=== PATIENT | male | born 2000 | race Caucasian/White ===

== ENCOUNTER 2019-11-04 13:56 | Outpatient (CLI) | payer OTHER ==
--- NOTE | 2019-11-04 15:06 | ULT ---
TESTICULAR ULTRASOUND WITH DOPPLER: HISTORY: Left testicle neoplasm. COMPARISON: None. TECHNIQUE: Dunne scale, color flow, Doppler imaging with spectral waveform analysis was performed of the left and right testicles. FINDINGS: RIGHT HEMISCROTUM: The right testicle has a homogeneous echotexture. No testicular masses. The right testicle measures 3.1 x 2.0 x 4.2 cm. Right epididymis has a normal echotexture measuring 0.9 x 0.9 cm. No significant fluid in the right hemiscrotum. LEFT HEMISCROTUM: Normal-appearing testicle is not appreciated. There is a complex echotexture mass with calcification s measuring 6.1 x 6.2 x 7.2 cm. Left epididymis is not appreciated. There is a small amount of flui d in the left hemiscrotum. TESTICULAR DOPPLER: There is vascular flow to the right testicle. IMPRESSION: Complex echotexture mass in the left hemiscrotum which is presumed to be of testicular origin. POS: [facility]
== END 2019-11-04 13:57 | disposition home or self-care (01) ==
LOC: SCSULT 13:56
PROVIDERS: ATTEND Urology
DX: D40.12 Neoplasm of uncertain behavior of left testis (principal); N50.89 Other specified disorders of the male genital organs
CPT/HCPCS: 76870; 93976

== ENCOUNTER 2019-11-08 08:30 | Outpatient (CLI) | payer OTHER ==
--- NOTE | 2019-11-08 11:03 | CT ---
EXAM: CT Chest Abd Pelvis W Con PROVIDED CLINICAL HISTORY: Testicular cancer COMPARISON: None FINDINGS: Chest: There are innumerable bilateral hypodense pulmonary nodules and masses. The largest of these measures about 4.6 cm in greatest transverse dimension at the medial aspect of the superior segment of the right lower lobe/posterior segment of right upper lobe straddling the fissure. There is no pleural fluid or pneumothorax apparent. Enlarged prevascular lymph node measuring 11 mm i n short axis. Additional conspicuous by number but not pathologically enlarged mediastinal lymph nodes. No axillary or hilar lymph node enlargement evident. Calcified lymph nodes are seen involving the right hilar region. The airway appears patent and of normal caliber. The heart, pericardium and great vessels appear unremarkable. Abdomen/pelvis: There are multiple hypodensities involving the spleen, which are primarily peripheral and wedge shape d. There is a coarse granulomatous calcification within the central aspects of the spleen as well as somewhat poorly defined round oval foci of diminished attenuation too small to definitively charac terize. There are multiple irregular, primarily peripheral and wedge-shaped areas of hypodensity involving donald th kidneys. There is a indeterminate subcentimeter hypodensity involving the right hepatic lobe (image 59 series 2). The pancreas and adrenal glands appear unremarkable. There is no bowel dilatation, inflammatory fat stranding, free fluid or lymph node enlargement within the abdomen and pelvis. Postoperative changes are seen involving the left inguinal canal and visualized left hemiscrotum. Regional major vascular structures appear unremarkable. Osseous structures: No concerning lytic or blastic lesions are evident. IMPRESSION: 1. Innumerable bilateral pulmonary nodules and masses, compatible with metastatic disease. 2. Multiple subcentimeter hepatic and splenic hypodensities, too small to definitively characterize. Metastatic lesions are not excluded. 3. Wedge-shaped, peripheral areas of diminished attenuation involving each kidney and spleen, suggest ing infarctions.
--- NOTE | 2019-11-08 11:06 | CT ---
CT BRAIN WITHOUT IV CONTRAST: HISTORY: A 19-year-old male with newly diagnosed testicular cancer. The patient had a left orchiectomy. Exam requested to evaluate for intracranial metastatic disease. FINDINGS: There is a 1.8 cm enhancing mass in the posteromedial aspect of the left cerebral hemisphere with adj acent vasogenic edema. Also noted are a 3 small enhancing lesions in the right cerebellar hemisphere measuring up to 6 mm. There is a tiny (4 mm) enhancing focus in the right frontal lobe. A tiny focus of increased enhancement is also seen in the left parietal lobe close to the vertex. No evidence of acute infarct, hemorrhage, midline shift, or abnormal extraaxial fluid collections is seen. The bony calvarium is intact. The visualized paranasal sinuses and mastoid air cells are we ll aerated. IMPRESSION: Findings are consistent with brain metastases. CODE T POS: OFF
[2019-11-08] MEDS ORDERED: Iopamidol 370 76% 100 ML VIAL ONE (14:34)
== END 2019-11-08 08:31 | disposition home or self-care (01) ==
LOC: CT 08:30
PROVIDERS: ATTEND Urology
DX: C62.92 Malignant neoplasm of left testis, unspecified whether descended or undescended (principal); R91.8 Other nonspecific abnormal finding of lung field; K76.89 Other specified diseases of liver; D73.89 Other diseases of spleen; R93.421 Abnormal radiologic findings on diagnostic imaging of right kidney; R93.422 Abnormal radiologic findings on diagnostic imaging of left kidney; R93.89 Abnormal findings on diagnostic imaging of other specified body structures
CPT/HCPCS: 70470; 71260; 74177; Q9967

== ENCOUNTER 2019-11-18 05:57 | Day surgery (SDC) | payer OTHER ==
[2019-11-17 11:47] VITALS: BMI 27.7
[2019-11-18] MEDS ORDERED: PHENYLEPHRINE-NS 100 MCG/ML 10 ML SYRINGE ONE (06:34)
[2019-11-18] MEDS ORDERED: Lidocaine 2% PF 5 ML VIAL ONE (06:46)
[2019-11-18] MEDS ORDERED: Bupivacaine PF 0.5% 30 ML VIAL ONE (06:46)
[2019-11-18] MEDS ORDERED: Lidocaine 1% w/Epinephrine 1:100K 20 ML VIAL ONE (06:46)
[2019-11-18] MEDS ORDERED: Ondansetron PF 4 MG/2 ML Vial ONE ×2 (06:56→10:02)
[2019-11-18] MEDS ORDERED: Midazolam HCl 2 mg/2 ml Vial ONE ×2 (06:59→07:15)
[2019-11-18] MEDS ORDERED: Fentanyl 100 MCG/2 ML VIAL ONE (06:59)
--- NOTE | 2019-11-18 09:14 | RAD ---
CHEST 1 VIEW: Date: 11/18/2019 INDICATION: History of MediPort placement. COMPARISON: CT of chest, abdomen, and pelvis dated 11/08/2019. FINDINGS: Bilateral pulmonary metastatic lesions are stable appearing. No pleural effusion or pneumothorax evid ent. There is a right subclavian chest wall port in place. Tip of the port catheter projects in the S VC. No pneumothorax is evident. Osseous structures reveal no acute abnormality. IMPRESSION: 1. Stable bilateral pulmonary metastatic disease. 2. New right subclavian chest wall port with tip of catheter projecting in region of SVC. No pneumot horax is demonstrated. POS: [facility]
[2019-11-18] MEDS ORDERED: PROPOFOL 200 MG/20 ML VIAL ONE (10:02)
[2019-11-18] MEDS ORDERED: Lidocaine 1% PF 5 ML VIAL ONE (10:02)
[2019-11-18] MEDS ORDERED: Dexamethasone 20 MG/5 ML VIAL ONE (10:02)
--- NOTE | 2019-11-18 10:05 | OP ---
DATE OF PROCEDURE: 11/18/2019 PREOPERATIVE DIAGNOSIS: Testicular cancer, metastatic, in need of an antineoplastic chemotherapy access. POSTOPERATIVE DIAGNOSIS: Testicular cancer, metastatic, in need of an antineoplastic chemotherapy access. PROCEDURE PERFORMED: Right subclavian vein PowerPort, low-profile. ANESTHESIA: Intravenous sedation with local of 0.5% Marcaine 30 mL mixed with 1% Xylocaine with epinephrine 20 mL, fluoroscopy used. DESCRIPTION OF PROCEDURE: The patient was taken to the operating room, where in supine position and under intravenous sedation, the chest and neck were clipped of hair, prepared with ChloraPrep and draped in routine fashion. Local anesthetic was infiltrated in the skin and subcutaneous tissue about the operative site. Infraclavicular approach used to cannulate the right subclavian vein with trocar catheter, threading the J-wire, removing the trocar catheter, making skin incision and carrying down through skin and subcutaneous tissue, creating a subcutaneous pocket, using cautery for hemostasis. Dilator and Peel-Away sheath placed over the J-wire into the superior vena cava. Dilator and J-wire removed, catheter placed through the Peel-Away sheath. Peel-Away sheath removed fluoroscopically. Tip of the catheter placed in optimal position in the superior vena cava and catheter tailored to length, connected to the MediPort. MediPort placed in subcutaneous pocket, secured with 2 interrupted suture of 3-0 Prolene, subcutaneous tissue was approximated with 3-0 Monocryl, skin with subdermal 4-0 Monocryl, and Stuckey glue applied. MediPort accessed with a Evans needle, aspirated blood, flushed with heparinized saline solution. Final fluoroscopic images revealed good MediPort placement. Job ID: [id number]
--- NOTE | 2019-11-23 12:06 | HP ---
DISCUSSION: Victor Hugo Heller is a 19-year-old male with metastatic testicular cancer, need of chemotherapy access. Dr. Brown is his oncologist. He has brain metastasis. He has starting chemotherapy and radiation. He is followed by [facility]. He states he had a syncopal episode, was examined in the family practice residency, discovered to have testicular mass, and has undergone orchiectomy. MEDICATIONS: 1. Dexamethasone 4 mg a day. 2. Hydrocodone p.r.n. pain. 3. Ibuprofen as needed. 4. Omeprazole daily. PAST SURGICAL HISTORY: Orchiectomy. PAST MEDICAL HISTORY: Metastatic testicular cancer. REVIEW OF SYSTEMS: Noncontributory. PHYSICAL EXAMINATION: VITAL SIGNS: 231 pounds, 6 feet 4 inches, 28 BMI. Blood pressure 115/85, pulse 122, temperature 94 degrees. HEAD, EARS, EYES, NOSE, AND THROAT: Unremarkable. LUNGS: Clear to auscultation. CARDIAC: Regular rate and rhythm without murmur or gallop. ABDOMEN: Soft and nontender. EXTREMITIES: Unremarkable. ASSESSMENT AND PLAN: Metastatic testicular cancer, in need of chemotherapy access. We will plan placement of a MediPort, IV sedation, local anesthesia, outpatient. He understands risks and benefits and consents. Job ID: [id number]
== END 2019-11-18 09:08 | disposition home or self-care (01) ==
LOC: SDC 05:57 → MERGE 05:57 → SDC 09:08
PROVIDERS: ATTEND Specialist
PROC: 02HV33Z Insertion of Infusion Device into Superior Vena Cava, Percutaneous Approach (ICD-10-PCS; principal; 2019-11-18)
PROC: B5181ZA Fluoroscopy of Superior Vena Cava using Low Osmolar Contrast, Guidance (ICD-10-PCS; principal; 2019-11-18)
DX: C62.90 Malignant neoplasm of unspecified testis, unspecified whether descended or undescended (principal); C79.31 Secondary malignant neoplasm of brain; Z79.899 Other long term (current) drug therapy; Z90.79 Acquired absence of other genital organ(s); Z79.52 Long term (current) use of systemic steroids
CPT/HCPCS: 71045; C1788; J0690; J1100; J1642; J2001; J2250; J2405; J2704; J3010; S0020

== ENCOUNTER 2019-11-22 08:40 | Inpatient (IN) | payer OTHER ==
[2019-11-22] MEDS ORDERED: Ondansetron PF 4 MG/2 ML Vial ONE (09:16)
[2019-11-22 09:30] LABS: Hemoglobin 8.4 g/dL (14.0-18.0); Mean Corpuscular HGB CONC 33.3 g/dL (32.0-36.0); Mean Corpuscular Hemoglobin 27.1 pg (27.0-31.0); Mean Corpuscular Volume 81.5 fL (78.0-98.0); Mean Platelet Volume 7.9 fL (7.4-10.4); Platelet Count 181 thou/uL (130-400); White Blood Cell (WBC) Count 29.2 thou/uL (4.8-10.8)
[2019-11-22 09:32] LABS: INR-International Normal Ratio 1.1; Prothrombin Time 13.9 SEC (12.0-14.7)
--- NOTE | 2019-11-22 09:33 | CT ---
Head CT without contrast 11/22/2019: COMPARISON: 11/08/2019 HISTORY: Metastatic testicular cancer, history of intracranial metastatic disease, worsening left-florence ed weakness, blurred vision TECHNIQUE: Axial CT imaging at 5 mm intervals from vertex through skull base without contrast FINDINGS: Imaged paranasal sinuses and mastoid air cells are well-aerated. No displaced calvarial fra cture. There is a hemorrhagic lesion within the occipital lobe posteriorly on the left measuring 3 cm with s ignificant surrounding vasogenic edema. This lesion has grown when compared to the prior study at which time it measured approximately 1.8 cm. There is a small hyperdense hemorrhagic lesion within th e right frontal region on image 24 measuring 4 mm, stable. 2-3 new foci of intra-axial hemorrhage noted in the posterior left frontal lobe near the vertex with prominent surrounding vasogenic edema. This includes a hemorrhagic lesion measuring 2 cm on axial image 22. A second hemorrhagic focus is noted posterior to this on image 22 measuring 1.6 cm. There m ay be a third lesion further superiorly on axial image 26 within the left frontal region. There is a hemorrhagic lesion within the right posterior parietal lobe measuring 1.7 cm which appears new when compared to the prior exam. The prior study demonstrated multiple small lesions within the right cerebellar hemisphere. On this e xamination disease within the right cerebellar hemisphere is more conspicuous, with significant vasogenic edema and a underlying hemorrhagic lesion measuring at least 1.7 cm on axial image 11, prev iously measuring in the 5-6 mm range. There is a subtle hypodense lesion within the left cerebellar hemisphere measuring 7 mm, not discrete ly visualized on the prior exam. Secondary to the intracranial metastatic disease and associated vasogenic edema on the left there is left to right midline shift which measures approximately 5-6 mm at the axial level of the third ventricle. IMPRESSION: Interval progression of hemorrhagic intracranial metastatic disease with interval enlarge ment and/or development of intracranial hemorrhagic metastatic disease as described above. The degree of vasogenic edema on the left results in left to right midline shift as detailed above. Results discussed with Dr. Andrew at approximately 9:22 AM 11/22/2019.
[2019-11-22] MEDS ORDERED: Dexamethasone 10 MG/ML VIAL ONE (09:34)
[2019-11-22 09:38] LABS: PTT 21.7 SEC (22.9-36.1)
[2019-11-22 09:44] LABS: ALT (SGPT) 50 U/L (8-55); AST (SGOT) 46 U/L (5-34); Albumin 3.2 g/dL (3.5-5.0); Alkaline Phosphatase 84 U/L (40-110); Anion Gap 15 mmol/L (10-20); BUN (Urea Nitrogen) 28 mg/dL (8.9-20.6); Bilirubin, Total 0.7 mg/dL (0.2-1.2); Calc. Creatinine Clearance 0 mL/min (70-130); Calcium 8.4 mg/dL (7.8-10.44); Carbon Dioxide 19 mmol/L (22-29); Chloride 104 mmol/L (98-107); Estimated GFR-MDRD Greater than 90; Globulin 2.4 g/dL (2.4-3.5); Glucose 119 mg/dL (70-105); Potassium 3.5 mmol/L (3.5-5.1); Protein, Total 5.6 g/dL (6.0-8.3); Sodium 134 mmol/L (136-145)
[2019-11-22 09:48] LABS: Band 11 % (5-11); Lymphocytes 17 % (21-51); MDiff Complete? YES; Metamyelocyte 3 % (0-0); Monocytes 9 % (0-10); Myelocyte 3 % (0-0); Neutrophil 57 % (42-75); Platelet Morphology Comment Appears Adequate; Polychromasia SLIGHT = 2-3 cells (100X) (0-2/hpf)
--- NOTE | 2019-11-22 11:14 | PDOC.FPRHP ---
- History of Present Illness Chief Complaint: left sided weakness History of Present Illness: Vitcor Hugo Heller is a 19 year old M with PMH of recently diagnosed left testicular cancer s/p orchietomy who presents to the ED after onset of left upper extremity weakness and nausea. Was diagnosed with testicular cancer in late october after noticing left testicular enlargement over the last 2 months. He had orchietomy performed in early November. Had associated weakness and hemoptysis /chronic cough over the last month. CT from early November showed metastatic disease with numerous nodules in lung as well as lesions in brain/liver/spleen. He had right subclavian vein port placement on about 5 days ago. He has been taking dexamethasone 4 mg q6hr at home. He has been seen by Dr. Brown and was at his office this morning when left upper extremity weakness began. He went to ED where CT brain was performed showing interval progression of hemorrhagic intracranial metastatic disease with interval enlargement L to R midline shift due to vasogenic edema. In the ED, he was given zofran for nausea, decadron and 1 L NS. Neurosurgery PA was consulted from ED as well as Dr. Brown, Onc. - Allergies/Adverse Reactions Allergies Allergy/AdvReac Type Severity Reaction Status Date / Time No Known Allergies Allergy Verified 11/17/19 11:47 - Home Medications Medication Instructions Recorded Confirmed Type Dexamethasone 4 mg PO Q6HR 11/17/19 11/17/19 History HYDROcodone Bit/APAP 10/325 [[place] 1 tab PO Q6HR PRN 11/17/19 11/17/19 History 10/325] Ibuprofen 800 mg PO QID PRN 11/17/19 11/17/19 History Omeprazole 20 mg PO DAILY 11/17/19 11/17/19 History - History PMHx: left testicular cancer s/p orchiectomy PSHx: left orchiectomy, right subclavian vein port placement FHx: none Social: denies smoking, drug, alcohol use - Review of Systems General: denies: fever/chills, weight/appetite/sleep changes Eyes: denies: eye pain, vision changes ENT: denies: nasal congestion, rhinorrhea Respiratory: reports: cough. denies: congestion, shortness of breath Cardiovascular: denies: chest pain, palpitation, edema Gastrointestinal: reports: nausea. denies: vomiting, diarrhea, constipation, abdominal pain Genitourinary: denies: dysuria, polyuria Skin: denies: rashes, lesions Musculoskeletal: denies: pain, tenderness, stiffness Neurological: reports: weakness. denies: numbness, syncope Psychological: denies: anxiety, depression - Vital signs BP: 132/82 HR: 108 RR: 16 Tmax: 98.2 Pox: 98% on 2L Wt: 105 kg - Physical Exam Constitutional: NAD, awake, alert and oriented, well developed HEENT: normocephalic and atraumatic, PERRLA, EOMI, conjunctiva clear, no scleral icterus, grossly normal vision, grossly normal hearing, MMM Neck: supple, FROM, trachea midline Chest: no-tender to palpation, no lesions Heart: normal S1/S2, no murmurs/rubs/gallops -Heart: regular rhythm, tachycardia Lungs: CTAB, no respiratory distress, good air movement, no rales/rhonchi Abdomen: soft, non-tender, bowel sounds present Musculoskeletal: normal structure, normal tone, ROM grossly normal Neurological: CN II-XII intact, normal sensation -Neurological: 4/5 strength in L UE, 5/5 in right UE, right and left LE Skin: no rash/lesions, capillary refill <2 seconds Heme/Lymphatic: no unusual bruising or bleeding, no purpura, no petechia Psychiatric: normal mood and affect, good judgment and insight, intact recent and remote memory FMR H&P: Results - Labs Result Diagrams: 11/22/19 09:05 11/22/19 09:05 Lab results: WBC 29.2 thou/uL (4.8-10.8) H 11/22/19 09:05 Hgb 8.4 g/dL (14.0-18.0) L 11/22/19 09:05 Hct 25.2 % (42.0-52.0) L 11/22/19 09:05 MCV 81.5 fL (78.0-98.0) 11/22/19 09:05 Plt Count 181 thou/uL (130-400) 11/22/19 09:05 Band Neuts % (Manual) 11 % (5-11) 11/22/19 09:05 Sodium 134 mmol/L (136-145) L 11/22/19 09:05 Potassium 3.5 mmol/L (3.5-5.1) 11/22/19 09:05 Chloride 104 mmol/L (98-107) 11/22/19 09:05 Carbon Dioxide 19 mmol/L (22-29) L 11/22/19 09:05 BUN 28 mg/dL (8.9-20.6) H 11/22/19 09:05 Creatinine 0.69 mg/dL (0.7-1.3) L 11/22/19 09:05 Glucose 119 mg/dL (70-105) H 11/22/19 09:05 Calcium 8.4 mg/dL (7.8-10.44) 11/22/19 09:05 Total Bilirubin 0.7 mg/dL (0.2-1.2) 11/22/19 09:05 AST 46 U/L (5-34) H 11/22/19 09:05 ALT 50 U/L (8-55) 11/22/19 09:05 Alkaline Phosphatase 84 U/L (40-110) 11/22/19 09:05 Serum Total Protein 5.6 g/dL (6.0-8.3) L 11/22/19 09:05 Albumin 3.2 g/dL (3.5-5.0) L 11/22/19 09:05 - EKG Interpretation EKG: Sinus tachycardia, no ST changes - Radiology Interpretation CT scan - head Status: image reviewed by me, report reviewed by me (interval progression of hemorrhagic intracranial metastatic disease with interval enlargement L to R midline shift due to vasogenic edema) FMR H&P: A/P - Problem List (1) Testicular malignant neoplasm Current Visit: Yes Status: Acute Code(s): C62.90 - MALIG NEOPLASM OF UNSP TESTIS, UNSP DESCENDED OR UNDESCENDED (2) Acute intracranial hemorrhage Current Visit: Yes Status: Acute Code(s): I62.9 - NONTRAUMATIC INTRACRANIAL HEMORRHAGE, UNSPECIFIED (3) Metastasis to brain Current Visit: Yes Status: Acute Code(s): C79.31 - SECONDARY MALIGNANT NEOPLASM OF BRAIN - Plan 1) Acute intracranial hemorrhage: due to metastatic testicular cancer - s/p decadron 10 mg IV given in ED - symptoms/strength improving since arriving to ED - neuro checks q2hr - CT brain as above, interval progression - Brain MRI with contrast ordered - stroke team/PT/OT consulted - Neurosurgery consulted, appreciate recs - Oncology consulted, appreciate recs - fall precautions - will monitor symptoms closely, admit to IMCU 2) testicular cancer: s/p L orchietomy - Dr. Brown consulted - multiorgan metastasis Code Status: FULL CODE PCP: [facility]
[2019-11-22] MEDS ORDERED: Acetaminophen 325 MG TAB PO PRN (12:08)
[2019-11-22 13:29] LABS: Mean Corpuscular HGB CONC 32.5 g/dL (32.0-36.0); Mean Corpuscular Hemoglobin 26.7 pg (27.0-31.0); Mean Platelet Volume 7.9 fL (7.4-10.4); Platelet Count 189 thou/uL (130-400); RBC Distribution Width 15.1 % (11.5-14.5); White Blood Cell (WBC) Count 28.5 thou/uL (4.8-10.8)
--- NOTE | 2019-11-22 13:33 | PDOC.PALCO ---
Palliative Care Consult - Consult Details Reason for Consult: assistance with communication prognosis/disease, family support, complex decision-making Family Members Present: Patient mother, dad, and grandfather - Pertinent HPI No significant past medical history. Patient states he had a 20 lb weight loss that was rapid prior to diagnosis of testicular cancer. He was initially diagnosed in late Oct 2019 with left testicular cancer s/p orchietimy. Nausea and hemoptysis over the past month. CT in early November identified lung metastatic disease with multiple nodules as well as in the brain/liver/spleen. Patient was in the oncology clinic today when onset of weakness and nausea, sent to the emergency room for evaluation. CT in emergency room today identified hemorrhagic intracranial metastasis with left to right midline shift secondary to vasogenic edema. Lives at home with parents, able to fully participated in all ADL, - Pertinent PMH Benign other than left testicular cancer with mets - Social History Smoking Status: Never smoker Smoking: no tobacco exposure Alcohol Use: none Drug Use History: none Living Situation: other (private home with parents) - Medications MAR Reviewed: Yes - Allergies Allergies/Adverse Reactions: Allergies Allergy/AdvReac Type Severity Reaction Status Date / Time No Known Allergies Allergy Verified 11/17/19 11:47 - Subjective Awake, alert. No specific complaints other than weakness. - ROS Constitutional: alert, weakness, weight changes Eyes: other (negative for vision changes) ENT: other (negative for difficulity swallowing, congestion) Respiratory: other (negative for cough, shortness of breath.) Cardiology: other (negative for palpitations, chest pain) Gastrointestinal: other (fluctuating nausea, absent at time of assessment. Denies constipation, diarrhea) Genitourinary: other (negative for dysuria, frequency, hematuria) Musculoskeletal: other (negative for pain or altered mobility) Neurological: dizziness, other (denies changes in ability to smell or speech pattern) Skin: other (negative for lesions, puritis, rash) Psychological: other (negative for depression, anxiety) - Objective Palliative Performance Scale: 50 - Physical Exam Constitutional: NAD, ill appearing HEENT: EOMI, moist MMs, sclera anicteric Respiratory: unlabored breathing Cardiovascular: RRR Gastrointestinal: continent, soft, non-tender, no distention, positive bowel sounds Genitourinary: continent Musculoskeletal: no cyanosis, no clubbing, no edema, pulses present Neurology: moves all 4 limbs Skin: cap refill <2 seconds Deviation from normal: Pallor Psychiatric: A&O x 3, normal affect, normal mood - Problem List (1) Palliative care encounter Code(s): Z51.5 - ENCOUNTER FOR PALLIATIVE CARE Current Visit: Yes Status: Acute (2) Acute intracranial hemorrhage Code(s): I62.9 - NONTRAUMATIC INTRACRANIAL HEMORRHAGE, UNSPECIFIED Current Visit: Yes Status: Acute (3) Metastasis to brain Code(s): C79.31 - SECONDARY MALIGNANT NEOPLASM OF BRAIN Current Visit: Yes Status: Acute (4) Testicular malignant neoplasm Code(s): C62.90 - MALIG NEOPLASM OF UNSP TESTIS, UNSP DESCENDED OR UNDESCENDED Current Visit: Yes Status: Acute - Plan/Recommendations Plan: Met with patient and family in the emergency room prior to admission to [facility]. Recent diagnosis of Testicular CA with mets. Patient and family provided general overview of recent diagnosis. Patient lives in a private home with his parents here in in [place]. Enjoys hunting and caught his first [place] deer this past fall. Also enjoys riding motorcycles with his dad. He is the youngest of 4 and the only son, 3 older sisters. Patient and family is hoping to start any treatment to treat/palliate cancer as soon as possible and desire all aggressive measures. Discussed Palliative Care is here to support patient and family, and as needed will assist with goals of care and assistance with any complex decision making. Discussed with Dr Taylor and Dr Cordoba, communicated with Dr Brown patient location. [70] minutes spent on this encounter with >50% of the time in counseling and coordination of care. Thank you for this very appropriate consult.
[2019-11-22 13:48] LABS: Lactic Acid 2.8 mmol/L (0.5-2.2)
[2019-11-22] MEDS ORDERED: Magnevist 469MG/ML 20 ML VIAL ONE (13:49)
[2019-11-22] MEDS ORDERED: Dexamethasone 4 mg/ml Vial SLOW IVP SCH (15:00)
--- NOTE | 2019-11-22 16:03 | CON ---
DATE OF CONSULTATION: 11/22/2019 REASON FOR CONSULTATION: IMCU placement. HISTORY OF PRESENT ILLNESS: This is a 19-year-old male, who has recently been diagnosed with testicular cancer with metastasis to his lungs, liver, spleen, and brain. He was told last David that he had intracranial hemorrhage. He was not having any symptoms. Today, he had either an absent seizure or acute neurologic deficit secondary to the hemorrhage. He was supposed to have his first radiation treatment, but that was aborted and he was sent to the emergency room for further evaluation. He was given a dose of steroids and has so far recovered all neurologic function. He states that he has not started chemotherapy yet. PAST MEDICAL HISTORY: Remarkable for left testicular cancer. The pathology results are not available for review at this time. PAST SURGICAL HISTORY: 1. Left orchiectomy. 2. Right subclavian port placement. FAMILY HISTORY: Unremarkable. SOCIAL HISTORY: Nonsmoker, nondrinker. Works at the [employer]. REVIEW OF SYSTEMS: Remarkable for left-sided weakness, which is resolved. He also has had some intermittent hemoptysis. PHYSICAL EXAMINATION: VITAL SIGNS: Temperature 98.4, pulse 130, O2 saturation 100% on 2 L, and respiratory rate 18. GENERAL: He is awake, alert, fully oriented, in no distress. HEENT: Pupils are reactive. Sclerae are anicteric. Oropharynx is clear. NECK: No adenopathy or JVD. LUNGS: Clear. CARDIAC: S1 and S2 regular without murmur. ABDOMEN: Soft. EXTREMITIES: No edema. LABORATORY DATA: White blood cell count 28.5, hematocrit 24.6, and platelet count 189. INR 1.1. Sodium 134, potassium 3.5, BUN 28, creatinine 0.6, glucose 119, and lactate 2.8. IMAGING DATA: Brain CT shows interval progression of brain hemorrhage and the intracranial metastatic disease from the testicular cancer. ASSESSMENT: Metastatic testicular cancer with brain lesions and hemorrhage. RECOMMENDATIONS: This is an Oncology/Neurosurgery issue. We will keep the patient on steroids. He likely needs intracranial radiation and chemotherapy as soon as possible. Job ID: [id number]
[2019-11-22] MEDS: Sodium Chloride 0.9% 1,000 ML IV SCH ×2 (16:21→21:21)
--- NOTE | 2019-11-22 16:22 | MRI ---
MRI brain without and with IV contrast HISTORY: CVA. Metastatic disease. COMPARISON: CT brain 11/22/2019. FINDINGS: An irregular focus of restricted diffusion within the posterior inferior aspect of the left cerebellar hemisphere is 1.0 cm greatest diameter. A 0.5 cm focus of restricted diffusion is present within the right posterior frontal deep white matter. At least 10 additional tiny foci, none larger than 0.2 cm, are scattered throughout each cerebral hemisphere, predominantly at or near the hinton-white junction. No abnormal enhancement is associated with these areas of acute infarct. Blooming artifact, as seen as hyperdense blood on the recent CT, is associated with multiple predomin antly peripherally enhancing masses throughout each cerebral hemisphere and the right cerebellum. Within the posterior aspect of the right cerebellar hemisphere, vasogenic edema surrounds 3 periphera lly enhancing masses that measure 1.4 cm, 1.3 cm, and 1.1 cm greatest diameters. A 0.8 cm enhancing lesion is present at the posterior cortex of the right occipital lobe, abutting the surface with enha ncement of the adjacent dura. Within the left occipital lobe, a heterogeneous peripherally enhancing mass surrounded by vasogenic edema is 3.1 cm x 3.0 cm greatest diameters on the axial image s. A 0.7 cm lesion is present near the hinton-white junctions posterior aspect of the right frontal lobe. The largest lesion is at the left parietal lobe, with large amount of vasogenic edema surrounding a h eterogeneously enhancing and hemorrhagic mass. The enhancement measures up to 4.3 cm length by 2.8 cm width. The mass effect and edema result in rightward shift of the septum pellucidum by 0.7 cm. IMPRESSION: Both hemorrhagic metastatic foci and very small areas of acute infarct are present. The small foci of infarct involves each cerebral hemisphere and the left cerebellar hemisphere. Large st measures up to 1.0 cm. Likely a showering process from a central source.. Large bilateral hemorrhagic metastatic lesions, with surrounding vasogenic edema and shift of the sep morenita pellucidum, correlating with the CT findings.
[2019-11-22 16:33] LABS: Bacteria/HPF None Seen HPF (None Seen); Bilirubin Negative (Negative); Blood, Urine 2+ (Negative); Clarity Clear (Clear); Glucose, Urine (Dipstick) 200 mg/dL (Negative); Leukocyte Negative Leu/uL (Negative); Nitrite Negative (Negative); Protein, Urine (Dipstick) 20 mg/dL (Neg-Trace); RBC/HPF 21-50 HPF (0-3); Squamous Epithelial None Seen HPF (0-3); Urobilinogen Normal mg/dL (Less than 2)
--- NOTE | 2019-11-22 16:59 | CON ---
DATE OF CONSULTATION: HISTORY OF PRESENT ILLNESS: Mr. 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 He has already had an orchiectomy and a chemotherapy port placed last week, who presents today with sudden onset of acute nausea, vomiting, dizziness, and right upper extremity arm weakness, really diffuse weakness he reports as does family, but more significant on the right. For this reason, CT scan of the brain was performed. This reveals diffuse metastatic disease in bilateral hemispheres as well as bilateral cerebellar hemispheres, most significant to the left occipital lobe. There is also a new hemorrhagic region in the left, mostly frontal with some extension into the parietal lobe metastatic lesion. For this purpose, he was started on Decadron and this has improved his symptoms substantially. However, he still appears quite ill and has more so generalized weakness pupils are equal, round, and reactive to light. Extraocular movements are intact. Bilateral upper and lower extremity movements are grossly intact, though again diffusely weak. He is antigravity in all extremities in all movements. The patient was to see his oncologist, Dr. Brown today for discussion about starting chemotherapy treatments and initiation of radiation treatments for the symptoms onset, so he is yet to receive any form of oncologically directed treatment for his cancer diagnosis. From Neurosurgery standpoint, these diffuse masses represent nonsurgical management and we will ultimately defer to both Radiation and Medical Oncology for further management and guidelines for all purposes. We will be following along for new hemorrhage and repeat scan this evening around 6 p.m. Blood pressure will need to be maintained below 160 systolic. He will need q.4 hour neuro checks. We would also recommend continuing the Decadron 4 mg t.i.d. with some type of GI prophylactic agent such as Protonix. Job ID: [id number]
[2019-11-22] MEDS: Ondansetron PF 4 MG/2 ML Vial IVP PRN (18:32)
[2019-11-22] MEDS: levETIRAcetam 500 MG TAB PO SCH (21:20)
[2019-11-22] MEDS: Pantoprazole 40 MG VIAL IVP SCH (21:20)
--- NOTE | 2019-11-22 21:42 | CT ---
CT BRAIN WITHOUT CONTRAST: Indication: History of intracranial hemorrhagic metastatic disease. Comparison: 11-22-2019, 11-08-2019 FINDINGS: The hemorrhagic metastatic lesion with surround vasogenic edema involving the left frontal parietal c onvexity is largely stable appearing. The larger 3 cm hemorrhagic lesion seen within the left parital occipital lobe is stable appearing. Moderate vasogenic edema surrounding this lesion is stable appea ring. Right to left midline shift is 6 mm, stable appearing. Small hemorrhagic metastatic lesion invo lving the right occipital region is stable appearing. The lesion involving the right cerebellar hemis phere is stable appearing. A small infarct involving the left inferior cerebellum is stable appearing . Small hemorrhagic focus involving the right frontal convexity is stable appearing. No hydrocephalus is noted. Mastoid air cells and paranasal sinuses are clear. IMPRESSION: 1. Stable scattered hemorrhagic intracranial metastatic lesions. The patient's known scattered cerebr al cortical infarctions involving both cerebral hemispheres are not as well as seen as on the MRI exa mination performed earlier at 2:45 p.m. There is an acute infarct involving the inferior aspect of th e left cerebellum. 2. Stable left to right midline shift is 6 mm. POS: BH
--- NOTE | 2019-11-22 22:24 | CON ---
DATE OF CONSULTATION: 11/22/2019 REASON FOR CONSULTATION: Mr. 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 I was asked to see him to discuss his options with radiation. HISTORY OF PRESENT ILLNESS: Apparently, Mr. Heller had some swelling in the testicle beginning late August. This did enlarge over couple of months and in October , he went for medical attention. Apparently, he did have 1 episode of temporarily not being able to move his arms. On 11/05/2019, he underwent a left radical orchiectomy. 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 The tumor measured 8 cm in size. His tumor markers postoperatively revealed an alpha fetoprotein of 7.7, beta HCG of 511,834, and an LDH of 1097. Surgical resection margins were negative. He subsequently saw Dr. Brown and underwent a CT scan of the head as well as a CT scan of the chest, abdomen, and pelvis. The CT scan of the head showed a 1.8 cm lesion in the left occipital lobe with as well as several other small brain metastasis. The CT of the chest, abdomen, and pelvis showed numerous lesions in the lung consistent with metastasis with large lesion measuring 4.6 cm. There were multiple hypodensities in the spleen as well as multiple irregular hypodensities involving the kidneys. There was an indeterminate lesion in the right hepatic lobe. Subsequently last week, he underwent an MRI of the brain down at [facility]. This showed the lesion in the occipital lobe to measure 2.6 cm. There was some evidence of internal hemorrhage. There were numerous other lesions and felt to be at least 12 brain metastasis. Most of the lesions were of small size. There was some surrounding vasogenic edema. In the left posterior parietal lobe, there was a 3 x 2 cm focus of hemorrhage. There were several enhancing lesions in the right cerebellar hemisphere. Again, there was surrounding vasogenic edema, but no midline shift noted. He has been on dexamethasone 4 mg every 6 hours. Apparently over the past week, he has had episodes of being more lethargic as well as some headaches. This morning, he was to be seen in my office for consideration of radiation therapy and when he presented here, he had an episode of vomiting as well as headache. He also complained of left arm numbness and not being able to move his left arm. He was subsequently taken by EMS to the emergency room where he underwent a CT scan of the head, which showed some increased vasogenic edema as well as midline shift. Again, he had the evidence of hemorrhage. There were numerous lesions. He was given increased dose of steroids in the emergency room, which led to improvement in his symptoms. His left arm weakness is much better. He still was having episodes of being lethargic. He has not had any vomiting and did eat lunch. However, he still has headaches at times. He has also been having more issues with shortness of breath over the past several weeks as well. He has no pain other than his headaches. He voices no other complaints. PAST MEDICAL HISTORY: 1. Testicular cancer status post orchiectomy as mentioned above. 2. He denies other medical surgical problems. MEDICATIONS: 1. Dexamethasone. 2. [place]. 3. Ibuprofen p.r.n. 4. Omeprazole. ALLERGIES: NO KNOWN MEDICAL ALLERGIES. SOCIAL HISTORY: He has been living at home with his mother and father. He has no cigarette, alcohol, or drug use. FAMILY HISTORY: His mother and father are both living with no evidence of malignancy. There is no family history of testicular cancer. REVIEW OF SYSTEMS: A 12-point review of systems is otherwise negative. PHYSICAL EXAMINATION: VITAL SIGNS: Height 6 feet 4 inches, weight 223 pounds, blood pressure is 122/ 75, pulse is 142, respirations are 23, temperature is 98.4, O2 saturation is 97% on 2 L O2. GENERAL: He is alert and oriented, but does have some lethargy. Karnofsky performance status is in 80%. EYES: Pupils are equal, round, and reactive to light. Extraocular movements are intact. ENT: Oral cavity and oropharynx normal without lesion or erythema. Palate elevates symmetrically. Gingiva is intact. NECK: Supple without cervical or supraclavicular adenopathy. No thyromegaly. Larynx midline. LUNGS: Breathing nonlabored. Clear to auscultation and percussion. CARDIOVASCULAR: Heart is tachycardic without murmur. No lower extremity edema. LYMPHATIC: No axillary or inguinal adenopathy. ABDOMEN: Bowel sounds present. Soft, nontender, nondistended without mass or hepatosplenomegaly. Liver percusses to normal size. NEUROLOGIC: Cranial nerves 2 through 12 are grossly intact. Motor strength is 5/5 in both upper and lower extremities in all muscle groups tested except for the left upper extremities. [employer] Resources Intern strength is a 4/5. Gait was not tested. LABORATORY DATA: Pathology showed a mixed germ cell tumor, which was 90% choriocarcinoma. His beta HCG was elevated at 511,834. His LDH was elevated at 1097. CBC [place] [address] with a hemoglobin of 8.0, hematocrit of 24.6, and platelet count 189,000. Chemistry group showed an albumin of 3.2. Creatinine is 0.69. DIAGNOSTIC DATA: Radiologic: His CT scan of the head and CT scan of the chest, abdomen, and pelvis, which were his initial staging as well as his CT scan of the head performed this morning and his MRI of the brain from this morning were personally reviewed. He did have an MRI of the brain at [facility] last week, which I was able to review only by report. Again, he has numerous brain lesions. He also has an area of hemorrhage likely from his brain metastasis in the left parietal lobe. A surrounding vasogenic edema with some midline shift. He has numerous lung metastasis. ASSESSMENT: Mr. 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 Unfortunately, he is symptomatic from both lesions. The lesions in the brain have shown some evidence of hemorrhage. PLAN: I have discussed the case with Dr. Brown. I would recommend increasing his dexamethasone to 8 mg q.6 hours for at least the next several days. Hopefully, we can try and improve his vasogenic edema. Neurosurgery is going to see the patient, although I am not sure that there is much that they can offer at this point unless his hemorrhage becomes substantially worse. I think his best option is going to be with radiation therapy. Again, I have discussed the case with Dr. Brown. Unfortunately, we see no other options but to give him whole-brain radiation therapy and chemotherapy somewhat concurrently. The problem is he is symptomatic both from the brain and the lungs. The other problem is his cancer does appear to be rapidly growing. The feeling is that if we treat his brain first and hold off on chemotherapy then he will become more symptomatic or potentially from his lung lesions. If we start him on chemotherapy and hold off on his brain radiation and he would potentially from his brain metastasis. This could cause some increased side effects, and this was discussed with the patient and his family. I made the recommendation that he be treated with radiation therapy. The logistics of radiation as well as the benefits and risk of treatment were discussed. The simulation and daily treatment procedure were discussed. Side effects would include, but not be limited to skin reaction, fatigue, lower blood counts, hair losses maybe permanent, headache, nausea, vomiting, fluid behind the eardrums, and long-term affects on cognition, which could cause memory decline. I explained that this may be worse, because of him getting concurrent therapy, but that we see little other options at this point. I would recommend that he take Namenda while on the radiation therapy to try and help with any cognitive issues. Dr. Brown will initiate chemotherapy after I have initiated the radiation. My plan is to try and initiate his radiation therapy tomorrow in the morning. Both the patient and his family are agreeable with that option. I am going to start the patient on Keppra in case some of these episodes have been related to seizure activity. Thank you for this interesting consultation. Job ID: [id number] [facility]
--- NOTE | 2019-11-22 23:11 | CON ---
DATE OF CONSULTATION: REASON FOR CONSULTATION: Testicular cancer. HISTORY OF PRESENT ILLNESS: A 19-year-old male, with metastatic testicular cancer, presenting to the hospital after an episode of altered mental status, left-sided weakness, and vomiting this morning. The patient was diagnosed with testicular cancer on November [address] scan for staging that showed innumerable lung METS, liver and spleen METS, and a CT brain and MRI that showed multiple hemorrhagic brain metastases. The patient has had MediPort placed and was due to see Dr. Palencia today to discuss whole-brain radiotherapy. Upon presentation to the clinic in the waiting room, he began throwing up, being unable to move his left arm and was very altered and very tachycardic with a heart rate up to 180. He is saturating 90% on room air. 911 was called and he was sent to the hospital. Upon presentation to the hospital, he received 10 mg of IV dexamethasone and within an hour his symptoms mostly resolved. He had a CT brain without contrast in the ER that showed interval progression of his hemorrhagic intracranial metastatic disease and has since also had a brain MRI that confirms the same findings. Currently, the patient has strength back in his left upper extremity and neurologic exam is mostly nonfocal. He was able to eat lunch and kept this down without any further emesis. The patient had some weakness and nausea over the weekend as well. I had a long discussion with Dr. Palencia and the family at the bedside. REVIEW OF SYSTEMS: Ten-point review of systems negative except as per HPI. PAST MEDICAL HISTORY: Testicular cancer. PAST SURGICAL HISTORY: Left orchiectomy and MediPort placement. SOCIAL HISTORY: No smoking. Rare alcohol use. FAMILY HISTORY: Breast cancer in his maternal grandmother. ALLERGIES: NO KNOWN DRUG ALLERGIES. CURRENT MEDICATIONS: Reviewed. PHYSICAL EXAMINATION: VITAL SIGNS: Temperature 98.4, saturating 100% on 2 L by nasal cannula, blood pressure 122/75, pulse rate ranging 120-130. GENERAL APPEARANCE: The patient is lying in bed, in no acute distress. HEENT: Normocephalic and atraumatic. CARDIAC: Tachycardia. No murmurs, rubs, or gallops. In regular rhythm. LUNGS: Clear to auscultation bilaterally without any wheezing, rales, or rhonchi. ABDOMEN: Soft, nondistended, and nontender. NEUROLOGIC: Strength is 5/5 in all extremities. Cranial nerves 2-12 are grossly intact. PSYCHIATRIC: Awake, alert, and oriented x3. LABORATORY DATA: White blood cells 28.5, hemoglobin 8.0, platelets 189. Sodium 134, potassium 3.5, BUN 28, creatinine 0.69, lactic acid 2.8, AST 46, ALT 50, ALP 84. IMAGING DATA: MRI brain shows multiple brain mets along with vasogenic edema and mass effect with rightward shift along with very small areas of acute infarct. ASSESSMENT AND PLAN: A 19-year-old male with stage IIIC testicular cancer with metastases to the brain, lungs, liver, and spleen. The patient had an acute neurologic episode, intentionally a seizure and requires urgent treatment of his brain lesions and systemic disease. He has a very aggressive tumor with 90% choriocarcinoma that has dramatically spread even within the last week with further progression of disease. Standard treatment is chemotherapy with either whole-brain radiation before or after; however, given his extremely aggressive disease and rapid progression, Dr. Palencia and myself feel that he would most benefit from a concurrent approach starting with whole-brain radiation tomorrow and chemotherapy to start on Friday. Initial plan of bleomycin, cisplatin, and etoposide will likely be changed to ifosfamide, cisplatin, and etoposide given his extensive lung disease, his bleomycin does have pulmonary toxicity. I have discussed this with the patient and his family. If the patient is stable tomorrow or Friday, would also like to get a bone scan which he has not had in the past given some of his immature forms seen in his peripheral blood is suggestive of some bone marrow involvement, which may be from lesions in the bone. We will follow along closely with you. Job ID: [id number]
[2019-11-23] MEDS: Ondansetron PF 4 MG/2 ML Vial IVP PRN ×2 (00:09→06:11)
[2019-11-23] MEDS: Acetaminophen 500 MG TAB PO PRN ×2 (00:10→06:11)
[2019-11-23 04:31] LABS: Anion Gap 12 mmol/L (10-20); BUN (Urea Nitrogen) 18 mg/dL (8.9-20.6); Calc. Creatinine Clearance 283 mL/min (70-130); Calcium 8.2 mg/dL (7.8-10.44); Carbon Dioxide 22 mmol/L (22-29); Chloride 104 mmol/L (98-107); Estimated GFR-MDRD Greater than 90; Glucose 115 mg/dL (70-105); Potassium 4.5 mmol/L (3.5-5.1); Sodium 133 mmol/L (136-145)
[2019-11-23 05:33] LABS: Band 14 % (5-11); Lymphocytes 20 % (21-51); MDiff Complete? YES; Mean Corpuscular HGB CONC 32.9 g/dL (32.0-36.0); Mean Corpuscular Volume 82.2 fL (78.0-98.0); Mean Platelet Volume 8.3 fL (7.4-10.4); Monocytes 8 % (0-10); Myelocyte 6 % (0-0); Neutrophil 52 % (42-75); Platelet Count 151 thou/uL (130-400); RBC Distribution Width 15.3 % (11.5-14.5); Red Blood Cell (RBC) Count 2.57 mill/uL (4.70-6.10)
[2019-11-23] MEDS: Sodium Chloride 0.9% 1,000 ML IV SCH ×2 (06:11→09:56)
--- NOTE | 2019-11-23 06:42 | PDOC.FM ---
- Subjective Subjective: Overnight did well, no acute events. Neurologic sxs improved with increased strength and no seizure-like activity. No n/v, fever/chills, CP, SOB. Eagerly awaiting radiation today. Parents at beside. In good spirits. - Objective MAR Reviewed: Yes Vital Signs & Weight: Vital Signs (12 hours) Temp Pulse Ox 11/23/19 04:00 98.4 F 11/23/19 02:44 97.8 F 11/23/19 00:15 99.2 F 11/22/19 20:00 98.0 F 99 Weight Weight 103.164 kg Most Recent Monitor Data Heart Rate from ECG 111 NIBP 131/62 NIBP BP-Mean 85 Respiration from ECG 19 SpO2 94 I&O: 11/21/19 11/22/19 11/23/19 06:59 06:59 06:59 Intake Total 1393 Output Total 1700 Balance -307 Result Diagrams: 11/23/19 03:30 11/23/19 03:30 Phys Exam - Physical Examination Constitutional: NAD (resting comfortably, good spirits) HEENT: moist MMs Neck: supple Respiratory: no wheezing, no rales, no rhonchi, clear to auscultation bilateral Cardiovascular: RRR, no significant murmur, no rub Gastrointestinal: soft, non-tender, no distention, positive bowel sounds Musculoskeletal: no edema 4/5 strength on LUE as compared to RUE Neurological: non-focal, normal sensation, moves all 4 limbs Psychiatric: normal affect, A&O x 3 Dx/Plan (1) Acute intracranial hemorrhage Code(s): I62.9 - NONTRAUMATIC INTRACRANIAL HEMORRHAGE, UNSPECIFIED Status: Acute (2) Metastasis to brain Code(s): C79.31 - SECONDARY MALIGNANT NEOPLASM OF BRAIN Status: Acute (3) Testicular malignant neoplasm Code(s): C62.90 - MALIG NEOPLASM OF UNSP TESTIS, UNSP DESCENDED OR UNDESCENDED Status: Acute - Plan Plan: 19yo CM with h/o Stage IIIc testicular cancer admitted for acute intracranial hemorrhagic conversion of metastatic lesions #Acute intracranial hemorrhage 2/2 metastatic testicular cancer - Stage IIIC testicular cancer with mets to brain, lungs, liver, spleen - s/p decadron 10 mg IV given in ED. Continued on Decadron 8mg q6h - sxs and strength improved this AM and pt states continued to improve, no seizure-like activity - cont neuro checks q2hr - Initial CT brain with multiple brain mets with hemorrhagic conversion, R midline shift, and vasogenic edema - Repeat CT brain stable R midline shift, acute L cerebellar infarct, scattered mets - Brain MRI acute infarcts and hemorrhagic mets BL - Echo pending - Bone scan pending - Neurosurgery consulted, rec Onc and Rad/Onc intervention, monitoring, cont steroids - Rad Onc/Onc - Dr. Brown and Dr. Palencia rec starting Radiation therapy this AM and then chemotherapy tomorrow pending course. Cont steroids, keppra. - fall precautions - monitor sxs closely, apprec specialists recs and assistance #Stage IIIC testicular cancer with mets to brain, lungs, liver, spleen s/p L orchietomy - per above #Anemia - Hb 8.4 on admission, down to 7 this AM - plan for radiation and chemo, will defer to Onc for possible transfusion - asx at this time, will cont to monitor Code Status: FULL CODE PCP: DIONTE IVF: NS @ 150cc/hr Diet: Regular VTE: SCDs Dispo: Admit to IMCU for acute intracranial hemorrhage due to metastatic testicular cancer. Onc and Rad Onc recs. Anticipate LOS >48hrs. Addendum - Attending - Attending Attestation Date/Time: 11/23/19 1102 I personally evaluated the patient and discussed the management with Dr. Marshall. I agree with the History, Examination, Assessment and Plan documented above with any addition or exceptions noted below.
[2019-11-23] MEDS: Pantoprazole 40 MG VIAL IVP SCH ×2 (08:03→20:29)
[2019-11-23] MEDS: levETIRAcetam 500 MG TAB PO SCH ×2 (08:03→20:27)
--- NOTE | 2019-11-23 08:10 | PDOC.MOPN ---
Interval History: Pt still has numbness in his left arm but strength is improving. Still has nausea but no vomiting, has productive cough. - Vital Signs Vital Signs: Vital Signs (12 hours) Temp 11/23/19 07:41 98.3 F 11/23/19 04:00 98.4 F 11/23/19 02:44 97.8 F 11/23/19 00:15 99.2 F Weight Weight 227 lb 7 oz Most Recent Monitor Data Heart Rate from ECG 111 NIBP 131/62 NIBP BP-Mean 85 Respiration from ECG 19 SpO2 94 - Physical Exam General: Alert, Oriented x3, Cooperative HEENT: Atraumatic, EOMI Lungs: Normal air movement Cardiovascular: Regular rate Abdomen: Soft Neurological: Cranial nerves 3-12 NL Psych/Mental Status: Mood NL - Labs Result Diagrams: 11/23/19 03:30 11/23/19 03:30 Lab results: Laboratory Results - last 24 hr 11/23/19 03:30: Lactate Dehydrogenase 1981 H 11/23/19 03:30: WBC 24.0 H, RBC 2.57 L, Hgb 7.0 L, Hct 21.1 L, MCV 82.2, MCH 27.0, MCHC 32.9, RDW 15.3 H, Plt Count 151, MPV 8.3, Neutrophils % (Manual) 52, Band Neuts % (Manual) 14 H, Lymphocytes % (Manual) 20 L, Monocytes % (Manual) 8 , Myelocytes % 6 H 11/23/19 03:30: Sodium 133 L, Potassium 4.5, Chloride 104, Carbon Dioxide 22, Anion Gap 12, BUN 18, Creatinine 0.59 L, Estimated GFR (MDRD) Greater than 90, Glucose 115 H, Calcium 8.2 11/23/19 03:30: Lactic Acid 2.0 11/22/19 16:17: Urine Color Yellow, Urine Clarity Clear, Urine pH 5.5, Ur Specific [place] 1.030, Urine Protein 20, Urine Glucose (UA) 200 A, Urine Ketones Negative, Urine Blood 2+ A, Urine Nitrite Negative, Urine Bilirubin Negative, Urine Urobilinogen Normal, Ur Leukocyte Esterase Negative, Urine RBC 21-50 A, Urine WBC 4-6 A, Ur Squamous Epith Cells None Seen, Urine Bacteria None Seen 11/22/19 13:21: Lactic Acid 2.8 H 11/22/19 13:21: WBC 28.5 H, RBC 3.00 L, Hgb 8.0 L, Hct 24.6 L, MCV 82.0, MCH 26.7 L, MCHC 32.5, RDW 15.1 H, Plt Count 189, MPV 7.9 11/22/19 12:55: Blood Type O POSITIVE 11/22/19 12:43: Blood Type O POSITIVE, Antibody Screen NEGATIVE, Crossmatch See Detail 11/22/19 12:42: Procalcitonin 0.12 11/22/19 09:19: POC Glucose 115 H 11/22/19 09:05: Sodium 134 L, Potassium 3.5, Chloride 104, Carbon Dioxide 19 L, Anion Gap 15, BUN 28 H, Creatinine 0.69 L, Estimated GFR (MDRD) Greater than 90 , Glucose 119 H, Calcium 8.4, Total Bilirubin 0.7, AST 46 H, ALT 50, Alkaline Phosphatase 84, Serum Total Protein 5.6 L, Albumin 3.2 L, Globulin 2.4, Albumin/ Globulin Ratio 1.3 11/22/19 09:05: PT 13.9, INR 1.1, APTT 21.7 L 11/22/19 09:05: WBC 29.2 H, RBC 3.10 L, Hgb 8.4 L, Hct 25.2 L, MCV 81.5, MCH 27.1, MCHC 33.3, RDW 15.0 H, Plt Count 181, MPV 7.9, Neutrophils % (Manual) 57, Band Neuts % (Manual) 11, Lymphocytes % (Manual) 17 L, Monocytes % (Manual) 9, Metamyelocytes % (Man) 3 H, Myelocytes % 3 H, Lymphocytes # Not Reportable, Plt Morphology Comment Appears Adequate, Polychromasia SLIGHT = 2-3 cells A/P - Problem (1) Metastasis to brain Current Visit: Yes Code(s): C79.31 - SECONDARY MALIGNANT NEOPLASM OF BRAIN Status: Acute (2) Testicular malignant neoplasm Current Visit: Yes Code(s): C62.90 - MALIG NEOPLASM OF UNSP TESTIS, UNSP DESCENDED OR UNDESCENDED Status: Acute - Plan Plan: Transfuse 1 unit PRBC XRT to start today Will change Bleomycin to Ifex given extensive pulmonary burden and risk of pulmonary toxicity. I discussed the change with the patient and his family including AEs of cytopenias, N/V, hemorrhagic cystitis, and neurotoxicity - Plan to start tomorrow
--- NOTE | 2019-11-23 08:28 | PRG ---
DATE OF SERVICE: 11/23/2019 SUBJECTIVE: The patient is pending for radiation and chemotherapy. He has been doing relatively okay overnight. OBJECTIVE: VITAL SIGNS: Temperature 98.4, pulse is currently running in the 130s, but has been between 101 and 130 overnight, blood pressure 131/62, and O2 saturation 94% on room air. HEENT: Unremarkable. NECK: No JVD. LUNGS: Clear. CARDIAC: S1, S2. Regular. ABDOMEN: Soft. EXTREMITIES: No edema. LABORATORY DATA: White blood cell count 24, hematocrit 21, and platelet count 151. Sodium 133, potassium 4.5, chloride 104, CO2 of 22, BUN 18, creatinine 0.6, and glucose 115. ASSESSMENT: 1. Testicular cancer. 2. Brain hemorrhage. 3. Tachycardia. PLAN: The patient will start radiation therapy today, sounds like chemo will start tomorrow. He is getting blood transfusion. He continues on Decadron. Job ID: [id number]
[2019-11-23] MEDS ORDERED: FLU VACC QS2019-20(6MOS UP)/PF 60 MCG/0.5 ML SYRINGE IM ONE (09:00)
[2019-11-23] MEDS ORDERED: Prevnar 13-Val Conj/PF 0.5 ML SYRINGE IM ONE (09:00)
[2019-11-23] MEDS ORDERED: Ibuprofen 800 MG TAB PO PRN (09:16)
[2019-11-23] MEDS ORDERED: Labetalol HCl 100 MG/20 ML VIAL SLOW IVP SCH (14:15)
[2019-11-23] MEDS ORDERED: Iopamidol 370 76% 100 ML VIAL ONE (14:41)
--- NOTE | 2019-11-23 16:26 | NM ---
WHOLE BODY BONE SCAN: HISTORY: History of metastatic testicular cancer RADIOPHARMACEUTICAL: 30.8 mCi technetium 99m-MDP injected intravenously COMPARISON: None CORRELATION: None FINDINGS: No other abnormal areas of tracer localization are seen in the skeleton to suggest metastatic disease . IMPRESSION: No scintigraphic evidence of osseous metastatic disease.
--- NOTE | 2019-11-23 16:41 | CT ---
CT arteriogram chest with IV contrast and 3-D imaging HISTORY: Chest pain. Dyspnea. Metastatic disease. COMPARISON: 11/08/2019. FINDINGS: There is good contrast opacification of the aortic arch with normal branching of the great vessels. Contrast is also present within the superior vena cava and right atrium. There is limited contrast opacification of the pulmonary arteries, however. No filling defects of the central pulmonary arterial system is apparent. Distal pulmonary arteries not well evaluated. No secondary findings of significant pulmonary embolus is evident. Calcified mediastinal lymph nodes con sistent with healed granulomatous disease. Innumerable low density masses throughout the lungs and liver are similar to the recent CT exam. No p neumothorax or pleural fluid. Within the partially visualized upper abdomen, wedge-shaped areas of decreased density along the late ral margin of the spleen correlate with areas of suspected infarct on recent CT. Renal abnormalities are not as well demonstrated. IMPRESSION : No CT evidence of pulmonary embolus. Extensive widespread metastatic disease of the lungs and liver are again demonstrated.
[2019-11-23] MEDS: Ondansetron ODT 4 MG TAB PO PRN (16:56)
[2019-11-23] MEDS: HYDROcodone/Acetaminophen 10/325 mg Tablet PO PRN (19:31)
[2019-11-23 19:40] LABS: Hemoglobin 7.5 g/dL (14.0-18.0)
[2019-11-23] MEDS ORDERED: Gabapentin 100 MG CAP PO SCH (23:45)
[2019-11-24] MEDS: HYDROcodone/Acetaminophen 10/325 mg Tablet PO PRN (01:20)
[2019-11-24 05:45] LABS: Anion Gap 10 mmol/L (10-20); BUN (Urea Nitrogen) 21 mg/dL (8.9-20.6); Calc. Creatinine Clearance 284 mL/min (70-130); Calcium 8.2 mg/dL (7.8-10.44); Carbon Dioxide 25 mmol/L (22-29); Chloride 103 mmol/L (98-107); Estimated GFR-MDRD Greater than 90; Glucose 99 mg/dL (70-105); Potassium 4.2 mmol/L (3.5-5.1); Sodium 134 mmol/L (136-145)
[2019-11-24 05:52] LABS: Band 10 % (5-11); Hemoglobin 6.9 g/dL (14.0-18.0); Lymphocytes 15 % (21-51); MDiff Complete? YES; Mean Corpuscular HGB CONC 33.9 g/dL (32.0-36.0); Mean Corpuscular Hemoglobin 28.2 pg (27.0-31.0); Mean Platelet Volume 7.8 fL (7.4-10.4); Monocytes 11 % (0-10); Myelocyte 4 % (0-0); Neutrophil 60 % (42-75); Platelet Count 109 thou/uL (130-400); Platelet Morphology Comment Appears Decreased; Polychromasia SLIGHT = 2-3 cells (100X) (0-2/hpf); RBC Distribution Width 15.5 % (11.5-14.5); Red Blood Cell (RBC) Count 2.45 mill/uL (4.70-6.10); White Blood Cell (WBC) Count 21.4 thou/uL (4.8-10.8)
[2019-11-24] MEDS ORDERED: Acetaminophen 500 MG TAB PO PRN (06:49)
[2019-11-24] MEDS ORDERED: traMADol HCl 50 MG TAB PO PRN (06:49)
--- NOTE | 2019-11-24 06:50 | PDOC.FM ---
- Subjective Subjective: Doing well this morning, no acute events overnight. Ambulating with assist. Tolerating PO well without significant n/v. Moderate JOHNSON but controlled with Burns. Gabapentin has help arm pain. No fever/chills, CP, SOB. Tolerated radiation well yesterday, ready to start chemo today. No concerns or complaints. Parents at beside. - Objective MAR Reviewed: Yes Vital Signs & Weight: Vital Signs (12 hours) Temp Pulse Ox 11/24/19 03:40 98.5 F 11/23/19 23:25 98 F 11/23/19 20:00 98.9 F 98 Weight Admit Weight 101.151 kg Weight 100.834 kg Most Recent Monitor Data Heart Rate from ECG 104 NIBP 154/79 NIBP BP-Mean 104 Respiration from ECG 18 SpO2 96 I&O: 11/22/19 11/23/19 11/24/19 06:59 06:59 06:59 Intake Total 3956 2820 Output Total 1700 2075 Balance 2256 745 Result Diagrams: 11/24/19 05:10 11/24/19 05:10 Phys Exam - Physical Examination Constitutional: NAD (resting comfortably, good spirits) HEENT: moist MMs Neck: supple Respiratory: no wheezing, no rales, no rhonchi, clear to auscultation bilateral Cardiovascular: RRR, no significant murmur, no rub Gastrointestinal: soft, non-tender, no distention, positive bowel sounds Musculoskeletal: no edema Neurological: moves all 4 limbs Psychiatric: normal affect, A&O x 3 Dx/Plan (1) Acute intracranial hemorrhage Code(s): I62.9 - NONTRAUMATIC INTRACRANIAL HEMORRHAGE, UNSPECIFIED Status: Acute (2) Metastasis to brain Code(s): C79.31 - SECONDARY MALIGNANT NEOPLASM OF BRAIN Status: Acute (3) Testicular malignant neoplasm Code(s): C62.90 - MALIG NEOPLASM OF UNSP TESTIS, UNSP DESCENDED OR UNDESCENDED Status: Acute - Plan Plan: 19yo CM with h/o Stage IV testicular cancer admitted for acute intracranial hemorrhagic conversion of metastatic lesions #Acute intracranial hemorrhagic conversion of metastatic lesions in setting of stage IV Testicular Cancer - 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 Continued on Decadron 8mg q6h - sxs and strength improved this AM and pt states continued to improve, no seizure-like activity. Pain improved with Jaylene - cont neuro checks q2hr - Initial CT brain with multiple brain mets with hemorrhagic conversion, R midline shift, and vasogenic edema - Repeat CT brain stable R midline shift, acute L cerebellar infarct, scattered mets - Brain MRI acute infarcts and hemorrhagic mets BL - Echo pending - Bone scan - no bone mets - CTA - negative PE, lung and liver mets - Neurosurgery consulted, rec Onc and Rad/Onc intervention, monitoring, cont steroids - Rad Onc/Onc - Dr. Brown and Dr. Palencia. S/p Radiation 11/23, plan to start chemo this AM. Cont steroids, keppra, namenda. - fall precautions - monitor sxs closely, apprec specialists recs and assistance - pain control with tramadol, jaylene, and norco - SBP goal <160, prn labetalol #Stage IIIC testicular cancer with mets to brain, lungs, liver, spleen s/p L orchietomy - per above #Anemia - Hb 8.4->6.4 s/p u1 pRBC up to 6.9 this AM - plan for repeat transfusion this AM of 1u pRBC #Sinus Tachycardia - negative CTA for PE - likely 2/2 autonomic dysregulation for cancer/whole brain radiation, will cont to monitor Code Status: FULL CODE PCP: DIONTE IVF: SL Diet: Regular VTE: SCDs Dispo: Admitted to [facility] for acute intracranial hemorrhage due to metastatic testicular cancer. Onc and Rad Onc recs. Anticipate LOS >48hrs. Addendum - Attending - Attending Attestation Date/Time: 11/24/19 1123 I personally evaluated the patient and discussed the management with Dr. Marshall. I agree with the History, Examination, Assessment and Plan documented above with any addition or exceptions noted below.
[2019-11-24] MEDS: HYDROcodone/Acetaminophen 5/325 mg Tablet PO PRN ×4 (07:31→20:08)
[2019-11-24] MEDS ORDERED: Gabapentin 100 MG CAP PO SCH (09:00)
[2019-11-24] MEDS ORDERED: hydrOXYzine Pamoate 25 mg Capsule PO PRN (09:39)
[2019-11-24] MEDS: levETIRAcetam 500 MG TAB PO SCH ×2 (09:59→20:08)
[2019-11-24] MEDS ORDERED: MESNA IVPB SCH (10:00)
[2019-11-24] MEDS: Pantoprazole 40 MG VIAL IVP SCH ×2 (10:00→20:26)
[2019-11-24] MEDS ORDERED: IFOSFAMIDE IVPB SCH (10:00)
[2019-11-24] MEDS ORDERED: Dexamethasone Sod Phosphate 20 MG in Sodium Chloride 0.9% 50 ML IVPB SCH (10:00)
[2019-11-24] MEDS ORDERED: Palonosetron HCl 0.25 MG in Sodium Chloride 0.9% 50 ML IVPB SCH (10:00)
[2019-11-24] MEDS ORDERED: SODIUM CHLORIDE 0.9% IVPB SCH (10:00)
--- NOTE | 2019-11-24 11:08 | PDOC.MOPN ---
Interval History: drowsy but arousable. just back from xrt - Vital Signs Vital Signs: Vital Signs (12 hours) Temp Pulse Ox 11/24/19 08:00 98.5 F 98 11/24/19 03:40 98.5 F 11/23/19 23:25 98 F Weight Admit Weight 223 lb Weight 222 lb 4.8 oz Most Recent Monitor Data Heart Rate from ECG 138 NIBP 153/81 NIBP BP-Mean 105 Respiration from ECG 23 SpO2 98 - Physical Exam General: No acute distress HEENT: Atraumatic, PERRLA, EOMI, Mucous membr. moist/pink Lungs: Clear to auscultation, Normal air movement Cardiovascular: Regular rate, Normal S1, Normal S2, No murmurs, Gallops, Rubs Abdomen: Normal bowel sounds, Soft, No tenderness, No hepatospenomegaly, No masses Extremities: No clubbing, No cyanosis, No edema, Normal pulses, No tenderness/ swelling Neurological: Normal speech - Labs Result Diagrams: 11/24/19 05:10 11/24/19 05:10 Lab results: Laboratory Results - last 24 hr 11/24/19 05:10: WBC 21.4 H, RBC 2.45 L, Hgb 6.9 L, Hct 20.3 L, MCV 83.0, MCH 28.2, MCHC 33.9, RDW 15.5 H, Plt Count 109 L, MPV 7.8, Neutrophils % (Manual) 60 , Band Neuts % (Manual) 10, Lymphocytes % (Manual) 15 L, Monocytes % (Manual) 11 H, Myelocytes % 4 H, Plt Morphology Comment Appears Decreased L, Polychromasia SLIGHT = 2-3 cells 11/24/19 05:10: Sodium 134 L, Potassium 4.2, Chloride 103, Carbon Dioxide 25, Anion Gap 10, BUN 21 H, Creatinine 0.60 L, Estimated GFR (MDRD) Greater than 90 , Glucose 99, Calcium 8.2 11/24/19 05:10: Tumor Marker AFP Less than 2.0 11/23/19 23:18: POC Glucose 146 H 11/23/19 19:24: Hgb 7.5 L, Hct 22.8 L 11/22/19 12:43: Blood Type O POSITIVE, Antibody Screen NEGATIVE, Crossmatch See Detail Status: lab reviewed by me A/P - Problem (1) Acute intracranial hemorrhage Current Visit: Yes Code(s): I62.9 - NONTRAUMATIC INTRACRANIAL HEMORRHAGE, UNSPECIFIED Status: Acute (2) Metastasis to brain Current Visit: Yes Code(s): C79.31 - SECONDARY MALIGNANT NEOPLASM OF BRAIN Status: Acute (3) Testicular malignant neoplasm Current Visit: Yes Code(s): C62.90 - MALIG NEOPLASM OF UNSP TESTIS, UNSP DESCENDED OR UNDESCENDED Status: Acute - Plan Plan: 1. Continue XRT, steroids 2. Chemotherapy to start today. Regimen is Etoposide, Ifex, cisplatin daily x 5 days 3. IV hydration
[2019-11-24] MEDS: Sodium Chloride 0.9% 100 ML IV SCH (11:29)
[2019-11-24] MEDS: Sodium Chloride 0.9% 1,000 ML IV SCH ×2 (11:54→17:26)
[2019-11-24] MEDS: ETOPOSIDE IVPB SCH (15:00)
[2019-11-24] MEDS: SODIUM CHLORIDE 0.9% IVPB SCH ×2 (15:00→19:20)
[2019-11-24] MEDS: CISPLATIN IV SCH (15:59)
[2019-11-24] MEDS: SODIUM CHLORIDE 0.9% IV SCH (15:59)
[2019-11-24] MEDS: MANNITOL IV SCH (15:59)
[2019-11-24] MEDS: MESNA IVPB SCH (19:20)
[2019-11-24] MEDS: Labetalol HCl 100 MG/20 ML VIAL SLOW IVP PRN (20:12)
[2019-11-25] MEDS: Labetalol HCl 100 MG/20 ML VIAL SLOW IVP PRN ×2 (00:33→09:11)
[2019-11-25] MEDS: Sodium Chloride 0.9% 1,000 ML IV SCH ×2 (04:25→23:47)
[2019-11-25 04:56] LABS: Anion Gap 10 mmol/L (10-20); BUN (Urea Nitrogen) 20 mg/dL (8.9-20.6); Calc. Creatinine Clearance 320 mL/min (70-130); Calcium 7.9 mg/dL (7.8-10.44); Carbon Dioxide 22 mmol/L (22-29); Chloride 108 mmol/L (98-107); Estimated GFR-MDRD Greater than 90; Glucose 122 mg/dL (70-105); Potassium 4.3 mmol/L (3.5-5.1); Sodium 136 mmol/L (136-145)
[2019-11-25 05:05] LABS: #Eosinphils 0.1 thou/uL (0.0-0.7); #Lymphocytes 0.9 thou/uL (1.20-3.40); #Monocytes 1.1 thou/uL (0.11-0.59); #Neutrophils 17.7 thou/uL (1.40-6.50); %Basophils 0.1 % (0.0-1.0); %Eosinophils 0.3 % (0.0-10.0); %Lymphocytes 4.6 % (21.0-51.0); %Monocytes 5.8 % (0.0-10.0); %Neutrophils 89.3 % (42.0-75.0); Hemoglobin 6.7 g/dL (14.0-18.0); Mean Corpuscular HGB CONC 33.4 g/dL (32.0-36.0); Mean Corpuscular Hemoglobin 28.6 pg (27.0-31.0); Mean Corpuscular Volume 85.7 fL (78.0-98.0); Mean Platelet Volume 7.8 fL (7.4-10.4); Platelet Count 104 thou/uL (130-400); RBC Distribution Width 16.2 % (11.5-14.5); Red Blood Cell (RBC) Count 2.34 mill/uL (4.70-6.10); White Blood Cell (WBC) Count 19.8 thou/uL (4.8-10.8)
[2019-11-25] MEDS: HYDROcodone/Acetaminophen 5/325 mg Tablet PO PRN ×2 (05:19→11:26)
--- NOTE | 2019-11-25 07:21 | PDOC.FM ---
- Subjective Subjective: Doing well this morning, no acute events overnight. Tolerating chemo well with only mild nausea and no vomiting, controlled with meds. Pain well-controlled with meds, increased mobility of LUE. Gabapentin has help with nerve pain but not fully controlled. Ambulating. Tolerating PO well. Has had new lesions appear on back. Parents state they noticed a golf-ball sized nodule on L scapula. This morning is down to about 1.5cm and mobile but firm. Pain was significant at onset but improved this AM. - Objective MAR Reviewed: Yes Vital Signs & Weight: Vital Signs (12 hours) Temp Pulse BP Pulse Ox 11/25/19 04:00 98.5 F 11/25/19 00:33 124 H 161/80 H 11/24/19 23:35 98.2 F 11/24/19 20:12 136 H 166/81 H 11/24/19 20:00 97.5 F L 95 Weight Admit Weight 101.151 kg Weight 105.868 kg Most Recent Monitor Data Heart Rate from ECG 106 NIBP 149/77 NIBP BP-Mean 101 Respiration from ECG 21 SpO2 92 I&O: 11/24/19 11/25/19 11/26/19 06:59 06:59 06:59 Intake Total 2820 7982 Output Total 2075 4375 Balance 745 3607 Result Diagrams: 11/25/19 04:21 11/25/19 04:21 Phys Exam - Physical Examination Constitutional: NAD (resting comfortably) HEENT: moist MMs Neck: supple Respiratory: no wheezing, no rales, no rhonchi, clear to auscultation bilateral Cardiovascular: RRR, no significant murmur, no rub Gastrointestinal: soft, non-tender, no distention, positive bowel sounds Musculoskeletal: no edema Neurological: moves all 4 limbs neuropathic pain on LUE Psychiatric: A&O x 3 Deviation from normal: R chest wall port in place. 3 nodules on back. 1 old midline below nape of -: neck, 1.5cm. L scalupa 1.5cm, L scalupar lower border 0.5cm. Hard, mobile. Dx/Plan (1) Acute intracranial hemorrhage Code(s): I62.9 - NONTRAUMATIC INTRACRANIAL HEMORRHAGE, UNSPECIFIED Status: Acute (2) Metastasis to brain Code(s): C79.31 - SECONDARY MALIGNANT NEOPLASM OF BRAIN Status: Acute (3) Testicular malignant neoplasm Code(s): C62.90 - MALIG NEOPLASM OF UNSP TESTIS, UNSP DESCENDED OR UNDESCENDED Status: Acute - Plan Plan: 19yo CM with h/o Stage IV testicular cancer admitted for acute intracranial hemorrhagic conversion of metastatic lesions #Acute intracranial hemorrhagic conversion of metastatic lesions in setting of stage IV Testicular Cancer - 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 Continued on Decadron 8mg q6h - sxs and strength improved this AM and pt states continued to improve, no seizure-like activity. Pain improved with Jaylene, will increase dose to 100mg BID - cont neuro checks q2hr - Initial CT brain with multiple brain mets with hemorrhagic conversion, R midline shift, and vasogenic edema - Repeat CT brain stable R midline shift, acute L cerebellar infarct, scattered mets - Brain MRI acute infarcts and hemorrhagic mets BL - Echo WNL, 60-65% EF - Bone scan - no bone mets - CTA - negative PE, lung and liver mets - Neurosurgery consulted, rec Onc and Rad/Onc intervention, monitoring, cont steroids - Rad Onc/Onc - Dr. Brown and Dr. Palencia. S/p Radiation 11/23, stared chemo 11/23. Tolerating well. Cont steroids, keppra, namenda. - fall precautions - monitor sxs closely, apprec specialists recs and assistance - pain control with jaylene and norco - SBP goal <160, prn labetalol #Stage IIIC testicular cancer with mets to brain, lungs, liver, spleen s/p L orchietomy - per above #Anemia - Hb 8.4->6.4 s/p u1 pRBC up to 6.9 and now 6.7 this AM - plan for repeat transfusion this AM #Sinus Tachycardia - negative CTA for PE - likely 2/2 autonomic dysregulation for cancer/whole brain radiation, will cont to monitor - consider BB for BP and HR control Code Status: FULL CODE PCP: DIONTE IVF: SL Diet: Regular VTE: SCDs Dispo: Admitted to [facility] for acute intracranial hemorrhage due to metastatic testicular cancer. Onc and Rad Onc recs. Anticipate LOS >48hrs. Addendum - Attending - Attending Attestation Date/Time: 11/25/19 1053 I personally evaluated the patient and discussed the management with Dr. Marshall. I agree with the History, Examination, Assessment and Plan documented above with any addition or exceptions noted below.
[2019-11-25] MEDS: Gabapentin 100 MG CAP PO SCH ×2 (08:21→20:29)
[2019-11-25] MEDS: levETIRAcetam 500 MG TAB PO SCH ×2 (08:21→20:28)
[2019-11-25] MEDS: Pantoprazole 40 MG VIAL IVP SCH ×2 (08:22→20:29)
--- NOTE | 2019-11-25 08:26 | PDOC.MOPN ---
Interval History: Pt c/o mild headache, worse after XRT, mild nausea w/o vomiting. He has 2 nodules on his back, tender, 2 cm. No neurologic deficits at this time. - Vital Signs Vital Signs: Vital Signs (12 hours) Temp Pulse BP 11/25/19 07:23 99.2 F 11/25/19 04:00 98.5 F 11/25/19 00:33 124 H 161/80 H 11/24/19 23:35 98.2 F Weight Admit Weight 223 lb Weight 233 lb 6.4 oz Most Recent Monitor Data Heart Rate from ECG 106 NIBP 149/77 NIBP BP-Mean 101 Respiration from ECG 21 SpO2 92 - Physical Exam General: Alert, Oriented x3, Cooperative HEENT: EOMI Lungs: Normal air movement Cardiovascular: Other (tachycardic) Skin: No rashes (2-3 cm subcutaneous hard, tender nodules: 1 upper medial, 1 mid left lateral) Neurological: Cranial nerves 3-12 NL Psych/Mental Status: Mood NL - Labs Result Diagrams: 11/25/19 04:21 11/25/19 04:21 Lab results: Laboratory Results - last 24 hr 11/25/19 04:21: WBC 19.8 H, RBC 2.34 L, Hgb 6.7 L, Hct 20.0 L, MCV 85.7, MCH 28.6, MCHC 33.4, RDW 16.2 H, Plt Count 104 L, MPV 7.8, Neutrophils % 89.3 H, Neutrophils % (Manual) Not Reportable, Lymphocytes % 4.6 L, Monocytes % 5.8, Eosinophils % 0.3, Basophils % 0.1, Neutrophils # 17.7 H, Lymphocytes # 0.9 L, Monocytes # 1.1 H, Eosinophils # 0.1, Basophils # 0.0 11/25/19 04:21: Sodium 136, Potassium 4.3, Chloride 108 H, Carbon Dioxide 22, Anion Gap 10, BUN 20, Creatinine 0.52 L, Estimated GFR (MDRD) Greater than 90, Glucose 122 H, Calcium 7.9 11/22/19 12:43: Blood Type O POSITIVE, Antibody Screen NEGATIVE, Crossmatch See Detail A/P - Problem (1) Metastasis to brain Current Visit: Yes Code(s): C79.31 - SECONDARY MALIGNANT NEOPLASM OF BRAIN Status: Acute (2) Testicular malignant neoplasm Current Visit: Yes Code(s): C62.90 - MALIG NEOPLASM OF UNSP TESTIS, UNSP DESCENDED OR UNDESCENDED Status: Acute - Plan Plan: C1D2 of VIP, D3 of WBRT cont chemo, WBRT monitor with neuro checks transfuse PRBC for Hb < 7.0 cont antiemetics
[2019-11-25] MEDS ORDERED: Gabapentin 300 MG CAP PO SCH (09:00)
[2019-11-25] MEDS ORDERED: Dexamethasone Sod Phosphate 20 MG, Ondansetron 2MG/ML MDV 10 MG in Sodium Chloride 0.9%... IVPB SCH (10:00)
[2019-11-25] MEDS ORDERED: Furosemide 20 MG/2 ML VIAL SLOW IVP SCH (12:00)
[2019-11-25] MEDS: Ondansetron 2MG/ML MDV 10 MG in Sodium Chloride 0.9% 50 ML IVP SCH (12:23)
[2019-11-25] MEDS: ETOPOSIDE IVPB SCH (13:36)
[2019-11-25] MEDS: SODIUM CHLORIDE 0.9% IVPB SCH ×3 (13:36→17:41)
[2019-11-25] MEDS: Metoprolol Tartrate 25 MG TAB PO SCH ×2 (13:40→20:29)
[2019-11-25] MEDS: IFOSFAMIDE IVPB SCH (14:43)
[2019-11-25] MEDS: Morphine 4 MG/ML VIAL SLOW IVP PRN ×2 (15:10→20:47)
[2019-11-25] MEDS: SODIUM CHLORIDE 0.9% IV SCH (16:57)
[2019-11-25] MEDS: MANNITOL IV SCH (16:57)
[2019-11-25] MEDS: CISPLATIN IV SCH (16:57)
[2019-11-25] MEDS: MESNA IVPB SCH (17:41)
[2019-11-26] MEDS: Sodium Chloride 0.9% 1,000 ML IV SCH ×2 (03:36→12:42)
[2019-11-26] MEDS: HYDROcodone/Acetaminophen 5/325 mg Tablet PO PRN ×4 (03:44→17:02)
[2019-11-26 05:27] LABS: #Lymphocytes 0.9 thou/uL (1.20-3.40); #Neutrophils 12.9 thou/uL (1.40-6.50); %Basophils 0.1 % (0.0-1.0); %Eosinophils 0.2 % (0.0-10.0); %Lymphocytes 5.9 % (21.0-51.0); %Monocytes 6.7 % (0.0-10.0); %Neutrophils 87.1 % (42.0-75.0); Hemoglobin 6.8 g/dL (14.0-18.0); Mean Corpuscular HGB CONC 33.3 g/dL (32.0-36.0); Mean Corpuscular Hemoglobin 28.8 pg (27.0-31.0); Mean Corpuscular Volume 86.6 fL (78.0-98.0); Mean Platelet Volume 7.9 fL (7.4-10.4); Platelet Count 83 thou/uL (130-400); RBC Distribution Width 16.2 % (11.5-14.5); Red Blood Cell (RBC) Count 2.35 mill/uL (4.70-6.10); White Blood Cell (WBC) Count 14.8 thou/uL (4.8-10.8)
[2019-11-26 05:43] LABS: Anion Gap 6 mmol/L (10-20); BUN (Urea Nitrogen) 22 mg/dL (8.9-20.6); Calc. Creatinine Clearance 317 mL/min (70-130); Calcium 7.8 mg/dL (7.8-10.44); Carbon Dioxide 26 mmol/L (22-29); Chloride 106 mmol/L (98-107); Estimated GFR-MDRD Greater than 90; Glucose 104 mg/dL (70-105); Potassium 4.3 mmol/L (3.5-5.1); Sodium 134 mmol/L (136-145)
--- NOTE | 2019-11-26 06:24 | PDOC.FM ---
- Subjective Subjective: Doing well this morning,no acute events overnight. Mild nausea but improved with Zofran. Pain rated 5/10 but controlled with pain medications. Increased fatigue. Still with painful nodules on back. Tolerating PO, working with PT. - Objective MAR Reviewed: Yes Vital Signs & Weight: Vital Signs (12 hours) Temp Pulse Ox 11/26/19 03:47 98 F 11/26/19 02:04 98.2 F 11/25/19 23:48 98.4 F 11/25/19 23:29 98.3 F 11/25/19 20:00 98.8 F 95 Weight Admit Weight 101.151 kg Weight 105.415 kg Most Recent Monitor Data Heart Rate from ECG 118 NIBP 126/63 NIBP BP-Mean 84 Respiration from ECG 24 SpO2 94 I&O: 11/24/19 11/25/19 11/26/19 06:59 06:59 06:59 Intake Total 2820 7982 3983.1 Output Total 2075 4375 4100 Balance 745 3607 -116.9 Result Diagrams: 11/26/19 05:09 11/26/19 05:09 Phys Exam - Physical Examination Constitutional: NAD (resting comfortably) HEENT: moist MMs Neck: supple Respiratory: no wheezing, no rales, no rhonchi, clear to auscultation bilateral Cardiovascular: RRR, no significant murmur, no rub Gastrointestinal: soft, non-tender, no distention, positive bowel sounds Musculoskeletal: no edema 4/5 strength LUE as comparedto RUE Neurological: moves all 4 limbs Psychiatric: normal affect, A&O x 3 Deviation from normal: Nodules on back, suspected lymph nodes Dx/Plan (1) Acute intracranial hemorrhage Code(s): I62.9 - NONTRAUMATIC INTRACRANIAL HEMORRHAGE, UNSPECIFIED Status: Acute (2) Metastasis to brain Code(s): C79.31 - SECONDARY MALIGNANT NEOPLASM OF BRAIN Status: Acute (3) Testicular malignant neoplasm Code(s): C62.90 - MALIG NEOPLASM OF UNSP TESTIS, UNSP DESCENDED OR UNDESCENDED Status: Acute - Plan Plan: 19yo CM with h/o Stage IV testicular cancer admitted for acute intracranial hemorrhagic conversion of metastatic lesions #Acute intracranial hemorrhagic conversion of metastatic lesions in setting of stage IV Testicular Cancer - 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 Continued on Decadron 8mg q6h - sxs and strength stable this AM, no seizure-like activity. Pain improved with Jaylene 100mg BID,can titrate up as appropriate - cont neuro checks q2hr - Initial CT brain with multiple brain mets with hemorrhagic conversion, R midline shift, and vasogenic edema - Repeat CT brain stable R midline shift, acute L cerebellar infarct, scattered mets - Brain MRI acute infarcts and hemorrhagic mets BL - Echo WNL, 60-65% EF - Bone scan - no bone mets - CTA - negative PE, lung and liver mets - Neurosurgery consulted, rec Onc and Rad/Onc intervention, monitoring, cont steroids - Rad Onc/Onc - Dr. Brown and Dr. Palencia. S/p Radiation started on 11/23, stared chemo 11/23. Tolerating well. Cont steroids, keppra, namenda. - fall precautions - monitor sxs closely, apprec specialists recs and assistance - pain control with jaylene, norco, morphine prn - SBP goal <160, prn labetalol #Stage IIIC testicular cancer with mets to brain, lungs, liver, spleen s/p L orchietomy - per above #Anemia - Hb 6.7 this AM - s/p 3u pRBC (11/22, 11/23, 11/24) - plan for repeat transfusion this AM #Thombocytopenia - Plt 184 -> 83 - likely 2/2 chemo, will cont to monitor #Sinus Tachycardia - negative CTA for PE - likely 2/2 autonomic dysregulation for cancer/whole brain radiation, will cont to monitor - addition of metoprolol 25mg BID with better control Code Status: FULL CODE PCP: DIONTE IVF: SL Diet: Regular VTE: SCDs Dispo: Admitted to [facility] for acute intracranial hemorrhage due to metastatic testicular cancer. Onc and Rad Onc recs. Anticipate LOS >48hrs. Addendum - Attending - Attending Attestation Date/Time: 11/26/19 0824 I personally evaluated the patient and discussed the management with Dr. Marshall. I agree with the History, Examination, Assessment and Plan documented above with any addition or exceptions noted below.
--- NOTE | 2019-11-26 07:39 | PDOC.BPN ---
- Brief Progress Note I saw the patient and parents this morning as a continuity visit. HPI: Stage IIIC metastatic testicular cancer to brain, lung, liver, and spleen. Presented to ED with AMS, left sided weakness. Found to have hemorrhagic conversion of brain mets. Pt is receiving concurrent whole brain radiation and chemotherapy. Additionally he's getting scheduled decadron with improvement in his neuro deficits. He has also developed anemia and thrombocytopenia requiring multiple transfusions already and is scheduled to have an additional transfusion today. Pain is being controlled with morphine and gabapentin. Ros: + Left arm pain (parasthesias), nodules to back that are mildly tender. Denies N/V/D, AMS PE: A&O x3 in no acute distress. Pt is tachycardic, regular rhythm, few mildly tender dense nodules to his back are noted. No respiratory distress. Abdomen is soft and non tender. Strength, sensation and ROM intact throughout. Plan: Agree with current plan of care in place by the primary team. Would consider increasing his gabapentin as it seems his neuropathic pain is his primary complaint at this time. Rell Avila, DO - PGY1
[2019-11-26] MEDS: Gabapentin 100 MG CAP PO SCH (08:23)
[2019-11-26] MEDS: Metoprolol Tartrate 25 MG TAB PO SCH ×2 (08:23→20:53)
[2019-11-26] MEDS: levETIRAcetam 500 MG TAB PO SCH ×2 (08:23→20:53)
[2019-11-26] MEDS: Pantoprazole 40 MG VIAL IVP SCH ×2 (08:24→20:53)
[2019-11-26] MEDS ORDERED: Gabapentin 100 MG CAP PO SCH (09:00)
[2019-11-26] MEDS: Ondansetron 2MG/ML MDV 10 MG in Sodium Chloride 0.9% 50 ML IVP SCH (11:48)
[2019-11-26] MEDS: SODIUM CHLORIDE 0.9% IVPB SCH ×3 (13:32→17:44)
[2019-11-26] MEDS: ETOPOSIDE IVPB SCH (13:32)
--- NOTE | 2019-11-26 13:55 | PDOC.MOPN ---
Interval History: c/o headache after xrt, medicated and sleeping. Father at bedside. - Vital Signs Vital Signs: Vital Signs (12 hours) Temp 11/26/19 12:39 99.1 F 11/26/19 11:32 99.0 F 11/26/19 07:30 98.9 F 11/26/19 03:47 98 F 11/26/19 02:04 98.2 F Weight Admit Weight 223 lb Weight 232 lb 6.4 oz Most Recent Monitor Data Heart Rate from ECG 128 NIBP 141/92 NIBP BP-Mean 108 Respiration from ECG 26 SpO2 92 - Physical Exam General: No acute distress HEENT: Atraumatic, PERRLA, EOMI, Mucous membr. moist/pink Lungs: Clear to auscultation, Normal air movement Cardiovascular: Other (tachycardia) Abdomen: Normal bowel sounds, Soft, No tenderness, No hepatospenomegaly, No masses Extremities: No clubbing, No cyanosis, No edema, Normal pulses, No tenderness/ swelling Neurological: Other (left arm numbness/tingling) - Labs Result Diagrams: 11/26/19 05:09 11/26/19 05:09 Lab results: Laboratory Results - last 24 hr 11/26/19 08:35: Blood Type O POSITIVE, Antibody Screen NEGATIVE, Crossmatch See Detail 11/26/19 05:09: WBC 14.8 H, RBC 2.35 L, Hgb 6.8 L, Hct 20.4 L, MCV 86.6, MCH 28.8, MCHC 33.3, RDW 16.2 H, Plt Count 83 L, MPV 7.9, Neutrophils % 87.1 H, Neutrophils % (Manual) Not Reportable, Lymphocytes % 5.9 L, Monocytes % 6.7, Eosinophils % 0.2, Basophils % 0.1, Neutrophils # 12.9 H, Lymphocytes # 0.9 L, Monocytes # 1.0 H, Eosinophils # 0.0, Basophils # 0.0 11/26/19 05:09: Sodium 134 L, Potassium 4.3, Chloride 106, Carbon Dioxide 26, Anion Gap 6 L, BUN 22 H, Creatinine 0.55 L, Estimated GFR (MDRD) Greater than 90, Glucose 104, Calcium 7.8 11/22/19 12:43: Blood Type O POSITIVE, Antibody Screen NEGATIVE, Crossmatch See Detail Status: lab reviewed by me A/P - Problem (1) Testicular malignant neoplasm Current Visit: Yes Code(s): C62.90 - MALIG NEOPLASM OF UNSP TESTIS, UNSP DESCENDED OR UNDESCENDED Status: Acute (2) Acute intracranial hemorrhage Current Visit: Yes Code(s): I62.9 - NONTRAUMATIC INTRACRANIAL HEMORRHAGE, UNSPECIFIED Status: Acute (3) Metastasis to brain Current Visit: Yes Code(s): C79.31 - SECONDARY MALIGNANT NEOPLASM OF BRAIN Status: Acute - Plan Plan: C1D3 of VIP, D4 of WBRT cont chemo, WBRT monitor with neuro checks transfuse PRBC for Hb < 7.0 cont antiemetics
[2019-11-26] MEDS: IFOSFAMIDE IVPB SCH (14:42)
[2019-11-26] MEDS ORDERED: Ibuprofen 600 MG TAB PO PRN (14:55)
[2019-11-26] MEDS ORDERED: Metoclopramide 10 MG/10 ML UDCUP PO SCH (15:00)
[2019-11-26] MEDS: SODIUM CHLORIDE 0.9% IV SCH (16:47)
[2019-11-26] MEDS: MANNITOL IV SCH (16:47)
[2019-11-26] MEDS: CISPLATIN IV SCH (16:47)
[2019-11-26] MEDS: Gabapentin 300 MG CAP PO SCH ×2 (16:58→20:53)
[2019-11-26] MEDS: MESNA IVPB SCH (17:44)
[2019-11-26] MEDS: Metoclopramide HCl 10 MG TAB PO PRN (21:31)
[2019-11-26] MEDS: Ondansetron PF 4 MG/2 ML Vial IVP PRN (21:31)
[2019-11-26] MEDS: Morphine 4 MG/ML VIAL SLOW IVP PRN (21:32)
[2019-11-27] MEDS: Sodium Chloride 0.9% 1,000 ML IV SCH ×3 (00:01→14:53)
[2019-11-27] MEDS: HYDROcodone/Acetaminophen 5/325 mg Tablet PO PRN ×2 (01:08→05:47)
[2019-11-27 05:37] LABS: #Monocytes 0.5 thou/uL (0.11-0.59); #Neutrophils 10.5 thou/uL (1.40-6.50); %Basophils 0.1 % (0.0-1.0); %Eosinophils 0.2 % (0.0-10.0); %Lymphocytes 7.9 % (21.0-51.0); %Neutrophils 87.8 % (42.0-75.0); Hemoglobin 6.7 g/dL (14.0-18.0); Mean Corpuscular HGB CONC 33.7 g/dL (32.0-36.0); Mean Corpuscular Hemoglobin 29.2 pg (27.0-31.0); Mean Corpuscular Volume 86.4 fL (78.0-98.0); Mean Platelet Volume 8.4 fL (7.4-10.4); Platelet Count 77 thou/uL (130-400); White Blood Cell (WBC) Count 11.9 thou/uL (4.8-10.8)
[2019-11-27 05:52] LABS: Anion Gap 9 mmol/L (10-20); BUN (Urea Nitrogen) 26 mg/dL (8.9-20.6); Calc. Creatinine Clearance 318 mL/min (70-130); Calcium 7.7 mg/dL (7.8-10.44); Carbon Dioxide 22 mmol/L (22-29); Chloride 106 mmol/L (98-107); Estimated GFR-MDRD Greater than 90; Glucose 107 mg/dL (70-105); Potassium 4.2 mmol/L (3.5-5.1); Sodium 133 mmol/L (136-145)
--- NOTE | 2019-11-27 06:33 | PDOC.FM ---
- Subjective Subjective: Pt resting well. Parents state he has more pain than he has been having and his HR is gradually increasing. BM every other day. Gets dizzy after BM and returning to bedside. c/o JOHNSON. O2 sat dropping 88% overnight, on and off O2. - Objective MAR Reviewed: Yes Vital Signs & Weight: Vital Signs (12 hours) Temp Pulse Ox 11/27/19 04:00 97.7 F 11/27/19 00:00 98.5 F 11/26/19 20:08 98.8 F 11/26/19 20:00 94 L Weight Admit Weight 101.151 kg Weight 103.782 kg Most Recent Monitor Data Heart Rate from ECG 124 NIBP 149/82 NIBP BP-Mean 104 Respiration from ECG 20 SpO2 91 I&O: 11/25/19 11/26/19 11/27/19 06:59 06:59 06:59 Intake Total 7982 3983.1 2656 Output Total 4375 4100 3250 Balance 3607 -116.9 -594 Result Diagrams: 11/27/19 05:06 11/27/19 05:06 Phys Exam - Physical Examination Constitutional: NAD HEENT: PERRLA, sclera anicteric dry MM Neck: no JVD, supple, full ROM Respiratory: no wheezing, no rales, no rhonchi, clear to auscultation bilateral Cardiovascular: no significant murmur, no rub tachycardic Gastrointestinal: soft, non-tender, no distention, positive bowel sounds Musculoskeletal: no edema, pulses present Tenderness to touch RUE at elbow Neurological: non-focal, moves all 4 limbs Psychiatric: A&O x 3 Skin: no rash, normal turgor, cap refill <2 seconds Dx/Plan (1) Acute intracranial hemorrhage Code(s): I62.9 - NONTRAUMATIC INTRACRANIAL HEMORRHAGE, UNSPECIFIED Status: Acute (2) Metastasis to brain Code(s): C79.31 - SECONDARY MALIGNANT NEOPLASM OF BRAIN Status: Acute (3) Palliative care encounter Code(s): Z51.5 - ENCOUNTER FOR PALLIATIVE CARE Status: Acute (4) Testicular malignant neoplasm Code(s): C62.90 - MALIG NEOPLASM OF UNSP TESTIS, UNSP DESCENDED OR UNDESCENDED Status: Acute - Plan Plan: 19yo CM with h/o Stage IV testicular cancer admitted for acute intracranial hemorrhagic conversion of metastatic lesions #Acute intracranial hemorrhagic conversion of metastatic lesions in setting of stage IV Testicular Cancer - 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 Continued on Decadron 8mg q6h - sxs and strength stable this AM, no seizure-like activity. Pain improved with Jaylene 100mg BID,can titrate up as appropriate - cont neuro checks q2hr - Initial CT brain with multiple brain mets with hemorrhagic conversion, R midline shift, and vasogenic edema - Repeat CT brain stable R midline shift, acute L cerebellar infarct, scattered mets - Brain MRI acute infarcts and hemorrhagic mets BL - Echo WNL, 60-65% EF - Bone scan - no bone mets - CTA - negative PE, lung and liver mets - Neurosurgery consulted, rec Onc and Rad/Onc intervention, monitoring, cont steroids - Rad Onc/Onc - Dr. Brown and Dr. Palencia. S/p Radiation started on 11/23, stared chemo 11/23. Tolerating well. Cont steroids, keppra, namenda. - fall precautions - monitor sxs closely, apprec specialists recs and assistance - pain control with jaylene, norco, morphine prn - SBP goal <160, prn labetalol - increased pain medication to 10 [place] or 7.5 mg so pt does not reach max dose of acetaminophen. - added bedside toilet and docusate for constipation and decrease strain with BM. #Stage IIIC testicular cancer with mets to brain, lungs, liver, spleen s/p L orchietomy - per above #Anemia - Hb 6.7 on 11/26 - s/p 3u pRBC (11/22, 11/23, 11/24, 11/25) - plan for repeat transfusion this AM #Thombocytopenia - Plt 184 -> 83 -> 77 - likely 2/2 chemo, will cont to monitor #Sinus Tachycardia - negative CTA for PE - likely 2/2 autonomic dysregulation for cancer/whole brain radiation, will cont to monitor - addition of metoprolol 25mg BID with better control, will increase dose to 50 mg Code Status: FULL CODE PCP: DIONTE IVF: SL Diet: Regular VTE: SCDs Dispo: Admitted to IM for acute intracranial hemorrhage due to metastatic testicular cancer. Onc and Rad Onc recs. Anticipate LOS >48hrs. Addendum - Attending - Attending Attestation Date/Time: 11/27/19 1425 I personally evaluated the patient and discussed the management with [Bennie] I agree with the History, Examination, Assessment and Plan documented above with any addition or exceptions noted below. Adjust Metoprolol to see if helps with tachycardia and HTN. Control pain and prevent constipation. Following with Heme/Onc treatments ongoing
[2019-11-27] MEDS: Metoprolol Tartrate 25 MG TAB PO SCH (08:03)
[2019-11-27] MEDS: Morphine 4 MG/ML VIAL SLOW IVP PRN ×2 (08:03→17:38)
[2019-11-27] MEDS: levETIRAcetam 500 MG TAB PO SCH ×2 (08:03→21:09)
[2019-11-27] MEDS: Pantoprazole 40 MG VIAL IVP SCH ×2 (08:04→21:09)
[2019-11-27] MEDS: Gabapentin 300 MG CAP PO SCH ×3 (08:07→21:09)
--- NOTE | 2019-11-27 10:22 | EKG ---
Test Reason : Blood Pressure : / mmHG Vent. Rate : 123 BPM Atrial Rate : 123 BPM P-R Int : 112 ms QRS Dur : 090 ms QT Int : 330 ms P-R-T Axes : -04 021 -07 degrees QTc Int : 472 ms Sinus tachycardia Nonspecific T wave abnormality Abnormal ECG Confirmed by DELGADO MCGARRY, SANJAY ([id number]), supervising editor trailer NATALYA MITTAL ([id number]) on 11/27/2019 10:21:59 AM Referred By: Confirmed By:SANJAY NATARAJAN MD
[2019-11-27] MEDS: Potassium Chloride 10 MEQ in Premix Bag 1 BAG IVPB SCH (11:26)
[2019-11-27] MEDS: Metoclopramide HCl 10 MG TAB PO PRN (11:39)
[2019-11-27] MEDS: Docusate 100 MG CAP PO SCH ×2 (11:41→21:09)
[2019-11-27] MEDS ORDERED: Metoprolol Tartrate 25 MG TAB PO SCH (11:45)
--- NOTE | 2019-11-27 12:27 | PDOC.MOPN ---
Interval History: asleep and resting, arousable. his mother says he is not having any nausea, he is coughing with some blood tinge. no fevers - Vital Signs Vital Signs: Vital Signs (12 hours) Temp Pulse Resp BP Pulse Ox 11/27/19 11:45 99.4 F 136 H 15 147/77 H 95 11/27/19 11:24 99.2 F 128 H 20 125/76 95 11/27/19 08:00 95 11/27/19 07:28 98.8 F 11/27/19 04:00 97.7 F Weight Admit Weight 223 lb Weight 228 lb 12.8 oz Most Recent Monitor Data Heart Rate from ECG 121 NIBP 147/77 NIBP BP-Mean 100 Respiration from ECG 8 SpO2 94 - Physical Exam General: Other (sleeping) Lungs: Clear to auscultation, Other (exam deferred) Cardiovascular: Regular rate Abdomen: No tenderness Extremities: No clubbing, Other (trace edema in vicki LEs, RUE with mass noted in forearm) - Labs Result Diagrams: 11/27/19 05:06 11/27/19 05:06 Lab results: Laboratory Results - last 24 hr 11/27/19 05:06: WBC 11.9 H, RBC 2.30 L, Hgb 6.7 L, Hct 19.9 L, MCV 86.4, MCH 29.2, MCHC 33.7, RDW 16.0 H, Plt Count 77 L, MPV 8.4, Neutrophils % 87.8 H, Neutrophils % (Manual) Not Reportable, Lymphocytes % 7.9 L, Monocytes % 4.0, Eosinophils % 0.2, Basophils % 0.1, Neutrophils # 10.5 H, Lymphocytes # 1.0 L, Monocytes # 0.5, Eosinophils # 0.0, Basophils # 0.0 11/27/19 05:06: Sodium 133 L, Potassium 4.2, Chloride 106, Carbon Dioxide 22, Anion Gap 9 L, BUN 26 H, Creatinine 0.54 L, Estimated GFR (MDRD) Greater than 90, Glucose 107 H, Calcium 7.7 L 11/26/19 08:35: Blood Type O POSITIVE, Antibody Screen NEGATIVE, Crossmatch See Detail A/P - Problem (1) Acute intracranial hemorrhage Current Visit: Yes Code(s): I62.9 - NONTRAUMATIC INTRACRANIAL HEMORRHAGE, UNSPECIFIED Status: Acute (2) Metastasis to brain Current Visit: Yes Code(s): C79.31 - SECONDARY MALIGNANT NEOPLASM OF BRAIN Status: Acute (3) Testicular malignant neoplasm Current Visit: Yes Code(s): C62.90 - MALIG NEOPLASM OF UNSP TESTIS, UNSP DESCENDED OR UNDESCENDED Status: Acute (4) Hemoptysis Current Visit: Yes Code(s): R04.2 - HEMOPTYSIS Status: Acute - Plan Plan: 1. transfuse 2. cont chemo with VIP 3. radiation on hold for , continue friday 4. cont steroids 5. monitor cough, I discussed with the nurses that is this gets worse we need to consider platelet transfusion and discuss with pulmonary
[2019-11-27] MEDS: HYDROcodone/Acetaminophen 10/325 mg Tablet PO PRN ×2 (12:39→16:15)
[2019-11-27] MEDS: Ondansetron PF 4 MG/2 ML Vial IVP PRN (12:41)
[2019-11-27] MEDS: Ondansetron 2MG/ML MDV 10 MG in Sodium Chloride 0.9% 50 ML IVP SCH (13:16)
[2019-11-27] MEDS: SODIUM CHLORIDE 0.9% IVPB SCH ×3 (13:22→16:02)
[2019-11-27] MEDS: ETOPOSIDE IVPB SCH (13:22)
[2019-11-27] MEDS: MANNITOL IV SCH (14:52)
[2019-11-27] MEDS: CISPLATIN IV SCH (14:52)
[2019-11-27] MEDS: SODIUM CHLORIDE 0.9% IV SCH (14:52)
[2019-11-27] MEDS: IFOSFAMIDE IVPB SCH (16:00)
[2019-11-27] MEDS: MESNA IVPB SCH (16:02)
[2019-11-27 18:44] LABS: #Eosinphils 0.1 thou/uL (0.0-0.7); #Lymphocytes 0.9 thou/uL (1.20-3.40); #Monocytes 0.2 thou/uL (0.11-0.59); #Neutrophils 9.2 thou/uL (1.40-6.50); %Basophils 0.1 % (0.0-1.0); %Eosinophils 0.5 % (0.0-10.0); %Lymphocytes 8.5 % (21.0-51.0); %Monocytes 2.3 % (0.0-10.0); %Neutrophils 88.6 % (42.0-75.0); Hemoglobin 6.5 g/dL (14.0-18.0); Mean Corpuscular HGB CONC 33.4 g/dL (32.0-36.0); Mean Corpuscular Volume 86.8 fL (78.0-98.0); Mean Platelet Volume 8.3 fL (7.4-10.4); Platelet Count 54 thou/uL (130-400); RBC Distribution Width 15.3 % (11.5-14.5); Red Blood Cell (RBC) Count 2.23 mill/uL (4.70-6.10); White Blood Cell (WBC) Count 10.4 thou/uL (4.8-10.8)
[2019-11-27 19:51] LABS: Bacteria/HPF 1+ HPF (None Seen); Bilirubin Negative (Negative); Blood, Urine 2+ (Negative); Clarity Clear (Clear); Glucose, Urine (Dipstick) 50 mg/dL (Negative); Leukocyte Negative Leu/uL (Negative); Nitrite Negative (Negative); Protein, Urine (Dipstick) Negative (Neg-Trace); RBC/HPF 21-50 HPF (0-3); Squamous Epithelial None Seen HPF (0-3); Urobilinogen Normal mg/dL (Less than 2); WBC/HPF 0-3 HPF (0-3)
[2019-11-27] MEDS: Metoprolol Tartrate 50 MG TAB PO SCH (21:09)
[2019-11-28] MEDS: Morphine 4 MG/ML VIAL SLOW IVP PRN ×3 (00:20→20:10)
[2019-11-28] MEDS: Sodium Chloride 0.9% 1,000 ML IV SCH ×3 (03:00→16:22)
[2019-11-28] MEDS: HYDROcodone/Acetaminophen 10/325 mg Tablet PO PRN ×4 (03:44→23:23)
[2019-11-28] MEDS: Ondansetron PF 4 MG/2 ML Vial IVP PRN (03:44)
[2019-11-28 04:49] LABS: #Lymphocytes 0.8 thou/uL (1.20-3.40); #Monocytes 0.1 thou/uL (0.11-0.59); #Neutrophils 12.9 thou/uL (1.40-6.50); %Basophils 0.1 % (0.0-1.0); %Eosinophils 0.2 % (0.0-10.0); %Monocytes 0.7 % (0.0-10.0); %Neutrophils 93.1 % (42.0-75.0); Hemoglobin 9.1 g/dL (14.0-18.0); Mean Corpuscular HGB CONC 34.6 g/dL (32.0-36.0); Mean Corpuscular Hemoglobin 29.9 pg (27.0-31.0); Mean Corpuscular Volume 86.6 fL (78.0-98.0); Mean Platelet Volume 8.7 fL (7.4-10.4); Platelet Count 59 thou/uL (130-400); RBC Distribution Width 14.9 % (11.5-14.5); Red Blood Cell (RBC) Count 3.02 mill/uL (4.70-6.10); White Blood Cell (WBC) Count 13.9 thou/uL (4.8-10.8)
[2019-11-28 05:14] LABS: Anion Gap 11 mmol/L (10-20); BUN (Urea Nitrogen) 23 mg/dL (8.9-20.6); Calc. Creatinine Clearance 319 mL/min (70-130); Calcium 7.8 mg/dL (7.8-10.44); Carbon Dioxide 21 mmol/L (22-29); Chloride 103 mmol/L (98-107); Estimated GFR-MDRD Greater than 90; Glucose 134 mg/dL (70-105); Potassium 4.2 mmol/L (3.5-5.1); Sodium 131 mmol/L (136-145)
--- NOTE | 2019-11-28 06:17 | PDOC.FM ---
- Subjective Subjective: HR 130's overnight. Pt denies CP or any JOHNSON at the moment. Had JOHNSON overnight and treated with morphine. hg 9.1 this AM. hemoptysis still present. - Objective MAR Reviewed: Yes Vital Signs & Weight: Vital Signs (12 hours) Temp Resp Pulse Ox 11/28/19 04:00 97.9 F 11/28/19 03:00 98.0 F 24 H 93 L 11/28/19 00:00 97.6 F 11/27/19 22:00 98.1 F 11/27/19 20:00 92 L 11/27/19 19:45 98.1 F Weight Admit Weight 101.151 kg Weight 104.581 kg Most Recent Monitor Data Heart Rate from ECG 148 NIBP 150/99 NIBP BP-Mean 116 Respiration from ECG 23 SpO2 93 I&O: 11/26/19 11/27/19 11/28/19 06:59 06:59 06:59 Intake Total 3983.1 2656 7399 Output Total 4100 3250 6225 Balance -116.9 -594 1174 Result Diagrams: 11/28/19 04:35 11/28/19 04:35 Phys Exam - Physical Examination Constitutional: NAD HEENT: PERRLA, moist MMs, sclera anicteric Neck: no JVD, supple Respiratory: clear to auscultation bilateral (coarse breath sounds. ) Cardiovascular: no rub tachycardic Gastrointestinal: soft, non-tender, no distention, positive bowel sounds Musculoskeletal: pulses present firm nodule on RUE distal to lateral elbow. Neurological: normal sensation, moves all 4 limbs Psychiatric: normal affect, A&O x 3 Skin: no rash, cap refill <2 seconds Dx/Plan (1) Acute intracranial hemorrhage Code(s): I62.9 - NONTRAUMATIC INTRACRANIAL HEMORRHAGE, UNSPECIFIED Status: Acute (2) Metastasis to brain Code(s): C79.31 - SECONDARY MALIGNANT NEOPLASM OF BRAIN Status: Acute (3) Palliative care encounter Code(s): Z51.5 - ENCOUNTER FOR PALLIATIVE CARE Status: Acute (4) Testicular malignant neoplasm Code(s): C62.90 - MALIG NEOPLASM OF UNSP TESTIS, UNSP DESCENDED OR UNDESCENDED Status: Acute - Plan Plan: 19yo CM with h/o Stage IV testicular cancer admitted for acute intracranial hemorrhagic conversion of metastatic lesions #Acute intracranial hemorrhagic conversion of metastatic lesions in setting of stage IV Testicular Cancer - 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 Continued on Decadron 8mg q6h - sxs and strength stable this AM, no seizure-like activity. Pain improved with Jaylene 100mg BID,can titrate up as appropriate - cont neuro checks q2hr - Initial CT brain with multiple brain mets with hemorrhagic conversion, R midline shift, and vasogenic edema - Repeat CT brain stable R midline shift, acute L cerebellar infarct, scattered mets - Brain MRI acute infarcts and hemorrhagic mets BL - Echo WNL, 60-65% EF - Bone scan - no bone mets - CTA - negative PE, lung and liver mets - Neurosurgery consulted, rec Onc and Rad/Onc intervention, monitoring, cont steroids - Rad Onc/Onc - Dr. Brown and Dr. Palencia. S/p Radiation started on 11/23, stared chemo 11/23. Tolerating well. Cont steroids, keppra, namenda. - fall precautions - monitor sxs closely, apprec specialists recs and assistance - pain control with jaylene, norco, morphine prn - SBP goal <160, prn labetalol - increased pain medication to 10 [place] or 7.5 mg so pt does not reach max dose of acetaminophen. - added bedside toilet and docusate for constipation and decrease strain with BM. #Stage IIIC testicular cancer with mets to brain, lungs, liver, spleen s/p L orchietomy - per above #Anemia - Hb 6.7 on 11/26, 9.1 on 11/27 - s/p 7u pRBC transfused total (11/22, 11/23, 11/24, 11/25, 11/26) - H&H daily. #Thombocytopenia - Plt 184 -> 83 -> 77 - likely 2/2 chemo, will cont to monitor #Sinus Tachycardia - negative CTA for PE - likely 2/2 autonomic dysregulation for cancer/whole brain radiation, will cont to monitor - increased metoprolol to 50mg BID with better control, after conversation with the cardiology team. - Cardiology consulted for further recommendations. Code Status: FULL CODE PCP: DIONTE IVF: SL Diet: Regular VTE: SCDs Dispo: Admitted to [facility] for acute intracranial hemorrhage due to metastatic testicular cancer. Onc and Rad Onc recs. Anticipate LOS >48hrs. Addendum - Attending - Attending Attestation Date/Time: 11/28/19 1682 I personally evaluated the patient and discussed the management with [Bennie] I agree with the History, Examination, Assessment and Plan documented above with any addition or exceptions noted below. CXR stable so continue to monitor respiratory status. Cardiology consult re tachycardia
--- NOTE | 2019-11-28 08:29 | RAD ---
PORTABLE CHEST: Date: 11/28/2019 HISTORY: Dyspnea. COMPARISON: 11/18/[address] angio chest dated 11/23/2019. FINDINGS: Innumerable bilateral pulmonary nodules are seen. Some of these areas have a slightly more confluent appearance with the nodules being somewhat less distinct. I am not certain if this is related to infi ltrative change or just related to a somewhat poor inspiration that is causing this appearance. Follo w-up chest film would be recommended. IMPRESSION: Innumerable bilateral pulmonary nodules. Nodules appear somewhat more confluent. I think this may be largely a function of a poor inspiratory effort. POS: TPC
[2019-11-28] MEDS: levETIRAcetam 500 MG TAB PO SCH ×2 (10:03→20:10)
[2019-11-28] MEDS: Docusate 100 MG CAP PO SCH ×3 (10:03→20:10)
[2019-11-28] MEDS: Gabapentin 300 MG CAP PO SCH ×3 (10:03→20:10)
[2019-11-28] MEDS: Metoprolol Tartrate 50 MG TAB PO SCH ×2 (10:03→20:10)
[2019-11-28] MEDS: Pantoprazole 40 MG VIAL IVP SCH ×2 (10:04→20:10)
[2019-11-28] MEDS: Dronabinol 2.5 MG CAP PO SCH ×2 (10:18→10:25)
--- NOTE | 2019-11-28 10:33 | PDOC.MOPN ---
Interval History: he is having some weakness, more on the right today. he is arousable but sleepy. oriented to person and place but not time. had BM yesterday but too weak to get OOB, used bed garcia - Vital Signs Vital Signs: Vital Signs (12 hours) Temp Resp Pulse Ox 11/28/19 08:00 94 L 11/28/19 07:23 99.7 F H 11/28/19 04:00 97.9 F 11/28/19 03:00 98.0 F 24 H 93 L 11/28/19 00:00 97.6 F Weight Admit Weight 223 lb Weight 230 lb 9 oz Most Recent Monitor Data Heart Rate from ECG 140 NIBP 145/94 NIBP BP-Mean 111 Respiration from ECG 23 SpO2 97 - Physical Exam General: Other (disoriented to time, oriented to person and place) Lungs: Clear to auscultation Cardiovascular: Other (tachy) Abdomen: Normal bowel sounds Extremities: Other (R forearm swelling from mass) Skin: No rashes Neurological: Other - Labs Result Diagrams: 11/28/19 04:35 11/28/19 04:35 Lab results: Laboratory Results - last 24 hr 11/28/19 04:35: WBC 13.9 H, RBC 3.02 L, Hgb 9.1 L, Hct 26.2 L, MCV 86.6, MCH 29.9, MCHC 34.6, RDW 14.9 H, Plt Count 59 L, MPV 8.7, Neutrophils % 93.1 H, Neutrophils % (Manual) Not Reportable, Lymphocytes % 6.0 L, Monocytes % 0.7, Eosinophils % 0.2, Basophils % 0.1, Neutrophils # 12.9 H, Lymphocytes # 0.8 L, Monocytes # 0.1 L, Eosinophils # 0.0, Basophils # 0.0 11/28/19 04:35: Sodium 131 L, Potassium 4.2, Chloride 103, Carbon Dioxide 21 L, Anion Gap 11, BUN 23 H, Creatinine 0.53 L, Estimated GFR (MDRD) Greater than 90 , Glucose 134 H, Calcium 7.8 11/27/19 19:40: Urine Color Light-Yellow, Urine Clarity Clear, Urine pH 6.0, Ur Specific [place] 1.019, Urine Protein Negative, Urine Glucose (UA) 50, Urine Ketones 20 A, Urine Blood 2+ A, Urine Nitrite Negative, Urine Bilirubin Negative , Urine Urobilinogen Normal, Ur Leukocyte Esterase Negative, Urine RBC 21-50 A, Urine WBC 0-3, Ur Squamous Epith Cells None Seen, Urine Bacteria 1+ A 11/27/19 18:35: WBC 10.4, RBC 2.23 L, Hgb 6.5 L, Hct 19.4 L, MCV 86.8, MCH 29.0 , MCHC 33.4, RDW 15.3 H, Plt Count 54 L, MPV 8.3, Neutrophils % 88.6 H, Neutrophils % (Manual) Not Reportable, Lymphocytes % 8.5 L, Monocytes % 2.3, Eosinophils % 0.5, Basophils % 0.1, Neutrophils # 9.2 H, Lymphocytes # 0.9 L, Monocytes # 0.2, Eosinophils # 0.1, Basophils # 0.0 11/26/19 08:35: Blood Type O POSITIVE, Antibody Screen NEGATIVE, Crossmatch See Detail A/P - Problem (1) Acute intracranial hemorrhage Current Visit: Yes Code(s): I62.9 - NONTRAUMATIC INTRACRANIAL HEMORRHAGE, UNSPECIFIED Status: Acute (2) Metastasis to brain Current Visit: Yes Code(s): C79.31 - SECONDARY MALIGNANT NEOPLASM OF BRAIN Status: Acute (3) Testicular malignant neoplasm Current Visit: Yes Code(s): C62.90 - MALIG NEOPLASM OF UNSP TESTIS, UNSP DESCENDED OR UNDESCENDED Status: Acute (4) Hemoptysis Current Visit: Yes Code(s): R04.2 - HEMOPTYSIS Status: Acute - Plan Plan: 1. complete chemo today 2. frequent neuro checks since he is a bit altered on ifos 3. follow cbc 4. continue norco
[2019-11-28] MEDS: Potassium Chloride 10 MEQ in Premix Bag 1 BAG IVPB SCH (11:03)
--- NOTE | 2019-11-28 11:27 | PRG ---
DATE OF SERVICE: 11/28/2019 I have reviewed the patient's material in the computer, discussed with the physicians involved and also discussed with the nursing staff. He is requiring somewhat more oxygen. His x-ray shows increase in metastatic lesions. However, he is oxygenating well on 2.5 L nasal cannula. The plan would be to try to ride this out with the steroids, oxygen and chemotherapy. If he decompensates and needs mechanical ventilation, I will be available. Job ID: [id number]
--- NOTE | 2019-11-28 12:13 | ULT ---
ULTRASOUND OF SOFT TISSUES OF FOREARM: Date: 11/28/2019 HISTORY: Forearm mass. History of metastatic testicular cancer. FINDINGS: A vascular solid mass is seen along the more posterior radial margin of the elbow after discussion wi th the technologist. This measures as much as 9.0 cm in length and approximately 3.3 cm in diameter. This does not represent a hematoma and does not have features that would suggest an abscess. IMPRESSION: Soft tissue forearm mass. Given patient's history of testicular cancer, this probably represents a me tastatic deposit. POS: TPC
[2019-11-28] MEDS: Ondansetron 2MG/ML MDV 10 MG in Sodium Chloride 0.9% 50 ML IVP SCH (12:16)
[2019-11-28 12:27] LABS: INR-International Normal Ratio 1.2; PTT 26.7 SEC (22.9-36.1); Prothrombin Time 14.8 SEC (12.0-14.7)
[2019-11-28] MEDS ORDERED: Ivabradine 5 MG TAB PO SCH (13:15)
--- NOTE | 2019-11-28 13:44 | CON ---
DATE OF CONSULTATION: HISTORY OF PRESENT ILLNESS: The patient is a 19-year-old gentleman who presents with persistent tachycardia. This unfortunate gentleman has a metastatic testicular carcinoma. He has been in the hospital, undergoing chemotherapy. He suffered an intracerebral hemorrhage. The patient's heart rate continues to be elevated. The patient feels weak. PAST MEDICAL HISTORY: Testicular carcinoma. PAST SURGICAL HISTORY: Surgery for testicular surgery. SOCIAL HISTORY: Nonsmoker. FAMILY HISTORY: No strong family history of heart disease. ALLERGIES: NO KNOWN DRUG ALLERGIES. PHYSICAL EXAMINATION: GENERAL: An ill-appearing gentleman, in mild distress. VITAL SIGNS: Blood pressure 142/82. NECK: No jugular venous distention. LUNGS: Clear to auscultation. HEART: Regular rate and rhythm. ABDOMEN: Distended. EXTREMITIES: Trace edema. LABORATORY DATA: White blood cell count 13.9, hemoglobin 9.1, hematocrit 26.2, and platelets are 59. Sodium is 131, potassium 4.2, chloride 103, bicarbonate 21, BUN 23, and creatinine 0.53. EKG : Sinus tachycardia, nonspecific T-wave abnormality. IMPRESSION: 1. Persistent sinus tachycardia. 2. Testicular cell carcinoma. This unfortunate gentleman has a persistent sinus tachycardia despite being on metoprolol. We will try Corlanor to see if we can have better control of his heart rate. PLAN: 1. Start low-dose Corlanor. 2. Continue metoprolol. Job ID: [id number] [facility]
[2019-11-28] MEDS: HYDROcodone/Acetaminophen 7.5/325 mg Tablet PO PRN (13:55)
[2019-11-28] MEDS: SODIUM CHLORIDE 0.9% IVPB SCH ×2 (14:02→16:22)
[2019-11-28] MEDS: ETOPOSIDE IVPB SCH (14:02)
[2019-11-28] MEDS: MANNITOL IV SCH (15:13)
[2019-11-28] MEDS: SODIUM CHLORIDE 0.9% IV SCH (15:13)
[2019-11-28] MEDS: CISPLATIN IV SCH (15:13)
[2019-11-28] MEDS ORDERED: Ivabradine 5 MG TAB PO PRN (16:00)
[2019-11-28] MEDS: MESNA IVPB SCH (16:22)
[2019-11-28] MEDS ORDERED: Dronabinol 2.5 MG CAP PO SCH (16:30)
[2019-11-28] MEDS ORDERED: Hydrocortisone 1% Cream 30 GM TUBE TOP PRN (18:52)
[2019-11-28] MEDS: Metoclopramide HCl 10 MG TAB PO PRN (20:10)
[2019-11-28] MEDS: Clotrimazole 1 % Cream 30 GM TUBE TOP SCH (20:20)
[2019-11-29] MEDS: Metoclopramide HCl 10 MG TAB PO PRN ×3 (02:16→18:38)
[2019-11-29] MEDS: Morphine 4 MG/ML VIAL SLOW IVP PRN ×5 (02:16→23:15)
[2019-11-29] MEDS: Sodium Chloride 0.9% 1,000 ML IV SCH ×3 (03:55→20:35)
[2019-11-29 04:16] LABS: #Lymphocytes 0.7 thou/uL (1.20-3.40); #Monocytes 0.1 thou/uL (0.11-0.59); #Neutrophils 11.7 thou/uL (1.40-6.50); %Basophils 0.1 % (0.0-1.0); %Eosinophils 0.1 % (0.0-10.0); %Lymphocytes 5.3 % (21.0-51.0); %Monocytes 0.6 % (0.0-10.0); %Neutrophils 93.9 % (42.0-75.0); Hemoglobin 8.3 g/dL (14.0-18.0); Mean Corpuscular Hemoglobin 30.2 pg (27.0-31.0); Mean Corpuscular Volume 86.3 fL (78.0-98.0); Mean Platelet Volume 9.6 fL (7.4-10.4); Platelet Count 44 thou/uL (130-400); RBC Distribution Width 14.8 % (11.5-14.5); Red Blood Cell (RBC) Count 2.73 mill/uL (4.70-6.10); White Blood Cell (WBC) Count 12.5 thou/uL (4.8-10.8)
[2019-11-29 04:34] LABS: Anion Gap 10 mmol/L (10-20); BUN (Urea Nitrogen) 22 mg/dL (8.9-20.6); Calc. Creatinine Clearance 332 mL/min (70-130); Calcium 7.7 mg/dL (7.8-10.44); Carbon Dioxide 22 mmol/L (22-29); Chloride 103 mmol/L (98-107); Estimated GFR-MDRD Greater than 90; Glucose 121 mg/dL (70-105); Sodium 131 mmol/L (136-145)
[2019-11-29] MEDS: HYDROcodone/Acetaminophen 10/325 mg Tablet PO PRN ×2 (05:13→16:12)
--- NOTE | 2019-11-29 06:00 | PDOC.FM ---
- Subjective Subjective: Pt denies any pain this morning, although father states he had quite a bit last night. He goes in and out of disorientation. Continued weakness of right side. Pt denies any acute events overnight. - Objective Vital Signs & Weight: Vital Signs (12 hours) Temp Pulse Ox 11/29/19 03:59 99.5 F 11/28/19 23:50 100.0 F H 11/28/19 20:00 95 11/28/19 19:43 97.6 F Weight Admit Weight 101.151 kg Weight 104.417 kg Most Recent Monitor Data Heart Rate from ECG 135 NIBP 144/81 NIBP BP-Mean 102 Respiration from ECG 26 SpO2 91 I&O: 11/27/19 11/28/19 11/29/19 06:59 06:59 06:59 Intake Total 2656 7399 3290 Output Total 4237 6225 5375 Balance -594 8660 -3092 Result Diagrams: 11/29/19 03:52 11/29/19 03:52 Phys Exam - Physical Examination Constitutional: NAD HEENT: moist MMs Neck: full ROM Respiratory: clear to auscultation bilateral Tachycardic, no murmur Gastrointestinal: soft, non-tender Nodular edema to upper extremities and back Right sided weakness, 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, 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 Diffuse lymphadenopathy Skin: no rash, cap refill <2 seconds Deviation from normal: Slightly moist Dx/Plan (1) Anemia Code(s): D64.9 - ANEMIA, UNSPECIFIED Status: Acute (2) Thrombocytopenia Code(s): D69.6 - THROMBOCYTOPENIA, UNSPECIFIED Status: Acute (3) Sinus tachycardia Code(s): R00.0 - TACHYCARDIA, UNSPECIFIED Status: Acute (4) Acute intracranial hemorrhage Code(s): I62.9 - NONTRAUMATIC INTRACRANIAL HEMORRHAGE, UNSPECIFIED Status: Acute (5) Hemoptysis Code(s): R04.2 - HEMOPTYSIS Status: Acute (6) Metastasis to brain Code(s): C79.31 - SECONDARY MALIGNANT NEOPLASM OF BRAIN Status: Acute (7) Palliative care encounter Code(s): Z51.5 - ENCOUNTER FOR PALLIATIVE CARE Status: Acute (8) Testicular malignant neoplasm Code(s): C62.90 - MALIG NEOPLASM OF UNSP TESTIS, UNSP DESCENDED OR UNDESCENDED Status: Acute - Plan Plan: 19yo CM with h/o Stage IV testicular cancer admitted for acute intracranial hemorrhagic conversion of metastatic lesions Acute intracranial hemorrhagic conversion of metastatic lesions in setting of stage IV Testicular Cancer - 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 Brown and Dr. Palencia. S/p Radiation started on 11/23, stared chemo 11/23. Cont steroids, keppra, namenda. 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 Thombocytopenia - Plt 44 - likely 2/2 chemo, hgb remains >7 this morning, no signs of acute bleed, will cont to monitor Sinus Tachycardia - likely 2/2 autonomic dysregulation for cancer/whole brain radiation - metoprolol BID - Cardiology consulted, rec Corlanor in addition Code Status: FULL CODE PCP: Dr. Avila - TAMP IVF: SL Diet: Regular VTE: SCDs Dispo: Admitted to IMCU for acute intracranial hemorrhage due to metastatic testicular cancer. Onc, Rad onc, Cards, Pulm following. Anticipate LOS >48hrs. Addendum - Attending - Attending Attestation Date/Time: 11/29/19 1046 I personally evaluated the patient and discussed the management with Dr. Avila. I agree with the History, Examination, Assessment and Plan documented above with any addition or exceptions noted below. Patient stable. Monitor blood counts. Monitor mentation. Radiation therapy today. Onc on board. Increase metoprolol for Sinus Tachy, awaiting further cards recs.
[2019-11-29 06:25] LABS: Magnesium 1.9 mg/dL (1.6-2.6); Phosphorus 3.8 mg/dL (2.3-4.7)
--- NOTE | 2019-11-29 08:03 | RAD ---
XR Chest 1 View Portable HISTORY: Decreased oxygen saturation, testicular cancer COMPARISON: 11/18/2019 FINDINGS: The heart size normal. Numerous bilateral pulmonary metastatic masses are redemonstrated. R ight-sided Port-A-Cath remains in place. No pneumothoraces or large effusions are seen. IMPRESSION: Stable exam
[2019-11-29] MEDS ORDERED: cefTRIAXone\\ROCEPHIN 1 GM in Sodium Chloride 0.9% 100 ML IVPB SCH (08:15)
[2019-11-29] MEDS: cefTRIAXone\\ROCEPHIN 1 GM in Sodium Chloride 0.9% 100 ML IVPB SCH (11:49)
[2019-11-29] MEDS: Clotrimazole 1 % Cream 30 GM TUBE TOP SCH ×2 (11:50→20:40)
[2019-11-29] MEDS: HYDROcodone/Acetaminophen 5/325 mg Tablet PO PRN (11:51)
[2019-11-29] MEDS: Docusate 100 MG CAP PO SCH ×2 (11:51→20:34)
[2019-11-29] MEDS: levETIRAcetam 500 MG TAB PO SCH ×2 (11:51→20:34)
[2019-11-29] MEDS: Ivabradine 5 MG TAB PO SCH ×2 (11:51→20:34)
[2019-11-29] MEDS: Gabapentin 300 MG CAP PO SCH ×3 (11:51→20:33)
[2019-11-29] MEDS: Pantoprazole 40 MG VIAL IVP SCH ×2 (11:52→20:34)
[2019-11-29] MEDS: Metoprolol Tartrate 50 MG TAB PO SCH (11:53)
[2019-11-29] MEDS ORDERED: PEGFILGRASTIM-JMDB 6 MG/0.6 ML SYRINGE SQ SCH (12:30)
--- NOTE | 2019-11-29 12:39 | PDOC.MOPN ---
Interval History: Pt is very somnolent this morning, responds "no" to all questions. He recently received IV morphine. His father states that he is agitated off/on, alert and oriented off/on. He was fully conversant with him yesterday for an hour, then slowly confused again. No further episodes of pink urine or blood in urine. - Vital Signs Vital Signs: Vital Signs (12 hours) Temp Pulse Ox 11/29/19 11:33 98.4 F 11/29/19 07:53 95 11/29/19 07:26 99.3 F 11/29/19 03:59 99.5 F Weight Admit Weight 223 lb Weight 230 lb 3.2 oz Most Recent Monitor Data Heart Rate from ECG 152 NIBP 148/75 NIBP BP-Mean 99 Respiration from ECG 35 SpO2 94 - Physical Exam General: Other (Somnolent but arousable to voice and touch) Lungs: Other (anterior lung rod clear to auscultation) Cardiovascular: Other (tachycardic) Abdomen: Soft, No tenderness Extremities: Other (edema; palpable masses in B/L forearms, right ? left) Neurological: Other (unable to participate in exam, however is able to move extremities, head, eyes) - Labs Result Diagrams: 11/29/19 03:52 11/29/19 03:52 Lab results: Laboratory Results - last 24 hr 11/29/19 03:52: Phosphorus 3.8, Magnesium 1.9 11/29/19 03:52: WBC 12.5 H, RBC 2.73 L, Hgb 8.3 L, Hct 23.6 L, MCV 86.3, MCH 30.2, MCHC 35.0, RDW 14.8 H, Plt Count 44 L, MPV 9.6, Neutrophils % 93.9 H, Neutrophils % (Manual) Not Reportable, Lymphocytes % 5.3 L, Monocytes % 0.6, Eosinophils % 0.1, Basophils % 0.1, Neutrophils # 11.7 H, Lymphocytes # 0.7 L, Monocytes # 0.1 L, Eosinophils # 0.0, Basophils # 0.0 11/29/19 03:52: Sodium 131 L, Potassium 4.0, Chloride 103, Carbon Dioxide 22, Anion Gap 10, BUN 22 H, Creatinine 0.52 L, Estimated GFR (MDRD) Greater than 90 , Glucose 121 H, Calcium 7.7 L 11/28/19 12:01: PT 14.8 H, INR 1.2, APTT 26.7 A/P - Problem (1) Testicular malignant neoplasm Current Visit: Yes Code(s): C62.90 - MALIG NEOPLASM OF UNSP TESTIS, UNSP DESCENDED OR UNDESCENDED Status: Acute (2) Metastasis to brain Current Visit: Yes Code(s): C79.31 - SECONDARY MALIGNANT NEOPLASM OF BRAIN Status: Acute - Plan Plan: C1D6 of VIP: Ifosfamide D5 held due to altered mental state - difficult to tell what is the cause as he had some AMS prior to initiation of chemotherapy and radiation. Ifos can cause it, not common, and he has other reasons including new UTI, hemorrhagic brain mets, whole brain XRT, and narcotics. Delirium is olikely multifactorial. monitor mental status off chemo and with antibiotics for UTI - if no improvement tomorrow will consider Methylene Blue administration, although this is not w/o side effects including hemolytic anemia and patient is already very anemic. Cont steroids, antiemetics, other supportive care
[2019-11-29] MEDS ORDERED: Metoprolol Tartrate 100 MG TAB PO SCH (16:15)
[2019-11-29] MEDS: Metoprolol Tartrate 100 MG TAB PO SCH (20:34)
[2019-11-29] MEDS: HYDROcodone/Acetaminophen 7.5/325 mg Tablet PO PRN (20:34)
[2019-11-30] MEDS: HYDROcodone/Acetaminophen 10/325 mg Tablet PO PRN ×5 (01:20→23:35)
[2019-11-30] MEDS: Benzonatate 100 MG CAP PO PRN ×3 (02:22→23:35)
[2019-11-30] MEDS: Morphine 4 MG/ML VIAL SLOW IVP PRN ×4 (03:57→20:09)
[2019-11-30 04:46] LABS: INR-International Normal Ratio 1.1; Prothrombin Time 14.1 SEC (12.0-14.7)
[2019-11-30 04:47] LABS: PTT 25.9 SEC (22.9-36.1)
[2019-11-30 05:00] LABS: Hemoglobin 7.4 g/dL (14.0-18.0); Hypersemented Neutrophil SLIGHT; Hypochromia SLIGHT = 6-15 cells (100X) (0-5/hpf); Lymphocytes 2 % (21-51); MDiff Complete? YES; Mean Corpuscular HGB CONC 34.7 g/dL (32.0-36.0); Mean Corpuscular Volume 86.4 fL (78.0-98.0); Mean Platelet Volume 9.5 fL (7.4-10.4); Monocytes 2 % (0-10); Neutrophil 96 % (42-75); Platelet Count 34 thou/uL (130-400); Platelet Morphology Comment Appears Decreased; RBC Distribution Width 15.1 % (11.5-14.5); Red Blood Cell (RBC) Count 2.45 mill/uL (4.70-6.10); White Blood Cell (WBC) Count 15.4 thou/uL (4.8-10.8)
[2019-11-30 05:01] LABS: Anion Gap 10 mmol/L (10-20); BUN (Urea Nitrogen) 22 mg/dL (8.9-20.6); Calc. Creatinine Clearance 367 mL/min (70-130); Calcium 7.8 mg/dL (7.8-10.44); Carbon Dioxide 22 mmol/L (22-29); Chloride 103 mmol/L (98-107); Estimated GFR-MDRD Greater than 90; Glucose 113 mg/dL (70-105); Sodium 131 mmol/L (136-145)
--- NOTE | 2019-11-30 06:36 | PDOC.FM ---
- Subjective Subjective: Reports pain is "good." Yesterday evening was good mom reports he was joking around. Reports cough. Has not been working with PT but would be interested in doing some hand exercises and ROM. Incontinent. 3 BMs yesterday. - Objective MAR Reviewed: Yes Vital Signs & Weight: Vital Signs (12 hours) Temp Pulse Ox 11/30/19 03:42 99.4 F 11/29/19 23:43 97.0 F L 11/29/19 20:00 98.1 F 95 Weight Admit Weight 101.151 kg Weight 104.417 kg Most Recent Monitor Data Heart Rate from ECG 131 NIBP 146/76 NIBP BP-Mean 99 Respiration from ECG 26 SpO2 93 I&O: 11/28/19 11/29/19 11/30/19 06:59 06:59 06:59 Intake Total 7399 4963 3011 Output Total 6225 5375 2775 Balance 1174 -412 236 Result Diagrams: 11/30/19 04:26 11/30/19 04:26 Phys Exam - Physical Examination Constitutional: NAD HEENT: moist MMs Neck: supple Respiratory: no wheezing, clear to auscultation bilateral Cardiovascular: RRR Gastrointestinal: soft, non-tender Musculoskeletal: pulses present right sided weakness Skin: normal turgor Dx/Plan - Plan Plan: 19yo CM with h/o Stage IV testicular cancer admitted for acute intracranial hemorrhagic conversion of metastatic lesions Acute intracranial hemorrhagic conversion of metastatic lesions in setting of stage IV Testicular Cancer - 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 Brown and Dr. Palencia. S/p Radiation started on 11/23, stared chemo 11/23. Chemo held due to AMS - Cont steroids, keppra, namenda - Gabapentin, [place], Morphine prn for pain - SBP goal <160, prn labetalol - US RUE yesterday: likely metastatic nodules - PT/OT Anemia - Hb 7.4 - s/p 7u pRBC transfused total (11/22, 11/23, 11/24, 11/25, 11/26) - H&H daily Thombocytopenia - likely 2/2 chemo, decreasing. Continue to monitor Sinus Tachycardia - likely 2/2 autonomic dysregulation for cancer/whole brain radiation - metoprolol BID & Corlanor - Cardiology following Cough - Incentive spirometry as tolerated Code Status: FULL PCP: Dr. Avila - DIONTE IVF: SL Diet: Regular DVT ppx: SCDs Addendum - Attending - Attending Attestation Date/Time: 11/30/192122 I personally evaluated the patient and discussed the management with Dr. Whipple I agree with the History, Examination, Assessment and Plan documented above with any addition or exceptions noted below- Mother reports some increased pain in suprapubic area and difficulty urinating. Afebrile VSS A/P: 1) Metastatic testicular cancer- plans as per oncology and radiation oncology 2) UTI- continue rocephin, 3) suprapubic pain- possible bladder spasms- will give trial of hyosamine.
--- NOTE | 2019-11-30 08:31 | PDOC.MOPN ---
Interval History: Pt slightly more alert this morning than yesterday. His mom states he was alert and conversant yesterday evening watching a movie. He appears to be very somnolent and not alert or oriented in the morning but improved in the afternoon and evening and doesn't sleep at night and so part of his confusion could be from a disturbed sleep cycle. His breaker tender strength has worsened B/L but moves all extremities. Denies pain or SOB at this time. He has coughed up some blood tinged sputum. Having some incontinence. - Vital Signs Vital Signs: Vital Signs (12 hours) Temp 11/30/19 07:39 97.6 F 11/30/19 03:42 99.4 F 11/29/19 23:43 97.0 F L Weight Admit Weight 223 lb Weight 218 lb 8 oz Most Recent Monitor Data Heart Rate from ECG 131 NIBP 146/76 NIBP BP-Mean 99 Respiration from ECG 26 SpO2 93 - Physical Exam General: No acute distress Lungs: Clear to auscultation Cardiovascular: Other (tachy) Abdomen: Soft, No tenderness Extremities: No edema, Other (B/L forearm masses, right > left) Neurological: Other (moves extremities, head, eyes and mouth but cannot cooperate with exam) - Labs Result Diagrams: 11/30/19 04:26 11/30/19 04:26 Lab results: Laboratory Results - last 24 hr 11/30/19 04:26: PT 14.1, INR 1.1, APTT 25.9 11/30/19 04:26: WBC 15.4 H, RBC 2.45 L, Hgb 7.4 L, Hct 21.2 L, MCV 86.4, MCH 30.0, MCHC 34.7, RDW 15.1 H, Plt Count 34 L, MPV 9.5, Neutrophils % (Manual) 96 H, Lymphocytes % (Manual) 2 L, Monocytes % (Manual) 2, Hypersegmented Neuts SLIGHT, Hypochromia SLIGHT = 6-15 cells, Plt Morphology Comment Appears Decreased L 11/30/19 04:26: Sodium 131 L, Potassium 4.0, Chloride 103, Carbon Dioxide 22, Anion Gap 10, BUN 22 H, Creatinine 0.47 L, Estimated GFR (MDRD) Greater than 90 , Glucose 113 H, Calcium 7.8 11/30/19 03:30: Lactate Dehydrogenase 2537 H 11/26/19 08:35: Crossmatch See Detail A/P - Problem (1) Testicular malignant neoplasm Current Visit: Yes Code(s): C62.90 - MALIG NEOPLASM OF UNSP TESTIS, UNSP DESCENDED OR UNDESCENDED Status: Acute (2) Metastasis to brain Current Visit: Yes Code(s): C79.31 - SECONDARY MALIGNANT NEOPLASM OF BRAIN Status: Acute
[2019-11-30] MEDS: Sodium Chloride 0.9% 1,000 ML IV SCH ×2 (08:37→16:28)
[2019-11-30] MEDS: cefTRIAXone\\ROCEPHIN 1 GM in Sodium Chloride 0.9% 100 ML IVPB SCH (08:38)
[2019-11-30] MEDS: Gabapentin 300 MG CAP PO SCH ×3 (08:38→20:11)
[2019-11-30] MEDS: Docusate 100 MG CAP PO SCH ×2 (08:38→20:11)
[2019-11-30] MEDS: Pantoprazole 40 MG VIAL IVP SCH ×2 (08:38→20:11)
[2019-11-30] MEDS: Metoprolol Tartrate 100 MG TAB PO SCH ×2 (08:39→20:11)
[2019-11-30] MEDS: levETIRAcetam 500 MG TAB PO SCH ×2 (08:39→20:11)
[2019-11-30] MEDS: Ivabradine 5 MG TAB PO SCH ×2 (08:39→20:10)
--- NOTE | 2019-11-30 09:18 | CT ---
Exam: Head CT without contrast HISTORY: Hemorrhagic brain metastases. Evaluate for worsening edema and bleeding. COMPARISON: 11/22/2019 FINDINGS: Hemorrhage: Redemonstration of multiple hyperdense masses involving the brain parenchyma which may re present hemorrhagic intraparenchymal metastases. Largest focus measures 2.7 x 3.2 cm and is centered in the left occipital lobe. There is worsening vasogenic edema involving the left cerebrum. Second intra-axial hyperdense metastatic focus measures 1.8 x 1.5 cm and is located in the left frontal white matter. Additional intraparenchymal metastatic focus in the right occipital lobe measur es 1.1 x 1.2 cm. There is worsening vasogenic edema in the right occipital lobe. Redemonstration of multiple intraparenchymal metastatic foci in the right cerebellar hemisphere. Persistent vasogenic ed dalila. Brain parenchyma: There is worsening upmg-nv-qnbtr subfalcine herniation, approximately 1 cm. Ventricular system: Ventricles and sulci are patent and symmetric. Calvarium: Intact. Sinuses and mastoid air cells: Adequate aeration. IMPRESSION: 1. Redemonstration of multifocal intracranial metastases. 2. Increasing vasogenic edema. 3. Worsening xhwh-cv-rhoid subfalcine herniation. Results of study conveyed to Dr. Brown via [facility] 11/30/2019 at 9:17 AM Transcribed Date/Time: 11/30/2019 9:26 AM
[2019-11-30] MEDS: Clotrimazole 1 % Cream 30 GM TUBE TOP SCH ×2 (14:42→20:11)
[2019-11-30] MEDS ORDERED: Hyoscyamine Sulfate 0.125 MG/5 ML UDCUP PO PRN (17:45)
[2019-11-30] MEDS: Metoclopramide HCl 10 MG TAB PO PRN (17:47)
[2019-11-30] MEDS: Ondansetron PF 4 MG/2 ML Vial IVP PRN (18:48)
[2019-11-30] MEDS: cloNIDine 0.1 MG TAB PO PRN (20:59)
[2019-12-01] MEDS: HYDROcodone/Acetaminophen 7.5/325 mg Tablet PO PRN (00:50)
[2019-12-01] MEDS: Morphine 4 MG/ML VIAL SLOW IVP PRN ×2 (02:48→19:50)
[2019-12-01] MEDS: Sodium Chloride 0.9% 1,000 ML IV SCH ×3 (03:27→17:57)
[2019-12-01 04:33] LABS: Hemoglobin 7.2 g/dL (14.0-18.0); Mean Corpuscular HGB CONC 34.2 g/dL (32.0-36.0); Mean Corpuscular Hemoglobin 29.4 pg (27.0-31.0); Mean Corpuscular Volume 86.1 fL (78.0-98.0); Mean Platelet Volume 10.5 fL (7.4-10.4); Platelet Count 23 thou/uL (130-400); RBC Distribution Width 15.2 % (11.5-14.5); Red Blood Cell (RBC) Count 2.45 mill/uL (4.70-6.10); White Blood Cell (WBC) Count 2.1 thou/uL (4.8-10.8)
[2019-12-01 04:35] LABS: Anion Gap 12 mmol/L (10-20); BUN (Urea Nitrogen) 21 mg/dL (8.9-20.6); Calc. Creatinine Clearance 309 mL/min (70-130); Calcium 7.8 mg/dL (7.8-10.44); Carbon Dioxide 22 mmol/L (22-29); Chloride 102 mmol/L (98-107); Estimated GFR-MDRD Greater than 90; Glucose 127 mg/dL (70-105); Potassium 4.4 mmol/L (3.5-5.1); Sodium 132 mmol/L (136-145)
[2019-12-01] MEDS: Benzonatate 100 MG CAP PO PRN ×2 (05:00→13:01)
[2019-12-01 05:05] LABS: Band 2 % (5-11); Lymphocytes 21 % (21-51); MDiff Complete? YES; Monocytes 1 % (0-10); Neutrophil 76 % (42-75); Platelet Morphology Comment Appears Decreased
--- NOTE | 2019-12-01 06:16 | PDOC.FM ---
- Subjective Subjective: Pain well controlled this morning. Worked with PT yesterday, stood up beside the bed. Didn't sleep well overnight due to cough. CT yesterday with worsening edema and herniation. - Objective MAR Reviewed: Yes Vital Signs & Weight: Vital Signs (12 hours) Temp BP Pulse Ox 12/01/19 04:00 98.5 F 11/30/19 23:44 99.3 F 11/30/19 20:59 131/62 11/30/19 20:00 96 11/30/19 19:31 98.9 F Weight Admit Weight 101.151 kg Weight 100.062 kg Most Recent Monitor Data Heart Rate from ECG 139 NIBP 147/81 NIBP BP-Mean 103 Respiration from ECG 27 SpO2 90 I&O: 11/29/19 11/30/19 12/01/19 06:59 06:59 06:59 Intake Total 4963 3491 2795 Output Total 5375 2775 2625 Balance -412 716 170 Result Diagrams: 12/01/19 03:33 12/01/19 03:33 Phys Exam - Physical Examination Constitutional: NAD HEENT: moist MMs Neck: supple Cardiovascular: RRR Gastrointestinal: soft Musculoskeletal: pulses present right sided weakness Dx/Plan - Plan Plan: 19yo CM with h/o Stage IV testicular cancer admitted for acute intracranial hemorrhagic conversion of metastatic lesions Acute intracranial hemorrhagic conversion of metastatic lesions in setting of stage IV Testicular Cancer - 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 Discussed with Neurosurgery, Mannitol or surgery not indicated at this time. - Rad Onc/Onc - Dr. Brown and Dr. Palencia - Cont steroids, keppra, namenda- increased to BID - Gabapentin 300mg TID (increase as needed), [place], Morphine prn for pain Anemia - Hb 7.2 - s/p 7u pRBC transfused total (11/22, 11/23, 11/24, 11/25, 11/26) - H&H daily Thombocytopenia - likely 2/2 chemo. Continue to monitor Sinus Tachycardia - likely 2/2 autonomic dysregulation for cancer/whole brain radiation - metoprolol BID & Corlanor - Cardiology following Code Status: FULL PCP: Dr. Avila - TAMP IVF: SL Diet: Regular DVT ppx: SCDs Addendum - Attending - Attending Attestation Date/Time: 12/01/19 6618 I personally evaluated the patient and discussed the management with Dr. Whipple Agree with the History, Examination, Assessment and Plan documented above with any addition or exceptions noted below - Patient comfortable per father. No furter bladder spasms. Afebrile VSS. A/P: 1) Metastatic testicular cancer - continue XRT as per radiation oncology. 2) Thrombocytpenia- transfusing platelets as oncology.
[2019-12-01] MEDS: Metoclopramide HCl 10 MG TAB PO PRN (08:07)
[2019-12-01] MEDS: HYDROcodone/Acetaminophen 10/325 mg Tablet PO PRN ×4 (08:07→23:53)
[2019-12-01] MEDS: cefTRIAXone\\ROCEPHIN 1 GM in Sodium Chloride 0.9% 100 ML IVPB SCH (09:20)
[2019-12-01] MEDS: Pantoprazole 40 MG VIAL IVP SCH ×2 (09:20→20:56)
[2019-12-01] MEDS: Metoprolol Tartrate 100 MG TAB PO SCH ×2 (09:20→20:56)
[2019-12-01] MEDS: Gabapentin 300 MG CAP PO SCH ×3 (09:20→20:56)
[2019-12-01] MEDS: levETIRAcetam 500 MG TAB PO SCH ×2 (09:20→20:56)
[2019-12-01] MEDS: Docusate 100 MG CAP PO SCH ×2 (09:20→20:56)
[2019-12-01] MEDS: Ondansetron PF 4 MG/2 ML Vial IVP PRN (09:20)
[2019-12-01] MEDS: Clotrimazole 1 % Cream 30 GM TUBE TOP SCH ×2 (09:51→20:54)
[2019-12-01] MEDS: Ivabradine 5 MG TAB PO SCH ×3 (09:52→20:56)
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
[2019-12-02] MEDS: Benzonatate 100 MG CAP PO PRN ×2 (02:45→20:56)
[2019-12-02 04:16] LABS: Platelet Count 28 thou/uL (130-400); White Blood Cell (WBC) Count 0.6 thou/uL (4.8-10.8)
[2019-12-02 04:39] LABS: Anion Gap 11 mmol/L (10-20); BUN (Urea Nitrogen) 21 mg/dL (8.9-20.6); Calc. Creatinine Clearance 331 mL/min (70-130); Calcium 7.8 mg/dL (7.8-10.44); Carbon Dioxide 22 mmol/L (22-29); Chloride 105 mmol/L (98-107); Estimated GFR-MDRD Greater than 90; Glucose 137 mg/dL (70-105); Potassium 3.8 mmol/L (3.5-5.1); Sodium 134 mmol/L (136-145)
[2019-12-02 04:45] LABS: Mean Corpuscular HGB CONC 35.3 g/dL (32.0-36.0); Mean Corpuscular Hemoglobin 30.1 pg (27.0-31.0); Mean Corpuscular Volume 85.4 fL (78.0-98.0); Mean Platelet Volume 9.8 fL (7.4-10.4); RBC Distribution Width 15.1 % (11.5-14.5); Red Blood Cell (RBC) Count 1.98 mill/uL (4.70-6.10)
[2019-12-02 04:46] LABS: Hypochromia SLIGHT = 6-15 cells (100X) (0-5/hpf); Lymphocytes 48 % (21-51); MDiff Complete? YES; Neutrophil 52 % (42-75); Platelet Morphology Comment Appears Decreased
--- NOTE | 2019-12-02 06:36 | PDOC.FM ---
- Subjective Subjective: Patient reports doing well. Only slept about 30min overnight. Reports hemoptysis. Worsening weakness. Family has concerns about what the cancers markers are looking like and what can be done about the brain swelling/plan to follow up on swelling. Pt reports needing a pain medication. Ate a good breakfast this morning. - Objective MAR Reviewed: Yes Vital Signs & Weight: Vital Signs (12 hours) Temp 12/02/19 03:41 97.7 F 12/01/19 23:32 98.8 F 12/01/19 20:00 98.5 F Weight Admit Weight 101.151 kg Weight 100.062 kg Most Recent Monitor Data Heart Rate from ECG 119 NIBP 141/73 NIBP BP-Mean 95 Respiration from ECG 27 SpO2 90 I&O: 11/30/19 12/01/19 12/02/19 06:59 06:59 06:59 Intake Total 3491 2795 2164.6 Output Total 2775 2850 1875 Balance 716 -55 289.6 Result Diagrams: 12/02/19 03:43 12/02/19 03:43 Phys Exam - Physical Examination Constitutional: NAD HEENT: moist MMs Respiratory: clear to auscultation bilateral Tachycardic Gastrointestinal: soft, non-tender Psychiatric: A&O x 3 Skin: no rash Dx/Plan - Plan Plan: 19yo CM with h/o Stage IV testicular cancer admitted for acute intracranial hemorrhagic conversion of metastatic lesions Acute intracranial hemorrhagic conversion of metastatic lesions in setting of stage IV Testicular Cancer - 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 Discussed with Neurosurgery, Mannitol or surgery not indicated at this time. - Rad Onc/Onc - Dr. Brown and Dr. Palencia - Cont steroids, keppra, namenda- increased to BID - Gabapentin 300mg TID (increase as needed), [place], Morphine prn for pain Anemia - Hb 6.0, ordered 2U pRBCs, recheck H&H 2 hours after transfusion - s/p 9u pRBC transfused total (11/22, 11/23, 11/24, 11/25, 11/26, 12/01) - H&H daily Thombocytopenia - likely 2/2 chemo. Continue to monitor - Likely transfuse plts today after returns from radiation Sinus Tachycardia - likely 2/2 autonomic dysregulation for cancer/whole brain radiation - Metoprolol BID & Corlanor - Cardiology following Code Status: FULL PCP: Dr. Avila - TAMP IVF: SL Diet: Regular DVT ppx: SCDs Addendum - Attending - Attending Attestation Date/Time: 12/02/19 7845 I personally evaluated the patient and discussed the management with Dr. Whipple I agree with the History, Examination, Assessment and Plan documented above with any addition or exceptions noted below - Pateint without complaints; moving all extremities; ate well. Afebrile VSS. A/P: 1) Metastatic testicular cancer - Continue current therapy as per oncology and radiation oncology 2) Pancytopenia - transfused pRBCs today nad platelets yesterday. Continue to monitor.
[2019-12-02] MEDS: HYDROcodone/Acetaminophen 10/325 mg Tablet PO PRN ×3 (07:49→20:56)
[2019-12-02] MEDS: Ivabradine 5 MG TAB PO SCH ×3 (09:20→20:56)
[2019-12-02] MEDS: Docusate 100 MG CAP PO SCH ×2 (09:20→20:55)
[2019-12-02] MEDS: levETIRAcetam 500 MG TAB PO SCH ×2 (09:20→20:56)
[2019-12-02] MEDS: Pantoprazole 40 MG VIAL IVP SCH ×2 (09:20→20:56)
[2019-12-02] MEDS: Metoprolol Tartrate 100 MG TAB PO SCH ×2 (09:20→20:56)
[2019-12-02] MEDS: Ondansetron PF 4 MG/2 ML Vial IVP PRN (09:20)
[2019-12-02] MEDS: Gabapentin 300 MG CAP PO SCH ×3 (09:20→20:55)
--- NOTE | 2019-12-02 11:23 | PRG ---
DATE OF SERVICE: 12/02/2019 SUBJECTIVE: Mr. Heller was seen today for his weekly visit. 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 He had a life-threatening brain metastasis as well as life-threatening systemic disease with liver and lung metastasis that necessitated starting both chemotherapy and radiation at the same time. Because he had numerous brain metastasis, he is being treated with whole-brain radiation therapy. Today reports that he still has headaches off and on. He feels that his breathing is stable, but it is more labored. He apparently had a small amount of hemoptysis. He is working with physical therapy, but does report some pain. He is moving all of his extremities. He voices no other complaints. OBJECTIVE: VITAL SIGNS: His height is 6 feet 4 inches, weight 218 pounds, blood pressure 139/68, pulse is 115, respirations are 18, temperature is 98.8, O2 saturation is 98% on 2 L O2. GENERAL: He is alert, but ill in appearance. Karnofsky performance status is 30%. His breathing is mildly labored and he is slightly diaphoretic in appearance. He is pale in appearance. HEENT: Oral cavity and oropharynx are normal without lesion or erythema. There is no evidence of thrush. LUNGS: Breathing is mildly labored. Lungs are clear to auscultation. HEART: Tachycardic without murmur. ABDOMEN: Bowel sounds present. Soft, nontender, nondistended without mass or hepatosplenomegaly. NEUROLOGIC: He is moving all four extremities. He is able to move all of his fingers and toes. LABORATORY DATA: White blood cell count of 0.6 with a hemoglobin of 6.0 and hematocrit of 16.9, platelet count is 28,000. Chemistry group showed fairly normal electrolytes. Creatinine is 0.5, glucose is 137. LDH is 2537. CT scan of the head from earlier this week showed worsening of his edema and some worsening of his subfalcine herniation. ASSESSMENT: Mr. Heller is a 19-year-old gentleman who is quite ill from his metastatic testicular cancer, choriocarcinoma, to the brain and lung and liver. Unfortunately, his disease is life-threatening, both from the CONCRETE SMOOTHER perspective and from the pulmonary perspective. He is on chemotherapy and radiation. PLAN: At this point, he is on high-dose steroids. We have been reluctant to decrease the dose of steroids because of his edema, which was worse on his CT scan earlier. Neurosurgery did evaluate the patient and did not feel that neurosurgical intervention or mannitol would be of further benefit at this point. I am concerned about toxicity from high-dose steroids for the length of time that he is on them, but do not see much choice at this time. We will work with the medical team to see when we might be able to reduce his steroid therapy. We might have to repeat a CT scan in several days to see if he has had improvement in the edema and that might allow us to decrease the steroid therapy. I think that everybody is doing everything they can do in regard to the worsening edema and herniation. I think at this point, we will just continue his whole-brain radiation therapy. He will continue with supportive care through the side effects from his chemotherapy, which include his thrombocytopenia and neutropenia. Hopefully, we will begin to see improvement over the next week in all of these things. We will continue his Namenda as well. Job ID: [id number]
--- NOTE | 2019-12-02 12:06 | PDOC.MOPN ---
Interval History: answering questions more. Able to show me 2 fingers with left hand which he could not do yesterday. He is oriented to place and year. No pain today. eating well. no bleeding. mass on upper extremities about the same. - Vital Signs Vital Signs: Vital Signs (12 hours) Temp Pulse BP Pulse Ox 12/02/19 11:17 99.6 F 12/02/19 08:40 99 136/81 12/02/19 07:59 95 12/02/19 07:31 99.4 F 12/02/19 03:41 97.7 F Weight Admit Weight 223 lb Weight 218 lb 3 oz Most Recent Monitor Data Heart Rate from ECG 119 NIBP 166/86 NIBP BP-Mean 112 Respiration from ECG 18 SpO2 93 - Physical Exam General: Alert, Cooperative HEENT: Atraumatic, PERRLA, EOMI, Mucous membr. moist/pink Lungs: Clear to auscultation, Normal air movement Cardiovascular: Regular rate, Normal S1, Normal S2, No murmurs, Gallops, Rubs Abdomen: Normal bowel sounds, Soft, No tenderness, No hepatospenomegaly, No masses Extremities: No clubbing, No cyanosis, No edema, Normal pulses, No tenderness/ swelling Neurological: Other - Labs Result Diagrams: 12/02/19 03:43 12/02/19 03:43 Lab results: Laboratory Results - last 24 hr 12/02/19 03:43: WBC 0.6 L*, RBC 1.98 L, Hgb 6.0 L, Hct 16.9 L, MCV 85.4, MCH 30.1, MCHC 35.3, RDW 15.1 H, Plt Count 28 L*, MPV 9.8, Neutrophils % (Manual) 52 , Lymphocytes % (Manual) 48, Lymphocytes # Not Reportable, Hypochromia SLIGHT = 6-15 cells, Plt Morphology Comment Appears Decreased L 12/02/19 03:43: Sodium 134 L, Potassium 3.8, Chloride 105, Carbon Dioxide 22, Anion Gap 11, BUN 21 H, Creatinine 0.50 L, Estimated GFR (MDRD) Greater than 90 , Glucose 137 H, Calcium 7.8 12/01/19 12:46: Blood Type O POSITIVE, Antibody Screen NEGATIVE, Crossmatch See Detail 11/30/19 04:26: Tumor Marker HCG 11/23/19 03:30: Tumor Marker HCG Status: lab reviewed by me A/P - Problem (1) Testicular malignant neoplasm Current Visit: Yes Code(s): C62.90 - MALIG NEOPLASM OF UNSP TESTIS, UNSP DESCENDED OR UNDESCENDED Status: Acute (2) Acute intracranial hemorrhage Current Visit: Yes Code(s): I62.9 - NONTRAUMATIC INTRACRANIAL HEMORRHAGE, UNSPECIFIED Status: Acute (3) Metastasis to brain Current Visit: Yes Code(s): C79.31 - SECONDARY MALIGNANT NEOPLASM OF BRAIN Status: Acute (4) Neutropenia Current Visit: Yes Code(s): D70.9 - NEUTROPENIA, UNSPECIFIED Status: Acute - Plan Plan: 1. neutropenic precautions, expect WBC to improve over the next few days 2. Continue XRT per Dr. Palencia 3. agree with blood transfusion today 4. CBC in am 5. likely repeat brain CT on Friday 6. Remains in IMU for tachycardia 7. Continue physical therapy
[2019-12-02] MEDS: cefTRIAXone\\ROCEPHIN 1 GM in Sodium Chloride 0.9% 100 ML IVPB SCH (12:07)
[2019-12-02] MEDS: Sodium Chloride 0.9% 1,000 ML IV SCH ×2 (12:37→23:23)
[2019-12-02 13:10] LABS: Hemoglobin 6.3 g/dL (14.0-18.0); Platelet Count 21 thou/uL (130-400)
--- NOTE | 2019-12-02 14:32 | PQF ---
KAT LANDAVERDEJOSE LUIS [id number] [facility]- [facility] [id number] CLINICAL DOCUMENTATION IMPROVEMENT CLARIFICATION FORM: ICD-10 Updated PLEASE DO AN ADDENDUM TO THE PROGRESS NOTE WITH ANY DOCUMENTATION UPDATES OR ADDITIONS AND CARRY THROUGH TO DC SUMMARY. THANK YOU. DATE: 12/02/2019 ATTN: DR. Mer ALARCON Please exercise your independent, professional judgment in responding to the clarification form. Clinical indicators are provided on the bottom of this form for your review. 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 Thank You. CLINICAL INDICATORS - SIGNS / SYMPTOMS / LABS / RESULTS AND LOCATION IN EMR HgB 8.4 > 8.0 >7.0 > 7.5 >6.9> 6.7 > 6.8 > 6.7 > 6.5 > 9.1 > 8.3> 7.4 > 7.2 > 6.0 > 6.3 11/21 ED REPORT: PHYSICIAN FINAL DX LT SIDE WEAKNESS, METASTATIC BRAIN LESION, HEMORRHAGE 12/01 PN (AGNES) ACUTE INTRACRANIAL HEMORRHAGE CONVERSION OF METASTATIC LESIONS IN SETTING OF STAGE IV TESTICULAR CANCER, ANEMIA RISK: INTRACRANIAL HEMORRHAGE, ANEMIA (ALARCON/H&P) 12/01 TREATMENTS: TRANSFUSION RBC X 8 (11/22- 12/01) TRANSFUSION PLATELETS X 1 ( 11/30) THANK YOU! BRIAN (This form is maintained as a part of the permanent medical record) 2014 [employer]. All Rights Reserved [email or web address]
--- NOTE | 2019-12-02 14:52 | PQF ---
KAT LANDAVERDEJOSE LUIS [id number] [place] [id number] CLINICAL DOCUMENTATION IMPROVEMENT CLARIFICATION FORM: ICD-10 Updated PLEASE DO AN ADDENDUM TO THE PROGRESS NOTE WITH ANY DOCUMENTATION UPDATES OR ADDITIONS AND CARRY THROUGH TO DC SUMMARY. THANK YOU. DATE: 12/02/2019 ATTN: DR. Mer ALARCON Please exercise your independent, professional judgment in responding to the clarification form. Clinical indicators are provided on the bottom of this form for your review. Please check appropriate box(s): [ ] Acute Respiratory Failure: [ ] with Hypoxia[ ] with Hypercapnia [ ] Acute On Chronic Respiratory Failure: [ ] with Hypoxia [ ] with Hypercapnia [ ] Acute Respiratory Failure due to: (etiology) [ ] Other diagnosis [ ] Unable to determine In addition, please specify: Present on Admission (POA): [ ] Yes [ ] No [ ] Unable to determine For continuity of documentation, please document condition throughout progress notes and discharge summary. Thank You. CLINICAL INDICATORS - SIGNS / SYMPTOMS / LABS / RESULTS AND LOCATION IN MR ED REPORT: PULSE 108-130, 2L/NC OXYGEN IN ED FOR SAT 97-98% , 11/21 H&P ( GARY) CT FROM NOVEMBER SHOWED METASTATIC DISEASE WITH NUMEROUS NODULES IN LUNGS WELL LESIONS IN BRAIN/LIVER/SPLEEN. RISK: METASTATIC TESTICULAR CANCER, CHERRIE NODULES, WEAKNESS ( H&P/GARY) 11/21 TREATMENTS: SUPPLEMENTAL OXYGEN ( 11/21, 11/25- PRESENT) PULMONARY CONSULT (ADITI/11/21) Acute Respiratory Failure: ABG pH < 7.35 or > 7.45; Decreased oxygen saturation (<90% room air or < 95% on oxygen); PCO2 > 50 mm Hg; PO2 < 60 mm Hg; Labored or rapid respirations ARDS: Dx Criteria [[place] ARDS]: Respiratory symptoms within one week of a known clinical insult (e.g. shock, infection, surgery, trauma) Bilateral opacities in CXR/Chest CT not due to CHF or fluid THANK YOU! BRIAN (This form is maintained as a part of the permanent medical record) 2014 [employer]. All Rights Reserved [email or web address]
[2019-12-02] MEDS: Morphine 4 MG/ML VIAL SLOW IVP PRN (15:09)
[2019-12-02] MEDS: Clotrimazole 1 % Cream 30 GM TUBE TOP SCH ×2 (16:24→20:54)
[2019-12-02 18:08] LABS: Hemoglobin 6.5 g/dL (14.0-18.0); Platelet Count 17 thou/uL (130-400)
[2019-12-03] MEDS: HYDROcodone/Acetaminophen 10/325 mg Tablet PO PRN ×2 (03:09→19:57)
[2019-12-03 03:54] LABS: Hemoglobin 6.8 g/dL (14.0-18.0); Mean Corpuscular HGB CONC 35.6 g/dL (32.0-36.0); Mean Corpuscular Hemoglobin 30.6 pg (27.0-31.0); Mean Platelet Volume 9.2 fL (7.4-10.4); Platelet Count 39 thou/uL (130-400); Red Blood Cell (RBC) Count 2.22 mill/uL (4.70-6.10); White Blood Cell (WBC) Count 0.8 thou/uL (4.8-10.8)
[2019-12-03 03:55] LABS: Anion Gap 14 mmol/L (10-20); BUN (Urea Nitrogen) 19 mg/dL (8.9-20.6); Calc. Creatinine Clearance 334 mL/min (70-130); Calcium 8.1 mg/dL (7.8-10.44); Carbon Dioxide 19 mmol/L (22-29); Chloride 107 mmol/L (98-107); Estimated GFR-MDRD Greater than 90; Glucose 118 mg/dL (70-105); Potassium 3.9 mmol/L (3.5-5.1); Sodium 136 mmol/L (136-145)
[2019-12-03 04:47] LABS: Band 16 % (5-11); Lymphocytes 50 % (21-51); MDiff Complete? YES; Monocytes 6 % (0-10); Neutrophil 28 % (42-75); Platelet Morphology Comment Appears Decreased
--- NOTE | 2019-12-03 06:38 | PDOC.FM ---
- Subjective Subjective: Early this morning had a 22 beat run of asymptomatic Vtach. HR alarm sounded then he started coughing. Good appetite this morning, eating an omelette. Good strength in UE. Able to lift them over his head with 5/5 reinforcer strength. No hemoptysis overnight. - Objective MAR Reviewed: Yes Vital Signs & Weight: Vital Signs (12 hours) Temp 12/03/19 03:29 98.0 F 12/02/19 23:30 97.9 F 12/02/19 19:53 98.3 F Weight Admit Weight 101.151 kg Weight 97.607 kg Most Recent Monitor Data Heart Rate from ECG 106 NIBP 139/79 NIBP BP-Mean 99 Respiration from ECG 34 SpO2 90 I&O: 12/01/19 12/02/19 12/03/19 06:59 06:59 06:59 Intake Total 2795 4304.6 5223 Output Total 2850 3725 5100 Balance -55 579.6 123 Result Diagrams: 12/03/19 03:12/03/19 03:20 Phys Exam - Physical Examination Constitutional: NAD HEENT: moist MMs Neck: supple Respiratory: no wheezing, clear to auscultation bilateral Cardiovascular: RRR, no significant murmur Gastrointestinal: soft, non-tender Neurological: moves all 4 limbs Able to lift b/l UE over head. 5/5 reinforcer strength. 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 Discussed with Neurosurgery, Mannitol or surgery not indicated at this time. - Rad Onc/Onc - Dr. Brown and Dr. Palencia - Cont steroids, keppra, namenda- increased to BID - Gabapentin 300mg TID (increase as needed), [place], Morphine prn for pain Vtach - 22 beats, asymptomatic - Dr Wells consulted Anemia - Hb 6.8 - s/p 9u pRBC transfused total (11/22, 11/23, 11/24, 11/25, 11/26, 12/01) - H&H daily - Will transfuse 1U pRBCs Thombocytopenia - likely 2/2 chemo. Continue to monitor - Likely transfuse plts today after returns from radiation Sinus Tachycardia - likely 2/2 autonomic dysregulation for cancer/whole brain radiation - Metoprolol BID & Corlanor - Cardiology following UTI - Day 5 of Ceftriaxone. Will d/c Code Status: FULL PCP: Dr. Avila - [facility] IVF: SL Diet: Regular DVT ppx: SCDs Addendum - Attending - Attending Attestation Date/Time: 12/03/19 1114 I personally evaluated the patient and discussed the management with Dr. Whipple I agree with the History, Examination, Assessment and Plan documented above with any addition or exceptions noted below - Patient without complaints. Ate well this morning. Afebrile VSS. A/P: 1) Metastatic testicular cancer - Continue current care. 2) Pancytopenia - continue to monitor. Continue precautions.
[2019-12-03] MEDS: Docusate 100 MG CAP PO SCH ×2 (08:05→19:56)
[2019-12-03] MEDS: cefTRIAXone\\ROCEPHIN 1 GM in Sodium Chloride 0.9% 100 ML IVPB SCH (08:05)
[2019-12-03] MEDS: Ivabradine 5 MG TAB PO SCH ×3 (08:05→19:56)
[2019-12-03] MEDS: Clotrimazole 1 % Cream 30 GM TUBE TOP SCH ×2 (08:05→20:05)
[2019-12-03] MEDS: Metoprolol Tartrate 100 MG TAB PO SCH ×2 (08:05→19:56)
[2019-12-03] MEDS: levETIRAcetam 500 MG TAB PO SCH ×2 (08:05→19:56)
[2019-12-03] MEDS: Benzonatate 100 MG CAP PO PRN ×2 (08:05→20:02)
[2019-12-03] MEDS: Sodium Chloride 0.9% 1,000 ML IV SCH ×2 (08:05→19:57)
[2019-12-03] MEDS: Pantoprazole 40 MG VIAL IVP SCH ×2 (08:05→19:56)
[2019-12-03] MEDS: HYDROcodone/Acetaminophen 7.5/325 mg Tablet PO PRN (08:05)
[2019-12-03] MEDS: Gabapentin 300 MG CAP PO SCH ×3 (08:05→19:56)
--- NOTE | 2019-12-03 13:48 | PDOC.MOPN ---
Interval History: Pt c/o cough, sometimes productive of minimal blood. Father states cough has improved as the day has gone one. Denies SOB or fevers. JOHNSON is less, using less narcotics. Appetite and strength are improving. Right forearm mass appears smaller and softer. Pt had an episode of Vtach today, asx, and HR currently much improved ranging 101-108 during my exam. - Vital Signs Vital Signs: Vital Signs (12 hours) Temp Pulse Ox 12/03/19 11:21 98.2 F 12/03/19 08:00 98 12/03/19 07:53 97.7 F 12/03/19 03:29 98.0 F Weight Admit Weight 223 lb Weight 215 lb 3 oz Most Recent Monitor Data Heart Rate from ECG 118 NIBP 177/97 NIBP BP-Mean 123 Respiration from ECG 37 SpO2 95 - Physical Exam General: Alert, Cooperative Lungs: Normal air movement Cardiovascular: Normal S1, Normal S2, Other (mild tachy) Abdomen: Soft, No tenderness Extremities: No edema, Other (right forearm lesion softer, smaller) Neurological: Other (moves all extremities, right lab rep strength now 5/5) - Labs Result Diagrams: 12/03/19 03:20 12/03/19 03:20 Lab results: Laboratory Results - last 24 hr 12/03/19 03:20: WBC 0.8 L*, RBC 2.22 L, Hgb 6.8 L, Hct 19.1 L, MCV 86.0, MCH 30.6, MCHC 35.6, RDW 15.0 H, Plt Count 39 L, MPV 9.2, Neutrophils % (Manual) 28 L, Band Neuts % (Manual) 16 H, Lymphocytes % (Manual) 50, Monocytes % (Manual) 6 , Lymphocytes # Not Reportable, Plt Morphology Comment Appears Decreased L 12/03/19 03:20: Sodium 136, Potassium 3.9, Chloride 107, Carbon Dioxide 19 L, Anion Gap 14, BUN 19, Creatinine 0.49 L, Estimated GFR (MDRD) Greater than 90, Glucose 118 H, Calcium 8.1 12/02/19 17:54: Hgb 6.5 L, Hct 18.2 L, Plt Count 17 L* 12/01/19 12:46: Blood Type O POSITIVE, Antibody Screen NEGATIVE, Crossmatch See Detail A/P - Problem (1) Testicular malignant neoplasm Current Visit: Yes Code(s): C62.90 - MALIG NEOPLASM OF UNSP TESTIS, UNSP DESCENDED OR UNDESCENDED Status: Acute (2) Metastasis to brain Current Visit: Yes Code(s): C79.31 - SECONDARY MALIGNANT NEOPLASM OF BRAIN Status: Acute - Plan Plan: Cont WBRT, steroids neutropenic precautions until ANC > 1.0 PRBC transfusion for Hb < 7 Platelet transfusion for Plts < 20 given hemorrhagic brain mets (currently stable so do not need to transfuse for higher goal) Repeat CT-brain Friday and consider decreasing steroid dose at that time Encourage working with PT, exercises in bed, sitting up as tolerated
--- NOTE | 2019-12-03 14:35 | CON ---
DATE OF CONSULTATION: 12/03/2019 HISTORY OF PRESENT ILLNESS: I am seeing Mr. 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 His problems are: 1. Nonsustained wide-complex tachycardia, 22 beats, monomorphic, likely ventricular tachycardia. He has a response with max dose beta-ijeoma and also Corlanor therapy. 2. Persistent sinus tachycardia. 3. History of preserved LVEF. No structural heart disease on 2D echo from 11/23/2019. 4. Metastatic testicular cancer with extensive mets to the lung, liver, spleen, and brain. 5. 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 ALLERGIES: NONE NOTED. MEDICATIONS: At home include, 1. Hydrocodone/APAP. 2. Dexamethasone. 3. Ibuprofen. 4. Omeprazole. 5. Sulfamethoxazole. 6. Trimethoprim. 7. Tylenol. Medications currently include: 1. Corlanor 5 mg three times a day. 2. Normodyne. 3. Keppra. 4. Namenda. 5. Reglan. 6. Lopressor 100 mg twice a day. 7. Morphine. 8. Zofran. 9. Protonix. SUBJECTIVE: Mr. Heller has significant distress at this point psychologically with the ongoing metastatic cancer and therapies. Most of the history was obtained from the family and the charts. He does have a complaint with coughing. No chest pain. No PND, orthopnea, or lower extremity associated fluid overload. No history of fever. There is cough noted. Rest of the 12-point system is otherwise unremarkable. HOSPITAL COURSE: He was admitted on the initially for a MediPort placement , but then again readmitted on the . At that point, his main complaints were weakness, hemoptysis, and chronic cough for last month. He had sudden neurological symptoms with left upper extremity weakness and CT scan revealed hemorrhagic progression of an intracranial metastatic disease and right midline shift was also noted. He was evaluated by Oncology, and chemotherapy and radiation therapy were initiated. He eventually was treated with Decadron as well. He was noted to have rapid heart rate and Dr. Leiva was consulted for sustained sinus tachycardia. He responded some to beta-ijeoma therapy and Corlanor therapy. This morning relatively unprovoked, he had a 22-beat nonsustained wide-complex rhythm run. Apart from this run, no further arrhythmias are seen. The run is thought to be monomorphic with cycle length around 320 to 360 milliseconds. PAST MEDICAL HISTORY: As above. He has no prior history of heart disease or heart attacks. SOCIAL HISTORY: He is single. No history of smoking, EtOH, or drug abuse. FAMILY HISTORY: Negative for sudden cardiac or arrhythmias. PHYSICAL EXAMINATION: VITAL SIGNS: Blood pressure is 137/79, heart rate 106 to 98 range, respirations 23 and 24, temperature 97.7 degrees Fahrenheit. GENERAL: He is alert and oriented man, in no apparent distress. NECK: Supple. Jugular veins not distended. CHEST: Coarse without crackles. HEART: Sounds are regular, but tachycardic. No murmur or gallop. ABDOMEN: Benign. Bowel sounds positive. EXTREMITIES: Lower extremities without edema, clubbing, or cyanosis. DATABASE: EKG is reviewed, revealing sinus rhythm and sinus tachycardia with ventricular rates now run 100 beats per minute. Previous rates were up to 120 to 130. Initial EKG on November 21 revealed sinus tachycardia, rate of 123 beats per minute. Short OK is seen at 112 milliseconds, but no definite evidence of pre-excitation is noted. ASSESSMENT AND PLAN: Mr. Heller is a 19-year-old man with history of stage 4 metastatic testicular cancer, post orchiectomy, on chemo and radiation therapy. Also suffered a hemorrhagic progression of his brain metastasis and related seizure disorder. Beyond that, there was no history of dizziness or lightheadedness or any other syncope apart from that event with the acute stroke-like symptoms. He has now developed a persistent sinus tachycardia, which is improving with the initiated beta-ijeoma and Corlanor therapy. He was noted to have an unprovoked 22-beat wide-complex rhythm, without obvious P waves and no excitation noted. Differential diagnosis s difficult but based on the single lead rhythm strip, but includes wide-complex rhythm from True ventricular tachycardia versus atrial tachycardia with aberration or pre-excitation. He has relatively short duration episodes and no recurrences. At this point, he has a preserved left ventricular ejection fraction and his prognosis regarding the arrhythmia is good, more concerning is the general condition. Continued telemetry monitoring is advised and I will continue the current high-dose beta- ijeoma therapy. For now, we will continue Corlanor as well. Doubt QT prolongation related issues, on telemetry QTs are still short and the wide complex rhtyhm is not suggestive of [place]. Repeat EKG will be requested. We will follow up with you on Friday. Discussed these issues with the patient's family and the nurse. Job ID: [id number] MTDD
[2019-12-03] MEDS: Morphine 4 MG/ML VIAL SLOW IVP PRN (23:13)
[2019-12-04 04:43] LABS: Anion Gap 15 mmol/L (10-20); BUN (Urea Nitrogen) 19 mg/dL (8.9-20.6); Calc. Creatinine Clearance 336 mL/min (70-130); Carbon Dioxide 18 mmol/L (22-29); Chloride 108 mmol/L (98-107); Estimated GFR-MDRD Greater than 90; Glucose 124 mg/dL (70-105); Potassium 3.9 mmol/L (3.5-5.1); Sodium 137 mmol/L (136-145)
[2019-12-04 04:53] LABS: Platelet Count 18 thou/uL (130-400)
[2019-12-04 05:07] LABS: Band 18 % (5-11); Hemoglobin 7.8 g/dL (14.0-18.0); Large Platelets SLIGHT; Lymphocytes 46 % (21-51); MDiff Complete? YES; Mean Corpuscular HGB CONC 35.4 g/dL (32.0-36.0); Mean Corpuscular Hemoglobin 30.4 pg (27.0-31.0); Mean Corpuscular Volume 85.8 fL (78.0-98.0); Mean Platelet Volume 11.2 fL (7.4-10.4); Monocytes 14 % (0-10); Neutrophil 20 % (42-75); Nucleated RBC 2 % (0); Platelet Morphology Comment Appears Decreased; Polychromasia SLIGHT = 2-3 cells (100X) (0-2/hpf); RBC Distribution Width 15.3 % (11.5-14.5); Reactive Lymphocytes 2 % (0-10); Red Blood Cell (RBC) Count 2.58 mill/uL (4.70-6.10); White Blood Cell (WBC) Count 1.6 thou/uL (4.8-10.8)
[2019-12-04] MEDS: Benzonatate 100 MG CAP PO PRN ×2 (06:07→19:44)
[2019-12-04] MEDS: HYDROcodone/Acetaminophen 10/325 mg Tablet PO PRN ×3 (06:08→19:44)
--- NOTE | 2019-12-04 06:37 | PDOC.FM ---
- Subjective Subjective: Doing really well this morning. Seems to be in a good mood. Has already eaten breakfast and is using both hands to eat breakfast to improve strength and functioning. Denies pain. Hemoptysis continues to be reduced. - Objective MAR Reviewed: Yes Vital Signs & Weight: Vital Signs (12 hours) Temp Resp Pulse Ox 12/04/19 05:00 24 H 95 12/04/19 03:26 97.5 F L 12/03/19 23:10 98.0 F 12/03/19 20:00 98.9 F 95 Weight Admit Weight 101.151 kg Weight 95.878 kg Most Recent Monitor Data Heart Rate from ECG 134 NIBP 157/88 NIBP BP-Mean 111 Respiration from ECG 24 SpO2 90 I&O: 12/02/19 12/03/19 12/04/19 06:59 06:59 06:59 Intake Total 4304.6 5223 4325 Output Total 3725 5100 5350 Balance 579.6 123 -1025 Result Diagrams: 12/04/19 04:10 12/04/19 04:10 Phys Exam - Physical Examination Constitutional: NAD HEENT: moist MMs Neck: supple Respiratory: no wheezing, clear to auscultation bilateral Tachycardic Gastrointestinal: soft Neurological: moves all 4 limbs Using both arms to eat grapes Psychiatric: normal affect Skin: normal turgor Dx/Plan - Plan Plan: 19yo CM with h/o Stage IV testicular cancer admitted for acute intracranial hemorrhagic conversion of metastatic lesions Acute intracranial hemorrhagic conversion of metastatic lesions in setting of stage IV Testicular Cancer mets to brain, lungs, liver, spleen s/p L orchiectomy - Decadron 8mg q6h. Repeat CT on Friday, possibly decrease - Rad Onc/Onc - Dr. Brown and Dr. Palencia - Cont steroids, keppra, namenda - Gabapentin 300mg TID (increase as needed), [place], Morphine prn for pain 22 beats of Asymptomatic Wide Complex Vtach - Dr Wells consulted - Continue Metoprolol and Corlanor - Repeat EKG Anemia - s/p 9u pRBC transfused total (11/22, 11/23, 11/24, 11/25, 11/26, 12/01, 12/02) - H&H daily. Transfuse for Hgb <7 Thombocytopenia - likely 2/2 chemo. Continue to monitor - Transfuse plts for <20 Sinus Tachycardia - likely 2/2 autonomic dysregulation for cancer/whole brain radiation - Metoprolol BID & Corlanor - Cardiology & EP following Code Status: FULL PCP: Dr. Avila - [facility] IVF: SL Diet: Regular DVT ppx: SCDs Addendum - Attending - Attending Attestation Date/Time: 12/04/19 1113 I personally evaluated the patient and discussed the management with Dr. Whipple I agree with the History, Examination, Assessment and Plan documented above with any addition or exceptions noted below - Patient without complaints. worked with PT this morning. Afebrile VSS. A/P: 1) Metastatic testicular cancer - continue current supportive care. Plan for repeat CT on Friday. 2) Thrombocytopenia- transfusing platelets. 3) Anemia- improved; continue to monitor.
[2019-12-04] MEDS ORDERED: HYDROcodone/Acetaminophen 5/325 mg Tablet PO PRN (07:40)
[2019-12-04] MEDS: Sodium Chloride 0.9% 1,000 ML IV SCH ×2 (08:01→15:12)
[2019-12-04] MEDS: Pantoprazole 40 MG VIAL IVP SCH ×2 (08:02→19:44)
[2019-12-04] MEDS: Metoprolol Tartrate 100 MG TAB PO SCH ×2 (08:03→19:45)
[2019-12-04] MEDS: Gabapentin 300 MG CAP PO SCH ×3 (08:03→19:45)
[2019-12-04] MEDS: Docusate 100 MG CAP PO SCH ×2 (08:03→19:45)
[2019-12-04] MEDS: levETIRAcetam 500 MG TAB PO SCH ×2 (08:03→19:45)
[2019-12-04] MEDS: Ivabradine 5 MG TAB PO SCH ×2 (08:03→19:45)
[2019-12-04] MEDS: Clotrimazole 1 % Cream 30 GM TUBE TOP SCH ×2 (08:03→19:45)
[2019-12-04] MEDS: Labetalol HCl 100 MG/20 ML VIAL SLOW IVP PRN (12:25)
--- NOTE | 2019-12-04 13:01 | PDOC.MOPN ---
Interval History: Fatigue today but able to do more things for himself - Vital Signs Vital Signs: Vital Signs (12 hours) Temp Pulse Pulse Pulse Resp BP BP 12/04/19 12:25 116 H 166/99 H 12/04/19 11:16 98.2 F 12/04/19 08:53 101 H 95 155/106 H 12/04/19 08:00 12/04/19 07:19 98.9 F 12/04/19 05:00 24 H 12/04/19 03:26 97.5 F L BP Pulse Ox Pulse Ox 12/04/19 12:25 12/04/19 11:16 12/04/19 08:53 166/89 H 95 12/04/19 08:00 92 L 12/04/19 07:19 12/04/19 05:00 95 12/04/19 03:26 Weight Admit Weight 223 lb Weight 211 lb 6 oz Most Recent Monitor Data Heart Rate from ECG 118 NIBP 166/99 NIBP BP-Mean 121 Respiration from ECG 24 SpO2 91 - Physical Exam General: Alert HEENT: Atraumatic, PERRLA, EOMI, Mucous membr. moist/pink Lungs: Clear to auscultation Cardiovascular: Other (tachy) Abdomen: Normal bowel sounds, Soft, No tenderness, No hepatospenomegaly, No masses Extremities: No clubbing (rash on chest), No cyanosis, No edema, Normal pulses, No tenderness/swelling Neurological: Other - Labs Result Diagrams: 12/04/19 04:10 12/04/19 04:10 Lab results: Laboratory Results - last 24 hr 12/04/19 04:10: WBC 1.6 L, RBC 2.58 L, Hgb 7.8 L, Hct 22.1 L, MCV 85.8, MCH 30.4 , MCHC 35.4, RDW 15.3 H, Plt Count 18 L*, MPV 11.2 H, Neutrophils % (Manual) 20 L, Band Neuts % (Manual) 18 H, Lymphocytes % (Manual) 46, Reactive Lymphs % 2, Monocytes % (Manual) 14 H, Lymphocytes # Not Reportable, Nucleated RBCs # (Man) 2 H, Large Platelets SLIGHT, Plt Morphology Comment Appears Decreased L, Polychromasia SLIGHT = 2-3 cells 12/04/19 04:10: Sodium 137, Potassium 3.9, Chloride 108 H, Carbon Dioxide 18 L, Anion Gap 15, BUN 19, Creatinine 0.48 L, Estimated GFR (MDRD) Greater than 90, Glucose 124 H, Calcium 8.0 12/01/19 12:46: Blood Type O POSITIVE, Antibody Screen NEGATIVE, Crossmatch See Detail Status: lab reviewed by me A/P - Problem (1) Testicular malignant neoplasm Current Visit: Yes Code(s): C62.90 - MALIG NEOPLASM OF UNSP TESTIS, UNSP DESCENDED OR UNDESCENDED Status: Acute (2) Acute intracranial hemorrhage Current Visit: Yes Code(s): I62.9 - NONTRAUMATIC INTRACRANIAL HEMORRHAGE, UNSPECIFIED Status: Acute (3) Metastasis to brain Current Visit: Yes Code(s): C79.31 - SECONDARY MALIGNANT NEOPLASM OF BRAIN Status: Acute (4) Neutropenia Current Visit: Yes Code(s): D70.9 - NEUTROPENIA, UNSPECIFIED Status: Acute - Plan Plan: Cont WBRT, steroids neutropenic precautions until ANC > 1.0 PRBC transfusion for Hb < 7 Platelet transfusion for Plts < 20 given hemorrhagic brain mets (currently stable so do not need to transfuse for higher goal) Repeat CT-brain Friday and consider decreasing steroid dose at that time Encourage working with PT, exercises in bed, sitting up as tolerated
[2019-12-04] MEDS: Morphine 4 MG/ML VIAL SLOW IVP PRN (23:02)
[2019-12-05] MEDS: Sodium Chloride 0.9% 1,000 ML IV SCH ×3 (00:31→19:31)
[2019-12-05] MEDS: HYDROcodone/Acetaminophen 10/325 mg Tablet PO PRN ×4 (01:50→23:07)
[2019-12-05] MEDS: Benzonatate 100 MG CAP PO PRN (05:10)
[2019-12-05] MEDS: Morphine 4 MG/ML VIAL SLOW IVP PRN ×3 (05:11→14:27)
[2019-12-05 05:48] LABS: Mean Corpuscular HGB CONC 35.1 g/dL (32.0-36.0); Mean Corpuscular Hemoglobin 30.7 pg (27.0-31.0); Mean Corpuscular Volume 87.5 fL (78.0-98.0); Mean Platelet Volume 9.8 fL (7.4-10.4); Platelet Count 42 thou/uL (130-400); RBC Distribution Width 16.7 % (11.5-14.5); Red Blood Cell (RBC) Count 2.28 mill/uL (4.70-6.10); White Blood Cell (WBC) Count 2.6 thou/uL (4.8-10.8)
[2019-12-05 05:52] LABS: Anion Gap 12 mmol/L (10-20); BUN (Urea Nitrogen) 17 mg/dL (8.9-20.6); Calc. Creatinine Clearance 355 mL/min (70-130); Carbon Dioxide 21 mmol/L (22-29); Chloride 107 mmol/L (98-107); Estimated GFR-MDRD Greater than 90; Glucose 122 mg/dL (70-105); Sodium 136 mmol/L (136-145)
[2019-12-05 06:01] LABS: Band 12 % (5-11); Lymphocytes 44 % (21-51); MDiff Complete? YES; Metamyelocyte 3 % (0-0); Monocytes 19 % (0-10); Myelocyte 7 % (0-0); Neutrophil 12 % (42-75); Nucleated RBC 17 % (0); Polychromasia MODERATE = 3-4 cells (100X) (0-2/hpf); Reactive Lymphocytes 3 % (0-10)
--- NOTE | 2019-12-05 06:16 | PDOC.FM ---
- Subjective Subjective: Continues to do well today, currently watching a movie. Good appetite. Complaint of some mouth pain, will start some magic mouthwash. Strength continues to improve. - Objective MAR Reviewed: Yes Vital Signs & Weight: Vital Signs (12 hours) Temp Resp Pulse Ox 12/05/19 04:00 97.7 F 12/05/19 02:00 22 H 12/05/19 00:00 98.0 F 12/04/19 20:00 97.8 F 95 Weight Admit Weight 101.151 kg Weight 96.644 kg Most Recent Monitor Data Heart Rate from ECG 104 NIBP 140/78 NIBP BP-Mean 98 Respiration from ECG 25 SpO2 92 I&O: 12/03/19 12/04/19 12/05/19 06:59 06:59 06:59 Intake Total 5223 4325 5324 Output Total 5100 5350 4375 Balance 123 -1025 949 Result Diagrams: 12/05/19 05:10 12/05/19 05:10 Phys Exam - Physical Examination Constitutional: NAD HEENT: moist MMs No lesions Neck: supple Respiratory: no wheezing, clear to auscultation bilateral Cardiovascular: RRR Gastrointestinal: soft Neurological: moves all 4 limbs raises arms above head. Moves legs bilaterally Psychiatric: normal affect, A&O x 3 Dx/Plan - Plan Plan: 19yo male pmh Stage IV testicular cancer admitted for acute intracranial hemorrhagic conversion of metastatic lesions Acute intracranial hemorrhagic conversion of metastatic lesions in setting of stage IV Testicular Cancer mets to brain, lungs, liver, spleen s/p L orchiectomy - Decadron 8mg q6h. Repeat CT on Friday, possibly decrease steroids - Rad Onc/Onc - Dr. Brown and Dr. Palencia - Cont steroids, keppra, namenda - Gabapentin 300mg TID (increase as needed), [place], Morphine prn for pain 22 beats of Asymptomatic Wide Complex Vtach - Dr Wells consulted - Continue Metoprolol and Corlanor - Repeated EKG yesterday Anemia - s/p 9u pRBC transfused total (11/22, 11/23, 11/24, 11/25, 11/26, 12/01, 12/02) - H&H daily. Transfuse for Hgb <7 Thombocytopenia - likely 2/2 chemo. Continue to monitor - Transfuse plts for <20 Sinus Tachycardia - likely 2/2 autonomic dysregulation for cancer/whole brain radiation - Metoprolol BID & Corlanor - Cardiology & EP following Code Status: FULL PCP: Dr. Avila - [facility] IVF: SL Diet: Regular DVT ppx: SCDs Addendum - Attending - Attending Attestation Date/Time: 12/05/19 1202 I personally evaluated the patient and discussed the management with Dr. Whipple. I agree with the History, Examination, Assessment and Plan documented above with any addition or exceptions noted below - Patient c/o pain in mouth and didn 't want to eat. Afebrile VSS. A/P: 1) Metastatic testicular cancer- Continue current care. Will add magic mouthwash for mouth ain possible mucositis. Plan for repeat CT brain tomorrow. 2) Intracerebral hemorrhage - goal is for SBP<160 ; use prns as needed.
[2019-12-05] MEDS: Ivabradine 5 MG TAB PO SCH ×3 (07:55→20:33)
[2019-12-05] MEDS: levETIRAcetam 500 MG TAB PO SCH ×2 (07:55→20:34)
[2019-12-05] MEDS: Metoprolol Tartrate 100 MG TAB PO SCH ×2 (07:55→20:34)
[2019-12-05] MEDS: Clotrimazole 1 % Cream 30 GM TUBE TOP SCH ×2 (07:55→20:35)
[2019-12-05] MEDS: Pantoprazole 40 MG VIAL IVP SCH ×2 (07:56→20:35)
[2019-12-05] MEDS: Gabapentin 300 MG CAP PO SCH ×3 (07:56→20:34)
[2019-12-05] MEDS: Docusate 100 MG CAP PO SCH ×2 (07:56→20:34)
--- NOTE | 2019-12-05 11:23 | PDOC.MOPN ---
Interval History: alert today. Recognized me. Able to touch nose with finger bilat - Vital Signs Vital Signs: Vital Signs (12 hours) Temp Pulse Pulse Resp BP BP Pulse Ox 12/05/19 08:41 109 H 93 162/90 H 151/90 H 12/05/19 07:36 97 12/05/19 07:19 99.9 F H 12/05/19 04:00 97.7 F 12/05/19 02:00 22 H 12/05/19 00:00 98.0 F Weight Admit Weight 223 lb Weight 213 lb 1 oz Most Recent Monitor Data Heart Rate from ECG 97 NIBP 167/89 NIBP BP-Mean 115 Respiration from ECG 28 SpO2 94 - Physical Exam General: Alert, Oriented x3 HEENT: Atraumatic Lungs: Clear to auscultation, Normal air movement Cardiovascular: Regular rate, Normal S1, Normal S2, No murmurs, Gallops, Rubs Abdomen: Normal bowel sounds, Soft, No tenderness, No hepatospenomegaly, No masses Extremities: No clubbing, No cyanosis, No edema, Normal pulses, No tenderness/ swelling Neurological: Normal speech - Labs Result Diagrams: 12/05/19 05:10 12/05/19 05:10 Lab results: Laboratory Results - last 24 hr 12/05/19 05:10: Blood Type O POSITIVE, Antibody Screen NEGATIVE 12/05/19 05:10: WBC 2.6 L, RBC 2.28 L, Hgb 7.0 L, Hct 20.0 L, MCV 87.5, MCH 30.7 , MCHC 35.1, RDW 16.7 H, Plt Count 42 L, MPV 9.8, Neutrophils % (Manual) 12 L, Band Neuts % (Manual) 12 H, Lymphocytes % (Manual) 44, Reactive Lymphs % 3, Monocytes % (Manual) 19 H, Metamyelocytes % (Man) 3 H, Myelocytes % 7 H, Lymphocytes # Not Reportable, Nucleated RBCs # (Man) 17 H, Polychromasia MODERATE = 3-4 cells H 12/05/19 05:10: Sodium 136, Potassium 4.0, Chloride 107, Carbon Dioxide 21 L, Anion Gap 12, BUN 17, Creatinine 0.45 L, Estimated GFR (MDRD) Greater than 90, Glucose 122 H, Calcium 8.0 Status: lab reviewed by me A/P - Problem (1) Testicular malignant neoplasm Current Visit: Yes Code(s): C62.90 - MALIG NEOPLASM OF UNSP TESTIS, UNSP DESCENDED OR UNDESCENDED Status: Acute (2) Acute intracranial hemorrhage Current Visit: Yes Code(s): I62.9 - NONTRAUMATIC INTRACRANIAL HEMORRHAGE, UNSPECIFIED Status: Acute (3) Metastasis to brain Current Visit: Yes Code(s): C79.31 - SECONDARY MALIGNANT NEOPLASM OF BRAIN Status: Acute (4) Neutropenia Current Visit: Yes Code(s): D70.9 - NEUTROPENIA, UNSPECIFIED Status: Acute - Plan Plan: continue current plan WBC continue to improve, no transfusion today CT brain tomorrow
[2019-12-05] MEDS: Labetalol HCl 100 MG/20 ML VIAL SLOW IVP PRN (19:31)
[2019-12-05] MEDS: cloNIDine 0.1 MG TAB PO PRN (23:06)
[2019-12-06] MEDS ORDERED: Morphine 2 MG/ML SYRINGE SLOW IVP SCH (00:30)
[2019-12-06] MEDS: Labetalol HCl 100 MG/20 ML VIAL SLOW IVP PRN (02:16)
[2019-12-06] MEDS: Cepastat Lozenges 1 LOZ PO PRN (04:43)
[2019-12-06] MEDS: Aluminum & Magnesium Hydroxide 60 ML, Lidocaine 2% Viscous Solution 30 ML, diphenhydrAM... SSW PRN ×2 (04:43→19:41)
[2019-12-06 05:21] LABS: Anion Gap 15 mmol/L (10-20); BUN (Urea Nitrogen) 18 mg/dL (8.9-20.6); Calc. Creatinine Clearance 312 mL/min (70-130); Calcium 8.2 mg/dL (7.8-10.44); Carbon Dioxide 19 mmol/L (22-29); Chloride 106 mmol/L (98-107); Estimated GFR-MDRD Greater than 90; Glucose 139 mg/dL (70-105); Sodium 136 mmol/L (136-145)
--- NOTE | 2019-12-06 05:36 | PDOC.FM ---
- Subjective Subjective: Sitting up in bed eating on exam. Was talkative and in good spirits. Denies any pain, weakness currently. Father denies any recent AMS. - Objective Vital Signs & Weight: Vital Signs (12 hours) Temp Pulse Resp BP Pulse Ox 12/06/19 04:00 98.3 F 12/06/19 02:16 106 H 167/79 H 12/06/19 00:00 98.2 F 12/05/19 23:06 154/89 H 12/05/19 20:00 98.2 F 22 H 96 12/05/19 19:31 138 H 176/90 H Weight Admit Weight 101.151 kg Weight 94.393 kg Most Recent Monitor Data Heart Rate from ECG 113 NIBP 154/84 NIBP BP-Mean 107 Respiration from ECG 17 SpO2 97 I&O: 12/04/19 12/05/19 12/06/19 06:59 06:59 06:59 Intake Total 4325 5324 500 Output Total 5350 4375 2175 Balance -1028 740 -0793 Result Diagrams: 12/06/19 04:47 12/06/19 04:47 Phys Exam - Physical Examination Constitutional: NAD HEENT: PERRLA, moist MMs, sclera anicteric Neck: full ROM Respiratory: clear to auscultation bilateral Tachycardic, no murmur Gastrointestinal: non-tender, positive bowel sounds Musculoskeletal: pulses present localized nodular swelling diffusely to trunk and upper extremities Neurological: non-focal, moves all 4 limbs 4/5 strength throughout Psychiatric: normal affect, A&O x 3 Dx/Plan (1) Anemia Code(s): D64.9 - ANEMIA, UNSPECIFIED Status: Acute (2) Thrombocytopenia Code(s): D69.6 - THROMBOCYTOPENIA, UNSPECIFIED Status: Acute (3) Sinus tachycardia Code(s): R00.0 - TACHYCARDIA, UNSPECIFIED Status: Acute (4) Acute intracranial hemorrhage Code(s): I62.9 - NONTRAUMATIC INTRACRANIAL HEMORRHAGE, UNSPECIFIED Status: Acute (5) Hemoptysis Code(s): R04.2 - HEMOPTYSIS Status: Acute (6) Metastasis to brain Code(s): C79.31 - SECONDARY MALIGNANT NEOPLASM OF BRAIN Status: Acute (7) Palliative care encounter Code(s): Z51.5 - ENCOUNTER FOR PALLIATIVE CARE Status: Acute (8) Testicular malignant neoplasm Code(s): C62.90 - MALIG NEOPLASM OF UNSP TESTIS, UNSP DESCENDED OR UNDESCENDED Status: Acute - Plan Plan: 19yo 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 Possibly decrease steroids pending head CT - Rad Onc/Onc - Dr. Brown and Dr. Palencia - Cont keppra, namenda - Gabapentin 300mg TID (increase as needed), [place], Morphine prn for pain 22 beats of Asymptomatic Wide Complex Vtach - Dr Wells consulted - Continue Metoprolol, Corlanor, cardiac monitoring - No further events overnight Anemia - s/p 9u pRBC transfused total (11/22, 11/23, 11/24, 11/25, 11/26, 12/01, 12/02) - H&H daily. Transfuse for Hgb <7 Thombocytopenia - likely 2/2 chemo. Continue to monitor - Transfuse plts for <20 - Transfused platelets (11/30, 12/01, 12/03) Sinus Tachycardia - likely 2/2 autonomic dysregulation for cancer/whole brain radiation - Metoprolol BID & Corlanor - Cardiology & EP following Code Status: FULL IVF: NS 100ml/hr Diet: Regular DVT ppx: SCDs Dispo: Inpt IMCU. Continuing targeted brain radiation. Repeat head CT today to assess for progressing edema and herniation seen on last exam. PCP: Dr. Avila - [facility] Addendum - Attending - Attending Attestation Date/Time: 12/06/19 0096 I personally evaluated the patient and discussed the management with Dr. Avila. I agree with the History, Examination, Assessment and Plan documented above with any addition or exceptions noted below. Patient improved, mentation significantly better over last few days. Continue rad and med onc, repeat CT scan. Continue therapy.
[2019-12-06 05:58] LABS: Anisocytosis MODERATE=16-30 cells (100X) (0-5/hpf); Band 14 % (5-11); Hemoglobin 7.6 g/dL (14.0-18.0); Lymphocytes 38 % (21-51); MDiff Complete? YES; Mean Corpuscular Hemoglobin 30.3 pg (27.0-31.0); Mean Corpuscular Volume 89.2 fL (78.0-98.0); Mean Platelet Volume 10.5 fL (7.4-10.4); Metamyelocyte 3 % (0-0); Monocytes 17 % (0-10); Myelocyte 5 % (0-0); Neutrophil 21 % (42-75); Nucleated RBC 17 % (0); Platelet Count 43 thou/uL (130-400); Platelet Morphology Comment Appears Decreased; Polychromasia MODERATE = 3-4 cells (100X) (0-2/hpf); RBC Distribution Width 18.9 % (11.5-14.5); Reactive Lymphocytes 1 % (0-10); Red Blood Cell (RBC) Count 2.49 mill/uL (4.70-6.10); White Blood Cell (WBC) Count 3.1 thou/uL (4.8-10.8)
[2019-12-06] MEDS: Sodium Chloride 0.9% 1,000 ML IV SCH (06:25)
[2019-12-06] MEDS: Gabapentin 300 MG CAP PO SCH ×3 (09:14→21:00)
[2019-12-06] MEDS: Docusate 100 MG CAP PO SCH ×2 (09:14→20:59)
[2019-12-06] MEDS: Ivabradine 5 MG TAB PO SCH ×3 (09:14→21:08)
[2019-12-06] MEDS: levETIRAcetam 500 MG TAB PO SCH ×2 (09:14→20:59)
[2019-12-06] MEDS: Metoprolol Tartrate 100 MG TAB PO SCH ×2 (09:14→21:00)
[2019-12-06] MEDS: HYDROcodone/Acetaminophen 10/325 mg Tablet PO PRN ×3 (09:15→22:24)
[2019-12-06] MEDS: Pantoprazole 40 MG VIAL IVP SCH ×2 (09:16→20:59)
[2019-12-06] MEDS: Clotrimazole 1 % Cream 30 GM TUBE TOP SCH ×2 (09:42→21:10)
[2019-12-06] MEDS: Benzonatate 100 MG CAP PO PRN (09:52)
[2019-12-06] MEDS: Morphine 2 MG/ML SYRINGE SLOW IVP PRN ×2 (11:32→19:41)
--- NOTE | 2019-12-06 12:18 | CT ---
CT HEAD WITHOUT IV CONTRAST COMPARISON: 11/30/2019 HISTORY: Metastatic brain disease, edema, herniation. Evaluation after chemotherapy and radiation treatment. TECHNIQUE: Axial CT imaging at 5 mm intervals from vertex through skull base without contrast FINDINGS: Again noted are multiple scattered hypodense extensive vasogenic edema in the left cerebral hemispher e is again seen and appears overall stable compared to the prior study with persistent sulcal effacement as well as mass effect on the body and occipital horn of the left lateral ventricle. Vasog enic edema in the right occipital lobe appear slightly increased when compared to the prior exam. Additional areas of vasogenic edema in the right cerebral hemisphere are overall similar to prior exa m. Midline shift has slightly improved previously measuring 10 mm with left to right shift on today's examination measuring 8 mm. No intraparenchymal or extra-axial hemorrhage is seen. No other interval change. IMPRESSION: 1. Multifocal metastatic lesions involving the bilateral cerebral hemispheres and right cerebellar he misphere with vasogenic edema again seen in each cerebral hemisphere as well as right occipital lobe with vasogenic edema extending into the medial aspect left occipital lobe. There is suggestion o f mild increased vasogenic edema in the right occipital lobe compared to the prior exam. Sulcal effacement within the left cerebral hemisphere due to extensive vasogenic edema is again present liz lar to prior exam. However, shift of midline structures from left to right is minimally improved.
--- NOTE | 2019-12-06 15:50 | PDOC.MOPN ---
Interval History: Pt feeling better over the weekend and today. He is working with PT, eating well and able to feed himself. Legs are stronger. He is communicating better and more clearly. - Vital Signs Vital Signs: Vital Signs (12 hours) Temp Pulse Ox 12/06/19 15:18 99.1 F 12/06/19 11:28 97.6 F 12/06/19 08:00 96 12/06/19 07:18 98.6 F 12/06/19 04:00 98.3 F Weight Admit Weight 223 lb Weight 208 lb 1.6 oz Most Recent Monitor Data Heart Rate from ECG 128 NIBP 156/85 NIBP BP-Mean 108 Respiration from ECG 22 SpO2 93 - Physical Exam General: Alert, Oriented x3, Cooperative HEENT: EOMI Lungs: Normal air movement Extremities: No edema Neurological: Cranial nerves 3-12 NL, Other (moves all extremities) Psych/Mental Status: Mental status NL - Labs Result Diagrams: 12/06/19 04:47 12/06/19 04:47 Lab results: Laboratory Results - last 24 hr 12/06/19 04:47: WBC 3.1 L, RBC 2.49 L, Hgb 7.6 L, Hct 22.2 L, MCV 89.2, MCH 30.3 , MCHC 34.0, RDW 18.9 H, Plt Count 43 L, MPV 10.5 H, Neutrophils % (Manual) 21 L , Band Neuts % (Manual) 14 H, Lymphocytes % (Manual) 38, Reactive Lymphs % 1, Monocytes % (Manual) 17 H, Metamyelocytes % (Man) 3 H, Myelocytes % 5 H, Nucleated RBCs # (Man) 17 H, Plt Morphology Comment Appears Decreased L, Polychromasia MODERATE = 3-4 cells H, Anisocytosis MODERATE=16-30 cells H 12/06/19 04:47: Sodium 136, Potassium 4.0, Chloride 106, Carbon Dioxide 19 L, Anion Gap 15, BUN 18, Creatinine 0.50 L, Estimated GFR (MDRD) Greater than 90, Glucose 139 H, Calcium 8.2 A/P - Problem (1) Testicular malignant neoplasm Current Visit: Yes Code(s): C62.90 - MALIG NEOPLASM OF UNSP TESTIS, UNSP DESCENDED OR UNDESCENDED Status: Acute (2) Metastasis to brain Current Visit: Yes Code(s): C79.31 - SECONDARY MALIGNANT NEOPLASM OF BRAIN Status: Acute - Plan Plan: Decrease Dex from 8 q6h to 6 mg q6h and monitor neurologic status closely Transfusions prn Hb < 7.0 or Plts < 20 May DC neutropenic precautions tomorrow if ANC > 1.0 Cont WBRT C2 of VIP planned for next week
[2019-12-06] MEDS: Dexamethasone 6 MG in Sodium Chloride 0.9% 50 ML IVPB SCH (17:51)
--- NOTE | 2019-12-06 19:03 | PRG ---
DATE OF SERVICE: 12/06/2019 SUBJECTIVE: Mr. Heller seems to be doing somewhat better. More alert with no new issues over the weekend. OBJECTIVE DATA: VITAL SIGNS: Blood pressure is 167/79, heart rate 106, respirations 22, and temperature 98.3 degrees Fahrenheit. GENERAL: He is an alert and oriented man, in no apparent distress. NECK: Supple. Jugular veins not distended. CHEST: Coarse without crackles. HEART: Sounds are regular to rate and rhythm. No murmur or gallop. ABDOMEN: Benign. Bowel sounds positive. EXTREMITIES: Lower extremity without edema, clubbing, or cyanosis. DATABASE: The telemetry strips reviewed, revealing sinus rhythm, sinus tachycardia with reasonable rate control. No recurrent ventricular tachycardia is noted. Lab data reveals normal electrolytes, potassium 4. ASSESSMENT AND PLAN: Mr. Heller is a 19-year-old man with history of metastatic testicular cancer, who was admitted after a hemorrhagic conversion of brain metastasis. He had issues with sinus tachycardia and also noted to have a 22- beat monomorphic nonsustained ventricular tachycardia as well, which was asymptomatic. At this point, no recurrence is noted. The event was preceded by extreme stress from diagnosis of stroke. He has normal heart structurally and I am suspecting an idiopathic ventricular tachycardia is a likely cause. For now, he is on maximized beta ijeoma therapy, which should continue. At this point, there is no indication for ICD or ablative therapy is not a good option especially in COVID epidemic. Sinus tachycardia. Continue beta-ijeoma therapy. For now, continue beta- ijeoma. At this point, I would sign out. Please contact me if I can be of any further help. Job ID: [id number] [facility]
--- NOTE | 2019-12-06 20:56 | EKG ---
Test Reason : Blood Pressure : / mmHG Vent. Rate : 106 BPM Atrial Rate : 106 BPM P-R Int : 114 ms QRS Dur : 092 ms QT Int : 338 ms P-R-T Axes : 025 020 060 degrees QTc Int : 448 ms Sinus tachycardia T wave abnormality, consider inferior ischemia and lateral ischemia Abnormal ECG When compared with ECG of 22-NOV-2019 12:20, (Unconfirmed) Inverted T waves have replaced nonspecific T wave abnormality in Inferior leads Confirmed by Godfrey MAC ([id number]) on 12/06/2019 8:56:33 PM Referred By: ronald Nash Confirmed By:Godfrey MAC
--- NOTE | 2019-12-06 21:06 | EKG ---
Test Reason : Blood Pressure : / mmHG Vent. Rate : 117 BPM Atrial Rate : 117 BPM P-R Int : 114 ms QRS Dur : 088 ms QT Int : 316 ms P-R-T Axes : 046 018 025 degrees QTc Int : 440 ms Sinus tachycardia Nonspecific T wave abnormality Abnormal ECG No previous ECGs available Confirmed by Godfrey MAC ([id number]) on 12/06/2019 9:05:48 PM Referred By: Confirmed By:Godfrey MAC
[2019-12-06] MEDS ORDERED: Dexamethasone 20 MG/5 ML VIAL SLOW IVP SCH (22:00)
[2019-12-07] MEDS: Dexamethasone 6 MG in Sodium Chloride 0.9% 50 ML IVPB SCH ×4 (00:20→18:12)
[2019-12-07] MEDS: Morphine 2 MG/ML SYRINGE SLOW IVP PRN ×2 (03:20→09:07)
[2019-12-07] MEDS: Labetalol HCl 100 MG/20 ML VIAL SLOW IVP PRN (04:29)
[2019-12-07 04:42] LABS: Anion Gap 12 mmol/L (10-20); BUN (Urea Nitrogen) 17 mg/dL (8.9-20.6); Calc. Creatinine Clearance 318 mL/min (70-130); Calcium 8.4 mg/dL (7.8-10.44); Carbon Dioxide 22 mmol/L (22-29); Chloride 106 mmol/L (98-107); Estimated GFR-MDRD Greater than 90; Glucose 105 mg/dL (70-105); Magnesium 1.9 mg/dL (1.6-2.6); Potassium 4.2 mmol/L (3.5-5.1); Sodium 136 mmol/L (136-145)
[2019-12-07 04:56] LABS: Band 22 % (5-11); Hemoglobin 8.1 g/dL (14.0-18.0); Lymphocytes 26 % (21-51); MDiff Complete? YES; Mean Corpuscular Hemoglobin 29.9 pg (27.0-31.0); Mean Corpuscular Volume 90.6 fL (78.0-98.0); Metamyelocyte 3 % (0-0); Monocytes 20 % (0-10); Myelocyte 21 % (0-0); Neutrophil 8 % (42-75); Nucleated RBC 24 % (0); Platelet Count 50 thou/uL (130-400); Platelet Morphology Comment Appears Decreased; Polychromasia MARKED = >4 cells (100X) (0-2/hpf); RBC Distribution Width 19.6 % (11.5-14.5)
--- NOTE | 2019-12-07 05:52 | PDOC.FM ---
- Subjective Subjective: Pt and father state he continues to do well. Mentation and strength remain stable. No events overnight. Radiation yesterday went well. Updated on plan and agreeable. - Objective Vital Signs & Weight: Vital Signs (12 hours) Temp Pulse BP Pulse Ox 12/07/19 04:29 112 H 169/99 H 12/07/19 03:35 98.2 F 12/07/19 03:00 96 12/06/19 23:28 99.4 F 12/06/19 20:00 95 12/06/19 19:45 98.8 F Weight Admit Weight 101.151 kg Weight 95.935 kg Most Recent Monitor Data Heart Rate from ECG 103 NIBP 148/82 NIBP BP-Mean 104 Respiration from ECG 21 SpO2 91 I&O: 12/05/19 12/06/19 12/07/19 06:59 06:59 06:59 Intake Total 5324 1390 5770 Output Total 4375 2175 4750 Balance 949 -785 1020 Result Diagrams: 12/07/19 03:25 12/07/19 03:25 Phys Exam - Physical Examination Constitutional: NAD HEENT: moist MMs Neck: full ROM Respiratory: clear to auscultation bilateral Tachycardic Gastrointestinal: soft, non-tender Musculoskeletal: no edema, pulses present Neurological: non-focal 3-4/5 strength throughout Psychiatric: normal affect, A&O x 3 Skin: no rash, cap refill <2 seconds Dx/Plan (1) Anemia Code(s): D64.9 - ANEMIA, UNSPECIFIED Status: Acute (2) Thrombocytopenia Code(s): D69.6 - THROMBOCYTOPENIA, UNSPECIFIED Status: Acute (3) Sinus tachycardia Code(s): R00.0 - TACHYCARDIA, UNSPECIFIED Status: Acute (4) Acute intracranial hemorrhage Code(s): I62.9 - NONTRAUMATIC INTRACRANIAL HEMORRHAGE, UNSPECIFIED Status: Acute (5) Hemoptysis Code(s): R04.2 - HEMOPTYSIS Status: Acute (6) Metastasis to brain Code(s): C79.31 - SECONDARY MALIGNANT NEOPLASM OF BRAIN Status: Acute (7) Palliative care encounter Code(s): Z51.5 - ENCOUNTER FOR PALLIATIVE CARE Status: Acute (8) Testicular malignant neoplasm Code(s): C62.90 - MALIG NEOPLASM OF UNSP TESTIS, UNSP DESCENDED OR UNDESCENDED Status: Acute (9) Neutropenia Code(s): D70.9 - NEUTROPENIA, UNSPECIFIED Status: Acute - Plan Plan: 19yo male pmh Stage IV testicular cancer admitted for acute intracranial hemorrhagic conversion of metastatic lesions Acute intracranial hemorrhagic conversion of metastatic lesions in setting of stage IV Testicular Cancer mets to brain, lungs, liver, spleen s/p L orchiectomy - Repeat head CT yesterday showed mild increase in vasogenic edema and 2mm improvement in midline shift - Decadron decreased to 6mg q6h - Rad Onc/Onc - Dr. Brown and Dr. Palencia - will continue C2 of VIP next week - Cont keppra, namenda - Gabapentin 300mg TID (increase as needed), [place], Morphine prn for pain 22 beats of Asymptomatic Wide Complex Vtach - Dr Wells consulted - Continue Metoprolol, Corlanor, cardiac monitoring, signed off - No further events overnight Anemia - s/p 9u pRBC transfused total (11/22, 11/23, 11/24, 11/25, 11/26, 12/01, 12/02) - H&H daily. Transfuse for Hgb <7 - Hgb: 8.1 Thombocytopenia - likely 2/2 chemo. Continue to monitor - Transfuse plts for <20 - Transfused platelets (11/30, 12/01, 12/03) - Platelets: 50 Sinus Tachycardia - likely 2/2 autonomic dysregulation for cancer/whole brain radiation - Metoprolol BID & Corlanor - Cardiology & EP following Code Status: FULL IVF: SL Diet: Regular DVT ppx: SCDs Dispo: Inpt IMCU. Continuing whole brain radiation tx. Continue neuro monitoring , PT/OT. PCP: Dr. Avila - [facility] Addendum - Attending - Attending Attestation Date/Time: 12/07/19 9500 I personally evaluated the patient and discussed the management with Dr. Avila. I agree with the History, Examination, Assessment and Plan documented above with any addition or exceptions noted below.
[2019-12-07] MEDS: HYDROcodone/Acetaminophen 10/325 mg Tablet PO PRN ×3 (06:07→19:35)
[2019-12-07] MEDS: Docusate 100 MG CAP PO SCH ×2 (09:05→21:05)
[2019-12-07] MEDS: Gabapentin 300 MG CAP PO SCH ×3 (09:05→21:05)
[2019-12-07] MEDS: levETIRAcetam 500 MG TAB PO SCH ×2 (09:06→21:05)
[2019-12-07] MEDS: Ivabradine 5 MG TAB PO SCH ×3 (09:06→21:06)
[2019-12-07] MEDS: Metoprolol Tartrate 100 MG TAB PO SCH ×2 (09:06→21:05)
[2019-12-07] MEDS: Pantoprazole 40 MG VIAL IVP SCH ×2 (09:07→21:07)
[2019-12-07] MEDS: Clotrimazole 1 % Cream 30 GM TUBE TOP SCH ×2 (09:13→21:06)
[2019-12-07] MEDS ORDERED: Hydrochlorothiazide 25 MG TAB PO SCH (09:30)
--- NOTE | 2019-12-07 14:12 | PDOC.MOPN ---
Interval History: Pt continues to improve. Still w/HAs but not any worse. He is sitting up with PT but still getting dizzy. He is going to try sitting with legs over the side of the bed today. Eating well and feeding himself most of the time. He is AAOx3 and conversing normally. - Vital Signs Vital Signs: Vital Signs (12 hours) Temp Pulse BP Pulse Ox 12/07/19 12:00 97.5 F L 12/07/19 07:56 94 L 12/07/19 07:40 97.5 F L 12/07/19 04:29 112 H 169/99 H 12/07/19 03:35 98.2 F 12/07/19 03:00 96 Weight Admit Weight 223 lb Weight 211 lb 8 oz Most Recent Monitor Data Heart Rate from ECG 119 NIBP 144/77 NIBP BP-Mean 99 Respiration from ECG 27 SpO2 96 - Physical Exam General: Alert, Oriented x3, Cooperative HEENT: EOMI Lungs: Normal air movement Cardiovascular: Other (tachy) Neurological: Cranial nerves 3-12 NL Psych/Mental Status: Mood NL - Labs Result Diagrams: 12/07/19 03:25 12/07/19 03:25 Lab results: Laboratory Results - last 24 hr 12/07/19 03:25: Phosphorus 4.0 12/07/19 03:25: WBC 6.0, RBC 2.70 L, Hgb 8.1 L, Hct 24.5 L, MCV 90.6, MCH 29.9, MCHC 33.0, RDW 19.6 H, Plt Count 50 L, MPV 11.0 H, Neutrophils % (Manual) 8 L, Band Neuts % (Manual) 22 H, Lymphocytes % (Manual) 26, Monocytes % (Manual) 20 H , Metamyelocytes % (Man) 3 H, Myelocytes % 21 H, Nucleated RBCs # (Man) 24 H, Plt Morphology Comment Appears Decreased L, Polychromasia MARKED = >4 cells H 12/07/19 03:25: Sodium 136, Potassium 4.2, Chloride 106, Carbon Dioxide 22, Anion Gap 12, BUN 17, Creatinine 0.49 L, Estimated GFR (MDRD) Greater than 90, Glucose 105, Calcium 8.4, Magnesium 1.9 A/P - Problem (1) Testicular malignant neoplasm Current Visit: Yes Code(s): C62.90 - MALIG NEOPLASM OF UNSP TESTIS, UNSP DESCENDED OR UNDESCENDED Status: Acute (2) Metastasis to brain Current Visit: Yes Code(s): C79.31 - SECONDARY MALIGNANT NEOPLASM OF BRAIN Status: Acute - Plan Plan: -- Neutropenia resolved, while anemia and thrombocytopenia are improving. Neurologically improving. Cont WBRT Cont dex 6 mg q6h cont PT Plan C2 of chemotherapy next week
[2019-12-08] MEDS: Morphine 4 MG/ML VIAL SLOW IVP PRN ×2 (00:31→08:15)
[2019-12-08] MEDS: Dexamethasone 6 MG in Sodium Chloride 0.9% 50 ML IVPB SCH ×5 (00:31→23:59)
[2019-12-08 04:28] LABS: Anion Gap 13 mmol/L (10-20); BUN (Urea Nitrogen) 18 mg/dL (8.9-20.6); Calc. Creatinine Clearance 324 mL/min (70-130); Calcium 8.6 mg/dL (7.8-10.44); Carbon Dioxide 22 mmol/L (22-29); Chloride 104 mmol/L (98-107); Estimated GFR-MDRD Greater than 90; Glucose 118 mg/dL (70-105); Potassium 3.9 mmol/L (3.5-5.1); Sodium 135 mmol/L (136-145)
[2019-12-08] MEDS: Labetalol HCl 100 MG/20 ML VIAL SLOW IVP PRN (04:34)
[2019-12-08] MEDS: Morphine 2 MG/ML SYRINGE SLOW IVP PRN ×3 (04:36→18:54)
[2019-12-08 05:05] LABS: Anisocytosis SLIGHT = 6-15 cells (100X) (0-5/hpf); Band 20 % (5-11); Hemoglobin 8.2 g/dL (14.0-18.0); Lymphocytes 27 % (21-51); MDiff Complete? YES; Mean Corpuscular HGB CONC 32.5 g/dL (32.0-36.0); Mean Corpuscular Hemoglobin 29.8 pg (27.0-31.0); Mean Corpuscular Volume 91.5 fL (78.0-98.0); Mean Platelet Volume 10.7 fL (7.4-10.4); Metamyelocyte 4 % (0-0); Monocytes 14 % (0-10); Myelocyte 20 % (0-0); Neutrophil 15 % (42-75); Nucleated RBC 11 % (0); Platelet Count 68 thou/uL (130-400); Platelet Morphology Comment Appears Decreased; Polychromasia MODERATE = 3-4 cells (100X) (0-2/hpf); RBC Distribution Width 19.3 % (11.5-14.5); Red Blood Cell (RBC) Count 2.75 mill/uL (4.70-6.10); White Blood Cell (WBC) Count 13.1 thou/uL (4.8-10.8)
--- NOTE | 2019-12-08 05:57 | PDOC.FM ---
- Subjective Subjective: Pt is tired this morning. Did not sleep well last night due to a headache. States his headache has resolved this morning. Mother noted some warmth to his left arm yesterday, however, pt denied any pain to that arm that he had previously or any swelling. Informed of daily plan and pt and family agreed. - Objective Vital Signs & Weight: Vital Signs (12 hours) Temp Pulse BP Pulse Ox 12/08/19 04:34 130 H 168/88 H 12/08/19 03:34 97.7 F 12/07/19 23:30 98.2 F 12/07/19 20:00 94 L 12/07/19 19:39 98.8 F Weight Admit Weight 101.151 kg Weight 96.252 kg Most Recent Monitor Data Heart Rate from ECG 119 NIBP 135/75 NIBP BP-Mean 95 Respiration from ECG 26 SpO2 94 I&O: 12/06/19 12/07/19 12/08/19 06:59 06:59 06:59 Intake Total 1390 5770 2040 Output Total 2175 2730 3450 Balance -785 1020 -1410 Result Diagrams: 12/08/19 03:28 12/08/19 03:28 Phys Exam - Physical Examination Constitutional: NAD HEENT: moist MMs Neck: full ROM Respiratory: clear to auscultation bilateral tachycardic, no murmur Gastrointestinal: soft, non-tender Musculoskeletal: no edema, pulses present Left arm appears normal, no erythema, swelling or pain Neurological: non-focal, moves all 4 limbs 3-4/5 strength throughout Psychiatric: normal affect, A&O x 3 Skin: cap refill <2 seconds Dx/Plan (1) Anemia Code(s): D64.9 - ANEMIA, UNSPECIFIED Status: Acute (2) Thrombocytopenia Code(s): D69.6 - THROMBOCYTOPENIA, UNSPECIFIED Status: Acute (3) Sinus tachycardia Code(s): R00.0 - TACHYCARDIA, UNSPECIFIED Status: Acute (4) Acute intracranial hemorrhage Code(s): I62.9 - NONTRAUMATIC INTRACRANIAL HEMORRHAGE, UNSPECIFIED Status: Acute (5) Hemoptysis Code(s): R04.2 - HEMOPTYSIS Status: Acute (6) Metastasis to brain Code(s): C79.31 - SECONDARY MALIGNANT NEOPLASM OF BRAIN Status: Acute (7) Palliative care encounter Code(s): Z51.5 - ENCOUNTER FOR PALLIATIVE CARE Status: Acute (8) Testicular malignant neoplasm Code(s): C62.90 - MALIG NEOPLASM OF UNSP TESTIS, UNSP DESCENDED OR UNDESCENDED Status: Acute (9) Neutropenia Code(s): D70.9 - NEUTROPENIA, UNSPECIFIED Status: Acute - Plan Plan: 19yo male pmh Stage IV testicular cancer admitted for acute intracranial hemorrhagic conversion of metastatic lesions Acute intracranial hemorrhagic conversion of metastatic lesions in setting of stage IV Testicular Cancer mets to brain, lungs, liver, spleen s/p L orchiectomy - Most recent head CT showed mild increase in vasogenic edema and 2mm improvement in midline shift - Decadron 6mg q6h - Rad Onc/Onc - Dr. Brown and Dr. Palencia - will continue C2 of VIP next week - Cont keppra, namenda - Gabapentin 300mg TID (increase as needed), [place], Morphine prn for pain 22 beats of Asymptomatic Wide Complex Vtach - Dr Wells consulted - Continue Metoprolol, Corlan[place], cardiac monitoring, signed off - No further events overnight Anemia - s/p 9u pRBC transfused total (11/22, 11/23, 11/24, 11/25, 11/26, 12/01, 12/02) - H&H daily. Transfuse for Hgb <7 - Hgb: 8.1 Thombocytopenia - likely 2/2 chemo. Continue to monitor - Transfuse plts for <20 - Transfused platelets (11/30, 12/01, 12/03) - Platelets: 50 Sinus Tachycardia - likely 2/2 autonomic dysregulation for cancer/whole brain radiation - Metoprolol BID & Corlanor - Cardiology & EP following Hypertenison - Started HCTZ 12.5mg yesterday - Will continue to monitor for therapeutic effect and titrate accordingly Code Status: FULL IVF: SL Diet: Regular DVT ppx: SCDs Dispo: Inpt IMCU. Continuing whole brain radiation tx. Continue neuro monitoring , PT/OT. Continue BP rx titration and monitoring. Round 2 of VIP chemo to begin next week. Addendum - Attending - Attending Attestation Date/Time: 12/08/19 9967 I personally evaluated the patient and discussed the management with Dr. Avila. I agree with the History, Examination, Assessment and Plan documented above with any addition or exceptions noted below. Patient stable. Continue to work on HR and BP mgmt. Blood counts improved. Awaiting next round of VIP per Oncology. Continue WBRT.
[2019-12-08] MEDS: Ondansetron PF 4 MG/2 ML Vial IVP PRN (06:28)
[2019-12-08] MEDS: Metoclopramide HCl 10 MG TAB PO PRN (06:28)
[2019-12-08] MEDS: HYDROcodone/Acetaminophen 10/325 mg Tablet PO PRN ×3 (06:28→23:58)
[2019-12-08] MEDS: Hydrochlorothiazide 25 MG TAB PO SCH (08:10)
[2019-12-08] MEDS: Ivabradine 5 MG TAB PO SCH ×3 (08:13→20:57)
[2019-12-08] MEDS: Metoprolol Tartrate 100 MG TAB PO SCH ×2 (08:13→20:56)
[2019-12-08] MEDS: Gabapentin 300 MG CAP PO SCH ×3 (08:13→20:57)
[2019-12-08] MEDS: Docusate 100 MG CAP PO SCH ×2 (08:13→20:57)
[2019-12-08] MEDS: levETIRAcetam 500 MG TAB PO SCH ×2 (08:13→20:56)
[2019-12-08] MEDS: Clotrimazole 1 % Cream 30 GM TUBE TOP SCH ×2 (08:14→21:08)
[2019-12-08] MEDS: Pantoprazole 40 MG VIAL IVP SCH ×2 (08:14→20:57)
--- NOTE | 2019-12-08 10:59 | ULT ---
VENOUS DOPPLER ULTRASOUND LEFT UPPER EXTREMITY: DATE: 12/08/2019. COMPARISON: None. HISTORY: Pain and warmth, assess for deep venous thrombosis. TECHNIQUE: Multiplanar, hinton scale, sonographic imaging of the venous structures of the left upper extremity obt ained with color flow and spectral analysis. FINDINGS: The left internal jugular vein, subclavian vein, and axillary vein demonstrate patency. The basilic vein, brachial vein, radial vein, and ulnar vein appear patent as well. Imaged cephalic vein is unremarkable. The cephalic vein in the upper arm region could not be fully visualized. IMPRESSION: No evidence for deep venous thrombosis of the left upper extremity. POS: [facility]
--- NOTE | 2019-12-08 12:41 | PDOC.MOPN ---
Interval History: Pt c/o HAs overnight and didn't sleep. Currently none. Has pain and warmth to his LUE which is relatively new. Blood counts continue to improve. No other changes. - Vital Signs Vital Signs: Vital Signs (12 hours) Temp Pulse BP Pulse Ox 12/08/19 11:20 97.6 F 12/08/19 08:00 95 12/08/19 07:15 98.4 F 12/08/19 04:34 130 H 168/88 H 12/08/19 03:34 97.7 F Weight Admit Weight 223 lb Weight 212 lb 3.2 oz Most Recent Monitor Data Heart Rate from ECG 114 NIBP 138/77 NIBP BP-Mean 97 Respiration from ECG 19 SpO2 97 - Physical Exam General: Alert, Oriented x3, Cooperative HEENT: EOMI Lungs: Normal air movement Cardiovascular: Other (tachy) Extremities: Other (LUE is no significantly swollen, erythematous, or warm however has ice on it) - Labs Result Diagrams: 12/08/19 03:28 12/08/19 03:28 Lab results: Laboratory Results - last 24 hr 12/08/19 03:28: WBC 13.1 H, RBC 2.75 L, Hgb 8.2 L, Hct 25.2 L, MCV 91.5, MCH 29.8, MCHC 32.5, RDW 19.3 H, Plt Count 68 L, MPV 10.7 H, Neutrophils % (Manual) 15 L, Band Neuts % (Manual) 20 H, Lymphocytes % (Manual) 27, Monocytes % (Manual ) 14 H, Metamyelocytes % (Man) 4 H, Myelocytes % 20 H, Nucleated RBCs # (Man) 11 H, Plt Morphology Comment Appears Decreased L, Polychromasia MODERATE = 3-4 cells H, Anisocytosis SLIGHT = 6-15 cells 12/08/19 03:28: Sodium 135 L, Potassium 3.9, Chloride 104, Carbon Dioxide 22, Anion Gap 13, BUN 18, Creatinine 0.49 L, Estimated GFR (MDRD) Greater than 90, Glucose 118 H, Calcium 8.6 - Radiology Interpretation Other Additional Comment: LUE Doppler negative for DVT A/P - Problem (1) Testicular malignant neoplasm Current Visit: Yes Code(s): C62.90 - MALIG NEOPLASM OF UNSP TESTIS, UNSP DESCENDED OR UNDESCENDED Status: Acute (2) Metastasis to brain Current Visit: Yes Code(s): C79.31 - SECONDARY MALIGNANT NEOPLASM OF BRAIN Status: Acute - Plan Plan: Cont steroids, WBRT Cont PT Plan chemo next week
[2019-12-08] MEDS: Cepastat Lozenges 1 LOZ PO PRN (16:03)
[2019-12-08] MEDS ORDERED: Clopidogrel Bisulfate 75 MG TAB ONE (17:18)
[2019-12-09] MEDS: Morphine 2 MG/ML SYRINGE SLOW IVP PRN ×2 (03:51→14:39)
[2019-12-09] MEDS: Benzonatate 100 MG CAP PO PRN ×2 (03:54→20:26)
--- NOTE | 2019-12-09 06:04 | PDOC.FM ---
- Subjective Subjective: Pt denies any complaints this morning. States that he no longer has pain in his LUE. Family deny any AMS or acute events overnight. Having difficulty pulling from his port but flushes well. Mother notes she has noticed a rash to pt's chest - states it looks like a bunch of little acne. - Objective Vital Signs & Weight: Vital Signs (12 hours) Temp Pulse Resp BP Pulse Ox 12/09/19 05:10 138/81 12/09/19 04:00 98.3 F 98 18 183/104 H 94 L 12/09/19 00:00 98.2 F 100 18 130/76 94 L 12/08/19 20:00 98.3 F 139 H 22 H 138/80 92 L Weight Admit Weight 101.151 kg Weight 96.706 kg Most Recent Monitor Data Heart Rate from ECG 134 NIBP 158/93 NIBP BP-Mean 114 Respiration from ECG 24 SpO2 94 I&O: 12/07/19 12/08/19 12/09/19 06:59 06:59 06:59 Intake Total 5770 2500 1350 Output Total 4750 3800 2750 Balance 1020 -1300 -1400 Result Diagrams: 12/08/19 03:28 12/08/19 03:28 Phys Exam - Physical Examination Constitutional: NAD HEENT: moist MMs, sclera anicteric Hair loss/thinning Neck: full ROM Respiratory: clear to auscultation bilateral Tachycardic Gastrointestinal: soft, non-tender Musculoskeletal: no edema, pulses present Neurological: non-focal, moves all 4 limbs Psychiatric: normal affect, A&O x 3 Skin: cap refill <2 seconds Deviation from normal: Diffuse papulo mildly pustular rash to anterior upper chest - non painful Dx/Plan (1) Anemia Code(s): D64.9 - ANEMIA, UNSPECIFIED Status: Acute (2) Thrombocytopenia Code(s): D69.6 - THROMBOCYTOPENIA, UNSPECIFIED Status: Acute (3) Sinus tachycardia Code(s): R00.0 - TACHYCARDIA, UNSPECIFIED Status: Acute (4) Acute intracranial hemorrhage Code(s): I62.9 - NONTRAUMATIC INTRACRANIAL HEMORRHAGE, UNSPECIFIED Status: Acute (5) Hemoptysis Code(s): R04.2 - HEMOPTYSIS Status: Acute (6) Metastasis to brain Code(s): C79.31 - SECONDARY MALIGNANT NEOPLASM OF BRAIN Status: Acute (7) Palliative care encounter Code(s): Z51.5 - ENCOUNTER FOR PALLIATIVE CARE Status: Acute (8) Testicular malignant neoplasm Code(s): C62.90 - MALIG NEOPLASM OF UNSP TESTIS, UNSP DESCENDED OR UNDESCENDED Status: Acute (9) Neutropenia Code(s): D70.9 - NEUTROPENIA, UNSPECIFIED Status: Acute - Plan Plan: 19yo male pmh Stage IV testicular cancer admitted for acute intracranial hemorrhagic conversion of metastatic lesions Acute intracranial hemorrhagic conversion of metastatic lesions in setting of stage IV Testicular Cancer mets to brain, lungs, liver, spleen s/p L orchiectomy - Most recent head CT showed mild increase in vasogenic edema and 2mm improvement in midline shift - Decadron 6mg q6h - Rad Onc/Onc - Dr. Brown and Dr. Palencia - will continue C2 of VIP next week - Cont keppra, namenda - Gabapentin 300mg TID (increase as needed), [place], Morphine prn for pain - Notified nursing staff of port problem with pulling 22 beats of Asymptomatic Wide Complex Vtach - Dr Wells consulted - Continue Metoprolol, Corlanor, cardiac monitoring, signed off - No further events overnight Anemia - s/p 9u pRBC transfused total (11/22, 11/23, 11/24, 11/25, 11/26, 12/01, 12/02) - H&H Transfuse for Hgb <7 - Hgb currently stable around 8, spaced labs q3 days Thombocytopenia - likely 2/2 chemo. Continue to monitor - Transfuse plts for <20 - Transfused platelets (11/30, 12/01, 12/03) - Platelets stable around 50, spaced labs q3 days Sinus Tachycardia - likely 2/2 autonomic dysregulation for cancer/whole brain radiation - Metoprolol BID & Corlanor - Cardiology & EP following Hypertenison - HCTZ 12.5mg - Continues to have large fluctuations in BP - likely 2/2 autonomic dysfunction - LUE US yesterday resulted normal Code Status: FULL IVF: SL Diet: Regular DVT ppx: SCDs Dispo: Inpt Oncology. Continuing whole brain radiation tx. Continue neuro monitoring, PT/OT. Continue BP rx titration and monitoring. Round 2 of VIP chemo to begin next week. Addendum - Attending - Attending Attestation Date/Time: 12/09/19 1108 I personally evaluated the patient and discussed the management with Dr. Avila. I agree with the History, Examination, Assessment and Plan documented above with any addition or exceptions noted below.
[2019-12-09] MEDS: Dexamethasone 6 MG in Sodium Chloride 0.9% 50 ML IVPB SCH ×4 (06:35→23:22)
[2019-12-09] MEDS ORDERED: diphenhydrAMINE 25 MG CAP PO PRN (07:38)
[2019-12-09] MEDS ORDERED: Activase 2 MG VIAL CATH SCH (09:15)
[2019-12-09] MEDS: HYDROcodone/Acetaminophen 10/325 mg Tablet PO PRN ×2 (09:29→16:01)
[2019-12-09] MEDS: Pantoprazole 40 MG VIAL IVP SCH ×2 (09:30→20:30)
[2019-12-09] MEDS: levETIRAcetam 500 MG TAB PO SCH ×2 (09:32→20:25)
[2019-12-09] MEDS: Docusate 100 MG CAP PO SCH ×2 (09:32→20:25)
[2019-12-09] MEDS: Hydrochlorothiazide 25 MG TAB PO SCH (09:32)
[2019-12-09] MEDS: Gabapentin 300 MG CAP PO SCH ×3 (09:32→20:25)
[2019-12-09] MEDS: Metoprolol Tartrate 100 MG TAB PO SCH ×2 (09:32→20:26)
[2019-12-09] MEDS: Ivabradine 5 MG TAB PO SCH ×3 (09:33→20:25)
[2019-12-09] MEDS: Clotrimazole 1 % Cream 30 GM TUBE TOP SCH ×2 (09:43→20:40)
--- NOTE | 2019-12-09 09:53 | PDOC.MOPN ---
Interval History: hair has started to fall out. rash on chest but non pruritic. Neuro improving. - Vital Signs Vital Signs: Vital Signs (12 hours) Temp Pulse Resp BP Pulse Ox 12/09/19 08:00 98.7 F 130 H 18 139/79 93 L 12/09/19 05:10 138/81 12/09/19 04:00 98.3 F 98 18 183/104 H 94 L 12/09/19 00:00 98.2 F 100 18 130/76 94 L Weight Admit Weight 223 lb Weight 213 lb 3.2 oz Most Recent Monitor Data Heart Rate from ECG 134 NIBP 158/93 NIBP BP-Mean 114 Respiration from ECG 24 SpO2 94 - Physical Exam General: Alert HEENT: Atraumatic, PERRLA, EOMI, Mucous membr. moist/pink Lungs: Clear to auscultation, Normal air movement Cardiovascular: Regular rate, Normal S1, Normal S2, No murmurs, Gallops, Rubs Abdomen: Normal bowel sounds, Soft, No tenderness, No hepatospenomegaly, No masses Extremities: No clubbing, No cyanosis, No edema, Normal pulses, No tenderness/ swelling Neurological: Normal speech - Labs Result Diagrams: 12/08/19 03:28 12/08/19 03:28 Status: lab reviewed by me A/P - Problem (1) Testicular malignant neoplasm Current Visit: Yes Code(s): C62.90 - MALIG NEOPLASM OF UNSP TESTIS, UNSP DESCENDED OR UNDESCENDED Status: Acute (2) Acute intracranial hemorrhage Current Visit: Yes Code(s): I62.9 - NONTRAUMATIC INTRACRANIAL HEMORRHAGE, UNSPECIFIED Status: Acute (3) Metastasis to brain Current Visit: Yes Code(s): C79.31 - SECONDARY MALIGNANT NEOPLASM OF BRAIN Status: Acute (4) Neutropenia Current Visit: Yes Code(s): D70.9 - NEUTROPENIA, UNSPECIFIED Status: Acute - Plan Plan: continue xrt, steroids PT/OT chemo next week.
[2019-12-09] MEDS: Cepastat Lozenges 1 LOZ PO PRN ×2 (12:05→23:22)
[2019-12-09] MEDS: Aluminum & Magnesium Hydroxide 60 ML, Lidocaine 2% Viscous Solution 30 ML, diphenhydrAM... SSW PRN (12:05)
[2019-12-10] MEDS: Morphine 4 MG/ML VIAL SLOW IVP PRN ×3 (03:53→20:11)
[2019-12-10 04:46] LABS: Anion Gap 13 mmol/L (10-20); BUN (Urea Nitrogen) 19 mg/dL (8.9-20.6); Calc. Creatinine Clearance 333 mL/min (70-130); Calcium 8.6 mg/dL (7.8-10.44); Carbon Dioxide 25 mmol/L (22-29); Chloride 103 mmol/L (98-107); Estimated GFR-MDRD Greater than 90; Glucose 104 mg/dL (70-105); Phosphorus 4.2 mg/dL (2.3-4.7); Potassium 3.9 mmol/L (3.5-5.1); Sodium 137 mmol/L (136-145)
[2019-12-10 04:58] LABS: Band 28 % (5-11); Hemoglobin 8.1 g/dL (14.0-18.0); Lymphocytes 20 % (21-51); MDiff Complete? YES; Mean Corpuscular HGB CONC 32.3 g/dL (32.0-36.0); Mean Corpuscular Hemoglobin 29.8 pg (27.0-31.0); Mean Corpuscular Volume 92.3 fL (78.0-98.0); Mean Platelet Volume 9.7 fL (7.4-10.4); Metamyelocyte 18 % (0-0); Monocytes 6 % (0-10); Myelocyte 6 % (0-0); Neutrophil 22 % (42-75); Nucleated RBC 9 % (0); Platelet Count 107 thou/uL (130-400); Platelet Morphology Comment Appears Decreased; RBC Distribution Width 19.2 % (11.5-14.5); Red Blood Cell (RBC) Count 2.73 mill/uL (4.70-6.10); White Blood Cell (WBC) Count 21.9 thou/uL (4.8-10.8)
[2019-12-10] MEDS: Dexamethasone 6 MG in Sodium Chloride 0.9% 50 ML IVPB SCH ×3 (06:14→17:48)
--- NOTE | 2019-12-10 06:15 | PDOC.FM ---
- Subjective Subjective: Pt states he is doing well today. Notes that he has not had any hemoptysis for several days. Continues to get mild-mod headaches at night. Elevations in BP and HR continue with sitting up in bed. Feels he is getting stronger. Nursing able to get his mediport working yesterday. - Objective Vital Signs & Weight: Vital Signs (12 hours) Temp Pulse Resp BP Pulse Ox 12/10/19 03:49 98.5 F 91 16 133/76 95 12/10/19 00:49 95 12/09/19 23:25 98.2 F 106 H 20 142/87 H 95 12/09/19 20:00 94 L 12/09/19 19:04 98.4 F 120 H 20 144/85 H 94 L Weight Admit Weight 101.151 kg Weight 96.706 kg Most Recent Monitor Data Heart Rate from ECG 134 NIBP 158/93 NIBP BP-Mean 114 Respiration from ECG 24 SpO2 94 I&O: 12/08/19 12/09/19 12/10/19 06:59 06:59 06:59 Intake Total 2500 1350 3300 Output Total 3800 2750 1150 Balance -1300 -1400 2150 Result Diagrams: 12/10/19 04:00 12/10/19 04:00 Phys Exam - Physical Examination Constitutional: NAD HEENT: moist MMs Hair loss Neck: full ROM Respiratory: clear to auscultation bilateral Cardiovascular: RRR Not currently tachycardic on exam Gastrointestinal: soft, non-tender Musculoskeletal: no edema Neurological: non-focal, moves all 4 limbs Strength 3-4/5 Psychiatric: normal affect, A&O x 3 Skin: cap refill <2 seconds Dx/Plan (1) Anemia Code(s): D64.9 - ANEMIA, UNSPECIFIED Status: Acute (2) Thrombocytopenia Code(s): D69.6 - THROMBOCYTOPENIA, UNSPECIFIED Status: Acute (3) Sinus tachycardia Code(s): R00.0 - TACHYCARDIA, UNSPECIFIED Status: Acute (4) Acute intracranial hemorrhage Code(s): I62.9 - NONTRAUMATIC INTRACRANIAL HEMORRHAGE, UNSPECIFIED Status: Acute (5) Hemoptysis Code(s): R04.2 - HEMOPTYSIS Status: Acute (6) Metastasis to brain Code(s): C79.31 - SECONDARY MALIGNANT NEOPLASM OF BRAIN Status: Acute (7) Palliative care encounter Code(s): Z51.5 - ENCOUNTER FOR PALLIATIVE CARE Status: Acute (8) Testicular malignant neoplasm Code(s): C62.90 - MALIG NEOPLASM OF UNSP TESTIS, UNSP DESCENDED OR UNDESCENDED Status: Acute (9) Neutropenia Code(s): D70.9 - NEUTROPENIA, UNSPECIFIED Status: Acute - Plan Plan: 19yo male pmh Stage IV testicular cancer admitted for acute intracranial hemorrhagic conversion of metastatic lesions Acute intracranial hemorrhagic conversion of metastatic lesions in setting of stage IV Testicular Cancer mets to brain, lungs, liver, spleen s/p L orchiectomy - Most recent head CT showed mild increase in vasogenic edema and 2mm improvement in midline shift - Decadron 6mg q6h - Rad Onc/Onc - Dr. Brown and Dr. Palencia - will continue C2 of VIP next week - Cont keppra, namenda - Gabapentin 300mg TID (increase as needed), [place], Morphine prn for pain - Nursing re-dressed port site last night, cath flow ordered, now flowing well 22 beats of Asymptomatic Wide Complex Vtach - resolved - Dr Wells consulted - Continue Metoprolol, Corlanor, cardiac monitoring, signed off - No further arrythmias Anemia - improving - s/p 9u pRBC transfused total (11/22, 11/23, 11/24, 11/25, 11/26, 12/01, 12/02) - H&H Transfuse for Hgb <7 - Hgb currently stable around 8.1, spaced labs q3 days Thombocytopenia - improving - likely 2/2 chemo. Continue to monitor - Transfuse plts for <20 - Transfused platelets (11/30, 12/01, 12/03) - Platelets stable around 107, spaced labs q3 days Sinus Tachycardia - improving - likely 2/2 autonomic dysregulation for cancer/whole brain radiation - Metoprolol BID & Corlanor - Cardiology & EP following Hypertenison - HCTZ 12.5mg - Continues to have large fluctuations in BP - likely 2/2 autonomic dysfunction Code Status: FULL IVF: SL Diet: Regular DVT ppx: SCDs Dispo: Inpt Oncology. Continuing whole brain radiation tx. Continue neuro monitoring, PT/OT. Continue BP monitoring and rx titration and monitoring. Round 2 of VIP chemo to begin next week. Addendum - Attending - Attending Attestation Date/Time: 12/10/19 1044 I personally evaluated the patient and discussed the management with Dr. Avila. I agree with the History, Examination, Assessment and Plan documented above with any addition or exceptions noted below. Patient stable. Going for WBRT today. Chemo round 2 starting next week. HR and BP stable. Escalating baseline pain control.
[2019-12-10] MEDS: Cepastat Lozenges 1 LOZ PO PRN ×2 (06:17→12:33)
[2019-12-10] MEDS: Pantoprazole 40 MG VIAL IVP SCH ×2 (08:45→20:15)
[2019-12-10] MEDS: levETIRAcetam 500 MG TAB PO SCH ×2 (08:45→20:17)
[2019-12-10] MEDS: Metoprolol Tartrate 100 MG TAB PO SCH ×2 (08:45→20:17)
[2019-12-10] MEDS: Gabapentin 300 MG CAP PO SCH ×3 (08:45→20:17)
[2019-12-10] MEDS: Docusate 100 MG CAP PO SCH ×2 (08:46→20:17)
[2019-12-10] MEDS: Hydrochlorothiazide 25 MG TAB PO SCH (08:48)
[2019-12-10] MEDS: Ivabradine 5 MG TAB PO SCH ×3 (08:49→20:17)
[2019-12-10] MEDS: Clotrimazole 1 % Cream 30 GM TUBE TOP SCH ×2 (08:58→20:19)
--- NOTE | 2019-12-10 13:41 | PDOC.MOPN ---
Interval History: working with PT, oob more. No complaints. - Vital Signs Vital Signs: Vital Signs (12 hours) Temp Pulse Resp BP Pulse Ox 12/10/19 10:51 97.8 F 89 18 131/88 94 L 12/10/19 08:00 94 L 12/10/19 07:29 98.4 F 97 18 132/77 94 L 12/10/19 03:49 98.5 F 91 16 133/76 95 Weight Admit Weight 223 lb Weight 214 lb 12.8 oz Most Recent Monitor Data Heart Rate from ECG 134 NIBP 158/93 NIBP BP-Mean 114 Respiration from ECG 24 SpO2 94 - Physical Exam General: Alert, No acute distress HEENT: Atraumatic, PERRLA, EOMI, Mucous membr. moist/pink Lungs: Clear to auscultation, Normal air movement Cardiovascular: Regular rate, Normal S1, Normal S2, No murmurs, Gallops, Rubs Abdomen: Normal bowel sounds, Soft, No tenderness, No hepatospenomegaly, No masses Neurological: Normal speech - Labs Result Diagrams: 12/10/19 04:00 12/10/19 04:00 Lab results: Laboratory Results - last 24 hr 12/10/19 04:00: Sodium 137, Potassium 3.9, Chloride 103, Carbon Dioxide 25, Anion Gap 13, BUN 19, Creatinine 0.48 L, Estimated GFR (MDRD) Greater than 90, Glucose 104, Calcium 8.6, Phosphorus 4.2 12/10/19 04:00: WBC 21.9 H, RBC 2.73 L, Hgb 8.1 L, Hct 25.2 L, MCV 92.3, MCH 29.8, MCHC 32.3, RDW 19.2 H, Plt Count 107 L, MPV 9.7, Neutrophils % (Manual) 22 L, Band Neuts % (Manual) 28 H, Lymphocytes % (Manual) 20 L, Monocytes % ( Manual) 6, Metamyelocytes % (Man) 18 H, Myelocytes % 6 H, Nucleated RBCs # (Man ) 9 H, Plt Morphology Comment Appears Decreased L 12/10/19 04:00: Calcium 8.9 12/09/19 03:27: Tumor Marker HCG 158623 H Status: lab reviewed by me A/P - Problem (1) Testicular malignant neoplasm Current Visit: Yes Code(s): C62.90 - MALIG NEOPLASM OF UNSP TESTIS, UNSP DESCENDED OR UNDESCENDED Status: Acute (2) Acute intracranial hemorrhage Current Visit: Yes Code(s): I62.9 - NONTRAUMATIC INTRACRANIAL HEMORRHAGE, UNSPECIFIED Status: Acute (3) Metastasis to brain Current Visit: Yes Code(s): C79.31 - SECONDARY MALIGNANT NEOPLASM OF BRAIN Status: Acute (4) Neutropenia Current Visit: Yes Code(s): D70.9 - NEUTROPENIA, UNSPECIFIED Status: Acute - Plan Plan: Tumor HCG improved continue wb xrt plan cycle 2 chemo on Friday
--- NOTE | 2019-12-10 15:21 | PDOC.PALPN ---
Palliative Progress Note - Objective Vital Signs: Vital Signs - Most Recent Temp Pulse Resp BP Pulse Ox 97.8 F 89 18 131/88 94 L 12/10/19 10:51 12/10/19 10:51 12/10/19 10:51 12/10/19 10:51 12/10/19 10:51 - Assessment (1) Testicular malignant neoplasm Code(s): C62.90 - MALIG NEOPLASM OF UNSP TESTIS, UNSP DESCENDED OR UNDESCENDED Current Visit: Yes Status: Acute (2) Acute intracranial hemorrhage Code(s): I62.9 - NONTRAUMATIC INTRACRANIAL HEMORRHAGE, UNSPECIFIED Current Visit: Yes Status: Acute (3) Metastasis to brain Code(s): C79.31 - SECONDARY MALIGNANT NEOPLASM OF BRAIN Current Visit: Yes Status: Acute (4) Palliative care encounter Code(s): Z51.5 - ENCOUNTER FOR PALLIATIVE CARE Current Visit: Yes Status: Acute - Plan Plan: Met with Patient and mother. 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 Emotional support and Therapeutic listening. [30] minutes spent on this encounter with >50% of the time in counseling and coordination of care.
[2019-12-10] MEDS ORDERED: HYDROcodone/Acetaminophen 10/325 mg Tablet PO PRN ×3 (15:41→16:01)
[2019-12-11] MEDS: Cepastat Lozenges 1 LOZ PO PRN (00:16)
[2019-12-11] MEDS: Dexamethasone 6 MG in Sodium Chloride 0.9% 50 ML IVPB SCH ×4 (00:17→17:23)
[2019-12-11] MEDS: Morphine 4 MG/ML VIAL SLOW IVP PRN (03:46)
--- NOTE | 2019-12-11 06:02 | PDOC.FM ---
- Subjective Subjective: No events or complaints overnight. Resting well this morning. Getting up in bed more often - still causes increase in BP and HR when he does so. - Objective Vital Signs & Weight: Vital Signs (12 hours) Temp Pulse Resp BP Pulse Ox 12/10/19 21:00 145/85 H 12/10/19 20:00 97.8 F 112 H 18 128/108 H 95 Weight Admit Weight 101.151 kg Weight 97.432 kg Most Recent Monitor Data Heart Rate from ECG 134 NIBP 158/93 NIBP BP-Mean 114 Respiration from ECG 24 SpO2 94 I&O: 12/09/19 12/10/19 12/11/19 06:59 06:59 06:59 Intake Total 1350 3300 2360 Output Total 2750 1150 1850 Balance -1400 2150 510 Result Diagrams: 12/10/19 04:00 12/10/19 04:00 Phys Exam - Physical Examination Constitutional: NAD HEENT: moist MMs, sclera anicteric Neck: full ROM Respiratory: clear to auscultation bilateral Tachycardic Gastrointestinal: soft, non-tender Musculoskeletal: no edema, pulses present Neurological: non-focal, moves all 4 limbs Psychiatric: normal affect, A&O x 3 Skin: cap refill <2 seconds Dx/Plan (1) Anemia Code(s): D64.9 - ANEMIA, UNSPECIFIED Status: Acute (2) Thrombocytopenia Code(s): D69.6 - THROMBOCYTOPENIA, UNSPECIFIED Status: Acute (3) Sinus tachycardia Code(s): R00.0 - TACHYCARDIA, UNSPECIFIED Status: Acute (4) Acute intracranial hemorrhage Code(s): I62.9 - NONTRAUMATIC INTRACRANIAL HEMORRHAGE, UNSPECIFIED Status: Acute (5) Hemoptysis Code(s): R04.2 - HEMOPTYSIS Status: Acute (6) Metastasis to brain Code(s): C79.31 - SECONDARY MALIGNANT NEOPLASM OF BRAIN Status: Acute (7) Palliative care encounter Code(s): Z51.5 - ENCOUNTER FOR PALLIATIVE CARE Status: Acute (8) Testicular malignant neoplasm Code(s): C62.90 - MALIG NEOPLASM OF UNSP TESTIS, UNSP DESCENDED OR UNDESCENDED Status: Acute (9) Neutropenia Code(s): D70.9 - NEUTROPENIA, UNSPECIFIED Status: Acute - Plan Plan: 19yo male pmh Stage IV testicular cancer admitted for acute intracranial hemorrhagic conversion of metastatic lesions Acute intracranial hemorrhagic conversion of metastatic lesions in setting of stage IV Testicular Cancer mets to brain, lungs, liver, spleen s/p L orchiectomy - Most recent head CT showed mild increase in vasogenic edema and 2mm improvement in midline shift - Decadron 6mg q6h - Rad Onc/Onc - Dr. Brown and Dr. Palencia - will continue C2 of VIP next week - Cont keppra, namenda - Adjusted norco rx yesterday to 2 tabs - Beta HCG improved from 1.6^6 to 0.3^6 22 beats of Asymptomatic Wide Complex Vtach - resolved - Dr Wells consulted - Continue Metoprolol, Corlanor, cardiac monitoring, signed off - No further arrythmias Anemia - improving - s/p 9u pRBC transfused total (11/22, 11/23, 11/24, 11/25, 11/26, 12/01, 12/02) - H&H Transfuse for Hgb <7 - Hgb steadily increasing, spaced labs q3 days Thombocytopenia - improving - likely 2/2 chemo. Continue to monitor - Transfuse plts for <20 - Transfused platelets (11/30, 12/01, 12/03) - Platelets steadily increasing, spaced labs q3 days Sinus Tachycardia - improving - likely 2/2 autonomic dysregulation for cancer/whole brain radiation - Metoprolol BID & Corlanor - Cardiology & EP following Hypertenison - HCTZ 12.5mg - Continues to have large fluctuations in BP - likely 2/2 autonomic dysfunction Code Status: FULL IVF: SL Diet: Regular DVT ppx: SCDs Dispo: Inpt Oncology. Continuing whole brain radiation tx. Continue neuro monitoring, PT/OT. Continue BP monitoring and rx titration and monitoring. Round 2 of VIP chemo to begin on Friday. Addendum - Attending - Attending Attestation Date/Time: 12/11/19 8834 I personally evaluated the patient and discussed the management with Dr. Avila. I agree with the History, Examination, Assessment and Plan documented above with any addition or exceptions noted below. Patient stable. Will work on baseline PO pain control to minimize morphine use so that he is set up for success from pain standpoint on discharge.
[2019-12-11] MEDS: Hydrochlorothiazide 25 MG TAB PO SCH (07:33)
[2019-12-11] MEDS: Metoprolol Tartrate 100 MG TAB PO SCH ×2 (07:34→20:35)
[2019-12-11] MEDS: Gabapentin 300 MG CAP PO SCH ×3 (07:35→20:35)
[2019-12-11] MEDS: levETIRAcetam 500 MG TAB PO SCH ×2 (07:35→20:35)
[2019-12-11] MEDS: Pantoprazole 40 MG VIAL IVP SCH ×2 (07:37→20:35)
[2019-12-11] MEDS: Ivabradine 5 MG TAB PO SCH ×3 (07:39→20:35)
[2019-12-11] MEDS: HYDROcodone/Acetaminophen 10/325 mg Tablet PO PRN ×3 (07:40→20:36)
[2019-12-11] MEDS: Clotrimazole 1 % Cream 30 GM TUBE TOP SCH ×2 (07:41→20:35)
[2019-12-11] MEDS: Docusate 100 MG CAP PO SCH ×2 (07:41→20:35)
--- NOTE | 2019-12-11 11:22 | PDOC.MOPN ---
Interval History: feeling better, he stood up today for the first time in a long time. eating better. masses in arms smaller - Vital Signs Vital Signs: Vital Signs (12 hours) Temp Pulse Resp BP Pulse Ox 12/11/19 11:00 98.1 F 87 16 134/75 94 L 12/11/19 07:49 95 12/11/19 07:30 99.3 F 106 H 14 131/69 95 Weight Admit Weight 223 lb Weight 213 lb 12.8 oz Most Recent Monitor Data Heart Rate from ECG 134 NIBP 158/93 NIBP BP-Mean 114 Respiration from ECG 24 SpO2 94 - Physical Exam General: Alert Cardiovascular: Regular rate Abdomen: Normal bowel sounds, Soft Extremities: No edema, Other (R arm mass smaller and less swollen) Neurological: Normal speech - Labs Result Diagrams: 12/10/19 04:00 12/10/19 04:00 A/P - Problem (1) Acute intracranial hemorrhage Current Visit: Yes Code(s): I62.9 - NONTRAUMATIC INTRACRANIAL HEMORRHAGE, UNSPECIFIED Status: Acute (2) Metastasis to brain Current Visit: Yes Code(s): C79.31 - SECONDARY MALIGNANT NEOPLASM OF BRAIN Status: Acute (3) Testicular malignant neoplasm Current Visit: Yes Code(s): C62.90 - MALIG NEOPLASM OF UNSP TESTIS, UNSP DESCENDED OR UNDESCENDED Status: Acute (4) Hemoptysis Current Visit: Yes Code(s): R04.2 - HEMOPTYSIS Status: Acute - Plan Plan: 1. continue to monitor counts 2. compkete radiation 3. next cycle of VIP later this week 4. cont PT
[2019-12-12] MEDS: Dexamethasone 6 MG in Sodium Chloride 0.9% 50 ML IVPB SCH ×4 (00:25→17:52)
[2019-12-12] MEDS: HYDROcodone/Acetaminophen 10/325 mg Tablet PO PRN ×4 (02:12→18:22)
[2019-12-12] MEDS: Cepastat Lozenges 1 LOZ PO PRN ×2 (05:27→12:37)
--- NOTE | 2019-12-12 06:03 | PDOC.FM ---
- Subjective Subjective: No acute events overnight. Pt continues to be able to do more and more with PT/ OT. Agreeable to plan of care. - Objective Vital Signs & Weight: Vital Signs (12 hours) Temp Pulse Resp BP Pulse Ox 12/12/19 00:40 95 12/11/19 20:00 97.8 F 119 H 16 130/83 95 Weight Admit Weight 101.151 kg Weight 96.388 kg Most Recent Monitor Data Heart Rate from ECG 134 NIBP 158/93 NIBP BP-Mean 114 Respiration from ECG 24 SpO2 94 I&O: 12/10/19 12/11/19 12/12/19 06:59 06:59 06:59 Intake Total 3300 3585 4607 Output Total 1150 2975 2125 Balance 2150 610 2482 Result Diagrams: 12/10/19 04:00 12/10/19 04:00 Phys Exam - Physical Examination Constitutional: NAD No respiratory distress Tachycardic Musculoskeletal: no edema Neurological: non-focal, moves all 4 limbs Psychiatric: normal affect, A&O x 3 Dx/Plan (1) Anemia Code(s): D64.9 - ANEMIA, UNSPECIFIED Status: Acute (2) Thrombocytopenia Code(s): D69.6 - THROMBOCYTOPENIA, UNSPECIFIED Status: Acute (3) Sinus tachycardia Code(s): R00.0 - TACHYCARDIA, UNSPECIFIED Status: Acute (4) Acute intracranial hemorrhage Code(s): I62.9 - NONTRAUMATIC INTRACRANIAL HEMORRHAGE, UNSPECIFIED Status: Acute (5) Hemoptysis Code(s): R04.2 - HEMOPTYSIS Status: Acute (6) Metastasis to brain Code(s): C79.31 - SECONDARY MALIGNANT NEOPLASM OF BRAIN Status: Acute (7) Palliative care encounter Code(s): Z51.5 - ENCOUNTER FOR PALLIATIVE CARE Status: Acute (8) Testicular malignant neoplasm Code(s): C62.90 - MALIG NEOPLASM OF UNSP TESTIS, UNSP DESCENDED OR UNDESCENDED Status: Acute (9) Neutropenia Code(s): D70.9 - NEUTROPENIA, UNSPECIFIED Status: Acute - Plan Plan: 19yo male pmh Stage IV testicular cancer admitted for acute intracranial hemorrhagic conversion of metastatic lesions Acute intracranial hemorrhagic conversion of metastatic lesions in setting of stage IV Testicular Cancer mets to brain, lungs, liver, spleen s/p L orchiectomy - Most recent head CT showed mild increase in vasogenic edema and 2mm improvement in midline shift - Decadron 6mg q6h - Rad Onc/Onc - Dr. Brown and Dr. Palencia - will continue C2 of VIP next week - Cont blanco mchugh - Adjusted norco rx 1-2 tabs - Beta HCG improved from 1.6^6 to 0.3^6 22 beats of Asymptomatic Wide Complex Vtach - resolved - Dr Wells consulted - Continue Metoprolol, Corlanor, cardiac monitoring, signed off - No further arrythmias Anemia - improving - s/p 9u pRBC transfused total (11/22, 11/23, 11/24, 11/25, 11/26, 12/01, 12/02) - H&H Transfuse for Hgb <7 - Hgb steadily increasing, spaced labs q3 days Thombocytopenia - improving - likely 2/2 chemo. Continue to monitor - Transfuse plts for <20 - Transfused platelets (11/30, 12/01, 12/03) - Platelets steadily increasing, spaced labs q3 days Sinus Tachycardia - improving - likely 2/2 autonomic dysregulation for cancer/whole brain radiation - Metoprolol BID & Corlanor - Cardiology & EP following Hypertenison - HCTZ 12.5mg - Continues to have large fluctuations in BP - likely 2/2 autonomic dysfunction Code Status: FULL IVF: SL Diet: Regular DVT ppx: SCDs Dispo: Inpt Oncology. Finished WBRT. Continue PT/OT, pt is getting up more. Continue BP monitoring and rx titration and monitoring. Round 2 of VIP chemo to begin on Friday. Addendum - Attending - Attending Attestation Date/Time: 12/12/19 0187 I personally evaluated the patient and discussed the management with Dr. Avila. I agree with the History, Examination, Assessment and Plan documented above with any addition or exceptions noted below. 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 HCG decreased greatly. Pain control modulation as needed.
[2019-12-12] MEDS: Hydrochlorothiazide 25 MG TAB PO SCH (08:50)
[2019-12-12] MEDS: Gabapentin 300 MG CAP PO SCH ×3 (08:50→20:17)
[2019-12-12] MEDS: Metoprolol Tartrate 100 MG TAB PO SCH ×2 (08:51→20:17)
[2019-12-12] MEDS: levETIRAcetam 500 MG TAB PO SCH ×2 (08:52→20:17)
[2019-12-12] MEDS: Clotrimazole 1 % Cream 30 GM TUBE TOP SCH ×2 (08:53→20:17)
[2019-12-12] MEDS: Ivabradine 5 MG TAB PO SCH ×3 (08:53→20:17)
[2019-12-12] MEDS: Pantoprazole 40 MG VIAL IVP SCH ×2 (08:54→20:17)
[2019-12-12] MEDS: Docusate 100 MG CAP PO SCH ×2 (09:05→20:17)
--- NOTE | 2019-12-12 16:50 | PDOC.BPN ---
- Brief Progress Note This is a transition of care note. 19 year old male who admitted for left-sided weakness and found to have a cerebral stroke with hemorrhagic conversion. 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 He is currently status post left sided orchiectomy. Upon presentation to the hospital the patient was evaluated by both Neurosurgery and the Primary Care team. Neurosurgery felt that no surgical interventions were needed at that time and recommended dexamethasone treatment. Oncology was contacted and Dr. Brown and Dr. Mcgee initiated whole brain radiation therapy and concurrent VIP chemotherapy. The patient's left-sided weakness waxed and waned for the first several days before experiencing essentially global weakness with strength 3/5 after the first week. During his chemotherapy he became quite anemic and had low platelets requiring several blood transfusions and a few platelet transfusions. After finishing chemotherapy the patient cell lines stabilized. The patient had interval CTs of his head which showed vasogenic edema with midline shift. The midline shift eventually improved slightly and the patient's steroids were decreased. The plan is to further adjust steroids down as long as the patient continues to have improvement in his neurologic symptoms. We will plan to do this over an extended period of time to decrease side effects of rapid glucocorticoid reduction. [facility] is working with both PT and OT. Initially when they first started working with him he was only able to do movements in the bed however just recently has been able to stand for a very short time While receiving chemotherapy patient developed waxing and waning mental status with some confusion and disorientation Ifosfaminde was discontinued at that time due to known neurotoxicity side effects. After discontinuing the medication within a few days patient had Improvement in his mental status and is currently essentially at baseline. The plan going forward from this point will be to resume a second round of chemo the next couple of days while continuing his whole brain radiation therapy to completion. As long as the patient continues to have no progressing neuro deficits we will continue to gradually reduce his dexamethasone.
[2019-12-13] MEDS: Dexamethasone 6 MG in Sodium Chloride 0.9% 50 ML IVPB SCH ×3 (00:08→11:24)
[2019-12-13] MEDS: HYDROcodone/Acetaminophen 10/325 mg Tablet PO PRN ×4 (03:35→20:34)
[2019-12-13 05:05] LABS: ALT (SGPT) 45 U/L (8-55); AST (SGOT) 24 U/L (5-34); Alkaline Phosphatase 102 U/L (40-110); Anion Gap 10 mmol/L (10-20); BUN (Urea Nitrogen) 23 mg/dL (8.9-20.6); Bilirubin, Total 0.4 mg/dL (0.2-1.2); Calc. Creatinine Clearance 306 mL/min (70-130); Calcium 8.8 mg/dL (7.8-10.44); Carbon Dioxide 25 mmol/L (22-29); Chloride 107 mmol/L (98-107); Estimated GFR-MDRD Greater than 90; Globulin 2.9 g/dL (2.4-3.5); Glucose 104 mg/dL (70-105); Magnesium 1.8 mg/dL (1.6-2.6); Phosphorus 2.8 mg/dL (2.3-4.7); Potassium 3.7 mmol/L (3.5-5.1); Protein, Total 5.9 g/dL (6.0-8.3); Sodium 138 mmol/L (136-145)
[2019-12-13 05:19] LABS: Band 9 % (5-11); Lymphocytes 20 % (21-51); MDiff Complete? YES; Mean Corpuscular HGB CONC 31.1 g/dL (32.0-36.0); Mean Corpuscular Hemoglobin 29.4 pg (27.0-31.0); Mean Corpuscular Volume 94.7 fL (78.0-98.0); Mean Platelet Volume 8.1 fL (7.4-10.4); Metamyelocyte 5 % (0-0); Monocytes 15 % (0-10); Myelocyte 3 % (0-0); Neutrophil 48 % (42-75); Nucleated RBC 2 % (0); Platelet Count 197 thou/uL (130-400); RBC Distribution Width 19.8 % (11.5-14.5); Red Blood Cell (RBC) Count 3.06 mill/uL (4.70-6.10); White Blood Cell (WBC) Count 26.8 thou/uL (4.8-10.8)
--- NOTE | 2019-12-13 06:20 | PDOC.FM ---
- Subjective Subjective: NAEO. Pain remains well-controlled. Doing better with PT/OT each day. - Objective MAR Reviewed: Yes Vital Signs & Weight: Vital Signs (12 hours) Temp Pulse Resp BP Pulse Ox 12/12/19 20:27 97.1 F L 102 H 16 142/75 H 96 Weight Admit Weight 101.151 kg Weight 98.515 kg Most Recent Monitor Data Heart Rate from ECG 134 NIBP 158/93 NIBP BP-Mean 114 Respiration from ECG 24 SpO2 94 I&O: 12/11/19 12/12/19 12/13/19 06:59 06:59 06:59 Intake Total 3585 4607 3280 Output Total 2975 2125 3775 Balance 610 2482 -495 Result Diagrams: 12/21/19 03:08 12/21/19 03:08 Phys Exam - Physical Examination Constitutional: NAD HEENT: moist MMs Neck: supple, full ROM Respiratory: no wheezing, no rales, no rhonchi, clear to auscultation bilateral Cardiovascular: no significant murmur tachycardic w/ regular rhythm Gastrointestinal: soft, non-tender, no distention, positive bowel sounds Neurological: non-focal, moves all 4 limbs Psychiatric: normal affect, A&O x 3 Skin: normal turgor Deviation from normal: petechial, erythematous rash over chest Dx/Plan (1) Acute intracranial hemorrhage Code(s): I62.9 - NONTRAUMATIC INTRACRANIAL HEMORRHAGE, UNSPECIFIED Status: Acute (2) Anemia Code(s): D64.9 - ANEMIA, UNSPECIFIED Status: Acute (3) Hemoptysis Code(s): R04.2 - HEMOPTYSIS Status: Resolved (4) Metastasis to brain Code(s): C79.31 - SECONDARY MALIGNANT NEOPLASM OF BRAIN Status: Acute (5) Neutropenia Code(s): D70.9 - NEUTROPENIA, UNSPECIFIED Status: Resolved (6) Sinus tachycardia Code(s): R00.0 - TACHYCARDIA, UNSPECIFIED Status: Acute (7) Testicular malignant neoplasm Code(s): C62.90 - MALIG NEOPLASM OF UNSP TESTIS, UNSP DESCENDED OR UNDESCENDED Status: Acute (8) Thrombocytopenia Code(s): D69.6 - THROMBOCYTOPENIA, UNSPECIFIED Status: Resolved - Plan Plan: 19yo male with a pmh notable for 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 Brown and Dr. Palencia on board. Will continue C2 of VIP next week. - Cont keppra & namenda. - Continue PT/OT & post acute screening for dispo for d/c placed today. - Continue [place] for pain control & will adjust PRN. 22 beats of Asymptomatic Wide Complex Vtach - resolved - Dr Wells consulted on 12/02 & recommended to continue Metoprolol & Corlanor as well as cardiac monitoring. Signed off on 12/05. - No further arrythmias since. Anemia - improving - s/p 10u pRBCs total (11/22, 11/23, 11/24, 11/25, 11/26, 12/01, 12/02) - Continue to monitor H/H closely & will transfuse for Hgb <7 - Hgb up to 9 this AM. Continue spaced labs q3 days. Thombocytopenia - resolved - likely 2/2 chemo. Continue to monitor - Transfuse plts for <20 - Transfused platelets (11/30, 12/01, 12/03) - Platelets steadily increasing, spaced labs q3 days Sinus Tachycardia - likely 2/2 autonomic dysregulation from cancer/whole brain radiation - Continue Metoprolol BID & Corlanor - Cards on board. HTN - Consider increasing HCTZ today as tolerated by patient. Continue metoprolol & corlanor per EP & cards recs - Continues to have large fluctuations in BP - likely 2/2 autonomic dysfunction Code Status: FULL IVF: SL Diet: Regular DVT ppx: SCDs Addendum - Attending - Attending Attestation Date/Time: 12/21/19 4747 I personally evaluated the patient and discussed the management with Dr. Wiggins on 12/13/19. I agree with the History, Examination, Assessment and Plan documented above with any addition or exceptions noted below. Continue supportive care. PT/OT. Chemotherapy to continue.
[2019-12-13] MEDS: Hydrochlorothiazide 25 MG TAB PO SCH (08:38)
[2019-12-13] MEDS: Gabapentin 300 MG CAP PO SCH ×3 (08:38→20:06)
[2019-12-13] MEDS: Docusate 100 MG CAP PO SCH ×2 (08:38→20:15)
[2019-12-13] MEDS: Pantoprazole 40 MG VIAL IVP SCH ×2 (08:39→20:06)
[2019-12-13] MEDS: levETIRAcetam 500 MG TAB PO SCH ×2 (08:39→20:07)
[2019-12-13] MEDS: Metoprolol Tartrate 100 MG TAB PO SCH ×2 (08:39→20:06)
[2019-12-13] MEDS: Clotrimazole 1 % Cream 30 GM TUBE TOP SCH ×2 (08:40→20:07)
[2019-12-13] MEDS: Ivabradine 5 MG TAB PO SCH ×3 (08:45→20:07)
--- NOTE | 2019-12-13 08:54 | PDOC.MOPN ---
Interval History: Pt feeling well today, still not sleeping very good though. His strength is improving and was able to stand on Friday with PT. He will try to walk a few steps with PT today. Denies f/N/V/D/C. - Vital Signs Vital Signs: Vital Signs (12 hours) Temp Pulse Resp BP Pulse Ox 12/13/19 07:51 97 12/13/19 07:36 98.6 F 104 H 18 140/88 97 Weight Admit Weight 223 lb Weight 217 lb 3 oz Most Recent Monitor Data Heart Rate from ECG 134 NIBP 158/93 NIBP BP-Mean 114 Respiration from ECG 24 SpO2 94 - Physical Exam General: Alert, Oriented x3, Cooperative HEENT: EOMI Lungs: Normal air movement Extremities: Other (right forearm mass stable, smaller than initial) Neurological: Cranial nerves 3-12 NL - Labs Result Diagrams: 12/13/19 04:29 12/13/19 04:29 Lab results: Laboratory Results - last 24 hr 12/13/19 04:29: WBC 26.8 H, RBC 3.06 L, Hgb 9.0 L, Hct 29.0 L, MCV 94.7, MCH 29.4, MCHC 31.1 L, RDW 19.8 H, Plt Count 197, MPV 8.1, Neutrophils % (Manual) 48 , Band Neuts % (Manual) 9, Lymphocytes % (Manual) 20 L, Monocytes % (Manual) 15 H, Metamyelocytes % (Man) 5 H, Myelocytes % 3 H, Nucleated RBCs # (Man) 2 H 12/13/19 04:29: Sodium 138, Potassium 3.7, Chloride 107, Carbon Dioxide 25, Anion Gap 10, BUN 23 H, Creatinine 0.52 L, Estimated GFR (MDRD) Greater than 90 , Glucose 104, Calcium 8.8, Phosphorus 2.8, Magnesium 1.8, Total Bilirubin 0.4, AST 24, ALT 45, Alkaline Phosphatase 102, Serum Total Protein 5.9 L, Albumin 3.0 L, Globulin 2.9, Albumin/Globulin Ratio 1.0 L A/P - Problem (1) Testicular malignant neoplasm Current Visit: Yes Code(s): C62.90 - MALIG NEOPLASM OF UNSP TESTIS, UNSP DESCENDED OR UNDESCENDED Status: Acute (2) Metastasis to brain Current Visit: Yes Code(s): C79.31 - SECONDARY MALIGNANT NEOPLASM OF BRAIN Status: Acute - Plan Plan: Cont steroids cont PT Start C2 of chemotherapy on Friday - HCG has trended down from 1,600,000 to 318,000 from 11/29 to 12/08 (half-life ~3 days) so is mostly appropriate
[2019-12-13] MEDS ORDERED: Melatonin 3 MG TAB PO PRN (08:58)
[2019-12-13] MEDS ORDERED: Dexamethasone 4 MG in Sodium Chloride 0.9% 50 ML IVPB SCH (12:00)
[2019-12-13] MEDS: Dexamethasone 4 mg/ml Vial SLOW IVP SCH ×2 (12:26→17:21)
[2019-12-13] MEDS ORDERED: Polyethylene Glycol 3350 17 GM Packet PO PRN (14:43)
[2019-12-13] MEDS ORDERED: Senokot S 8.6-50 MG TAB PO PRN (14:43)
[2019-12-14] MEDS: Dexamethasone 4 mg/ml Vial SLOW IVP SCH ×5 (00:06→23:50)
[2019-12-14] MEDS: hydrOXYzine Pamoate 25 mg Capsule PO PRN ×2 (00:09→23:49)
--- NOTE | 2019-12-14 06:20 | PDOC.FM ---
- Subjective Subjective: NAEO. Patient denies any fever/chills, N/V/D/C. Mom reports night sweats and flushing but no documented fever overnight. No S/S of infection. Slept better last night with addition of vistaril and melatonin. - Objective MAR Reviewed: Yes Vital Signs & Weight: Vital Signs (12 hours) Temp Pulse Resp BP Pulse Ox 12/14/19 00:53 95 12/13/19 20:00 98.1 F 108 H 20 138/83 95 Weight Admit Weight 101.151 kg Weight 99.7 kg Most Recent Monitor Data Heart Rate from ECG 134 NIBP 158/93 NIBP BP-Mean 114 Respiration from ECG 24 SpO2 94 I&O: 12/12/19 12/13/19 12/14/19 06:59 06:59 06:59 Intake Total 4607 3280 3027 Output Total 2125 3775 1600 Balance 2482 -841 1427 Result Diagrams: 12/13/19 04:29 12/13/19 04:29 Phys Exam - Physical Examination Constitutional: NAD HEENT: moist MMs Neck: supple, full ROM Respiratory: no wheezing, no rales, no rhonchi, clear to auscultation bilateral Cardiovascular: no significant murmur tachycardic but regular rhythm Gastrointestinal: soft, positive bowel sounds Neurological: non-focal, moves all 4 limbs Psychiatric: normal affect, A&O x 3 Skin: normal turgor Dx/Plan (1) Acute intracranial hemorrhage Code(s): I62.9 - NONTRAUMATIC INTRACRANIAL HEMORRHAGE, UNSPECIFIED Status: Acute (2) Anemia Code(s): D64.9 - ANEMIA, UNSPECIFIED Status: Acute (3) Hemoptysis Code(s): R04.2 - HEMOPTYSIS Status: Resolved (4) Metastasis to brain Code(s): C79.31 - SECONDARY MALIGNANT NEOPLASM OF BRAIN Status: Acute (5) Neutropenia Code(s): D70.9 - NEUTROPENIA, UNSPECIFIED Status: Resolved (6) Sinus tachycardia Code(s): R00.0 - TACHYCARDIA, UNSPECIFIED Status: Acute (7) Testicular malignant neoplasm Code(s): C62.90 - MALIG NEOPLASM OF UNSP TESTIS, UNSP DESCENDED OR UNDESCENDED Status: Acute (8) Thrombocytopenia Code(s): D69.6 - THROMBOCYTOPENIA, UNSPECIFIED Status: Resolved - Plan Plan: 19yo male with a pmh notable for 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 Per NS and Onc, no need to repeat unless acute change in clinical status. - Continue decadron 4mg q6h per Onc recs - Rad Onc/Onc, Dr. Brown and Dr. Palencia on board. Will start second round of chemo tomorrow per Dr. Brown. - Cont keppra & namenda. - Continue PT/OT & post acute screening for dispo for d/c placed yesterday. Mom and patient open to placement. - Continue [place] for pain control & will adjust PRN. 22 beats of Asymptomatic Wide Complex Vtach - resolved - Dr Wells consulted on 12/02 & recommended to continue Metoprolol & Corlanor as well as cardiac monitoring. Signed off on 12/05. - No further arrythmias since. Anemia - improving - s/p 10u pRBCs total (11/22, 11/23, 11/24, 11/25, 11/26, 12/01, 12/02) - Continue to monitor H/H closely & will transfuse for Hgb <7 - Hgb up to 9 yesterday. Continue spaced labs q3 days for now but may need to check QD once chemo resumes tomorrow. Thombocytopenia - resolved - likely 2/2 chemo. Continue to monitor - Transfuse plts for <20 - Transfused platelets (11/30, 12/01, 12/03) Sinus Tachycardia - likely 2/2 autonomic dysregulation from cancer/whole brain radiation - Continue Metoprolol BID & Corlanor but consider increasing metoprolol to 200 BID since BP consistently in the 140s systolic. - Cards on board. HTN - Consider increasing HCTZ today as tolerated by patient. Continue metoprolol & corlanor per EP & cards recs Code Status: FULL IVF: SL Diet: Regular DVT ppx: SCDs
[2019-12-14] MEDS: Hydrochlorothiazide 25 MG TAB PO SCH (09:16)
[2019-12-14] MEDS: Ivabradine 5 MG TAB PO SCH ×3 (09:16→20:53)
[2019-12-14] MEDS: Metoprolol Tartrate 100 MG TAB PO SCH ×2 (09:17→20:52)
[2019-12-14] MEDS: Docusate 100 MG CAP PO SCH ×2 (09:17→20:51)
[2019-12-14] MEDS: levETIRAcetam 500 MG TAB PO SCH ×2 (09:17→20:54)
[2019-12-14] MEDS: Gabapentin 300 MG CAP PO SCH ×3 (09:17→20:51)
[2019-12-14] MEDS: HYDROcodone/Acetaminophen 10/325 mg Tablet PO PRN ×3 (09:18→22:10)
[2019-12-14] MEDS: Pantoprazole 40 MG VIAL IVP SCH ×2 (09:19→20:54)
[2019-12-14] MEDS: Clotrimazole 1 % Cream 30 GM TUBE TOP SCH ×2 (09:31→20:50)
[2019-12-14] MEDS ORDERED: Metoprolol Tartrate 100 MG TAB PO SCH (09:45)
--- NOTE | 2019-12-14 14:31 | PDOC.MOPN ---
Interval History: conversive, alert. no complaints. - Vital Signs Vital Signs: Vital Signs (12 hours) Temp Pulse Pulse Resp BP BP BP 12/14/19 11:00 98.5 F 114 H 18 130/78 12/14/19 08:44 135 H 165/92 H 12/14/19 08:00 12/14/19 07:33 97.7 F 100 16 140/83 Pulse Ox 12/14/19 11:00 96 12/14/19 08:44 12/14/19 08:00 95 12/14/19 07:33 95 Weight Admit Weight 223 lb Weight 219 lb Most Recent Monitor Data Heart Rate from ECG 134 NIBP 158/93 NIBP BP-Mean 114 Respiration from ECG 24 SpO2 94 - Physical Exam General: Alert, Oriented x3, No acute distress HEENT: Atraumatic, PERRLA, EOMI, Mucous membr. moist/pink Lungs: Clear to auscultation, Normal air movement Cardiovascular: Regular rate, Normal S1, Normal S2, No murmurs, Gallops, Rubs Abdomen: Normal bowel sounds, Soft, No tenderness, No hepatospenomegaly, No masses Skin: No rashes, No breakdown Neurological: Normal speech - Labs Result Diagrams: 12/13/19 04:29 12/13/19 04:29 Status: lab reviewed by me A/P - Problem (1) Testicular malignant neoplasm Current Visit: Yes Code(s): C62.90 - MALIG NEOPLASM OF UNSP TESTIS, UNSP DESCENDED OR UNDESCENDED Status: Acute (2) Acute intracranial hemorrhage Current Visit: Yes Code(s): I62.9 - NONTRAUMATIC INTRACRANIAL HEMORRHAGE, UNSPECIFIED Status: Acute (3) Metastasis to brain Current Visit: Yes Code(s): C79.31 - SECONDARY MALIGNANT NEOPLASM OF BRAIN Status: Acute (4) Neutropenia Current Visit: Yes Code(s): D70.9 - NEUTROPENIA, UNSPECIFIED Status: Resolved - Plan Plan: 1. plan cycle 2 VIP tomorrow 2. continue XRT per Dr. Palencia.
[2019-12-14] MEDS ORDERED: Sodium Chloride 0.9% 1,000 ML IV SCH (15:00)
[2019-12-14] MEDS ORDERED: Albumin 25% 25 GM/100 ML BOT IVPB SCH (15:15)
[2019-12-14] MEDS ORDERED: Potassium Chloride 10 MEQ in Premix Bag 1 BAG IVPB SCH (16:00)
[2019-12-14] MEDS: Melatonin 3 MG TAB PO PRN (20:55)
[2019-12-15] MEDS: Dexamethasone 4 mg/ml Vial SLOW IVP SCH ×4 (06:25→23:47)
[2019-12-15 06:55] LABS: Anion Gap 11 mmol/L (10-20); BUN (Urea Nitrogen) 20 mg/dL (8.9-20.6); Calc. Creatinine Clearance 346 mL/min (70-130); Calcium 8.7 mg/dL (7.8-10.44); Carbon Dioxide 25 mmol/L (22-29); Chloride 104 mmol/L (98-107); Estimated GFR-MDRD Greater than 90; Glucose 90 mg/dL (70-105); Potassium 4.2 mmol/L (3.5-5.1); Sodium 136 mmol/L (136-145)
--- NOTE | 2019-12-15 07:02 | PDOC.FM ---
- Subjective Subjective: Patient reported a new rash overnight and continues to have hot flashes. Denies any fever/chills or N/V/D/C. - Objective MAR Reviewed: Yes Vital Signs & Weight: Vital Signs (12 hours) Temp Pulse Resp BP Pulse Ox 12/15/19 00:32 96 12/14/19 19:40 97.5 F L 96 18 132/81 96 Weight Admit Weight 101.151 kg Weight 96.19 kg Most Recent Monitor Data Heart Rate from ECG 134 NIBP 158/93 NIBP BP-Mean 114 Respiration from ECG 24 SpO2 94 I&O: 12/14/19 12/15/19 12/16/19 06:59 06:59 06:59 Intake Total 3027 1760 Output Total 1600 1050 Balance 1427 710 Result Diagrams: 12/13/19 04:29 12/15/19 06:22 Phys Exam - Physical Examination Constitutional: NAD HEENT: moist MMs Neck: supple, full ROM Respiratory: no wheezing, no rales, no rhonchi, clear to auscultation bilateral Cardiovascular: RRR, no significant murmur Gastrointestinal: soft, non-tender, positive bowel sounds Musculoskeletal: no edema, pulses present Neurological: non-focal, moves all 4 limbs Psychiatric: normal affect, A&O x 3 Skin: no rash, normal turgor Deviation from normal: healing papular, erythematous rash across chest and band- like erythema -: noted across forehead & down to B/L temples Dx/Plan (1) Acute intracranial hemorrhage Code(s): I62.9 - NONTRAUMATIC INTRACRANIAL HEMORRHAGE, UNSPECIFIED Status: Acute (2) Anemia Code(s): D64.9 - ANEMIA, UNSPECIFIED Status: Acute (3) Hemoptysis Code(s): R04.2 - HEMOPTYSIS Status: Resolved (4) Metastasis to brain Code(s): C79.31 - SECONDARY MALIGNANT NEOPLASM OF BRAIN Status: Acute (5) Neutropenia Code(s): D70.9 - NEUTROPENIA, UNSPECIFIED Status: Resolved (6) Sinus tachycardia Code(s): R00.0 - TACHYCARDIA, UNSPECIFIED Status: Acute (7) Testicular malignant neoplasm Code(s): C62.90 - MALIG NEOPLASM OF UNSP TESTIS, UNSP DESCENDED OR UNDESCENDED Status: Acute (8) Thrombocytopenia Code(s): D69.6 - THROMBOCYTOPENIA, UNSPECIFIED Status: Resolved - Plan Plan: 19yo male with a pmh notable for 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 Per NS and Onc, no need to repeat unless acute change in clinical status. - Continue decadron 4mg q6h per Onc recs - Rad Onc/Onc, Dr. Brown and Dr. Palencia on board. Will start second round of chemo today per Dr. Brown. - Cont keppra & namenda. - Continue PT/OT & post acute screening for dispo for d/c placed yesterday. Mom and patient open to placement. - Continue [place] for pain control & will adjust PRN. 22 beats of Asymptomatic Wide Complex Vtach - resolved - Dr Wells consulted on 12/02 & recommended to continue Metoprolol & Corlanor as well as cardiac monitoring. Signed off on 12/05. - No further arrythmias since. Anemia - improving - s/p 10u pRBCs total (11/22, 11/23, 11/24, 11/25, 11/26, 12/01, 12/02) - Continue to monitor H/H closely & will transfuse for Hgb <7 - Hgb up to 9 yesterday. Continue spaced labs q3 days for now but may need to check QD once chemo resumes tomorrow. Thombocytopenia - resolved - likely 2/2 chemo. Continue to monitor - Transfuse plts for <20 - Transfused platelets (11/30, 12/01, 12/03) Sinus Tachycardia - likely 2/2 autonomic dysregulation from cancer/whole brain radiation - Continue Metoprolol BID & Corlanor. - Cards on board. HTN - Consider increasing HCTZ today as tolerated by patient. Continue metoprolol & corlanor per EP & cards recs. Code Status: FULL IVF: SL Diet: Regular DVT ppx: SCDs
[2019-12-15] MEDS ORDERED: Dexamethasone Sod Phosphate 20 MG in Sodium Chloride 0.9% 50 ML IVPB SCH (07:15)
[2019-12-15] MEDS ORDERED: IFOSFAMIDE IVPB SCH ×2 (07:30→08:00)
[2019-12-15] MEDS ORDERED: MESNA IVPB SCH ×2 (07:30→08:00)
[2019-12-15] MEDS ORDERED: SODIUM CHLORIDE 0.9% IVPB SCH ×3 (07:30→08:00)
[2019-12-15] MEDS ORDERED: Palonosetron HCl 0.25 MG in Sodium Chloride 0.9% 50 ML IVPB SCH (08:00)
[2019-12-15] MEDS ORDERED: SODIUM CHLORIDE 0.9% IV SCH (08:00)
[2019-12-15] MEDS ORDERED: MANNITOL IV SCH (08:00)
[2019-12-15] MEDS ORDERED: CISPLATIN IV SCH (08:00)
[2019-12-15] MEDS ORDERED: Dexamethasone 20 MG in Sodium Chloride 0.9% 50 ML IVPB SCH (08:00)
[2019-12-15] MEDS ORDERED: Fosaprepitant Dimeglumine 150 MG in Sodium Chloride 0.9% 250 ML 145 ML IVPB SCH (08:00)
[2019-12-15] MEDS ORDERED: manNITOL 12.5 GM in Sodium Chloride 0.9% 50 ML IV SCH (08:00)
[2019-12-15] MEDS: Sodium Chloride 0.9% 1,000 ML IV SCH ×2 (08:59→18:11)
[2019-12-15] MEDS ORDERED: Potassium Chloride 10 MEQ in Premix Bag 1 BAG IVPB SCH (09:00)
[2019-12-15] MEDS: Hydrochlorothiazide 25 MG TAB PO SCH (09:01)
[2019-12-15] MEDS: Clotrimazole 1 % Cream 30 GM TUBE TOP SCH ×2 (09:01→21:00)
[2019-12-15] MEDS: Docusate 100 MG CAP PO SCH ×2 (09:02→21:01)
[2019-12-15] MEDS: Gabapentin 300 MG CAP PO SCH ×3 (09:02→21:03)
[2019-12-15] MEDS: levETIRAcetam 500 MG TAB PO SCH ×2 (09:02→21:03)
[2019-12-15] MEDS: Metoprolol Tartrate 100 MG TAB PO SCH ×2 (09:02→21:01)
[2019-12-15] MEDS: Ivabradine 5 MG TAB PO SCH ×3 (09:03→21:00)
[2019-12-15] MEDS: Pantoprazole 40 MG VIAL IVP SCH ×2 (09:03→20:59)
[2019-12-15] MEDS: Potassium Chloride 10 MEQ in Premix Bag 1 BAG IVPB SCH (09:06)
--- NOTE | 2019-12-15 09:17 | PDOC.MOPN ---
Interval History: Pt feeling good today. He has a rash from orthodoxy to orthodoxy across his forehead that itches, potentially from XRT and his mask, improving. Strength is improving daily. - Vital Signs Vital Signs: Vital Signs (12 hours) Pulse Ox 12/15/19 00:32 96 Weight Admit Weight 223 lb Weight 212 lb 1 oz Most Recent Monitor Data Heart Rate from ECG 134 NIBP 158/93 NIBP BP-Mean 114 Respiration from ECG 24 SpO2 94 - Physical Exam General: Alert, Oriented x3, Cooperative HEENT: EOMI Lungs: Normal air movement Neurological: Cranial nerves 3-12 NL Psych/Mental Status: Mood NL - Labs Result Diagrams: 12/13/19 04:29 12/15/19 06:22 Lab results: Laboratory Results - last 24 hr 12/15/19 06:22: Sodium 136, Potassium 4.2, Chloride 104, Carbon Dioxide 25, Anion Gap 11, BUN 20, Creatinine 0.46 L, Estimated GFR (MDRD) Greater than 90, Glucose 90, Calcium 8.7 A/P - Problem (1) Testicular malignant neoplasm Current Visit: Yes Code(s): C62.90 - MALIG NEOPLASM OF UNSP TESTIS, UNSP DESCENDED OR UNDESCENDED Status: Acute (2) Metastasis to brain Current Visit: Yes Code(s): C79.31 - SECONDARY MALIGNANT NEOPLASM OF BRAIN Status: Acute - Plan Plan: C2D1 of VIP today Cont PT - may need rehab vs home PT at discharge antiemetics prn Neuro checks q4h to monitor for If[place] toxicity
[2019-12-15] MEDS: HYDROcodone/Acetaminophen 10/325 mg Tablet PO PRN ×2 (09:38→21:08)
[2019-12-15] MEDS: Cepastat Lozenges 1 LOZ PO PRN ×2 (12:46→19:34)
[2019-12-15] MEDS: SODIUM CHLORIDE 0.9% IVPB SCH ×2 (15:17→15:19)
[2019-12-15] MEDS: MESNA IVPB SCH (15:17)
[2019-12-15] MEDS: ETOPOSIDE IVPB SCH (15:19)
[2019-12-15] MEDS: CISPLATIN IV SCH (16:28)
[2019-12-15] MEDS: MANNITOL IV SCH (16:28)
[2019-12-15] MEDS: SODIUM CHLORIDE 0.9% IV SCH (16:28)
[2019-12-15] MEDS: Melatonin 3 MG TAB PO PRN (21:00)
[2019-12-15] MEDS: hydrOXYzine Pamoate 25 mg Capsule PO PRN (23:50)
[2019-12-16] MEDS: Sodium Chloride 0.9% 1,000 ML IV SCH ×2 (00:13→13:15)
[2019-12-16] MEDS: Dexamethasone 4 mg/ml Vial SLOW IVP SCH ×4 (06:09→23:37)
[2019-12-16 06:30] LABS: #Eosinphils 0.8 thou/uL (0.0-0.7); #Lymphocytes 1.1 thou/uL (1.20-3.40); #Monocytes 1.7 thou/uL (0.11-0.59); %Basophils 0.1 % (0.0-1.0); %Eosinophils 4.6 % (0.0-10.0); %Lymphocytes 6.1 % (21.0-51.0); %Monocytes 9.5 % (0.0-10.0); %Neutrophils 79.6 % (42.0-75.0); Hemoglobin 9.5 g/dL (14.0-18.0); Mean Corpuscular Hemoglobin 29.7 pg (27.0-31.0); Mean Corpuscular Volume 95.9 fL (78.0-98.0); Platelet Count 228 thou/uL (130-400); RBC Distribution Width 19.6 % (11.5-14.5); Red Blood Cell (RBC) Count 3.18 mill/uL (4.70-6.10); White Blood Cell (WBC) Count 17.6 thou/uL (4.8-10.8)
--- NOTE | 2019-12-16 06:43 | PDOC.FM ---
- Subjective Subjective: Patient reports issues with insomnia overnight but otherwise SYDNIE. Does report that his vision is slightly worse this AM. Is working on getting some audiobooks and dad is bringing different readers for him to try to see if they will help him see a little better. No reports neurological deficits otherwise. - Objective MAR Reviewed: Yes Vital Signs & Weight: Vital Signs (12 hours) Temp Pulse Resp BP Pulse Ox 12/16/19 04:20 98.6 F 72 16 133/69 96 12/15/19 23:50 98.0 F 84 18 130/72 96 12/15/19 19:30 97.9 F 80 16 125/70 96 Weight Admit Weight 101.151 kg Weight 98.118 kg Most Recent Monitor Data Heart Rate from ECG 134 NIBP 158/93 NIBP BP-Mean 114 Respiration from ECG 24 SpO2 94 I&O: 12/14/19 12/15/19 12/16/19 06:59 06:59 06:59 Intake Total 3027 2992 3704 Output Total 1600 3500 1750 Balance 1427 -508 1954 Result Diagrams: 12/16/19 06:10 12/16/19 06:10 Phys Exam - Physical Examination Constitutional: NAD HEENT: moist MMs Neck: supple, full ROM Respiratory: clear to auscultation bilateral Cardiovascular: RRR, no significant murmur Gastrointestinal: soft, positive bowel sounds Neurological: non-focal, moves all 4 limbs Psychiatric: normal affect, A&O x 3 Skin: normal turgor Dx/Plan (1) Acute intracranial hemorrhage Code(s): I62.9 - NONTRAUMATIC INTRACRANIAL HEMORRHAGE, UNSPECIFIED Status: Acute (2) Anemia Code(s): D64.9 - ANEMIA, UNSPECIFIED Status: Acute (3) Hemoptysis Code(s): R04.2 - HEMOPTYSIS Status: Resolved (4) Metastasis to brain Code(s): C79.31 - SECONDARY MALIGNANT NEOPLASM OF BRAIN Status: Acute (5) Neutropenia Code(s): D70.9 - NEUTROPENIA, UNSPECIFIED Status: Resolved (6) Sinus tachycardia Code(s): R00.0 - TACHYCARDIA, UNSPECIFIED Status: Acute (7) Testicular malignant neoplasm Code(s): C62.90 - MALIG NEOPLASM OF UNSP TESTIS, UNSP DESCENDED OR UNDESCENDED Status: Acute (8) Thrombocytopenia Code(s): D69.6 - THROMBOCYTOPENIA, UNSPECIFIED Status: Resolved - Plan Plan: 19yo male with a pmh notable for 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 Per NS and Onc, no need to repeat unless acute change in clinical status. - Continue decadron 4mg q6h per Onc recs - Rad Onc/Onc, Dr. Brown and Dr. Palencia on board. Started second round of chemo yesterday per Dr. Brown. - Cont keppra & namenda. - Continue PT/OT. Mom and patient open to placement. CM on board to assist with this closer to time of d/c. - Continue [place] for pain control & will adjust PRN. 22 beats of Asymptomatic Wide Complex Vtach - resolved - Dr Wells consulted on 12/02 & recommended to continue Metoprolol & Corlanor as well as cardiac monitoring. Signed off on 12/05. - No further arrythmias since. Anemia - improving - s/p 10u pRBCs total (11/22, 11/23, 11/24, 11/25, 11/26, 12/01, 12/02) - Continue to monitor H/H closely & will transfuse for Hgb <7 - Hgb up to 9.5 today. Continue labs per Onc while getting second round of chemo & radiation. Thombocytopenia - resolved - likely 2/2 chemo. Continue to monitor - Transfuse plts for <20 - Transfused platelets (11/30, 12/01, 12/03) Sinus Tachycardia - likely 2/2 autonomic dysregulation from cancer/whole brain radiation - Continue Metoprolol BID & Corlanor. - Cards on board. HTN - Consider increasing HCTZ today as tolerated by patient. Continue metoprolol & corlanor per EP & cards recs. Code Status: FULL IVF: SL Diet: Regular DVT ppx: SCDs
[2019-12-16 06:51] LABS: Anion Gap 10 mmol/L (10-20); BUN (Urea Nitrogen) 23 mg/dL (8.9-20.6); Calc. Creatinine Clearance 331 mL/min (70-130); Calcium 8.7 mg/dL (7.8-10.44); Carbon Dioxide 23 mmol/L (22-29); Chloride 107 mmol/L (98-107); Estimated GFR-MDRD Greater than 90; Glucose 98 mg/dL (70-105); Magnesium 1.9 mg/dL (1.6-2.6); Potassium 4.3 mmol/L (3.5-5.1); Sodium 136 mmol/L (136-145)
[2019-12-16 06:52] LABS: ALT (SGPT) 38 U/L (8-55); AST (SGOT) 17 U/L (5-34); Albumin 2.9 g/dL (3.5-5.0); Alkaline Phosphatase 84 U/L (40-110); Bilirubin, Direct 0.2 mg/dL (0.1-0.3); Bilirubin, Total 0.6 mg/dL (0.2-1.2); Protein, Total 5.5 g/dL (6.0-8.3)
[2019-12-16] MEDS ORDERED: Ondansetron 2MG/ML MDV 10 MG in Sodium Chloride 0.9% 50 ML IVP SCH (07:00)
[2019-12-16] MEDS ORDERED: Dexamethasone Sod Phosphate 20 MG, Ondansetron 2MG/ML MDV 10 MG in Sodium Chloride 0.9%... IVPB SCH (07:45)
[2019-12-16] MEDS: Hydrochlorothiazide 25 MG TAB PO SCH (09:06)
[2019-12-16] MEDS: Metoprolol Tartrate 100 MG TAB PO SCH ×2 (09:07→21:05)
[2019-12-16] MEDS: levETIRAcetam 500 MG TAB PO SCH ×2 (09:07→21:04)
[2019-12-16] MEDS: Cepastat Lozenges 1 LOZ PO PRN ×2 (09:07→21:09)
[2019-12-16] MEDS: Gabapentin 300 MG CAP PO SCH ×3 (09:08→21:04)
[2019-12-16] MEDS: Ivabradine 5 MG TAB PO SCH ×3 (09:08→21:03)
[2019-12-16] MEDS: Clotrimazole 1 % Cream 30 GM TUBE TOP SCH ×2 (09:08→21:05)
[2019-12-16] MEDS: Docusate 100 MG CAP PO SCH ×2 (09:08→21:04)
[2019-12-16] MEDS: Pantoprazole 40 MG VIAL IVP SCH ×2 (09:09→21:03)
[2019-12-16] MEDS: Potassium Chloride 10 MEQ in Premix Bag 1 BAG IVPB SCH (09:10)
--- NOTE | 2019-12-16 10:03 | PDOC.MOPN ---
Interval History: no complaints. talkative. - Vital Signs Vital Signs: Vital Signs (12 hours) Temp Pulse Resp BP Pulse Ox 12/16/19 04:20 98.6 F 72 16 133/69 96 12/15/19 23:50 98.0 F 84 18 130/72 96 Weight Admit Weight 223 lb Weight 216 lb 5 oz Most Recent Monitor Data Heart Rate from ECG 134 NIBP 158/93 NIBP BP-Mean 114 Respiration from ECG 24 SpO2 94 - Physical Exam General: Alert, Oriented x3, No acute distress HEENT: Atraumatic, PERRLA, EOMI, Mucous membr. moist/pink Lungs: Clear to auscultation, Normal air movement Cardiovascular: Regular rate, Normal S1, Normal S2, No murmurs, Gallops, Rubs Abdomen: Normal bowel sounds, Soft, No tenderness, No hepatospenomegaly, No masses Extremities: Other (rash on forehead) Neurological: Normal speech - Labs Result Diagrams: 12/16/19 06:10 12/16/19 06:10 Lab results: Laboratory Results - last 24 hr 12/16/19 06:10: Phosphorus 4.0, Total Bilirubin 0.6, Direct Bilirubin 0.2, AST 17, ALT 38, Alkaline Phosphatase 84, Serum Total Protein 5.5 L, Albumin 2.9 L 12/16/19 06:10: WBC 17.6 H, RBC 3.18 L, Hgb 9.5 L, Hct 30.5 L, MCV 95.9, MCH 29.7, MCHC 31.0 L, RDW 19.6 H, Plt Count 228, MPV 8.0, Neutrophils % 79.6 H, Lymphocytes % 6.1 L, Monocytes % 9.5, Eosinophils % 4.6, Basophils % 0.1, Neutrophils # 14.0 H, Lymphocytes # 1.1 L, Monocytes # 1.7 H, Eosinophils # 0.8 H, Basophils # 0.0 12/16/19 06:10: Sodium 136, Potassium 4.3, Chloride 107, Carbon Dioxide 23, Anion Gap 10, BUN 23 H, Creatinine 0.49 L, Estimated GFR (MDRD) Greater than 90 , Glucose 98, Calcium 8.7, Magnesium 1.9 - Pathology Pathology: C2D2 chemo, tolerating well cont xrt per Dr. Palencia hopefully, dc to rehab or home next week. A/P - Problem (1) Testicular malignant neoplasm Current Visit: Yes Code(s): C62.90 - MALIG NEOPLASM OF UNSP TESTIS, UNSP DESCENDED OR UNDESCENDED Status: Acute (2) Acute intracranial hemorrhage Current Visit: Yes Code(s): I62.9 - NONTRAUMATIC INTRACRANIAL HEMORRHAGE, UNSPECIFIED Status: Acute (3) Metastasis to brain Current Visit: Yes Code(s): C79.31 - SECONDARY MALIGNANT NEOPLASM OF BRAIN Status: Acute (4) Neutropenia Current Visit: Yes Code(s): D70.9 - NEUTROPENIA, UNSPECIFIED Status: Resolved
[2019-12-16] MEDS: Ondansetron 2MG/ML MDV 10 MG in Sodium Chloride 0.9% 50 ML IVPB SCH (13:15)
[2019-12-16] MEDS: IFOSFAMIDE IVPB SCH (14:49)
[2019-12-16] MEDS: SODIUM CHLORIDE 0.9% IVPB SCH ×3 (14:49→17:30)
[2019-12-16] MEDS: MESNA IVPB SCH (15:47)
[2019-12-16] MEDS: ETOPOSIDE IVPB SCH (17:30)
[2019-12-16] MEDS: SODIUM CHLORIDE 0.9% IV SCH (18:42)
[2019-12-16] MEDS: MANNITOL IV SCH (18:42)
[2019-12-16] MEDS: CISPLATIN IV SCH (18:42)
[2019-12-16] MEDS: Melatonin 3 MG TAB PO PRN (21:55)
[2019-12-16] MEDS: hydrOXYzine Pamoate 25 mg Capsule PO PRN (23:36)
[2019-12-17] MEDS: Sodium Chloride 0.9% 1,000 ML IV SCH ×2 (02:37→10:03)
[2019-12-17] MEDS: Cepastat Lozenges 1 LOZ PO PRN ×2 (03:20→15:50)
[2019-12-17] MEDS: Dexamethasone 4 mg/ml Vial SLOW IVP SCH ×4 (06:03→18:31)
[2019-12-17 06:23] LABS: #Eosinphils 0.1 thou/uL (0.0-0.7); #Lymphocytes 0.8 thou/uL (1.20-3.40); #Monocytes 1.4 thou/uL (0.11-0.59); #Neutrophils 8.2 thou/uL (1.40-6.50); %Basophils 0.2 % (0.0-1.0); %Eosinophils 1.2 % (0.0-10.0); %Lymphocytes 7.9 % (21.0-51.0); %Monocytes 13.3 % (0.0-10.0); %Neutrophils 77.4 % (42.0-75.0); Hemoglobin 10.1 g/dL (14.0-18.0); Mean Corpuscular HGB CONC 32.2 g/dL (32.0-36.0); Mean Corpuscular Hemoglobin 30.6 pg (27.0-31.0); Mean Corpuscular Volume 95.1 fL (78.0-98.0); Mean Platelet Volume 7.4 fL (7.4-10.4); Platelet Count 212 thou/uL (130-400); RBC Distribution Width 19.5 % (11.5-14.5); Red Blood Cell (RBC) Count 3.32 mill/uL (4.70-6.10); White Blood Cell (WBC) Count 10.6 thou/uL (4.8-10.8)
--- NOTE | 2019-12-17 06:30 | PDOC.FM ---
- Subjective Subjective: NAEO. Patient resting comfortably this AM with no complaints other than difficulty sleeping. Pain controlled. - Objective MAR Reviewed: Yes Vital Signs & Weight: Vital Signs (12 hours) Temp Pulse Resp BP BP Pulse Ox 12/17/19 03:56 98.9 F 90 16 136/80 95 12/17/19 02:00 95 12/16/19 23:46 98.9 F 104 H 20 124/83 95 12/16/19 19:25 98.2 F 100 18 145/76 H 95 Weight Admit Weight 101.151 kg Weight 98.118 kg Most Recent Monitor Data Heart Rate from ECG 134 NIBP 158/93 NIBP BP-Mean 114 Respiration from ECG 24 SpO2 94 I&O: 12/15/19 12/16/19 12/17/19 06:59 06:59 06:59 Intake Total 2992 6221 3237 Output Total 3500 0300 6585 Balance -509 235 862 Result Diagrams: 12/17/19 06:00 12/17/19 06:00 Phys Exam - Physical Examination Constitutional: NAD HEENT: moist MMs Neck: supple, full ROM Respiratory: clear to auscultation bilateral Cardiovascular: RRR, no significant murmur Neurological: non-focal, moves all 4 limbs Psychiatric: normal affect, A&O x 3 Dx/Plan (1) Acute intracranial hemorrhage Code(s): I62.9 - NONTRAUMATIC INTRACRANIAL HEMORRHAGE, UNSPECIFIED Status: Acute (2) Anemia Code(s): D64.9 - ANEMIA, UNSPECIFIED Status: Acute (3) Hemoptysis Code(s): R04.2 - HEMOPTYSIS Status: Resolved (4) Metastasis to brain Code(s): C79.31 - SECONDARY MALIGNANT NEOPLASM OF BRAIN Status: Acute (5) Neutropenia Code(s): D70.9 - NEUTROPENIA, UNSPECIFIED Status: Resolved (6) Sinus tachycardia Code(s): R00.0 - TACHYCARDIA, UNSPECIFIED Status: Acute (7) Testicular malignant neoplasm Code(s): C62.90 - MALIG NEOPLASM OF UNSP TESTIS, UNSP DESCENDED OR UNDESCENDED Status: Acute (8) Thrombocytopenia Code(s): D69.6 - THROMBOCYTOPENIA, UNSPECIFIED Status: Resolved - Plan Plan: 19yo male with a pmh notable for 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 Per NS and Onc, no need to repeat unless acute change in clinical status. - Continue decadron 4mg q6h per Onc recs - Rad Onc/Onc, Dr. Brown and Dr. Palencia on board. Started second round of chemo yesterday per Dr. Brown. - Cont keppra & namenda. - Continue PT/OT. Mom and patient open to placement. CM on board to assist with this closer to time of d/c. - Continue [place] for pain control & will adjust PRN. 22 beats of Asymptomatic Wide Complex Vtach - resolved - Dr Wells consulted on 12/02 & recommended to continue Metoprolol & Corlanor as well as cardiac monitoring. Signed off on 12/05. - No further arrythmias since. Anemia - improving - s/p 10u pRBCs total (11/22, 11/23, 11/24, 11/25, 11/26, 12/01, 12/02) - Continue to monitor H/H closely & will transfuse for Hgb <7 - Hgb up to 10.1 today. Continue labs per Onc while getting second round of chemo & radiation. Thombocytopenia - resolved - likely 2/2 chemo. Continue to monitor - Transfuse plts for <20 - Transfused platelets (11/30, 12/01, 12/03) Sinus Tachycardia - likely 2/2 autonomic dysregulation from cancer/whole brain radiation - Continue Metoprolol BID & Corlanor. - Cards on board. HTN - Continue HCTZ, metoprolol, & corlanor per EP & cards recs. Code Status: FULL IVF: SL Diet: Regular DVT ppx: SCDs
[2019-12-17 06:45] LABS: ALT (SGPT) 35 U/L (8-55); AST (SGOT) 16 U/L (5-34); Alkaline Phosphatase 88 U/L (40-110); Anion Gap 10 mmol/L (10-20); BUN (Urea Nitrogen) 18 mg/dL (8.9-20.6); Bilirubin, Direct 0.2 mg/dL (0.1-0.3); Bilirubin, Total 0.5 mg/dL (0.2-1.2); Calc. Creatinine Clearance 324 mL/min (70-130); Calcium 8.8 mg/dL (7.8-10.44); Carbon Dioxide 25 mmol/L (22-29); Chloride 107 mmol/L (98-107); Estimated GFR-MDRD Greater than 90; Glucose 91 mg/dL (70-105); Magnesium 1.9 mg/dL (1.6-2.6); Potassium 4.1 mmol/L (3.5-5.1); Protein, Total 5.7 g/dL (6.0-8.3); Sodium 138 mmol/L (136-145)
[2019-12-17] MEDS: Clotrimazole 1 % Cream 30 GM TUBE TOP SCH (08:57)
[2019-12-17] MEDS: Docusate 100 MG CAP PO SCH ×2 (08:58→20:41)
[2019-12-17] MEDS: Metoprolol Tartrate 100 MG TAB PO SCH ×2 (08:58→20:41)
[2019-12-17] MEDS: Gabapentin 300 MG CAP PO SCH ×3 (08:58→20:41)
[2019-12-17] MEDS: Hydrochlorothiazide 25 MG TAB PO SCH (08:58)
[2019-12-17] MEDS: levETIRAcetam 500 MG TAB PO SCH ×2 (08:59→20:41)
[2019-12-17] MEDS: Ivabradine 5 MG TAB PO SCH ×3 (08:59→20:41)
[2019-12-17] MEDS: Pantoprazole 40 MG VIAL IVP SCH ×2 (09:00→20:41)
[2019-12-17] MEDS: Potassium Chloride 10 MEQ in Premix Bag 1 BAG IVPB SCH (10:03)
--- NOTE | 2019-12-17 10:35 | PDOC.MOPN ---
Interval History: C2D3 of VIP: Feeling well today w/o HAs, N/V/D/C/fevers. He stood for 15s w/PT yesterday. - Vital Signs Vital Signs: Vital Signs (12 hours) Temp Pulse Resp BP BP Pulse Ox 12/17/19 10:12 86 134/76 12/17/19 08:00 98.5 F 100 19 154/85 H 96 12/17/19 03:56 98.9 F 90 16 136/80 95 12/17/19 02:00 95 12/16/19 23:46 98.9 F 104 H 20 124/83 95 Weight Admit Weight 223 lb Weight 217 lb 1.6 oz Most Recent Monitor Data Heart Rate from ECG 134 NIBP 158/93 NIBP BP-Mean 114 Respiration from ECG 24 SpO2 94 - Physical Exam General: Alert, Oriented x3, Cooperative HEENT: EOMI Lungs: Normal air movement Cardiovascular: Regular rate Extremities: Other (moves all extremities) Neurological: Cranial nerves 3-12 NL Psych/Mental Status: Mood NL - Labs Result Diagrams: 12/17/19 06:00 12/17/19 06:00 Lab results: Laboratory Results - last 24 hr 12/17/19 06:00: Phosphorus 4.0, Total Bilirubin 0.5, Direct Bilirubin 0.2, AST 16, ALT 35, Alkaline Phosphatase 88, Serum Total Protein 5.7 L, Albumin 3.0 L 12/17/19 06:00: WBC 10.6, RBC 3.32 L, Hgb 10.1 L, Hct 31.6 L, MCV 95.1, MCH 30.6 , MCHC 32.2, RDW 19.5 H, Plt Count 212, MPV 7.4, Neutrophils % 77.4 H, Lymphocytes % 7.9 L, Monocytes % 13.3 H, Eosinophils % 1.2, Basophils % 0.2, Neutrophils # 8.2 H, Lymphocytes # 0.8 L, Monocytes # 1.4 H, Eosinophils # 0.1, Basophils # 0.0 12/17/19 06:00: Sodium 138, Potassium 4.1, Chloride 107, Carbon Dioxide 25, Anion Gap 10, BUN 18, Creatinine 0.50 L, Estimated GFR (MDRD) Greater than 90, Glucose 91, Calcium 8.8, Magnesium 1.9 A/P - Problem (1) Testicular malignant neoplasm Current Visit: Yes Code(s): C62.90 - MALIG NEOPLASM OF UNSP TESTIS, UNSP DESCENDED OR UNDESCENDED Status: Acute (2) Metastasis to brain Current Visit: Yes Code(s): C79.31 - SECONDARY MALIGNANT NEOPLASM OF BRAIN Status: Acute - Plan Plan: C2D3 of VIP cont chemo cont WBRT - 5 days remaining, likely has today off for Good Friday neuro check q4h cont PT: d/c to rehab or home next week ophtho c/s as outpatient if vision continues to worsen
[2019-12-17] MEDS: Ondansetron 2MG/ML MDV 10 MG in Sodium Chloride 0.9% 50 ML IVPB SCH (12:41)
[2019-12-17] MEDS: SODIUM CHLORIDE 0.9% IVPB SCH ×3 (13:26→16:01)
[2019-12-17] MEDS: IFOSFAMIDE IVPB SCH (13:26)
[2019-12-17] MEDS: Benzonatate 100 MG CAP PO PRN (15:49)
[2019-12-17] MEDS: ETOPOSIDE IVPB SCH (16:00)
[2019-12-17] MEDS: MESNA IVPB SCH (16:01)
[2019-12-17] MEDS: SODIUM CHLORIDE 0.9% IV SCH (17:03)
[2019-12-17] MEDS: CISPLATIN IV SCH (17:03)
[2019-12-17] MEDS: MANNITOL IV SCH (17:03)
[2019-12-17] MEDS: Melatonin 3 MG TAB PO PRN (22:31)
[2019-12-18] MEDS: Clotrimazole 1 % Cream 30 GM TUBE TOP SCH ×3 (01:08→21:08)
[2019-12-18] MEDS: Dexamethasone 4 mg/ml Vial SLOW IVP SCH ×4 (01:08→18:18)
[2019-12-18] MEDS: Sodium Chloride 0.9% 1,000 ML IV SCH ×3 (01:08→18:29)
[2019-12-18] MEDS: Cepastat Lozenges 1 LOZ PO PRN ×3 (01:13→19:51)
[2019-12-18 05:40] LABS: #Eosinphils 0.1 thou/uL (0.0-0.7); #Lymphocytes 0.8 thou/uL (1.20-3.40); #Monocytes 0.9 thou/uL (0.11-0.59); #Neutrophils 7.2 thou/uL (1.40-6.50); %Basophils 0.1 % (0.0-1.0); %Eosinophils 0.7 % (0.0-10.0); %Lymphocytes 8.5 % (21.0-51.0); %Monocytes 9.7 % (0.0-10.0); %Neutrophils 80.9 % (42.0-75.0); Hemoglobin 10.6 g/dL (14.0-18.0); Mean Corpuscular HGB CONC 31.2 g/dL (32.0-36.0); Mean Corpuscular Hemoglobin 29.2 pg (27.0-31.0); Mean Corpuscular Volume 93.4 fL (78.0-98.0); Mean Platelet Volume 7.8 fL (7.4-10.4); Platelet Count 231 thou/uL (130-400); Red Blood Cell (RBC) Count 3.64 mill/uL (4.70-6.10); White Blood Cell (WBC) Count 8.9 thou/uL (4.8-10.8)
[2019-12-18 06:00] LABS: Anion Gap 9 mmol/L (10-20); BUN (Urea Nitrogen) 16 mg/dL (8.9-20.6); Calc. Creatinine Clearance 319 mL/min (70-130); Carbon Dioxide 26 mmol/L (22-29); Chloride 105 mmol/L (98-107); Estimated GFR-MDRD Greater than 90; Glucose 91 mg/dL (70-105); Magnesium 1.9 mg/dL (1.6-2.6); Potassium 4.3 mmol/L (3.5-5.1); Sodium 136 mmol/L (136-145)
[2019-12-18 06:02] LABS: ALT (SGPT) 39 U/L (8-55); AST (SGOT) 20 U/L (5-34); Albumin 3.4 g/dL (3.5-5.0); Alkaline Phosphatase 95 U/L (40-110); Bilirubin, Direct 0.3 mg/dL (0.1-0.3); Bilirubin, Total 0.7 mg/dL (0.2-1.2); Protein, Total 6.3 g/dL (6.0-8.3)
--- NOTE | 2019-12-18 07:22 | PDOC.FM ---
- Subjective Subjective: NAEO. Patient reports feeling well this AM. Slept better last night than previously. Pain well controlled. Rates it at a 1/10. In good spirits and he and dad interested in rehab placement upon anticipated d/c next week. Did not work with PT yesterday as he was getting his chemo infusion when they stopped by. - Objective MAR Reviewed: Yes Vital Signs & Weight: Vital Signs (12 hours) Temp Pulse Resp BP Pulse Ox 12/17/19 20:00 98.6 F 106 H 16 146/90 H 97 Weight Admit Weight 101.151 kg Weight 97.84 kg Most Recent Monitor Data Heart Rate from ECG 134 NIBP 158/93 NIBP BP-Mean 114 Respiration from ECG 24 SpO2 94 I&O: 12/17/19 12/18/19 12/19/19 06:59 06:59 06:59 Intake Total 3237 8624 Output Total 2375 9625 Balance 862 -1001 Result Diagrams: 12/18/19 05:20 12/18/19 05:20 Phys Exam - Physical Examination Constitutional: NAD in good spirits listening to music on his phone HEENT: moist MMs Neck: supple, full ROM Respiratory: clear to auscultation bilateral Cardiovascular: RRR, no significant murmur Neurological: non-focal, moves all 4 limbs Psychiatric: normal affect, A&O x 3 Skin: normal turgor Dx/Plan (1) Acute intracranial hemorrhage Code(s): I62.9 - NONTRAUMATIC INTRACRANIAL HEMORRHAGE, UNSPECIFIED Status: Acute (2) Anemia Code(s): D64.9 - ANEMIA, UNSPECIFIED Status: Acute (3) Hemoptysis Code(s): R04.2 - HEMOPTYSIS Status: Resolved (4) Metastasis to brain Code(s): C79.31 - SECONDARY MALIGNANT NEOPLASM OF BRAIN Status: Acute (5) Neutropenia Code(s): D70.9 - NEUTROPENIA, UNSPECIFIED Status: Resolved (6) Sinus tachycardia Code(s): R00.0 - TACHYCARDIA, UNSPECIFIED Status: Acute (7) Testicular malignant neoplasm Code(s): C62.90 - MALIG NEOPLASM OF UNSP TESTIS, UNSP DESCENDED OR UNDESCENDED Status: Acute (8) Thrombocytopenia Code(s): D69.6 - THROMBOCYTOPENIA, UNSPECIFIED Status: Resolved - Plan Plan: 19yo male with a pmh notable for 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 Per NS and Onc, no need to repeat unless acute change in clinical status. - Continue decadron 4mg q6h per Onc recs - Rad Onc/Onc, Dr. Brown and Dr. Palencia on board. Has been getting second round of chemo & WBRT since 12/15/19 & tolerating it extremely well. - Cont keppra & namenda. - Continue PT/OT. Mom and patient open to placement. CM on board to assist with rehab placement. Will touch base with them today to have patient & parents select where patient should go to get paperwork started to have placement ready by date of d/c which is anticipated to be early next week per Onc, ~12/21/19 or so. - Continue [place] for pain control & will adjust PRN. 22 beats of Asymptomatic Wide Complex Vtach - resolved - Dr Wells consulted on 12/02 & recommended to continue Metoprolol & Corlanor as well as cardiac monitoring. Signed off on 12/05. - No further arrythmias since. Anemia - improving - s/p 10u pRBCs total (11/22, 11/23, 11/24, 11/25, 11/26, 12/01, 12/02) - Continue to monitor H/H closely & will transfuse for Hgb <7 - Hgb up to 10.6 today. Continue labs per Onc while getting second round of chemo & radiation. Sinus Tachycardia, improved - likely 2/2 autonomic dysregulation from cancer/whole brain radiation - Continue Metoprolol BID & Corlanor. - Cards on board. HTN - Continue HCTZ, metoprolol, & corlanor per EP & cards recs. Thombocytopenia - resolved - likely 2/2 chemo. Continue to monitor - Transfuse plts for <20 - Transfused platelets (11/30, 12/01, 12/03) Dispo: Anticipate d/c to rehab for continued PT/OT early next week after second chemo cycle is complete. Code Status: FULL IVF: SL Diet: Regular DVT ppx: SCDs
[2019-12-18] MEDS: Metoprolol Tartrate 100 MG TAB PO SCH ×2 (08:35→21:06)
[2019-12-18] MEDS: levETIRAcetam 500 MG TAB PO SCH ×2 (08:35→21:06)
[2019-12-18] MEDS: Docusate 100 MG CAP PO SCH ×2 (08:37→21:06)
[2019-12-18] MEDS: Gabapentin 300 MG CAP PO SCH ×3 (08:37→21:06)
[2019-12-18] MEDS: Hydrochlorothiazide 25 MG TAB PO SCH (08:37)
[2019-12-18] MEDS: Ivabradine 5 MG TAB PO SCH ×3 (08:38→21:09)
[2019-12-18] MEDS: Pantoprazole 40 MG VIAL IVP SCH ×2 (08:38→21:06)
[2019-12-18] MEDS: Potassium Chloride 10 MEQ in Premix Bag 1 BAG IVPB SCH (10:35)
[2019-12-18] MEDS: Ondansetron 2MG/ML MDV 10 MG in Sodium Chloride 0.9% 50 ML IVPB SCH (10:38)
[2019-12-18] MEDS: IFOSFAMIDE IVPB SCH (12:03)
[2019-12-18] MEDS: SODIUM CHLORIDE 0.9% IVPB SCH ×3 (12:03→15:29)
[2019-12-18] MEDS: Meclizine HCl 12.5 MG TAB PO PRN (12:20)
[2019-12-18] MEDS: ETOPOSIDE IVPB SCH (14:15)
[2019-12-18] MEDS: MANNITOL IV SCH (15:29)
[2019-12-18] MEDS: MESNA IVPB SCH (15:29)
[2019-12-18] MEDS: CISPLATIN IV SCH (15:29)
[2019-12-18] MEDS: SODIUM CHLORIDE 0.9% IV SCH (15:29)
--- NOTE | 2019-12-18 15:29 | PDOC.MOPN ---
Interval History: Pt feeling well today. Stood for 10 seconds with PT today, got dizzy again. he did sit at the edge of the bed to eat most of his lunch. No N/V. - Vital Signs Vital Signs: Vital Signs (12 hours) Temp Pulse Resp BP Pulse Ox 12/18/19 12:00 97.9 F 99 16 142/90 H 97 12/18/19 08:37 97 12/18/19 08:00 98.5 F 98 16 133/76 96 Weight Admit Weight 223 lb Weight 215 lb 11.2 oz Most Recent Monitor Data Heart Rate from ECG 134 NIBP 158/93 NIBP BP-Mean 114 Respiration from ECG 24 SpO2 94 - Physical Exam General: Alert, Oriented x3, Cooperative HEENT: EOMI Lungs: Normal air movement Cardiovascular: Regular rate Neurological: Cranial nerves 3-12 NL Psych/Mental Status: Mood NL - Labs Result Diagrams: 12/18/19 05:20 12/18/19 05:20 Lab results: Laboratory Results - last 24 hr 12/18/19 05:20: Phosphorus 4.0, Total Bilirubin 0.7, Direct Bilirubin 0.3, AST 20, ALT 39, Alkaline Phosphatase 95, Serum Total Protein 6.3, Albumin 3.4 L 12/18/19 05:20: WBC 8.9, RBC 3.64 L, Hgb 10.6 L, Hct 34.0 L, MCV 93.4, MCH 29.2 , MCHC 31.2 L, RDW 19.0 H, Plt Count 231, MPV 7.8, Neutrophils % 80.9 H, Lymphocytes % 8.5 L, Monocytes % 9.7, Eosinophils % 0.7, Basophils % 0.1, Neutrophils # 7.2 H, Lymphocytes # 0.8 L, Monocytes # 0.9 H, Eosinophils # 0.1, Basophils # 0.0 12/18/19 05:20: Sodium 136, Potassium 4.3, Chloride 105, Carbon Dioxide 26, Anion Gap 9 L, BUN 16, Creatinine 0.51 L, Estimated GFR (MDRD) Greater than 90 , Glucose 91, Calcium 9.0, Magnesium 1.9 A/P - Problem (1) Testicular malignant neoplasm Current Visit: Yes Code(s): C62.90 - MALIG NEOPLASM OF UNSP TESTIS, UNSP DESCENDED OR UNDESCENDED Status: Acute (2) Metastasis to brain Current Visit: Yes Code(s): C79.31 - SECONDARY MALIGNANT NEOPLASM OF BRAIN Status: Acute - Plan Plan: C2D4 of VIP cont chemo cont Pt plan discharge to rehab Friday or Friday
[2019-12-18] MEDS: Melatonin 3 MG TAB PO PRN (21:06)
[2019-12-18] MEDS: Benzonatate 100 MG CAP PO PRN (21:07)
[2019-12-19] MEDS: Dexamethasone 4 mg/ml Vial SLOW IVP SCH ×4 (00:31→20:02)
[2019-12-19 04:33] LABS: #Lymphocytes 0.8 thou/uL (1.20-3.40); #Monocytes 0.4 thou/uL (0.11-0.59); %Basophils 0.2 % (0.0-1.0); %Eosinophils 0.2 % (0.0-10.0); %Lymphocytes 10.6 % (21.0-51.0); %Monocytes 5.1 % (0.0-10.0); %Neutrophils 83.9 % (42.0-75.0); Hemoglobin 9.9 g/dL (14.0-18.0); Mean Corpuscular Hemoglobin 29.4 pg (27.0-31.0); Mean Corpuscular Volume 91.9 fL (78.0-98.0); Platelet Count 213 thou/uL (130-400); RBC Distribution Width 18.4 % (11.5-14.5); Red Blood Cell (RBC) Count 3.37 mill/uL (4.70-6.10); White Blood Cell (WBC) Count 7.2 thou/uL (4.8-10.8)
[2019-12-19 04:55] LABS: ALT (SGPT) 35 U/L (8-55); AST (SGOT) 18 U/L (5-34); Albumin 3.2 g/dL (3.5-5.0); Alkaline Phosphatase 88 U/L (40-110); Anion Gap 8 mmol/L (10-20); BUN (Urea Nitrogen) 21 mg/dL (8.9-20.6); Bilirubin, Direct 0.3 mg/dL (0.1-0.3); Bilirubin, Total 0.6 mg/dL (0.2-1.2); Calc. Creatinine Clearance 323 mL/min (70-130); Calcium 8.8 mg/dL (7.8-10.44); Carbon Dioxide 27 mmol/L (22-29); Chloride 105 mmol/L (98-107); Estimated GFR-MDRD Greater than 90; Glucose 100 mg/dL (70-105); Magnesium 1.9 mg/dL (1.6-2.6); Phosphorus 3.8 mg/dL (2.3-4.7); Potassium 3.9 mmol/L (3.5-5.1); Protein, Total 6.1 g/dL (6.0-8.3); Sodium 136 mmol/L (136-145)
[2019-12-19] MEDS: Cepastat Lozenges 1 LOZ PO PRN ×2 (04:55→08:24)
[2019-12-19] MEDS: Sodium Chloride 0.9% 1,000 ML IV SCH ×2 (04:55→19:55)
--- NOTE | 2019-12-19 07:44 | PDOC.FM ---
- Subjective Subjective: Patient tachy up to 120 overnight per chart review but otherwise SYDNIE. Slept ok but did have to get up frequently to urinate due to the fluids per mom. Interested in rehab placement and agreeable to sign choice letter today if possible. - Objective MAR Reviewed: Yes Vital Signs & Weight: Vital Signs (12 hours) Temp Pulse Resp BP Pulse Ox 12/19/19 04:00 98.0 F 81 12 131/79 95 12/19/19 00:00 98.4 F 86 12 130/69 96 Weight Admit Weight 101.151 kg Weight 96.706 kg Most Recent Monitor Data Heart Rate from ECG 134 NIBP 158/93 NIBP BP-Mean 114 Respiration from ECG 24 SpO2 94 I&O: 12/18/19 12/19/19 12/20/19 06:59 06:59 06:59 Intake Total 8624 7939 Output Total 9625 5500 Balance -1001 2439 Result Diagrams: 12/19/19 04:15 12/19/19 04:15 Phys Exam - Physical Examination Constitutional: NAD HEENT: moist MMs Neck: supple, full ROM Respiratory: clear to auscultation bilateral Cardiovascular: no significant murmur tachycardic but regular rhythm Neurological: non-focal, moves all 4 limbs Psychiatric: normal affect, A&O x 3 Skin: normal turgor Dx/Plan (1) Acute intracranial hemorrhage Code(s): I62.9 - NONTRAUMATIC INTRACRANIAL HEMORRHAGE, UNSPECIFIED Status: Acute (2) Anemia Code(s): D64.9 - ANEMIA, UNSPECIFIED Status: Acute (3) Hemoptysis Code(s): R04.2 - HEMOPTYSIS Status: Resolved (4) Metastasis to brain Code(s): C79.31 - SECONDARY MALIGNANT NEOPLASM OF BRAIN Status: Acute (5) Neutropenia Code(s): D70.9 - NEUTROPENIA, UNSPECIFIED Status: Resolved (6) Sinus tachycardia Code(s): R00.0 - TACHYCARDIA, UNSPECIFIED Status: Acute (7) Testicular malignant neoplasm Code(s): C62.90 - MALIG NEOPLASM OF UNSP TESTIS, UNSP DESCENDED OR UNDESCENDED Status: Acute (8) Thrombocytopenia Code(s): D69.6 - THROMBOCYTOPENIA, UNSPECIFIED Status: Resolved - Plan Plan: 19yo male with a pmh notable for 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 Per NS and Onc, no need to repeat unless acute change in clinical status. - Continue decadron 4mg q6h per Onc recs - Rad Onc/Onc, Dr. Brown and Dr. Palencia on board. Has been getting second round of chemo & WBRT since 12/15/19 & tolerating it extremely well. - Cont keppra & namenda. - Continue PT/OT. Mom and patient open to placement. CM on board to assist with rehab placement. Will touch base with them again today to have patient & parents select where patient should go to get paperwork started to have placement ready by date of d/c which is anticipated to be in 1-2 days per Oncology. - Continue [place] for pain control & will adjust PRN. Anemia - stable - s/p 10u pRBCs total (11/22, 11/23, 11/24, 11/25, 11/26, 12/01, 12/02) - Continue to monitor H/H closely & will transfuse for Hgb <7 - Hgb stable at 9.9 today. Continue labs per Onc while getting second round of chemo & radiation. Sinus Tachycardia - likely 2/2 autonomic dysregulation from cancer/whole brain radiation - Continue Metoprolol BID & Corlanor but will consider increasing the corlanor if persistently tachy today. HTN - Continue HCTZ, metoprolol, & corlanor per EP & cards recs. Thombocytopenia - resolved - likely 2/2 chemo. Continue to monitor - Transfuse plts for <20 - Transfused platelets (11/30, 12/01, 12/03) 22 beats of Asymptomatic Wide Complex Vtach - resolved - Dr Wells consulted on 12/02 & recommended to continue Metoprolol & Corlanor as well as cardiac monitoring. Signed off on 12/05. - No further arrythmias since. Dispo: Anticipate d/c to rehab for continued PT/OT early next week after second chemo cycle is complete. Code Status: FULL IVF: SL Diet: Regular DVT ppx: SCDs
[2019-12-19] MEDS: Gabapentin 300 MG CAP PO SCH ×3 (08:24→21:10)
[2019-12-19] MEDS: Ivabradine 5 MG TAB PO SCH ×3 (08:24→21:10)
[2019-12-19] MEDS: levETIRAcetam 500 MG TAB PO SCH ×2 (08:24→21:10)
[2019-12-19] MEDS: Metoprolol Tartrate 100 MG TAB PO SCH ×2 (08:24→21:11)
[2019-12-19] MEDS: Docusate 100 MG CAP PO SCH ×2 (08:24→21:10)
[2019-12-19] MEDS: Hydrochlorothiazide 25 MG TAB PO SCH (08:25)
[2019-12-19] MEDS: Pantoprazole 40 MG VIAL IVP SCH ×2 (08:25→21:12)
[2019-12-19] MEDS: Clotrimazole 1 % Cream 30 GM TUBE TOP SCH ×2 (08:26→20:03)
[2019-12-19] MEDS: Potassium Chloride 10 MEQ in Premix Bag 1 BAG IVPB SCH (10:40)
[2019-12-19] MEDS: Ondansetron 2MG/ML MDV 10 MG in Sodium Chloride 0.9% 50 ML IVPB SCH (11:40)
[2019-12-19] MEDS: SODIUM CHLORIDE 0.9% IVPB SCH ×2 (13:20→16:21)
[2019-12-19] MEDS: IFOSFAMIDE IVPB SCH (13:20)
[2019-12-19] MEDS: HYDROcodone/Acetaminophen 10/325 mg Tablet PO PRN (16:19)
[2019-12-19] MEDS: ETOPOSIDE IVPB SCH (16:21)
[2019-12-19] MEDS: CISPLATIN IV SCH (18:06)
[2019-12-19] MEDS: SODIUM CHLORIDE 0.9% IV SCH (18:06)
[2019-12-19] MEDS: MANNITOL IV SCH (18:06)
[2019-12-19] MEDS: Benzonatate 100 MG CAP PO PRN (21:11)
[2019-12-20] MEDS: Sodium Chloride 0.9% 1,000 ML IV SCH ×2 (00:48→05:49)
[2019-12-20] MEDS: Dexamethasone 4 mg/ml Vial SLOW IVP SCH ×5 (01:02→23:01)
[2019-12-20] MEDS: hydrOXYzine Pamoate 25 mg Capsule PO PRN (01:04)
[2019-12-20] MEDS: Ondansetron PF 4 MG/2 ML Vial IVP PRN ×4 (01:30→22:54)
[2019-12-20 06:12] LABS: #Lymphocytes 0.7 thou/uL (1.20-3.40); #Monocytes 0.1 thou/uL (0.11-0.59); #Neutrophils 5.5 thou/uL (1.40-6.50); %Eosinophils 0.1 % (0.0-10.0); %Lymphocytes 11.7 % (21.0-51.0); %Monocytes 1.3 % (0.0-10.0); Hemoglobin 9.6 g/dL (14.0-18.0); Mean Corpuscular HGB CONC 31.8 g/dL (32.0-36.0); Mean Corpuscular Hemoglobin 29.4 pg (27.0-31.0); Mean Corpuscular Volume 92.2 fL (78.0-98.0); Mean Platelet Volume 7.8 fL (7.4-10.4); Platelet Count 204 thou/uL (130-400); RBC Distribution Width 18.3 % (11.5-14.5); Red Blood Cell (RBC) Count 3.28 mill/uL (4.70-6.10); White Blood Cell (WBC) Count 6.3 thou/uL (4.8-10.8)
[2019-12-20 06:32] LABS: Anion Gap 11 mmol/L (10-20); BUN (Urea Nitrogen) 15 mg/dL (8.9-20.6); Calc. Creatinine Clearance 347 mL/min (70-130); Calcium 8.8 mg/dL (7.8-10.44); Carbon Dioxide 23 mmol/L (22-29); Chloride 107 mmol/L (98-107); Estimated GFR-MDRD Greater than 90; Glucose 94 mg/dL (70-105); Magnesium 1.8 mg/dL (1.6-2.6); Potassium 3.9 mmol/L (3.5-5.1); Sodium 137 mmol/L (136-145)
[2019-12-20 06:33] LABS: ALT (SGPT) 30 U/L (8-55); AST (SGOT) 16 U/L (5-34); Albumin 3.3 g/dL (3.5-5.0); Alkaline Phosphatase 82 U/L (40-110); Bilirubin, Direct 0.2 mg/dL (0.1-0.3); Bilirubin, Total 0.5 mg/dL (0.2-1.2); Phosphorus 3.1 mg/dL (2.3-4.7)
--- NOTE | 2019-12-20 06:48 | PDOC.FM ---
- Subjective Subjective: Patient was sleeping in bed. Mother present in room reports he was up nearly every hour overnight to urinate and now is finally sleeping. She notes he had decreased appetite yesterday and an episode of vomiting which was new for him. This resolved overnight. - Objective Vital Signs & Weight: Vital Signs (12 hours) Temp Pulse Resp BP Pulse Ox 12/19/19 20:00 98.0 F 98 16 134/84 97 Weight Admit Weight 101.151 kg Weight 96.706 kg Most Recent Monitor Data Heart Rate from ECG 134 NIBP 158/93 NIBP BP-Mean 114 Respiration from ECG 24 SpO2 94 I&O: 12/18/19 12/19/19 12/20/19 06:59 06:59 06:59 Intake Total 8664 7916 1718 Output Total 8856 5500 1999 Balance -1001 8699 -282 Result Diagrams: 12/20/19 05:55 12/20/19 05:55 Phys Exam - Physical Examination Constitutional: NAD (sleeping) Respiratory: clear to auscultation bilateral Cardiovascular: RRR, no significant murmur Gastrointestinal: soft Musculoskeletal: no edema Dx/Plan - Plan Plan: 19yo male with a pmh notable for 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 Per NS and Onc, no need to repeat unless acute change in clinical status. - Continue decadron 4mg q6h per Onc recs - Rad Onc/Onc, Dr. Brown and Dr. Palencia on board. Has been getting second round of chemo & WBRT since 12/15/19 & tolerating it well. - Cont keppra & namenda. - Continue PT/OT. CM on board to assist with rehab placement. - Continue [place] for pain control & will adjust PRN. Anemia - stable - s/p 10u pRBCs total (11/22, 11/23, 11/24, 11/25, 11/26, 12/01, 12/02) - Continue to monitor H/H closely & will transfuse for Hgb <7 - Hgb stable at 9.6 today. Continue labs per Onc while getting second round of chemo & radiation. Sinus Tachycardia - likely 2/2 autonomic dysregulation from cancer/whole brain radiation - Continue Metoprolol BID & Corlanor but will consider increasing the corlanor if persistently tachy. Rate was in 80s when considered yesterday. HTN - Continue HCTZ, metoprolol, & corlanor per EP & cards recs. Thombocytopenia - resolved - likely 2/2 chemo. Continue to monitor - Transfuse plts for <20 - Transfused platelets (11/30, 12/01, 12/03) 22 beats of Asymptomatic Wide Complex Vtach - resolved - Dr Wells consulted on 12/02 & recommended to continue Metoprolol & Corlanor as well as cardiac monitoring. Signed off on 12/05. - No further arrythmias since. Dispo: Anticipate d/c to rehab for continued PT/OT today or tomorrow. Code Status: FULL IVF: SL Diet: Regular DVT ppx: SCDs Addendum - Attending - Attending Attestation Date/Time: 12/20/19 1113 I personally evaluated the patient and discussed the management with Dr. Rogers. I agree with the History, Examination, Assessment and Plan documented above with any addition or exceptions noted below. Patient overall stable. Going for XRT today. S/P round 2 of VIP. Working on rehab placement. Monitor CBC for drop in blood counts related to chemo as he had an issue with this during first round. Onc on board.
[2019-12-20] MEDS: Docusate 100 MG CAP PO SCH ×2 (08:57→20:42)
[2019-12-20] MEDS: Hydrochlorothiazide 25 MG TAB PO SCH (08:58)
[2019-12-20] MEDS: levETIRAcetam 500 MG TAB PO SCH ×2 (08:58→20:42)
[2019-12-20] MEDS: Gabapentin 300 MG CAP PO SCH ×3 (08:58→20:42)
[2019-12-20] MEDS: Metoprolol Tartrate 100 MG TAB PO SCH ×2 (08:58→20:42)
[2019-12-20] MEDS: Pantoprazole 40 MG VIAL IVP SCH ×2 (08:59→20:42)
--- NOTE | 2019-12-20 09:03 | PDOC.MOPN ---
Interval History: Pt had 1 episode of emesis overnight. He did not eat very well yesterday. No complaints this morning, no nauseated at the moment. - Vital Signs Vital Signs: Vital Signs (12 hours) Temp Pulse Resp BP Pulse Ox 12/20/19 08:20 98.5 F 90 16 113/71 96 Weight Admit Weight 223 lb Weight 213 lb 3.2 oz Most Recent Monitor Data Heart Rate from ECG 134 NIBP 158/93 NIBP BP-Mean 114 Respiration from ECG 24 SpO2 94 - Physical Exam General: Alert, Oriented x3, Cooperative HEENT: EOMI Lungs: Normal air movement Cardiovascular: Regular rate Neurological: Cranial nerves 3-12 NL - Labs Result Diagrams: 12/20/19 05:55 12/20/19 05:55 Lab results: Laboratory Results - last 24 hr 12/20/19 05:55: Phosphorus 3.1, Total Bilirubin 0.5, Direct Bilirubin 0.2, AST 16, ALT 30, Alkaline Phosphatase 82, Serum Total Protein 6.0, Albumin 3.3 L 12/20/19 05:55: WBC 6.3, RBC 3.28 L, Hgb 9.6 L, Hct 30.2 L, MCV 92.2, MCH 29.4, MCHC 31.8 L, RDW 18.3 H, Plt Count 204, MPV 7.8, Neutrophils % 87.0 H, Lymphocytes % 11.7 L, Monocytes % 1.3, Eosinophils % 0.1, Basophils % 0.0, Neutrophils # 5.5, Lymphocytes # 0.7 L, Monocytes # 0.1 L, Eosinophils # 0.0, Basophils # 0.0 12/20/19 05:55: Sodium 137, Potassium 3.9, Chloride 107, Carbon Dioxide 23, Anion Gap 11, BUN 15, Creatinine 0.46 L, Estimated GFR (MDRD) Greater than 90, Glucose 94, Calcium 8.8, Magnesium 1.8 A/P - Problem (1) Testicular malignant neoplasm Current Visit: Yes Code(s): C62.90 - MALIG NEOPLASM OF UNSP TESTIS, UNSP DESCENDED OR UNDESCENDED Status: Acute (2) Metastasis to brain Current Visit: Yes Code(s): C79.31 - SECONDARY MALIGNANT NEOPLASM OF BRAIN Status: Acute - Plan Plan: C2D6 of VIP, on WBRT [place] today cont WBRT until Friday monitor N/V plan DC to rehab tomorrow: dependent on if he can cont XRT while at rehab or not
[2019-12-20] MEDS: Clotrimazole 1 % Cream 30 GM TUBE TOP SCH ×2 (09:04→20:43)
[2019-12-20] MEDS: Ivabradine 5 MG TAB PO SCH ×3 (09:22→20:42)
[2019-12-20] MEDS ORDERED: PEGFILGRASTIM-JMDB 6 MG/0.6 ML SYRINGE SQ SCH ×2 (12:00→20:00)
[2019-12-20] MEDS: HYDROcodone/Acetaminophen 10/325 mg Tablet PO PRN ×2 (13:53→20:51)
[2019-12-20] MEDS: Cepastat Lozenges 1 LOZ PO PRN (17:30)
[2019-12-20] MEDS: Ondansetron ODT 4 MG TAB PO PRN (20:54)
[2019-12-20] MEDS: Melatonin 3 MG TAB PO PRN (22:55)
[2019-12-21] MEDS: Metoclopramide HCl 10 MG TAB PO PRN (00:20)
[2019-12-21] MEDS: Ondansetron ODT 4 MG TAB PO PRN (03:02)
[2019-12-21 03:46] LABS: ALT (SGPT) 23 U/L (8-55); AST (SGOT) 12 U/L (5-34); Albumin 2.9 g/dL (3.5-5.0); Alkaline Phosphatase 84 U/L (40-110); Bilirubin, Direct 0.2 mg/dL (0.1-0.3); Bilirubin, Total 0.4 mg/dL (0.2-1.2); Phosphorus 2.6 mg/dL (2.3-4.7); Protein, Total 5.3 g/dL (6.0-8.3)
[2019-12-21 03:56] LABS: Anion Gap 12 mmol/L (10-20); BUN (Urea Nitrogen) 24 mg/dL (8.9-20.6); Calc. Creatinine Clearance 271 mL/min (70-130); Calcium 8.7 mg/dL (7.8-10.44); Carbon Dioxide 24 mmol/L (22-29); Chloride 104 mmol/L (98-107); Estimated GFR-MDRD Greater than 90; Glucose 134 mg/dL (70-105); Magnesium 1.9 mg/dL (1.6-2.6); Potassium 3.5 mmol/L (3.5-5.1); Sodium 136 mmol/L (136-145)
[2019-12-21 04:54] LABS: Anisocytosis SLIGHT = 6-15 cells (100X) (0-5/hpf); Band 27 % (5-11); Hemoglobin 10.2 g/dL (14.0-18.0); Lymphocytes 7 % (21-51); MDiff Complete? YES; Mean Corpuscular HGB CONC 32.5 g/dL (32.0-36.0); Mean Corpuscular Hemoglobin 29.4 pg (27.0-31.0); Mean Corpuscular Volume 90.5 fL (78.0-98.0); Mean Platelet Volume 8.3 fL (7.4-10.4); Monocytes 1 % (0-10); Neutrophil 65 % (42-75); Platelet Count 176 thou/uL (130-400); RBC Distribution Width 18.1 % (11.5-14.5); Red Blood Cell (RBC) Count 3.46 mill/uL (4.70-6.10); White Blood Cell (WBC) Count 21.2 thou/uL (4.8-10.8)
[2019-12-21] MEDS: Ondansetron PF 4 MG/2 ML Vial IVP PRN ×2 (05:46→14:08)
[2019-12-21] MEDS: Dexamethasone 4 mg/ml Vial SLOW IVP SCH ×3 (05:46→22:31)
--- NOTE | 2019-12-21 06:57 | PDOC.FM ---
- Subjective Subjective: Davon was sleeping in bed this morning. His mother notes he had nausea throughout the night, no vomiting. Prn meds helped. Didn't have much appetite. No new concerns. - Objective Vital Signs & Weight: Vital Signs (12 hours) Temp Pulse Resp BP BP Pulse Ox 12/21/19 03:49 100 123/69 12/20/19 23:01 94 149/70 H 12/20/19 20:00 98.4 F 119 H 16 128/76 97 Weight Admit Weight 101.151 kg Weight 97.154 kg Most Recent Monitor Data Heart Rate from ECG 134 NIBP 158/93 NIBP BP-Mean 114 Respiration from ECG 24 SpO2 94 I&O: 12/19/19 12/20/19 12/21/19 06:59 06:59 06:59 Intake Total 7939 356 4562 Output Total 0770 5150 4680 Balance 2439 -1582 -118 Result Diagrams: 12/21/19 03:08 12/21/19 03:08 Phys Exam - Physical Examination Constitutional: NAD Respiratory: clear to auscultation bilateral Cardiovascular: RRR, no significant murmur Gastrointestinal: soft, positive bowel sounds Musculoskeletal: no edema Neurological: non-focal Psychiatric: normal affect Skin: normal turgor Dx/Plan - Plan Plan: 19yo male with a pmh notable for 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 Per NS and Onc, no need to repeat unless acute change in clinical status. - Continue decadron 4mg q6h per Onc recs - Rad Onc/Onc, Dr. Brown and Dr. Palencia on board. Has been getting second round of chemo & WBRT since 12/15/19 & tolerating it well. - Cont keppra & namenda. - Continue PT/OT. CM on board to assist with rehab placement. - Continue [place] for pain control & will adjust PRN. Anemia - stable - s/p 10u pRBCs total (11/22, 11/23, 11/24, 11/25, 11/26, 12/01, 12/02) - Continue to monitor H/H closely & will transfuse for Hgb <7 - Hgb stable. Continue labs per Onc while getting second round of chemo & radiation. 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 Thombocytopenia - resolved - likely 2/2 chemo. Continue to monitor - Transfuse plts for <20 - Transfused platelets (11/30, 12/01, 12/03) 22 beats of Asymptomatic Wide Complex Vtach - resolved - Dr Wells consulted on 12/02 & recommended to continue Metoprolol & Corlanor as well as cardiac monitoring. Signed off on 12/05. - No further arrythmias since. Dispo: Awaiting completion of radiation treatments then plan for discharge to inpatient rehab. Code Status: FULL IVF: SL Diet: Regular DVT ppx: SCDs Addendum - Attending - Attending Attestation Date/Time: 12/21/19 1024 I personally evaluated the patient and discussed the management with Dr. Rogers. I agree with the History, Examination, Assessment and Plan documented above with any addition or exceptions noted below. Patient stable. Working on rehab placement once XRT completes on Friday. Blood counts stable.
[2019-12-21] MEDS: Pantoprazole 40 MG VIAL IVP SCH ×2 (08:37→19:44)
[2019-12-21] MEDS: Metoprolol Tartrate 100 MG TAB PO SCH ×2 (08:38→19:44)
[2019-12-21] MEDS: Ivabradine 5 MG TAB PO SCH ×3 (08:38→19:44)
[2019-12-21] MEDS: Docusate 100 MG CAP PO SCH ×2 (08:39→19:44)
[2019-12-21] MEDS: Gabapentin 300 MG CAP PO SCH ×3 (08:39→19:44)
[2019-12-21] MEDS: levETIRAcetam 500 MG TAB PO SCH ×2 (08:39→19:44)
[2019-12-21] MEDS: Hydrochlorothiazide 25 MG TAB PO SCH (08:40)
[2019-12-21] MEDS: Clotrimazole 1 % Cream 30 GM TUBE TOP SCH ×2 (08:44→19:44)
--- NOTE | 2019-12-21 10:54 | PDOC.MOPN ---
Interval History: Pt had nausea overnight but no vomiting, none right now. Feeling ok right now w/ o specific complaints. He had tachycardia overnight and this morning, reportedly sinus tach, getting Metoprolol 200 mg now. Can be discharged to rehab after XRT on Friday. - Vital Signs Vital Signs: Vital Signs (12 hours) Temp Pulse Resp BP BP Pulse Ox 12/21/19 08:30 97.5 F L 135 H 20 136/91 H 99 12/21/19 03:49 100 123/69 12/20/19 23:01 94 149/70 H Weight Admit Weight 223 lb Weight 214 lb 3 oz Most Recent Monitor Data Heart Rate from ECG 134 NIBP 158/93 NIBP BP-Mean 114 Respiration from ECG 24 SpO2 94 - Physical Exam General: Alert, Oriented x3, Cooperative HEENT: EOMI Lungs: Normal air movement Cardiovascular: Other (tachy) Neurological: Cranial nerves 3-12 NL Psych/Mental Status: Mood NL - Labs Result Diagrams: 12/21/19 03:08 12/21/19 03:08 Lab results: Laboratory Results - last 24 hr 12/21/19 03:08: Phosphorus 2.6, Total Bilirubin 0.4, Direct Bilirubin 0.2, AST 12, ALT 23, Alkaline Phosphatase 84, Serum Total Protein 5.3 L, Albumin 2.9 L 12/21/19 03:08: WBC 21.2 H, RBC 3.46 L, Hgb 10.2 L, Hct 31.3 L, MCV 90.5, MCH 29.4, MCHC 32.5, RDW 18.1 H, Plt Count 176, MPV 8.3, Neutrophils % (Manual) 65, Band Neuts % (Manual) 27 H, Lymphocytes % (Manual) 7 L, Monocytes % (Manual) 1, Anisocytosis SLIGHT = 6-15 cells 12/21/19 03:08: Sodium 136, Potassium 3.5, Chloride 104, Carbon Dioxide 24, Anion Gap 12, BUN 24 H, Creatinine 0.58 L, Estimated GFR (MDRD) Greater than 90 , Glucose 134 H, Calcium 8.7, Magnesium 1.9 12/20/19 06:45: Tumor Marker HCG 44473 H A/P - Problem (1) Testicular malignant neoplasm Current Visit: Yes Code(s): C62.90 - MALIG NEOPLASM OF UNSP TESTIS, UNSP DESCENDED OR UNDESCENDED Status: Acute (2) Metastasis to brain Current Visit: Yes Code(s): C79.31 - SECONDARY MALIGNANT NEOPLASM OF BRAIN Status: Acute - Plan Plan: C2D7 of VIP - HCG trending down appropriately Taper Dex to 4mg q8h today Plan DC to rehab Friday after XRT Cont antiemetics prn Cont PT
[2019-12-21 12:24] VITALS: BMI 26.0
[2019-12-21] MEDS: Cepastat Lozenges 1 LOZ PO PRN ×3 (14:14→22:32)
[2019-12-21] MEDS: Melatonin 3 MG TAB PO PRN (22:31)
[2019-12-21] MEDS: Benzonatate 100 MG CAP PO PRN (22:31)
[2019-12-22] MEDS: Ondansetron PF 4 MG/2 ML Vial IVP PRN ×2 (00:41→12:40)
[2019-12-22] MEDS: guaiFENesin 200 MG TAB PO PRN ×3 (00:41→14:26)
[2019-12-22] MEDS: Dexamethasone 4 mg/ml Vial SLOW IVP SCH ×3 (05:58→21:39)
--- NOTE | 2019-12-22 06:42 | PDOC.FM ---
- Subjective Subjective: Davon was in good spirits this morning watching movies. Notes a lot of productive coughing overnight but feels the mucinex helped the most and was able to sleep after that was given. Better appetite. - Objective Vital Signs & Weight: Vital Signs (12 hours) Temp Pulse Resp BP Pulse Ox 12/21/19 20:00 98.5 F 116 H 16 135/78 94 L Weight Admit Weight 101.151 kg Weight 95.935 kg Most Recent Monitor Data Heart Rate from ECG 134 NIBP 158/93 NIBP BP-Mean 114 Respiration from ECG 24 SpO2 94 I&O: 12/20/19 12/21/19 12/22/19 06:59 06:59 06:59 Intake Total 3568 4562 4400 Output Total 5150 4680 4500 Balance -1582 -118 -100 Result Diagrams: 12/21/19 03:08 12/21/19 03:08 Phys Exam - Physical Examination Constitutional: NAD Respiratory: no wheezing, clear to auscultation bilateral Cardiovascular: RRR, no significant murmur Gastrointestinal: soft, positive bowel sounds Musculoskeletal: no edema Neurological: non-focal Psychiatric: normal affect Skin: normal turgor Dx/Plan - Plan Plan: 19yo male with a pmh notable for 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 Per NS and Onc, no need to repeat unless acute change in clinical status. - Continue decadron 4mg q8h per Onc recs - Rad Onc/Onc, Dr. Brown and Dr. Palencia on board. Has been getting second round of chemo & WRT since 12/15/19 & tolerating it well. - Cont keppra & namenda. - Continue PT/OT. CM on board to assist with rehab placement. - Continue [place] for pain control & will adjust PRN. Anemia - stable - s/p 10u pRBCs total (11/22, 11/23, 11/24, 11/25, 11/26, 12/01, 12/02) - Continue to monitor H/H closely & will transfuse for Hgb <7 - Hgb stable. Continue labs per Onc while getting second round of chemo & radiation. 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 Thombocytopenia - resolved - likely 2/2 chemo. Continue to monitor - Transfuse plts for <20 - Transfused platelets (11/30, 12/01, 12/03) 22 beats of Asymptomatic Wide Complex Vtach - resolved - Dr Wells consulted on 12/02 & recommended to continue Metoprolol & Corlanor as well as cardiac monitoring. Signed off on 12/05. - No further arrythmias since. Dispo: Awaiting completion of radiation treatments then plan for discharge to inpatient rehab Friday. Code Status: FULL IVF: SL Diet: Regular DVT ppx: SCDs Addendum - Attending - Attending Attestation Date/Time: 12/22/19 3506 I personally evaluated the patient and discussed the management with Dr. Rogers. I agree with the History, Examination, Assessment and Plan documented above with any addition or exceptions noted below. Patient stable. Completing XRT on Friday and hopefully going to Rehab afterwards.
[2019-12-22] MEDS: Hydrochlorothiazide 25 MG TAB PO SCH (08:55)
[2019-12-22] MEDS: Clotrimazole 1 % Cream 30 GM TUBE TOP SCH ×2 (08:55→19:57)
[2019-12-22] MEDS: Ivabradine 5 MG TAB PO SCH ×3 (08:55→19:58)
[2019-12-22] MEDS: Gabapentin 300 MG CAP PO SCH ×3 (08:56→19:59)
[2019-12-22] MEDS: Docusate 100 MG CAP PO SCH ×2 (08:56→19:59)
[2019-12-22] MEDS: Metoprolol Tartrate 100 MG TAB PO SCH ×2 (08:56→19:58)
[2019-12-22] MEDS: levETIRAcetam 500 MG TAB PO SCH ×2 (08:59→19:59)
[2019-12-22] MEDS: Pantoprazole 40 MG VIAL IVP SCH ×2 (09:00→19:59)
[2019-12-22] MEDS: Cepastat Lozenges 1 LOZ PO PRN ×4 (09:01→23:11)
--- NOTE | 2019-12-22 10:09 | PDOC.MOPN ---
Interval History: in good spirits, no complaints. - Vital Signs Vital Signs: Vital Signs (12 hours) Temp Pulse Resp BP Pulse Ox 12/22/19 08:00 98.6 F 111 H 18 131/70 97 Weight Admit Weight 223 lb Weight 211 lb 8 oz Most Recent Monitor Data Heart Rate from ECG 134 NIBP 158/93 NIBP BP-Mean 114 Respiration from ECG 24 SpO2 94 - Physical Exam General: Alert, Oriented x3, No acute distress HEENT: Atraumatic, PERRLA, EOMI, Mucous membr. moist/pink Lungs: Clear to auscultation, Normal air movement Cardiovascular: Regular rate, Normal S1, Normal S2, No murmurs, Gallops, Rubs Abdomen: Normal bowel sounds, Soft, No tenderness, No hepatospenomegaly, No masses Neurological: Normal speech Psych/Mental Status: Mental status NL - Labs Result Diagrams: 12/21/19 03:08 12/21/19 03:08 Status: lab reviewed by me A/P - Problem (1) Testicular malignant neoplasm Current Visit: Yes Code(s): C62.90 - MALIG NEOPLASM OF UNSP TESTIS, UNSP DESCENDED OR UNDESCENDED Status: Acute (2) Acute intracranial hemorrhage Current Visit: Yes Code(s): I62.9 - NONTRAUMATIC INTRACRANIAL HEMORRHAGE, UNSPECIFIED Status: Acute (3) Metastasis to brain Current Visit: Yes Code(s): C79.31 - SECONDARY MALIGNANT NEOPLASM OF BRAIN Status: Acute (4) Neutropenia Current Visit: Yes Code(s): D70.9 - NEUTROPENIA, UNSPECIFIED Status: Resolved - Plan Plan: C2D8 of VIP - HCG trending down appropriately continue Dex to 4mg q8h Plan DC to rehab Friday after XRT Cont antiemetics prn Cont PT
[2019-12-22] MEDS: Meclizine HCl 12.5 MG TAB PO PRN (12:40)
[2019-12-22] MEDS: Benzonatate 100 MG CAP PO PRN (13:49)
[2019-12-23] MEDS: Ondansetron PF 4 MG/2 ML Vial IVP PRN (03:37)
[2019-12-23] MEDS: HYDROcodone/Acetaminophen 10/325 mg Tablet PO PRN (05:12)
[2019-12-23] MEDS: Cepastat Lozenges 1 LOZ PO PRN ×3 (05:13→20:40)
[2019-12-23] MEDS: Dexamethasone 4 mg/ml Vial SLOW IVP SCH ×3 (05:13→21:44)
--- NOTE | 2019-12-23 06:44 | PDOC.FM ---
- Subjective Subjective: Davon is feeling well and said last night was the best night he has had in a while. He is looking forward to going to rehab tomorrow. - Objective Vital Signs & Weight: Vital Signs (12 hours) Temp Pulse Resp BP Pulse Ox 12/22/19 20:00 98.8 F 97 16 122/68 97 Weight Admit Weight 101.151 kg Weight 93.531 kg Most Recent Monitor Data Heart Rate from ECG 134 NIBP 158/93 NIBP BP-Mean 114 Respiration from ECG 24 SpO2 94 I&O: 12/21/19 12/22/19 12/23/19 06:59 06:59 06:59 Intake Total 4562 4400 2040 Output Total 4680 4500 2400 Balance -118 -100 -360 Result Diagrams: 12/21/19 03:08 12/21/19 03:08 Phys Exam - Physical Examination Constitutional: NAD Respiratory: clear to auscultation bilateral (anteriorly) Cardiovascular: RRR, no significant murmur Gastrointestinal: soft, positive bowel sounds Musculoskeletal: no edema Neurological: non-focal Psychiatric: normal affect Dx/Plan - Plan Plan: 19yo male with a pmh notable for 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 Brown and Dr. Palencia on board. Has been getting second round of chemo & WRT since 12/15/19 & tolerating it well. - Cont keppra & namenda. - Continue PT/OT. CM on board to assist with rehab placement. - Continue [place] for pain control prn Anemia - stable - s/p 10u pRBCs total (11/22, 11/23, 11/24, 11/25, 11/26, 12/01, 12/02) - Continue to monitor H/H closely & will transfuse for Hgb <7 - Hgb stable. Continue labs per Onc. 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 Thombocytopenia - resolved - likely 2/2 chemo. Continue to monitor - Transfuse plts for <20 - Transfused platelets (11/30, 12/01, 12/03) 22 beats of Asymptomatic Wide Complex Vtach - resolved - Dr Wells consulted on 12/02 & recommended to continue Metoprolol & Corlanor as well as cardiac monitoring. Signed off on 12/05. - No further arrythmias since. Dispo: Awaiting completion of radiation treatments then plan for discharge to inpatient rehab Friday. Code Status: FULL IVF: SL Diet: Regular DVT ppx: SCDs Addendum - Attending - Attending Attestation Date/Time: 12/23/19 1013 I personally evaluated the patient and discussed the management with Dr. Rogers. I agree with the History, Examination, Assessment and Plan documented above with any addition or exceptions noted below. Patient stable. Having next to last XRT today. Hopefully to rehab tomorrow.
--- NOTE | 2019-12-23 07:40 | EKG ---
Test Reason : Blood Pressure : / mmHG Vent. Rate : 087 BPM Atrial Rate : 087 BPM P-R Int : 120 ms QRS Dur : 094 ms QT Int : 362 ms P-R-T Axes : 025 022 -66 degrees QTc Int : 435 ms Normal sinus rhythm T wave abnormality, consider inferolateral ischemia Abnormal ECG When compared with ECG of 04-DEC-2019 15:41, T wave inversion more evident in Lateral leads Confirmed by ANDRESSA MCGARRY, ERNIE ([id number]) on 12/23/2019 7:39:42 AM Referred By: HERMANN cardenas Confirmed By:ERNIE CRISOSTOMO MD
--- NOTE | 2019-12-23 08:53 | PDOC.MOPN ---
Interval History: Pt had a good night except waked up at 2am for nausea, took antiemetic and it resolved. No appetite this AM. No HAs. - Vital Signs Vital Signs: Vital Signs (12 hours) Temp Pulse Resp BP Pulse Ox 12/23/19 08:36 98.3 F 82 16 121/66 96 Weight Admit Weight 223 lb Weight 206 lb 3.2 oz Most Recent Monitor Data Heart Rate from ECG 134 NIBP 158/93 NIBP BP-Mean 114 Respiration from ECG 24 SpO2 94 - Physical Exam General: Alert, Oriented x3, Cooperative HEENT: EOMI Lungs: Normal air movement Neurological: Cranial nerves 3-12 NL Psych/Mental Status: Mood NL - Labs Result Diagrams: 12/21/19 03:08 12/21/19 03:08 A/P - Problem (1) Testicular malignant neoplasm Current Visit: Yes Code(s): C62.90 - MALIG NEOPLASM OF UNSP TESTIS, UNSP DESCENDED OR UNDESCENDED Status: Acute (2) Metastasis to brain Current Visit: Yes Code(s): C79.31 - SECONDARY MALIGNANT NEOPLASM OF BRAIN Status: Acute - Plan Plan: C2D9 of VIP complete WBRT tomorrow, then DC to rehab antiemetics prn dex 4mg q8h
[2019-12-23] MEDS: Gabapentin 300 MG CAP PO SCH ×3 (09:46→20:41)
[2019-12-23] MEDS: Metoprolol Tartrate 100 MG TAB PO SCH ×2 (09:46→20:41)
[2019-12-23] MEDS: levETIRAcetam 500 MG TAB PO SCH ×2 (09:46→20:41)
[2019-12-23] MEDS: Hydrochlorothiazide 25 MG TAB PO SCH (09:46)
[2019-12-23] MEDS: Pantoprazole 40 MG VIAL IVP SCH ×2 (09:47→20:42)
[2019-12-23] MEDS: Docusate 100 MG CAP PO SCH ×2 (09:47→20:41)
[2019-12-23] MEDS: Ivabradine 5 MG TAB PO SCH ×3 (09:48→20:41)
[2019-12-23] MEDS: Clotrimazole 1 % Cream 30 GM TUBE TOP SCH ×2 (09:52→20:40)
[2019-12-23] MEDS: guaiFENesin 200 MG TAB PO PRN ×2 (13:28→20:40)
[2019-12-23] MEDS: Ondansetron ODT 4 MG TAB PO PRN (15:34)
[2019-12-23] MEDS: Benzonatate 100 MG CAP PO PRN (21:43)
[2019-12-23] MEDS: Melatonin 3 MG TAB PO PRN (21:43)
[2019-12-24] MEDS: Dexamethasone 4 mg/ml Vial SLOW IVP SCH ×2 (05:34→13:56)
[2019-12-24] MEDS: Cepastat Lozenges 1 LOZ PO PRN ×3 (06:01→13:56)
--- NOTE | 2019-12-24 06:45 | PDOC.FM ---
- Subjective Subjective: Patient resting in bed. No acute events overnight. Ready for discharge to rehab today. - Objective Vital Signs & Weight: Vital Signs (12 hours) Temp Pulse Resp BP Pulse Ox 12/23/19 20:00 97.6 F 102 H 18 126/75 98 Weight Admit Weight 101.151 kg Weight 97.296 kg Most Recent Monitor Data Heart Rate from ECG 134 NIBP 158/93 NIBP BP-Mean 114 Respiration from ECG 24 SpO2 94 I&O: 12/22/19 12/23/19 12/24/19 06:59 06:59 06:59 Intake Total 4400 2040 1695 Output Total 4500 2400 2450 Balance -833 -477 -185 Result Diagrams: 12/21/19 03:08 12/21/19 03:08 Phys Exam - Physical Examination Constitutional: NAD normal effort Gastrointestinal: soft Musculoskeletal: no edema Neurological: moves all 4 limbs Dx/Plan - Plan Plan: 19yo male with a pmh notable for 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 Brown and Dr. Palencia on board. Has been getting second round of chemo & WRT since 12/15/19 & tolerating it well. - Cont keppra & namenda. - Continue PT/OT. - Continue [place] for pain control prn Anemia - stable - s/p 10u pRBCs total (11/22, 11/23, 11/24, 11/25, 11/26, 12/01, 12/02) - Continue to monitor H/H closely & will transfuse for Hgb <7 - Continue labs per Onc. 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 Thombocytopenia - resolved - likely 2/2 chemo. Continue to monitor - Transfused platelets (11/30, 12/01, 12/03) 22 beats of Asymptomatic Wide Complex Vtach - resolved - Dr Wells consulted on 12/02 & recommended to continue Metoprolol & Corlanor as well as cardiac monitoring. Signed off on 12/05. - No further arrythmias since. Dispo: Discharge today after radiation. Code Status: FULL IVF: SL Diet: Regular DVT ppx: SCDs Addendum - Attending - Attending Attestation Date/Time: 12/24/19 6898 I personally evaluated the patient and discussed the management with Dr. Rogers. I agree with the History, Examination, Assessment and Plan documented above with any addition or exceptions noted below. Patient stable for dc to rehab today after completing WBXRT.
[2019-12-24 08:28] VITALS: BP 113/67
[2019-12-24 08:35] VITALS: TEMP 98.2
[2019-12-24] MEDS: Hydrochlorothiazide 25 MG TAB PO SCH (09:05)
[2019-12-24] MEDS: Docusate 100 MG CAP PO SCH (09:06)
[2019-12-24] MEDS: Ivabradine 5 MG TAB PO SCH (09:06)
[2019-12-24] MEDS: levETIRAcetam 500 MG TAB PO SCH (09:06)
[2019-12-24] MEDS: Gabapentin 300 MG CAP PO SCH ×2 (09:06→13:55)
[2019-12-24] MEDS: Metoprolol Tartrate 100 MG TAB PO SCH (09:06)
[2019-12-24] MEDS: Clotrimazole 1 % Cream 30 GM TUBE TOP SCH (09:07)
[2019-12-24] MEDS: Pantoprazole 40 MG VIAL IVP SCH (09:07)
[2019-12-24] MEDS: guaiFENesin 200 MG TAB PO PRN ×2 (09:08→13:56)
--- NOTE | 2019-12-24 09:34 | PDOC.MOPN ---
Interval History: Pt did not sleep well last night, talked in his sleep as per mother. Denies N/V or headaches. Ready to go to rehab today after XRT. - Vital Signs Vital Signs: Vital Signs (12 hours) Temp Pulse Resp BP Pulse Ox 12/24/19 08:34 98.2 F 12/24/19 08:00 99.5 F 90 16 113/67 97 Weight Admit Weight 223 lb Weight 214 lb 8 oz Most Recent Monitor Data Heart Rate from ECG 134 NIBP 158/93 NIBP BP-Mean 114 Respiration from ECG 24 SpO2 94 - Physical Exam General: Alert, Oriented x3, Cooperative HEENT: EOMI Lungs: Normal air movement Neurological: Cranial nerves 3-12 NL Psych/Mental Status: Mood NL - Labs Result Diagrams: 12/21/19 03:08 12/21/19 03:08 A/P - Problem (1) Testicular malignant neoplasm Current Visit: Yes Code(s): C62.90 - MALIG NEOPLASM OF UNSP TESTIS, UNSP DESCENDED OR UNDESCENDED Status: Acute (2) Metastasis to brain Current Visit: Yes Code(s): C79.31 - SECONDARY MALIGNANT NEOPLASM OF BRAIN Status: Acute - Plan Plan: Finish WBRT today cont dex 4mg q8 hr x 5 more days, then decrease to 4 mg q12 hr Discharge to Rehab Pt to f/u in clinic and start cycle 3 of VIP on 01/05/2020
[2019-12-24] MEDS: Ondansetron ODT 4 MG TAB PO PRN (13:55)
--- NOTE | 2019-12-24 21:33 | DIS ---
DATE OF ADMISSION: 11/22/2019 DATE OF DISCHARGE: 12/24/2019 RESIDENT: Briana Rogers DO ADMITTING ATTENDING: Yogesh Graff MD DISCHARGE ATTENDING: Chandrakant Sena MD CONSULTS: 1. Cardiology, Dr. Leiva. 2. Electrophysiology, Dr. Wells. 3. Neurosurgery, Dr. Campbell. 4. Oncology, Dr. Brown. 5. Oncology, Dr. Palencia. 6. Pulmonology, Dr. Ann. 7. Physical Therapy, Occupational Therapy. 8. Palliative care team. 9. Stroke team. PROCEDURES PERFORMED: 1. MRI brain showing acute cerebellum infarct with hemorrhagic metastasis, bilateral small infarcts. 2. Bone scan with no bone metastasis. 3. Echocardiogram showed normal ejection fraction greater than 60% to 65%. 4. CT brain 11/30/2019 showed worsening edema and herniation. 5. CT brain 12/06/2019 showed worsening edema, slightly improved midline shift. PRIMARY DIAGNOSIS: 1. Acute intracranial hemorrhagic conversion of metastatic lesions. 2. Stage IV testicular cancer with metastasis to brain, lungs, liver, spleen. 3. Status post left orchiectomy. 4. Anemia. 5. Sinus tachycardia. 6. Hypertension. 7. Thrombocytopenia, resolved. DISCHARGE MEDICATIONS: 1. Dexamethasone 4 mg IV push q.8 hours for five more days, then decrease to 4 mg q.12 hours. 2. Zofran 4 mg IV push q.6 hours p.r.n. 3. Zofran 4 mg p.o. q.6 hours p.r.n. 4. Metoprolol 200 mg p.o. b.i.d. 5. Metoclopramide 10 mg p.o. t.i.d. p.r.n. 6. Namenda 10 mg p.o. b.i.d. 7. Melatonin 9 mg p.o. at bedtime p.r.n. 8. Meclizine 12.5 mg p.o. t.i.d. p.r.n. 9. Keppra 500 mg p.o. b.i.d. 10. Corlanor 5 mg p.o. t.i.d. 11. Ackerman 10/325 one to two tablets p.o. q.4 hours p.r.n. 12. Hydrochlorothiazide 12.5 mg p.o. daily. 13. Guaifenesin 400 mg p.o. q.4 hours p.r.n. 14. Gabapentin 300 mg p.o. t.i.d. 15. Docusate 100 mg p.o. b.i.d. 16. Benadryl 25 mg p.o. q.6 hours p.r.n. 17. Clotrimazole 1% cream topical b.i.d. 18. Cepastat lozenge, one lozenge p.o. q.2 hours p.r.n. 19. Tessalon Perles 200 mg p.o. b.i.d. p.r.n. 20. Acetaminophen 325 mg p.o. p.r.n. 21. Omeprazole 20 mg p.o. daily. 22. Ibuprofen 800 mg p.o. q.i.d. p.r.n. DISCONTINUED MEDICATIONS: Bactrim 1 tablet p.o. b.i.d. HISTORY OF PRESENT ILLNESS: Please see transition of care note dictated by Dr. Avila on December 12, 2019, for a summary of the majority of the patient's hospitalization. In addition, the patient did have 22 beats of asymptomatic wide-complex ventricular tachycardia, which resolved. Dr. Wells was consulted on 12/02 and recommended to continue the metoprolol and Corlanor. He had no further arrhythmia. The patient had continued improvement throughout his hospitalization. He was approved for inpatient rehab to continue therapy. His duration of hospitalization was extended due to the necessity of completing course of full brain radiation. Once this was completed, the patient was discharged in stable condition to inpatient rehab at [facility]. Dr. Brown will continue to follow. DISPOSITION: Stable. DISCHARGE INSTRUCTIONS: 1. Location: Inpatient rehab. 2. Diet: Regular. 3. Activity: As tolerated. 4. Followup: Follow up with Dr. Chau Brown on 01/05/2020 in the outpatient oncology department. Follow up with primary care physician, Dr. Avila, at [facility] after discharge from rehab. Job ID: [id number] [facility]
== END 2019-12-24 14:30 | DRG 54 ==
LOC: ERS 08:40 → MERGE 10:49 → ERHOLD 10:49 → IMCU/EMU 13:03 → ONC 12-08 19:54
PROVIDERS: ADMIT Internal Medicine; ATTEND Student in an Organized Health Care Education/Training Program
PROC: 30233N1 Transfusion of Nonautologous Red Blood Cells into Peripheral Vein, Percutaneous Approach (ICD-10-PCS; 2019-11-23)
PROC: 30233R1 Transfusion of Nonautologous Platelets into Peripheral Vein, Percutaneous Approach (ICD-10-PCS; principal; 2019-12-01)
DX: C79.31 Secondary malignant neoplasm of brain (principal); I61.8 Other nontraumatic intracerebral hemorrhage; G93.6 Cerebral edema; C78.00 Secondary malignant neoplasm of unspecified lung; C78.7 Secondary malignant neoplasm of liver and intrahepatic bile duct; C78.89 Secondary malignant neoplasm of other digestive organs; G81.94 Hemiplegia, unspecified affecting left nondominant side; N39.0 Urinary tract infection, site not specified; D61.818 Other pancytopenia; R04.2 Hemoptysis; D64.81 Anemia due to antineoplastic chemotherapy; T45.1X5A Adverse effect of antineoplastic and immunosuppressive drugs, initial encounter; C62.90 Malignant neoplasm of unspecified testis, unspecified whether descended or undescended; Z51.5 Encounter for palliative care; D64.9 Anemia, unspecified; R00.0 Tachycardia, unspecified; I10 Essential (primary) hypertension; D69.6 Thrombocytopenia, unspecified; H53.8 Other visual disturbances; D63.0 Anemia in neoplastic disease; G40.909 Epilepsy, unspecified, not intractable, without status epilepticus
CPT/HCPCS: 36415; 36416; 36430; 70450; 70553; 71045; 71275; 76999; 77014; 77280; 77290; 77307; 77334; 77412; 77417; 78306; 80048; 80053; 80076; 81001; 82105; 82248; 82310; 82728; 83540; 83550; 83605; 83615; 83735; 84100; 84145; 84550; 84702; 85025; 85610; 85730; 86850; 86900; 86901; 87077; 87086; 87186; 93005; 93010; 93306; 96361; 96374; 96375; A9503; A9579; C9113; J0696; J1100; J1453; J1642; J2150; J2270; J2405; J2469; J2997; J3475; J3480; J3490; J7030; J7050; J9060; J9181; J9208; J9209; P9016; P9035; Q0162; Q0163; Q0167; Q0177; Q5108; Q9967

== ENCOUNTER 2020-01-03 17:56 | Inpatient (IN) | payer OTHER ==
[~2020-01-03 17:56] MED LIST: EPHEDRINE 25 MG/5 ML SYRINGE ONE; Lidocaine 1% PF 5 ML VIAL ONE; PHENYLEPHRINE-NS 100 MCG/ML 10 ML SYRINGE ONE; Rocuronium Bromide 10 MG/ML (10ML VIAL) ONE; Succinylcholine Chloride 20 MG/ML 10 ml SYRINGE FS ONE
[2020-01-03] MEDS ORDERED: Ondansetron PF 4 MG/2 ML Vial ONE (18:27)
[2020-01-03] MEDS ORDERED: Morphine 4 MG/ML VIAL ONE ×2 (18:27→19:56)
[2020-01-03 18:43] LABS: Hemoglobin 12.3 g/dL (14.0-18.0); Mean Corpuscular HGB CONC 31.3 g/dL (32.0-36.0); Mean Corpuscular Hemoglobin 28.9 pg (27.0-31.0); Mean Corpuscular Volume 92.4 fL (78.0-98.0); Mean Platelet Volume 8.3 fL (7.4-10.4); Platelet Count 336 thou/uL (130-400); RBC Distribution Width 21.4 % (11.5-14.5); Red Blood Cell (RBC) Count 4.25 mill/uL (4.70-6.10); White Blood Cell (WBC) Count 29.2 thou/uL (4.8-10.8)
[2020-01-03 19:04] LABS: ALT (SGPT) 42 U/L (8-55); AST (SGOT) 21 U/L (5-34); Albumin 3.5 g/dL (3.5-5.0); Alkaline Phosphatase 91 U/L (40-110); Anion Gap 19 mmol/L (10-20); BUN (Urea Nitrogen) 27 mg/dL (8.9-20.6); Bilirubin, Total 1.4 mg/dL (0.2-1.2); Calc. Creatinine Clearance 0 mL/min (70-130); Calcium 9.3 mg/dL (7.8-10.44); Carbon Dioxide 21 mmol/L (22-29); Chloride 95 mmol/L (98-107); Estimated GFR-MDRD Greater than 90; Glucose 131 mg/dL (70-105); Protein, Total 6.5 g/dL (6.0-8.3); Sodium 130 mmol/L (136-145)
[2020-01-03 19:05] LABS: Anisocytosis SLIGHT = 6-15 cells (100X) (0-5/hpf); Band 42 % (5-11); Lymphocytes 25 % (21-51); MDiff Complete? YES; Metamyelocyte 5 % (0-0); Monocytes 5 % (0-10); Myelocyte 5 % (0-0); Neutrophil 17 % (42-75); Reactive Lymphocytes 1 % (0-10)
[2020-01-03] MEDS ORDERED: Piperacillin/Tazobactam 4.5 GM VIAL ONE (19:05)
--- NOTE | 2020-01-03 19:42 | RAD ---
ONE VIEW ABDOMEN: History: Bowel obstruction. Tachycardia. Patient with history of metastatic testicular cancer. FINDINGS: There is a small amount of retained fecal material seen in the region of the ascending colon and rect um. A distended gas filled mildly dilated loop of small bowel is seen in the right abdomen. This is o verall nonspecific on radiographic evaluation. However, a prior CT examination obtained earlier on th is date demonstrated dilated loops of small bowel, some of which contained feculent type material. Th ere is also an appearance of mesentery loop of bowel in the left abdomen with thickened loops of smal l bowel in the left aspect of the abdomen. In addition there is free intraperitoneal fluid seen as we ll as scattered tiny foci of free intraperitoneal gas. Findings are worrisome for perforated discus. Surgical consultation is recommended for further evaluation. Residual contrast is seen in the renal collecting systems and urinary bladder. Osseous structures hav e a normal appearance. IMPRESSION: 1. Dilated loops of small bowel in the right abdomen which is overall nonspecific on this radiographi c examination. However, recent CT scan examination demonstrated dilated loops of small bowel as well as thick walled loops of small bowel in the left abdomen. Free intraperitoneal gas and fluid was seen in the abdomen on prior CT exam suggesting perforated discus. Urgent/emergent surgical consultation is recommended for further evaluation. 2. Above findings discussed with Dr. Baez in the Emergency Department on 01-03-2020 at 1914 hours. POS: [place]
[2020-01-03] MEDS ORDERED: Fentanyl 250 MCG/5 ML VIAL ONE (19:57)
[2020-01-03] MEDS ORDERED: Sodium Chloride 0.9% 30 ML ONE (20:30)
[2020-01-03] MEDS ORDERED: hydrALAZINE 20 MG/ML VIAL ONE (20:33)
[2020-01-03 20:59] LABS: Lactic Acid 2.8 mmol/L (0.5-2.2)
[2020-01-03] MEDS ORDERED: Phenylephrine 10 MG/ML VIAL ONE ×2 (21:02→21:48)
--- NOTE | 2020-01-03 21:15 | PDOC.FPRHP ---
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 Hx provided by parents who report 2 day hx of abd pain described as reflux like pain that acutely worsened around 0400 this am. He had Abd CT performed earlier today which showed possible SBO and a second review by radiologist there was free air seen, concerning for perforation. Parents report normal BM, last one this AM around 0600, no hematochezia or melena. They also deny any fever. ED Course: KUB ordered and referenced CT done earlier today. Radiologist consulted with Dr. Gilliland, general surgery and together reviewed images and saw free air in abdomen and patient was taken back to the OR with Dr. Gilliland concerned for bowel perforation. He was given 2x 4mg IV morphine, 2L NS, and Zosyn in ED. - Allergies/Adverse Reactions Allergies Allergy/AdvReac Type Severity Reaction Status Date / Time No Known Allergies Allergy Verified 01/03/20 22:59 - Home Medications Medication Instructions Recorded Confirmed Type Benzonatate [Tessalon] 200 mg PO BIDPRN PRN cap 12/24/19 01/04/20 Rx Cepastat Lozenges 1 tanya PO Q2H PRN tanya 12/24/19 01/04/20 Rx Gabapentin [Neurontin] 300 mg PO TID cap 12/24/19 01/04/20 Rx HYDROcodone Bit/APAP 10/325 [[place]] 1 tab PO Q4H PRN tab 12/24/19 01/04/20 Rx HYDROcodone Bit/APAP 10/325 [[place]] 2 tab PO Q4H PRN tab 12/24/19 01/04/20 Rx Hydrochlorothiazide 12.5 mg PO DAILY tab 12/24/19 01/04/20 Rx Ivabradine [Corlanor] 5 mg PO TID tab 12/24/19 01/04/20 Rx Melatonin 9 mg PO HS PRN tab 12/24/19 01/04/20 Rx Memantine HCl [Namenda] 10 mg PO BID tab 12/24/19 01/04/20 Rx Metoprolol Tartrate [Lopressor] 200 mg PO BID tab 12/24/19 01/04/20 Rx Ondansetron [Zofran ODT] 4 mg PO Q6H PRN tab 12/24/19 01/04/20 Rx levETIRAcetam [Keppra] 500 mg PO BID tab 12/24/19 01/04/20 Rx Bisacodyl 10 mg RC DAILY PRN 01/04/20 01/04/20 History Calcium Carbonate 1,000 mg PO Q6HR PRN 01/04/20 01/04/20 History Calcium Carbonate 500 mg PO 01/04/20 History Clotrimazole 1% Cream [Lotrimin 1% 1 gm TOP BID 01/04/20 01/04/20 History Cream] Dexamethasone 4 mg PO BID 01/04/20 01/04/20 History Docusate Sodium 100 mg PO BID 01/04/20 01/04/20 History Ibuprofen 800 mg PO QID 01/04/20 01/04/20 History Loperamide HCl [Loperamide] 2 mg PO ASDIR 01/04/20 01/04/20 History Meclizine HCl 12.5 mg PO TID 01/04/20 01/04/20 History Pantoprazole [Protonix] 40 mg PO DAILY 01/04/20 01/04/20 History Polyethylene Glycol 3350 [Base 1 gm PO DAILY 01/04/20 01/04/20 History B,Polyethylene [id number]] Simethicone [Gas Relief] 80 mg PO TID PRN 01/04/20 01/04/20 History cloNIDine [Catapres] 0.1 mg PO Q6HR 01/04/20 01/04/20 History - History PMHx: Stage IV Testicular Cancer, HTN, sinus tachycardia PSHx: Orchiectomy FHx: noncontributory Social: denies tobacco, alcohol or drug use. - Review of Systems ROS unobtainable: due to endotracheal tube - Vital signs BP: 98/68 HR: 122 RR: 22 Tmax: 100.4 Pox: 93% on mechanical ventilation - Physical Exam -Constitutional: intubated, minimally sedated, raising head and looking around, coughing, attempting to speak around the tube HEENT: PERRLA -Chest: R mediport, L subclavian central line -Heart: tachycardia at a rate of 130, no murmurs or extra sounds -Lungs: diffuse crackles b/l, moderate amount of secretions around the ET tube -Abdomen: Large vertical bulky guaze dressing over ant abdomen. soft, bowel sounds not appreciable at this time -Neurological: responds to commands Skin: no rash/lesions Psychiatric: normal mood and affect FMR H&P: Results - Labs Result Diagrams: 01/04/20 05:23 01/04/20 05:23 Lab results: WBC 29.2 thou/uL (4.8-10.8) H 01/03/20 18:27 Hgb 12.3 g/dL (14.0-18.0) L 01/03/20 18:27 Hct 39.3 % (42.0-52.0) L 01/03/20 18:27 MCV 92.4 fL (78.0-98.0) 01/03/20 18:27 Plt Count 336 thou/uL (130-400) 01/03/20 18:27 Band Neuts % (Manual) 42 % (5-11) H 01/03/20 18:27 Sodium 130 mmol/L (136-145) L 01/03/20 18:27 Potassium 5.0 mmol/L (3.5-5.1) 01/03/20 18:27 Chloride 95 mmol/L (98-107) L 01/03/20 18:27 Carbon Dioxide 21 mmol/L (22-29) L 01/03/20 18:27 BUN 27 mg/dL (8.9-20.6) H 01/03/20 18:27 Creatinine 0.78 mg/dL (0.7-1.3) 01/03/20 18:27 Glucose 131 mg/dL (70-105) H 01/03/20 18:27 Lactic Acid 2.8 mmol/L (0.5-2.2) H 01/03/20 20:33 Calcium 9.3 mg/dL (7.8-10.44) 01/03/20 18:27 Total Bilirubin 1.4 mg/dL (0.2-1.2) H 01/03/20 18:27 AST 21 U/L (5-34) 01/03/20 18:27 ALT 42 U/L (8-55) 01/03/20 18:27 Alkaline Phosphatase 91 U/L (40-110) 01/03/20 18:27 Serum Total Protein 6.5 g/dL (6.0-8.3) 01/03/20 18:27 Albumin 3.5 g/dL (3.5-5.0) 01/03/20 18:27 - Radiology Interpretation CT scan - abdomen Status: image reviewed by me, report reviewed by me Additional comment: free fluid and small amount of free air seen in abdomen suggesting bowel perforation as well as transition zone in small bowel consistent with possible SBO, also showing liver mets, lung mets, splenic mets, and improved renal infarct. Chest x-ray Status: image reviewed by me Additional comment: L subclavian central line, R mediport line, ET tube in place, diffuse pulmonary mets similar to previous CXR FMR H&P: A/P - Problem List (1) Sepsis Current Visit: Yes Status: Acute Code(s): A41.9 - SEPSIS, UNSPECIFIED ORGANISM (2) Bowel perforation Current Visit: Yes Status: Acute Code(s): K63.1 - PERFORATION OF INTESTINE ( NONTRAUMATIC) (3) Testicular malignant neoplasm Current Visit: No Status: Acute Code(s): C62.90 - MALIG NEOPLASM OF UNSP TESTIS, UNSP DESCENDED OR UNDESCENDED (4) Metastasis to brain Current Visit: No Status: Acute Code(s): C79.31 - SECONDARY MALIGNANT NEOPLASM OF BRAIN (5) Sinus tachycardia Current Visit: No Status: Acute Code(s): R00.0 - TACHYCARDIA, UNSPECIFIED - Plan Sepsis 2/2 Bowel Perforation s/p ex lap: -unclear etiology at this time. -patient remains intubated and sedated post surgical intervention -Pulm consulted, likely can be extubated tomorrow, AM ABG -Fentanyl and Propofol for sedation -WBC 29, 40% band, s/p Zosyn in ED and Ancef in the OR, continue Zosyn per surgery recs, trend CBC. -Gram stain and cx of intraperitoneal fluid collected in OR. -Blood Cx pending. -Hypotension with optimum sedation, levophed through L subclavian started. Strict IO. s/p Albumin and stress dose Solucortef. MIVF-NS @ 120. s/p 2L NS in ED. Hyponatremia likely hypovolemic: -130, s/p 2L NS, recheck BMP in AM Hypochloremic Metabolic Acidosis: -likely 2/2 volume depletion and lactic acidosis, repeat in AM Stage IV Testicular Cancer: -continue home keppra, namenda, and steroids -consult Dr. Brown, oncologist in AM. -supposed to start round 3 Chemo this friday. Sinus Tachycardia -baseline 110's, mother reports recent med adjustment by cardiology but unsure of current meds. Regardless, with hypotension will likely hold off on rate control medications and sepsis playing large role in current tachycardia, has come down some with sedation. Will closely monitor. HTN: -currently hypotensive. Hold antihypertensives. GI PPx: Omeprazole DVT PPx: lovenox Code status: Full Dispo: stable at this time, overall guarded prognosis with complicating stage IV cancer. FMR H&P: Upper Level - Plan Date/Time: 01/03/202111 I, [], have evaluated this patient and agree with findings/plan as outlined by planner intern resident. Pertinent changes/additions are listed here. Addendum - Attending - Attending Attestation Date/Time: 01/04/20 3689 I personally evaluated the patient and discussed the management with Dr. Thornton last night at time of admission to the CCU, post-operatively. I agree with the History, Examination, Assessment and Plan documented above with any addition or exceptions noted below.
[2020-01-03] MEDS ORDERED: Albumin 5% 250 ML ONE (21:32)
[2020-01-03] MEDS ORDERED: hydrALAZINE 20 MG/ML VIAL SLOW IVP PRN (22:17)
[2020-01-03] MEDS ORDERED: Promethazine HCl 25 MG/ML VIAL IM PRN (22:17)
[2020-01-03] MEDS ORDERED: Ondansetron PF 4 MG/2 ML Vial IVP PRN (22:17)
[2020-01-03] MEDS ORDERED: Norepinephrine 8 MG/0.9% NS 250 ML ONE (22:28)
[2020-01-03] MEDS ORDERED: Propofol BOLUS 1,000 MG/100 ML VIAL IV PRN (22:30)
[2020-01-03] MEDS ORDERED: DISCONTINUE PREVIOUS NARCOTIC PAIN MEDICATIONS AND BENZODIAZEPINES FS SCH (22:30)
[2020-01-03] MEDS ORDERED: Lorazepam 2 MG/ML VIAL SLOW IVP PRN (22:30)
[2020-01-03] MEDS ORDERED: fentaNYL Citrate/PF 2,000 MCG in Sodium Chloride 0.9% 60 ML IV SCH (22:30)
[2020-01-03] MEDS ORDERED: Ventilator Sedation Protocol 1 EACH FS SCH (22:30)
[2020-01-03] MEDS ORDERED: Fentanyl BOLUS 250 ML IVPB PRN (22:30)
[2020-01-03] MEDS ORDERED: Morphine 2 MG/ML SYRINGE SLOW IVP PRN (22:30)
[2020-01-03] MEDS: Sodium Chloride 0.9% 1,000 ML IV SCH (23:17)
[2020-01-03] MEDS: Propofol 1,000 MG/100 ML VIAL IV PRN (23:32)
[2020-01-03] MEDS: Ketorolac Tromethamine 30 MG/ML VIAL IVP SCH (23:37)
[2020-01-03] MEDS: Piperacillin/Tazobactam 3.375 GM in Sodium Chloride 0.9% 100 ML IVPB SCH (23:37)
[2020-01-03 23:45] VITALS: BMI 25.8
[2020-01-04] MEDS ORDERED: Albumin 5% 250 ML ONE (00:23)
[2020-01-04] MEDS ORDERED: Norepinephrine 8 MG/0.9% NS 250 ML IVPB SCH (02:06)
[2020-01-04] MEDS: Scopolamine 1.5 mg/72 hour Patch TD SCH (02:15)
[2020-01-04] MEDS: Propofol 1,000 MG/100 ML VIAL IV PRN (02:15)
[2020-01-04] MEDS: Ketorolac Tromethamine 30 MG/ML VIAL IVP SCH ×3 (05:20→17:13)
[2020-01-04] MEDS: Piperacillin/Tazobactam 3.375 GM in Sodium Chloride 0.9% 100 ML IVPB SCH ×3 (05:21→17:14)
[2020-01-04] MEDS: Hydrocortisone Sod Succ/PF 100 mg/2 ml Vial IVP SCH ×2 (05:21→21:09)
--- NOTE | 2020-01-04 05:40 | HP ---
CHIEF COMPLAINT: Severe abdominal pain. 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 He has been on steroids. Last night at 4 a.m., developed severe mid to upper abdominal pain. Says his bowels have been working regularly. No nausea or vomiting. No black or bloody stools. 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 PAST SURGICAL HISTORY: Left orchiectomy and MediPort. MEDICATIONS: 1. Dexamethasone. 2. Colace. 3. Gabapentin. 4. Hydrochlorothiazide. 5. Ivabradine. 6. Levitra. 7. Metoprolol. 8. . 9. Clonidine. 10. Melatonin. 11. Meclizine. PHYSICAL EXAMINATION: VITAL SIGNS: Temperature 98, pulse 122, blood pressure 94/60. GENERAL: He is fairly well sedated, they gave him some narcotic earlier. He will rouse to pain. LUNGS: Clear. HEART: Regular rate and rhythm, but tachy. ABDOMEN: Soft, somewhat obese. He is some mild tenderness in the central abdomen. EXTREMITIES: Unremarkable. LABORATORY DATA: His white count is 29,000, H and H 12 and 39, platelet count of 336. PT 14, PTT 25. Sodium 130, potassium 5, chloride 95, CO2 of 21, BUN 27, creatinine 0.7, glucose 131. His T bilirubin was 1.4, LDH of 2500. His HCG is 18,000. Urinalysis; [address] scan of the abdomen shows small focus of free air in the left lower quadrant. Radiologist, Dr. Grace says it was more adjacent to small bowel. Some of the small bowel loops were thickened and does not appear to be from the colon. No other possible source. He has metastatic disease in the liver, spleen, and kidney. ASSESSMENT: Widely metastatic testicular cancer with high risk for surgery. PLAN: Exploratory laparotomy with possible small bowel resection, possible repair of perforated ulcer. His parents understand and give informed consent. Job ID: [id number]
[2020-01-04] MEDS ORDERED: Zolpidem Tartrate 5 MG TAB PO PRN (06:33)
[2020-01-04] MEDS ORDERED: Naloxone HCl 0.4 mg/ml Vial IV PRN (06:33)
[2020-01-04] MEDS ORDERED: diphenhydrAMINE 50 MG/ML VIAL IVP PRN (06:33)
[2020-01-04] MEDS ORDERED: diphenhydrAMINE 50 MG/ML VIAL IM PRN (06:33)
[2020-01-04] MEDS ORDERED: Ondansetron PF 4 MG/2 ML Vial IVP PRN (06:33)
[2020-01-04] MEDS ORDERED: Promethazine HCl 25 MG/ML VIAL IM PRN (06:33)
[2020-01-04] MEDS ORDERED: diphenhydrAMINE 25 MG CAP PO PRN (06:33)
[2020-01-04] MEDS ORDERED: Communication Order-Pharmacy FS SCH (06:45)
--- NOTE | 2020-01-04 06:54 | RAD ---
PORTABLE CHEST: HISTORY: Central line placement. COMPARISON: 12/28/2019. FINDINGS: Numerous bilateral pulmonary masses again noted. MediPort catheter via the right subclavian is uncha nged with the tip overlying the SVC. A new central line via the left subclavian has been placed. The line overlies the SVC. The ET tube and NG tube are noted. IMPRESSION: Central line appears in adequate position. POS: AGW
[2020-01-04] MEDS: Sodium Chloride 0.9% 1,000 ML IV SCH ×3 (06:57→22:20)
[2020-01-04 07:04] LABS: Mean Corpuscular HGB CONC 31.3 g/dL (32.0-36.0); Mean Corpuscular Hemoglobin 29.5 pg (27.0-31.0); Mean Platelet Volume 8.3 fL (7.4-10.4); Platelet Count 295 thou/uL (130-400); RBC Distribution Width 21.5 % (11.5-14.5); Red Blood Cell (RBC) Count 3.38 mill/uL (4.70-6.10); White Blood Cell (WBC) Count 24.4 thou/uL (4.8-10.8)
[2020-01-04 07:11] LABS: Anion Gap 20 mmol/L (10-20); BUN (Urea Nitrogen) 29 mg/dL (8.9-20.6); Calc. Creatinine Clearance 197 mL/min (70-130); Carbon Dioxide 18 mmol/L (22-29); Chloride 102 mmol/L (98-107); Estimated GFR-MDRD Greater than 90; Glucose 151 mg/dL (70-105); Potassium 4.4 mmol/L (3.5-5.1); Sodium 136 mmol/L (136-145)
[2020-01-04] MEDS ORDERED: Sodium Chloride 0.9% 500 ML IV SCH (07:30)
[2020-01-04 07:40] LABS: Anisocytosis MODERATE=16-30 cells (100X) (0-5/hpf); Band 50 % (5-11); Lymphocytes 8 % (21-51); MDiff Complete? YES; Metamyelocyte 9 % (0-0); Monocytes 4 % (0-10); Neutrophil 29 % (42-75); Platelet Morphology Comment Appears Adequate; Polychromasia MODERATE = 3-4 cells (100X) (0-2/hpf)
--- NOTE | 2020-01-04 07:43 | PRG ---
DATE OF SERVICE: 01/04/2020 SUBJECTIVE: The patient is doing better. He is extubated. Pain is controlled. No nausea or vomiting. OBJECTIVE: VITAL SIGNS: Temperature is 97.4 with a T-max of 100.4. His heart rate is 103, blood pressure is 110/62. GENERAL: He is awake and alert. ABDOMEN: His abdomen is obese and soft. His dressing is dry. LABORATORY DATA: His white count is 24, H and H 10 and 31, platelet count of 295. His electrolytes show glucose is 151. His BUN is 29. ASSESSMENT: Improved. PLAN: PT consult because mom says with his stroke he gets real tachycardic when he is up and needs a tilt-table. Job ID: [id number]
--- NOTE | 2020-01-04 07:46 | CON ---
DATE OF CONSULTATION: 01/04/2020 HISTORY OF PRESENT ILLNESS: Mr. Heller is a 19-year-old unfortunately, who has metastatic testicular cancer. He recently had a parenchymal brain hemorrhage, felt to be a bleeding metastasis. He has lung disease as well. He presented with abdominal discomfort and free air. He underwent a laparotomy last night. He slept mechanically ventilated overnight. He is awake, alert, and in no distress. PAST MEDICAL HISTORY: Remarkable for testicular cancer, an orchiectomy, MediPort placement, reported cardiomyopathy. FAMILY HISTORY: Negative for lung disease in early age. REVIEW OF SYSTEMS: Not obtainable. PHYSICAL EXAMINATION: VITAL SIGNS: Blood pressure 110/62, heart rate 109, respiratory rates in the 20s. HEENT: Pupils are equal. Sclerae are anicteric. He has alopecia. LUNGS: Clear anteriorly. HEART: Regular rhythm. ABDOMEN: Tender as expected. EXTREMITIES: Without clubbing, cyanosis, or edema. LABORATORY DATA: White count 24.4, hemoglobin 10.0, platelets 295. He had 42% bands on his peripheral smear yesterday as expected. Sodium 136, potassium 4.4, chloride 102, bicarb 18, BUN 29, creatinine 0.8. Blood gas is not entered in the computer, but his pH was 7.22 postoperatively. I am sure his acid-base disorder is improving. I felt he was a candidate for extubation. This has been done successfully. He still has the NG tube in place. He denies being in any distress. His respiratory rate is in the low 20s. Critical care time 30 min. Job ID: [id number] MTDD
--- NOTE | 2020-01-04 07:59 | OP ---
DATE OF PROCEDURE: 01/03/2020 PREOPERATIVE DIAGNOSIS: Perforated viscus. PROCEDURES PERFORMED: Exploratory laparotomy, lysis of adhesions, repair of small-bowel perforation, biopsy of small bowel. INDICATIONS: The patient is a 19-year-old male, has metastatic testicular cancer, has undergone chemo and radiation. He has had radiation changes to the lower abdominal wall. He developed an acute onset of pain last night, which progressed during the day. A CT scan showed free air. FINDINGS: Diffuse peritonitis. There was a perforation in the mid small bowel just proximal to an obstruction from an internal hernia, herniation through an omental band. The small bowel was also thickened consistent with radiation change. DESCRIPTION OF PROCEDURE: After informed consent was obtained, the patient was taken to the operating room and given general endotracheal anesthesia, placed in supine position. Abdomen was prepped and draped in usual fashion. A midline incision was performed, subcu divided sharply, the fascia was incised with a 10 blade. The abdomen was explored. There was diffuse antral peritonitis, enteric fluid and purulent fluid, inflammatory rind. This was sent for culture. An internal hernia was found and omental band had caused obstruction. This was divided and actually removed and sent for pathology. The site of perforation was occluded with Deric clamps proximal and distal. The site of perforation was also excised for biopsy and then closed with interrupted 3-0 Vicryl transversely. The small bowel was then run from ileocecal valve to the ligament of Treitz. There was some inflammatory rind, but no other site of perforation. The colon was inspected, stomach inspected, no other site of perforation. The abdomen was thoroughly irrigated with saline. Hemostasis was assured. The omentum placed anteriorly and the fascia closed with a running looped #1 PDS with interrupted [id number] of #1 Prolene. Due to the immunocompromise and obesity, I elected not to close the skin. I did close the skin or dermis right at the umbilicus, but left superior and inferior open. Subcu was irrigated and packed open with Betadine gauze. Sterile bandage applied. The patient transferred to ICU in serious, but stable condition. Job ID: [id number]
--- NOTE | 2020-01-04 08:02 | OP ---
DATE OF PROCEDURE: 01/03/2020 PREOPERATIVE DIAGNOSIS: Sepsis with perforated viscus. PROCEDURE PERFORMED: Left subclavian triple lumen catheter placement. INDICATIONS: The patient is a 19-year-old male, who is hypotensive and septic from a perforated gut. Anesthesia asked, even though he had a MediPort already, they asked me for a central line for further resuscitation. FINDINGS: Good backflow of venous blood, J-wire threaded easily. Left subclavian placement. DESCRIPTION OF PROCEDURE: On urgent basis, the skin of the chest was prepped and draped in usual fashion. Introducer needle was inserted in left subclavian with good backflow of venous blood. J-wire threaded easily. The skin was incised with 11 blade. The dilator was used. The catheter was inserted over the wire. The wire was removed. Each of the ports aspirated, good backflow of venous blood, flushed with saline. The catheter was sutured in place with interrupted 3-0 silk suture. Sterile bandage applied. The patient tolerated the procedure well and transferred to Recovery in good condition. Sponge and needle count verified correct x2. Job ID: [id number]
[2020-01-04] MEDS ORDERED: Enoxaparin Sodium 30 MG/0.3 ML SYRINGE SC SCH (09:00)
--- NOTE | 2020-01-04 09:07 | PDOC.FM ---
- Subjective Subjective: Pt resting comfortably, he has been extubated, pt reports no pain or problems. Mother reports he has been doing well with no complaint since extubation. - Objective Vital Signs & Weight: Vital Signs (12 hours) Temp Resp Pulse Ox 01/04/20 08:00 97.2 F L 01/04/20 07:30 96 01/04/20 06:33 98 01/04/20 06:00 24 H 01/04/20 04:00 97.4 F L 24 H 01/04/20 02:00 25 H 01/04/20 00:00 100.4 F H 33 H 01/03/20 23:00 98.5 F 34 H 100 Weight Weight 96.4 kg Most Recent Monitor Data Heart Rate from ECG 88 NIBP 107/63 NIBP BP-Mean 77 Respiration from ECG 13 SpO2 97 I&O: 01/03/20 01/04/20 01/05/20 06:59 06:59 06:59 Intake Total 1058 55 Output Total 606 100 Balance 452 -45 Result Diagrams: 01/04/20 05:23 01/04/20 05:23 Phys Exam - Physical Examination Constitutional: NAD HEENT: moist MMs, sclera anicteric Neck: supple, full ROM Respiratory: no wheezing, clear to auscultation bilateral Cardiovascular: RRR, no significant murmur Gastrointestinal: soft, non-tender Musculoskeletal: no edema, pulses present Neurological: normal sensation, moves all 4 limbs Psychiatric: normal affect Skin: no rash, normal turgor Dx/Plan (1) Bowel perforation Code(s): K63.1 - PERFORATION OF INTESTINE (NONTRAUMATIC) Status: Acute (2) Sepsis Code(s): A41.9 - SEPSIS, UNSPECIFIED ORGANISM Status: Acute (3) Metastasis to brain Code(s): C79.31 - SECONDARY MALIGNANT NEOPLASM OF BRAIN Status: Acute (4) Sinus tachycardia Code(s): R00.0 - TACHYCARDIA, UNSPECIFIED Status: Acute (5) Testicular malignant neoplasm Code(s): C62.90 - MALIG NEOPLASM OF UNSP TESTIS, UNSP DESCENDED OR UNDESCENDED Status: Acute - Plan Plan: Sepsis 2/2 Bowel Perforation s/p ex lap 01/02: A- pt is stable POD 1 ex lap and repair of twisted bowel hernia. Inflammatory changes in bowel pus concerning for radiation peritonitis however mother states he has only had radiation to the brain. On presentation- WBC 29, 40% band, s/p Zosyn in ED and Ancef in the OR, continue Zosyn per surgery recs, trend CBC. Gram stain and cx of intraperitoneal fluid collected in OR. Was put on levophed for sedation hypotension, pt is currently on levophed @3. P- continue Zosyn -consult oncology -f/u surgery recs -f/u BCx -f/u path on bowel and intraperitoneal fluid/gram stain -wean pressors as tolerated Stage IV Testicular Cancer: A- supposed to start round 3 Chemo this friday. P- continue home keppra, namenda, and steroids -consult Dr. Brown Hyponatremia likely hypovolemic: -resolved Hypochloremic Metabolic Acidosis: -resolved Sinus Tachycardia -baseline 110's, mother reports recent med adjustment by cardiology but unsure of current meds. Regardless, with hypotension will likely hold off on rate control medications and sepsis playing large role in current tachycardia, has come down some with sedation. Will closely monitor. HTN: -currently hypotensive. Hold antihypertensives. GI PPx: Omeprazole DVT PPx: lovenox Code status: Full Dispo: stable at this time, overall guarded prognosis with complicating stage IV cancer. Addendum - Attending - Attending Attestation Date/Time: 01/04/20 7530 I personally evaluated the patient and discussed the management with Dr. Paul. I agree with the History, Examination, Assessment and Plan documented above with any addition or exceptions noted below. Patient improved. POD1 from perforated SBO. This may not be related to his cancer diagnosis. Continue current meds, wean pressors, continue abx. Will courtesy call Onc regarding that patient will be unlikely to start his VIP tomorrow due to recent surgery. Continue therapy.
[2020-01-04] MEDS: Famotidine/PF 20 mg/2ml Vial SLOW IVP SCH ×2 (09:09→21:11)
[2020-01-04] MEDS: Famotidine 20 MG TAB PO SCH ×2 (09:10→21:11)
[2020-01-04] MEDS: Enoxaparin Sodium 30 MG/0.3 ML SYRINGE SC SCH (09:21)
[2020-01-04] MEDS ORDERED: Calcium Carbonate 500 MG TAB PO PRN (12:30)
[2020-01-04] MEDS ORDERED: Benzonatate 100 MG CAP PO PRN (12:30)
[2020-01-04] MEDS: Gabapentin 300 MG CAP PO SCH ×2 (15:10→21:11)
[2020-01-04] MEDS: Dexamethasone 4 MG TAB PO SCH (17:03)
--- NOTE | 2020-01-04 17:59 | CON ---
DATE OF CONSULTATION: REASON FOR CONSULTATION: Testicular cancer. HISTORY OF PRESENT ILLNESS: Mr. Heller is a 19-year-old gentleman with stage IV testicular cancer with mets to the brain, liver, lung and spleen, who was recently discharged from this facility after 2 cycles of chemotherapy and whole-brain radiation, was in the rehab unit when he began to have worsening abdominal pain. He was sent to this facility and a CT was performed, which showed free air and dilated loops of small bowel. He was taken emergently by Dr. Gilliland to the OR and had laparotomy. He was ventilated overnight and now has been extubated. The patient was diagnosed with stage IIIC testicular cancer in 10/2019. He had altered mental status and was admitted on 11/22 for hemorrhagic brain mets. He tolerated whole-brain radiation and 2 cycles of ifosfamide, etoposide, and cisplatin. He is due for cycle 3 tomorrow. He is resting comfortably at bedside. He states he is passing gas. Mom was present at evaluation. PAST MEDICAL HISTORY: 1. Metastatic testicular cancer. 2. Hypertension. PAST SURGICAL HISTORY: 1. Left orchiectomy. 2. MediPort placement. ALLERGIES: NO KNOWN DRUG ALLERGIES. CURRENT MEDICATIONS: 1. Decadron. 2. Lovenox. 3. Pepcid. 4. Neurontin. 5. Toradol. 6. Keppra. 7. Namenda. 8. Protonix. 9. Zosyn. FAMILY HISTORY: Maternal grandmother had breast. SOCIAL HISTORY: Single, lives with his parents. No alcohol, tobacco, or illicit drug use. REVIEW OF SYSTEMS: A 10-point review of systems is negative except for noted in HPI. PHYSICAL EXAMINATION: VITAL SIGNS: Temperature 97.1, pulse is 89, respiratory rate 17, BP is 115/57, and he is 97% on 2 L. GENERAL: A well-developed, well-nourished male, in no acute distress. HEENT: Normocephalic and atraumatic. Pupils are equal and reactive to light. NECK: Supple. CV: Regular rate and rhythm. LUNGS: He has scattered rhonchi. ABDOMEN: Slightly firm. There is a midline incision with a wound VAC in place. EXTREMITIES: He has 1+ bilateral lower extremity edema. SKIN: No rash. HEMATOLOGIC: No petechiae or purpura. NEUROLOGIC: Nonfocal. PSYCHIATRIC: He is alert and oriented and appropriate. PERTINENT LABORATORY DATA AND X-RAYS: Current WBCs 24.4, hemoglobin 10, hematocrit 31.8, and platelets 295,000. He has 29% neutrophils, 50% bands, and 8% lymphocytes. Sodium 136, potassium 4.4, chloride 102, CO2 is 18, BUN is 29, creatinine 0.81, lactic acid 2.8, and calcium 9. Bilirubin 1.4, AST is 21, ALT is 42, and alkaline phosphatase is 91. Serum total protein is 6.5, albumin 3.5, and globulin 3. ASSESSMENT: 1. Bowel perforation. 2. Metastatic testicular cancer. DISCUSSION: The patient is recovering nicely from his laparotomy. I do not have an operative report, so I am unsure what was found with the surgery. He is passing gas now and hopefully will recover quickly. His heart rate has been elevated on prior admission, but now is normal. He has been afebrile. He is off pressors. I do plan to treat him with chemotherapy likely on this hospitalization, but will await until he has fully recovered from his surgery. Thank you for the consult. Case has been discussed with Dr. Brown. Job ID: [id number]
[2020-01-04] MEDS: levETIRAcetam 500 MG TAB PO SCH (21:11)
[2020-01-04] MEDS: fentaNYL Citrate/PF 2,000 MCG in Sodium Chloride 0.9% 60 ML IV PRN (22:53)
[2020-01-05] MEDS: Ketorolac Tromethamine 30 MG/ML VIAL IVP SCH ×5 (00:36→23:58)
[2020-01-05] MEDS: Piperacillin/Tazobactam 3.375 GM in Sodium Chloride 0.9% 100 ML IVPB SCH ×5 (00:37→23:58)
[2020-01-05] MEDS: Sodium Chloride 0.9% 1,000 ML IV SCH ×3 (06:10→23:58)
--- NOTE | 2020-01-05 07:53 | PRG ---
DATE OF SERVICE: SUBJECTIVE: Patient is doing well postextubation, has no complaints. OBJECTIVE: VITAL SIGNS: His temperature 97.8, pulse 80, blood pressure 109/64, and sat 97%. HEENT: Unremarkable, except for alopecia. NECK: No JVD. LUNGS: Clear anteriorly. CARDIAC: S1, S2. Regular. ABDOMEN: Midline wound VAC noted. EXTREMITIES: No edema. LABORATORY DATA: None were drawn today. ASSESSMENT: 1. Status post laparotomy for incarcerated hernia. 2. Status post respiratory failure, requiring mechanical ventilation. 3. Testicular cancer, in the process of chemotherapy. He has completed intracranial radiation. PLAN: He is being transferred out to the floor. He is doing well from a Pulmonary standpoint. We will be available for further management as needed. Job ID: [id number]
--- NOTE | 2020-01-05 07:58 | PRG ---
DATE OF SERVICE: 01/05/2020 SUBJECTIVE: The patient is feeling better. No nausea or vomiting. Pains improving. Vital signs have been very stable. OBJECTIVE: GENERAL: On exam, he looks good. He is awake, in no apparent distress. NG output is minimal. LUNGS: Clear. ABDOMEN: Soft. The wound VAC is on place. There is no cellulitis. VITAL SIGNS: His temperature is afebrile, pulse is 80, blood pressure is 109/64. ASSESSMENT: Improved. PLAN: Discontinue NG. PT, transfer to surgical floor. Job ID: [id number]
--- NOTE | 2020-01-05 08:35 | PDOC.FM ---
- Subjective Subjective: Doing well, pain controlled with wound vac in place. Pt has no complaints at this time. No fever/chills - Objective Vital Signs & Weight: Vital Signs (12 hours) Temp Pulse Ox 01/05/20 07:07 99 01/05/20 04:00 97.8 F 01/05/20 00:00 98.3 F Weight Admit Weight 96.162 kg Weight 96.4 kg Most Recent Monitor Data Heart Rate from ECG 80 NIBP 109/64 NIBP BP-Mean 79 Respiration from ECG 20 SpO2 97 I&O: 01/04/20 01/05/20 01/06/20 06:59 06:59 06:59 Intake Total 1058 3922 11 Output Total 606 1555 Balance 452 5647 11 Result Diagrams: 01/05/20 09:04 01/04/20 05:23 Phys Exam - Physical Examination Constitutional: NAD HEENT: moist MMs, sclera anicteric Neck: supple, full ROM Respiratory: no wheezing, clear to auscultation bilateral Cardiovascular: RRR, no significant murmur Gastrointestinal: non-tender, no distention Musculoskeletal: no edema, pulses present Neurological: normal sensation, moves all 4 limbs Psychiatric: normal affect, A&O x 3 Skin: no rash, normal turgor Dx/Plan (1) Bowel perforation Code(s): K63.1 - PERFORATION OF INTESTINE (NONTRAUMATIC) Status: Acute (2) Sepsis Code(s): A41.9 - SEPSIS, UNSPECIFIED ORGANISM Status: Acute (3) Metastasis to brain Code(s): C79.31 - SECONDARY MALIGNANT NEOPLASM OF BRAIN Status: Acute (4) Sinus tachycardia Code(s): R00.0 - TACHYCARDIA, UNSPECIFIED Status: Acute (5) Testicular malignant neoplasm Code(s): C62.90 - MALIG NEOPLASM OF UNSP TESTIS, UNSP DESCENDED OR UNDESCENDED Status: Acute - Plan Plan: Sepsis 2/2 Bowel Perforation s/p ex lap 01/02: A- Improved, pt no longer meeting sirs criteria, he is extubated since 01/03 and off pressors since 01/03. pt is stable POD 2 ex lap and repair of twisted bowel hernia. BCx still pending 48hr read P- continue Zosyn -f/u surgery recs -f/u BCx -f/u path on bowel and intraperitoneal fluid/gram stain Stage IV Testicular Cancer: A- supposed to start round 3 Chemo this friday. P- continue home keppra, namenda, and steroids -f/u onc recs Hyponatremia likely hypovolemic: -resolved Hypochloremic Metabolic Acidosis: -resolved Sinus Tachycardia -baseline 110's, mother reports recent med adjustment by cardiology but unsure of current meds. Regardless will hold meds untill BPs increase more. HR stable. HTN: -currently hypotensive. Hold antihypertensives. GI PPx: Omeprazole DVT PPx: lovenox Code status: Full Dispo: stable at this time, overall guarded assisted prognosis with complicating stage IV cancer. Addendum - Attending - Attending Attestation Date/Time: 01/05/20 1151 I personally evaluated the patient and discussed the management with Dr. Paul. I agree with the History, Examination, Assessment and Plan documented above with any addition or exceptions noted below. Patient stable. Needs Xfuse 1 unit due to anemia. Continue post op recs from [facility]. Onc on board.
[2020-01-05 08:55] LABS: #Monocytes 0.6 thou/uL (0.11-0.59); %Eosinophils 0.3 % (0.0-10.0); %Lymphocytes 12.9 % (21.0-51.0); %Monocytes 8.3 % (0.0-10.0); %Neutrophils 78.5 % (42.0-75.0); Hemoglobin 6.1 g/dL (14.0-18.0); Mean Corpuscular HGB CONC 31.3 g/dL (32.0-36.0); Mean Corpuscular Hemoglobin 29.2 pg (27.0-31.0); Mean Corpuscular Volume 93.2 fL (78.0-98.0); Mean Platelet Volume 7.4 fL (7.4-10.4); Platelet Count 125 thou/uL (130-400); RBC Distribution Width 20.4 % (11.5-14.5); White Blood Cell (WBC) Count 7.6 thou/uL (4.8-10.8)
[2020-01-05] MEDS: Dexamethasone 4 MG TAB PO SCH ×3 (09:43→16:25)
[2020-01-05] MEDS: Famotidine/PF 20 mg/2ml Vial SLOW IVP SCH ×2 (09:44→20:47)
[2020-01-05] MEDS: Gabapentin 300 MG CAP PO SCH ×3 (09:44→20:47)
[2020-01-05] MEDS: levETIRAcetam 500 MG TAB PO SCH ×2 (09:44→20:47)
[2020-01-05] MEDS: Enoxaparin Sodium 30 MG/0.3 ML SYRINGE SC SCH (09:46)
[2020-01-05] MEDS: Famotidine 20 MG TAB PO SCH (09:46)
--- NOTE | 2020-01-05 10:00 | PDOC.MOPN ---
Interval History: c/o hunger. Pain controlled. - Vital Signs Vital Signs: Vital Signs (12 hours) Temp Pulse Resp BP Pulse Ox 01/05/20 08:40 97.7 F 89 18 115/62 100 01/05/20 08:00 100 01/05/20 07:07 99 01/05/20 04:00 97.8 F 01/05/20 00:00 98.3 F Weight Admit Weight 212 lb Weight 212 lb 8.41 oz Most Recent Monitor Data Heart Rate from ECG 80 NIBP 109/64 NIBP BP-Mean 79 Respiration from ECG 20 SpO2 97 - Physical Exam General: Alert, Oriented x3, No acute distress HEENT: Atraumatic, PERRLA, EOMI, Mucous membr. moist/pink Lungs: Clear to auscultation, Normal air movement Cardiovascular: Regular rate, Normal S1, Normal S2, No murmurs, Gallops, Rubs Abdomen: Other (wound vac midline) Extremities: Other (general mild anasarca) Neurological: Normal speech Psych/Mental Status: Mental status NL - Labs Result Diagrams: 01/05/20 09:04 01/04/20 05:23 Lab results: Laboratory Results - last 24 hr 01/05/20 09:04: Hgb 6.0 L, Hct 19.3 L 01/05/20 08:44: WBC 7.6, RBC 2.10 L, Hgb 6.1 L, Hct 19.5 L, MCV 93.2, MCH 29.2, MCHC 31.3 L, RDW 20.4 H, Plt Count 125 L, MPV 7.4, Neutrophils % 78.5 H, Lymphocytes % 12.9 L, Monocytes % 8.3, Eosinophils % 0.3, Basophils % 0.0, Neutrophils # 6.0, Lymphocytes # 1.0 L, Monocytes # 0.6 H, Eosinophils # 0.0, Basophils # 0.0 01/05/20 04:05: Procalcitonin 8.34 Status: lab reviewed by me A/P - Problem (1) Bowel perforation Current Visit: Yes Code(s): K63.1 - PERFORATION OF INTESTINE (NONTRAUMATIC) Status: Acute (2) Sepsis Current Visit: Yes Code(s): A41.9 - SEPSIS, UNSPECIFIED ORGANISM Status: Acute (3) Testicular malignant neoplasm Current Visit: No Code(s): C62.90 - MALIG NEOPLASM OF UNSP TESTIS, UNSP DESCENDED OR UNDESCENDED Status: Acute - Plan Plan: 1. hgb dropped 4 gms overnight, confirmed with repeat lab. Transfuse 1 unit and recheck later today 2. No evidence of bleeding as abdomin nontender and VSS 3. Chemo on hold until recovered, likely for several weeks 4. recheck tumor marker today
--- NOTE | 2020-01-05 12:45 | EKG ---
Test Reason : STAT Blood Pressure : / mmHG Vent. Rate : 132 BPM Atrial Rate : 132 BPM P-R Int : 124 ms QRS Dur : 084 ms QT Int : 304 ms P-R-T Axes : 022 021 037 degrees QTc Int : 450 ms Sinus tachycardia Otherwise normal ECG When compared with ECG of 19-DEC-2019 17:27, Vent. rate has increased BY 45 BPM T wave inversion no longer evident in Inferior leads T wave inversion no longer evident in Lateral leads Confirmed by DR. Mer PEACE ([id number]) on 01/05/2020 12:45:01 PM Referred By: MIGUELANGEL Confirmed By:DR. Mer PEACE
[2020-01-05] MEDS ORDERED: Piperacillin/Tazobactam 3.375 GM VIAL ONE (18:07)
[2020-01-05 18:57] LABS: Hemoglobin 7.2 g/dL (14.0-18.0)
[2020-01-06] MEDS: Piperacillin/Tazobactam 3.375 GM in Sodium Chloride 0.9% 100 ML IVPB SCH ×3 (05:43→18:09)
[2020-01-06] MEDS: Ketorolac Tromethamine 30 MG/ML VIAL IVP SCH ×2 (05:43→11:17)
[2020-01-06 06:01] LABS: #Lymphocytes 1.1 thou/uL (1.20-3.40); #Monocytes 0.6 thou/uL (0.11-0.59); #Neutrophils 5.3 thou/uL (1.40-6.50); %Eosinophils 0.3 % (0.0-10.0); %Lymphocytes 15.7 % (21.0-51.0); Hemoglobin 6.8 g/dL (14.0-18.0); Mean Corpuscular HGB CONC 31.6 g/dL (32.0-36.0); Mean Corpuscular Hemoglobin 29.3 pg (27.0-31.0); Mean Corpuscular Volume 92.6 fL (78.0-98.0); Mean Platelet Volume 7.9 fL (7.4-10.4); Platelet Count 120 thou/uL (130-400); RBC Distribution Width 19.6 % (11.5-14.5); Red Blood Cell (RBC) Count 2.33 mill/uL (4.70-6.10)
[2020-01-06 06:22] LABS: Anion Gap 12 mmol/L (10-20); BUN (Urea Nitrogen) 23 mg/dL (8.9-20.6); Calc. Creatinine Clearance 301 mL/min (70-130); Calcium 8.9 mg/dL (7.8-10.44); Carbon Dioxide 21 mmol/L (22-29); Chloride 110 mmol/L (98-107); Estimated GFR-MDRD Greater than 90; Glucose 79 mg/dL (70-105); Potassium 3.8 mmol/L (3.5-5.1); Sodium 139 mmol/L (136-145)
[2020-01-06] MEDS: Sodium Chloride 0.9% 1,000 ML IV SCH ×3 (08:00→20:13)
--- NOTE | 2020-01-06 08:08 | PDOC.FM ---
- Subjective Subjective: Doing well, pt complaints that he is hungry. no other complaints - Objective Vital Signs & Weight: Vital Signs (12 hours) Temp Pulse Resp BP Pulse Ox 01/06/20 07:28 98.4 F 65 18 116/77 99 01/06/20 03:57 97.5 F L 66 16 139/91 H 92 L 01/06/20 00:16 98.1 F 86 18 136/84 92 L 01/05/20 20:38 98.6 F 75 18 123/80 99 Weight Admit Weight 96.162 kg Weight 96.4 kg Most Recent Monitor Data Heart Rate from ECG 80 NIBP 109/64 NIBP BP-Mean 79 Respiration from ECG 20 SpO2 97 I&O: 01/05/20 01/06/20 01/07/20 06:59 06:59 06:59 Intake Total 3922 3301 Output Total 1555 125 Balance 2367 3986 Result Diagrams: 01/06/20 05:49 01/06/20 05:49 Phys Exam - Physical Examination Constitutional: NAD HEENT: moist MMs, sclera anicteric Neck: supple, full ROM Respiratory: no wheezing, clear to auscultation bilateral Cardiovascular: RRR, no significant murmur Gastrointestinal: non-tender, no distention Musculoskeletal: pulses present Neurological: normal sensation, moves all 4 limbs Psychiatric: normal affect, A&O x 3 Skin: no rash, normal turgor Dx/Plan (1) Bowel perforation Code(s): K63.1 - PERFORATION OF INTESTINE (NONTRAUMATIC) Status: Acute (2) Sepsis Code(s): A41.9 - SEPSIS, UNSPECIFIED ORGANISM Status: Acute (3) Metastasis to brain Code(s): C79.31 - SECONDARY MALIGNANT NEOPLASM OF BRAIN Status: Acute (4) Sinus tachycardia Code(s): R00.0 - TACHYCARDIA, UNSPECIFIED Status: Acute (5) Testicular malignant neoplasm Code(s): C62.90 - MALIG NEOPLASM OF UNSP TESTIS, UNSP DESCENDED OR UNDESCENDED Status: Acute - Plan Plan: Sepsis 2/2 Bowel Perforation s/p ex lap 01/02: A- Improved, pt no longer meeting sirs criteria, he is extubated since 01/03 and off pressors since 01/03. pt is stable POD 3 ex lap and repair of twisted bowel hernia. BCx still pending 48hr read, prelim on peritoneal Cx shows gm + cocci P- continue Zosyn -f/u surgery recs -f/u BCx/peritoneal cultures -f/u path on bowel Stage IV Testicular Cancer: A- was supposed to start round 3 Chemo 01/05 P- continue home keppra, namenda, and steroids -f/u onc recs Hyponatremia likely hypovolemic: -resolved Hypochloremic Metabolic Acidosis: -resolved Sinus Tachycardia -baseline 110's, mother reports recent med adjustment by cardiology but unsure of current meds. Regardless will hold meds untill BPs increase more. HR stable. HTN: -holding antihypertensives currently GI PPx: Omeprazole DVT PPx: lovenox Code status: Full Dispo: stable at this time, overall guarded senior care prognosis with complicating stage IV cancer. Addendum - Attending - Attending Attestation Date/Time: 01/06/20 8490 I personally evaluated the patient and discussed the management with Dr. Paul. I agree with the History, Examination, Assessment and Plan documented above with any addition or exceptions noted below. Patient stable. Xfuse 1 unit again today. Surgery to direct post op care. Onc on board.
[2020-01-06] MEDS: Dexamethasone 4 MG TAB PO SCH ×2 (08:17→20:12)
[2020-01-06] MEDS: Gabapentin 300 MG CAP PO SCH ×3 (08:17→20:11)
[2020-01-06] MEDS: Enoxaparin Sodium 30 MG/0.3 ML SYRINGE SC SCH (08:18)
[2020-01-06] MEDS: Famotidine/PF 20 mg/2ml Vial SLOW IVP SCH (08:18)
[2020-01-06] MEDS: levETIRAcetam 500 MG TAB PO SCH ×2 (08:18→20:11)
--- NOTE | 2020-01-06 08:42 | PDOC.MOPN ---
Interval History: Pt feeling ok this morning. Had trouble urinating overnight but has since gone. 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 He has LE edema in his feet. Cough and headaches have improved. He wants to eat and have his stomach sutured and wound vac removed. His HCG has trended down dramatically. - Vital Signs Vital Signs: Vital Signs (12 hours) Temp Pulse Pulse Resp BP BP Pulse Ox 01/06/20 08:23 97.5 F L 63 18 122/78 100 01/06/20 08:05 98.4 F 65 18 116/77 99 01/06/20 07:28 98.4 F 65 18 116/77 99 01/06/20 03:57 97.5 F L 66 16 139/91 H 92 L 01/06/20 00:16 98.1 F 86 18 136/84 92 L Weight Admit Weight 212 lb Weight 212 lb 8.41 oz Most Recent Monitor Data Heart Rate from ECG 80 NIBP 109/64 NIBP BP-Mean 79 Respiration from ECG 20 SpO2 97 - Physical Exam General: Alert, Oriented x3, Cooperative HEENT: EOMI Lungs: Normal air movement Cardiovascular: Regular rate Abdomen: Other (wound vac) Psych/Mental Status: Mood NL - Labs Result Diagrams: 01/06/20 05:49 01/06/20 05:49 Lab results: Laboratory Results - last 24 hr 01/06/20 05:49: Procalcitonin 4.16 01/06/20 05:49: WBC 7.0, RBC 2.33 L, Hgb 6.8 L, Hct 21.6 L, MCV 92.6, MCH 29.3, MCHC 31.6 L, RDW 19.6 H, Plt Count 120 L, MPV 7.9, Neutrophils % 75.0, Lymphocytes % 15.7 L, Monocytes % 9.0, Eosinophils % 0.3, Basophils % 0.0, Neutrophils # 5.3, Lymphocytes # 1.1 L, Monocytes # 0.6 H, Eosinophils # 0.0, Basophils # 0.0 01/06/20 05:49: Sodium 139, Potassium 3.8, Chloride 110 H, Carbon Dioxide 21 L, Anion Gap 12, BUN 23 H, Creatinine 0.53 L, Estimated GFR (MDRD) Greater than 90 , Glucose 79, Calcium 8.9 01/06/20 00:04: Hgb 7.0 L, Hct 21.9 L 01/05/20 18:40: Hgb 7.2 L, Hct 22.1 L 01/05/20 09:37: Blood Type O POSITIVE, Antibody Screen NEGATIVE, Crossmatch See Detail 01/05/20 09:04: Hgb 6.0 L, Hct 19.3 L 01/05/20 08:44: WBC 7.6, RBC 2.10 L, Hgb 6.1 L, Hct 19.5 L, MCV 93.2, MCH 29.2, MCHC 31.3 L, RDW 20.4 H, Plt Count 125 L, MPV 7.4, Neutrophils % 78.5 H, Lymphocytes % 12.9 L, Monocytes % 8.3, Eosinophils % 0.3, Basophils % 0.0, Neutrophils # 6.0, Lymphocytes # 1.0 L, Monocytes # 0.6 H, Eosinophils # 0.0, Basophils # 0.0 01/05/20 04:05: Tumor Marker HCG 1959 H A/P - Problem (1) Bowel perforation Current Visit: Yes Code(s): K63.1 - PERFORATION OF INTESTINE (NONTRAUMATIC) Status: Acute (2) Testicular malignant neoplasm Current Visit: No Code(s): C62.90 - MALIG NEOPLASM OF UNSP TESTIS, UNSP DESCENDED OR UNDESCENDED Status: Acute - Plan Plan: Hold C3 of VIP until healed from surgery decrease Dexamethasone to BID surgical care as per Dr. Gilliland f/u path from small bowel resection
--- NOTE | 2020-01-06 10:04 | PRG ---
DATE OF SERVICE: 01/06/2020 SUBJECTIVE: The patient is feeling good, really has minimal pain. He is hungry. He is passing flatus. He has been coughing some blood. 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 His urine output has been a little bit low. He had received a unit of packed cells. He is getting another one now. OBJECTIVE: VITAL SIGNS: Temperature 97.5, pulse is 65, and blood pressure 122/78. GENERAL: He is awake, alert, looks good. He is pale. LUNGS: Clear. HEART: Regular rate and rhythm. ABDOMEN: Soft. Good bowel sounds. Wound VAC is in place. There is no cellulitis. ASSESSMENT: Metastatic testicular cancer, status post perforated bowel, doing well. PLAN: Clear liquid diet. Case management consult, will probably need to go back to rehab. Follow his H and H. Job ID: [id number]
[2020-01-06] MEDS ORDERED: Sodium Chloride 0.9% 1,000 ML IV SCH (11:00)
[2020-01-06 11:58] LABS: Hemoglobin 8.2 g/dL (14.0-18.0)
[2020-01-06] MEDS: fentaNYL Citrate/PF 2,000 MCG in Sodium Chloride 0.9% 60 ML IV PRN (17:15)
[2020-01-06 18:50] LABS: Hemoglobin 8.6 g/dL (14.0-18.0)
[2020-01-06] MEDS: Docusate 100 MG CAP PO SCH (21:24)
[2020-01-06] MEDS: Melatonin 3 MG TAB PO PRN (21:24)
[2020-01-07] MEDS: Piperacillin/Tazobactam 3.375 GM in Sodium Chloride 0.9% 100 ML IVPB SCH ×2 (00:10→04:52)
[2020-01-07] MEDS: Scopolamine 1.5 mg/72 hour Patch TD SCH (04:47)
[2020-01-07 04:49] LABS: #Lymphocytes 1.2 thou/uL (1.20-3.40); #Monocytes 0.7 thou/uL (0.11-0.59); #Neutrophils 6.2 thou/uL (1.40-6.50); %Basophils 0.1 % (0.0-1.0); %Eosinophils 0.3 % (0.0-10.0); %Monocytes 8.6 % (0.0-10.0); Hemoglobin 8.3 g/dL (14.0-18.0); Mean Corpuscular HGB CONC 31.5 g/dL (32.0-36.0); Mean Corpuscular Hemoglobin 28.8 pg (27.0-31.0); Mean Corpuscular Volume 91.7 fL (78.0-98.0); Mean Platelet Volume 7.7 fL (7.4-10.4); Platelet Count 178 thou/uL (130-400); RBC Distribution Width 18.6 % (11.5-14.5); Red Blood Cell (RBC) Count 2.86 mill/uL (4.70-6.10); White Blood Cell (WBC) Count 8.1 thou/uL (4.8-10.8)
[2020-01-07] MEDS ORDERED: HYDROcodone/Acetaminophen 10/325 mg Tablet PO PRN (08:00)
--- NOTE | 2020-01-07 08:45 | PDOC.FM ---
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 Pt had rough night last night 2/2 pain controll. tolerated dinner last night, has had 2 BMs. - Objective Vital Signs & Weight: Vital Signs (12 hours) Temp Pulse Resp BP Pulse Ox 01/07/20 07:42 99.0 F 78 18 127/76 94 L 01/07/20 04:21 99 01/07/20 04:00 99.3 F 110 H 16 133/76 94 L 01/07/20 00:55 99 F Weight Admit Weight 96.162 kg Weight 96.4 kg Most Recent Monitor Data Heart Rate from ECG 80 NIBP 109/64 NIBP BP-Mean 79 Respiration from ECG 20 SpO2 97 I&O: 01/06/20 01/07/20 01/08/20 06:59 06:59 06:59 Intake Total 3301 3374 Output Total 125 Balance 3176 3374 Result Diagrams: 01/07/20 04:41 01/06/20 05:49 Phys Exam - Physical Examination Constitutional: NAD HEENT: moist MMs, sclera anicteric Neck: supple, full ROM Respiratory: no wheezing, clear to auscultation bilateral Cardiovascular: no significant murmur tachy Gastrointestinal: no distention wound vac in place Musculoskeletal: no edema, pulses present Neurological: normal sensation, moves all 4 limbs Psychiatric: normal affect Skin: no rash, normal turgor Dx/Plan (1) Bowel perforation Code(s): K63.1 - PERFORATION OF INTESTINE (NONTRAUMATIC) Status: Acute (2) Sepsis Code(s): A41.9 - SEPSIS, UNSPECIFIED ORGANISM Status: Acute (3) Metastasis to brain Code(s): C79.31 - SECONDARY MALIGNANT NEOPLASM OF BRAIN Status: Acute (4) Sinus tachycardia Code(s): R00.0 - TACHYCARDIA, UNSPECIFIED Status: Acute (5) Testicular malignant neoplasm Code(s): C62.90 - MALIG NEOPLASM OF UNSP TESTIS, UNSP DESCENDED OR UNDESCENDED Status: Acute - Plan Plan: Sepsis 2/2 Bowel Perforation s/p ex lap 01/02: A- stable. BCx showing staph aureus only R to pipercillin. procal downtrends. Per pt Talat intends to DC with wound vac in place. he is extubated since 01/03 and off pressors since 01/03. pt is stable POD 3 ex lap and repair of twisted bowel hernia. BCx still pending 48hr read, prelim on peritoneal Cx shows gm + cocci P- Will transition to PO ABX -f/u surgery recs -trial pain control with [place], mgmt per anesthesia -f/u path on bowel Stage IV Testicular Cancer: A- was supposed to start round 3 Chemo 01/05 P- continue home keppra, namenda, and steroids -f/u onc recs Hyponatremia likely hypovolemic: -resolved Hypochloremic Metabolic Acidosis: -resolved Sinus Tachycardia -baseline 110's, mother reports recent med adjustment by cardiology but unsure of current meds. Regardless will hold meds untill BPs increase more. HR stable. -restarting metoprolol at half prior dose 100mg BID HTN: -restarting metoprolol GI PPx: Omeprazole DVT PPx: lovenox Code status: Full Dispo: stable at this time, overall guarded nursing home prognosis with complicating stage IV cancer. Addendum - Attending - Attending Attestation Date/Time: 01/07/20 5705 I personally evaluated the patient and discussed the management with Dr. Paul. I agree with the History, Examination, Assessment and Plan documented above with any addition or exceptions noted below. Patient having increased pain now that PLANNING ANALYST has been dc'd. Will work on PO pain control and breakthrough IV control. Will need to return to rehab. Post op mgmt per surgery.
--- NOTE | 2020-01-07 09:45 | PRG ---
DATE OF SERVICE: 01/07/2020 SUBJECTIVE: The patient last night had a lot of abdominal pain. It is better now. His bowels are functioning well. It happened after eaten solid food, so I am not sure how that relates. OBJECTIVE: VITAL SIGNS: On exam, his temperature is 99, pulse 78, and blood pressure 127/76. GENERAL: He is awake, alert. ABDOMEN: His wound looks good. He has bowel sounds. ASSESSMENT: Status post laparotomy for perforated bowel. PLAN: Continue supportive care. Eventual transfer to rehab. Job ID: [id number]
[2020-01-07] MEDS: Dexamethasone 4 MG TAB PO SCH ×2 (09:56→20:21)
[2020-01-07] MEDS: Docusate 100 MG CAP PO SCH ×2 (09:56→20:22)
[2020-01-07] MEDS: Metoprolol Tartrate 100 MG TAB PO SCH ×2 (09:56→20:22)
[2020-01-07] MEDS: Gabapentin 300 MG CAP PO SCH ×3 (09:57→20:21)
[2020-01-07] MEDS: Enoxaparin Sodium 30 MG/0.3 ML SYRINGE SC SCH (09:57)
[2020-01-07] MEDS: levETIRAcetam 500 MG TAB PO SCH ×2 (09:57→21:03)
[2020-01-07] MEDS: HYDROcodone/Acetaminophen 10/325 mg Tablet PO PRN ×3 (10:04→22:10)
[2020-01-07 12:09] LABS: Hemoglobin 8.4 g/dL (14.0-18.0)
[2020-01-07] MEDS ORDERED: HYDROcodone/Acetaminophen 10/325 mg Tablet PO SCH (12:15)
--- NOTE | 2020-01-07 12:44 | PDOC.MOPN ---
Interval History: resting comfortably. - Vital Signs Vital Signs: Vital Signs (12 hours) Temp Pulse Resp BP Pulse Ox 01/07/20 08:00 94 L 01/07/20 07:42 99.0 F 78 18 127/76 94 L 01/07/20 04:21 99 01/07/20 04:00 99.3 F 110 H 16 133/76 94 L 01/07/20 00:55 99 F Weight Admit Weight 212 lb Weight 212 lb 8.41 oz Most Recent Monitor Data Heart Rate from ECG 80 NIBP 109/64 NIBP BP-Mean 79 Respiration from ECG 20 SpO2 97 - Physical Exam General: No acute distress HEENT: Atraumatic, PERRLA, EOMI, Mucous membr. moist/pink Lungs: Clear to auscultation, Normal air movement Cardiovascular: Regular rate, Normal S1, Normal S2, No murmurs, Gallops, Rubs Abdomen: Normal bowel sounds, Soft, No tenderness, No hepatospenomegaly, No masses Extremities: Other Neurological: Normal speech Psych/Mental Status: Mental status NL - Labs Result Diagrams: 01/07/20 12:00 01/06/20 05:49 Lab results: Laboratory Results - last 24 hr 01/07/20 12:00: Hgb 8.4 L, Hct 26.1 L 01/07/20 04:41: Procalcitonin 1.79 01/07/20 04:41: WBC 8.1, RBC 2.86 L, Hgb 8.3 L, Hct 26.2 L, MCV 91.7, MCH 28.8, MCHC 31.5 L, RDW 18.6 H, Plt Count 178, MPV 7.7, Neutrophils % 76.0 H, Lymphocytes % 15.0 L, Monocytes % 8.6, Eosinophils % 0.3, Basophils % 0.1, Neutrophils # 6.2, Lymphocytes # 1.2, Monocytes # 0.7 H, Eosinophils # 0.0, Basophils # 0.0 01/06/20 18:17: Hgb 8.6 L, Hct 26.4 L Status: lab reviewed by me A/P - Problem (1) Bowel perforation Current Visit: Yes Code(s): K63.1 - PERFORATION OF INTESTINE (NONTRAUMATIC) Status: Acute (2) Sepsis Current Visit: Yes Code(s): A41.9 - SEPSIS, UNSPECIFIED ORGANISM Status: Acute (3) Testicular malignant neoplasm Current Visit: No Code(s): C62.90 - MALIG NEOPLASM OF UNSP TESTIS, UNSP DESCENDED OR UNDESCENDED Status: Acute - Plan Plan: Hold C3 of VIP until healed from surgery Dexamethasone to BID surgical care as per Dr. Gilliland rehab when able
[2020-01-07] MEDS: Cephalexin 250 MG CAP PO SCH ×2 (13:00→20:21)
[2020-01-07 18:20] LABS: Hemoglobin 8.8 g/dL (14.0-18.0)
[2020-01-07] MEDS: Sodium Chloride 0.9% 1,000 ML IV SCH (23:16)
[2020-01-08] MEDS: Melatonin 3 MG TAB PO PRN ×2 (00:24→23:45)
[2020-01-08] MEDS: Cephalexin 250 MG CAP PO SCH ×5 (00:24→23:45)
[2020-01-08 00:28] LABS: Hemoglobin 8.7 g/dL (14.0-18.0)
[2020-01-08] MEDS ORDERED: HYDROcodone/Acetaminophen 10/325 mg Tablet PO SCH (01:45)
[2020-01-08 06:10] LABS: Hemoglobin 8.8 g/dL (14.0-18.0)
[2020-01-08] MEDS: Dexamethasone 4 MG TAB PO SCH ×2 (08:31→21:43)
[2020-01-08] MEDS: Docusate 100 MG CAP PO SCH ×2 (08:32→21:43)
[2020-01-08] MEDS: levETIRAcetam 500 MG TAB PO SCH ×2 (08:32→21:44)
[2020-01-08] MEDS: Gabapentin 300 MG CAP PO SCH ×3 (08:32→21:43)
[2020-01-08] MEDS: Metoprolol Tartrate 100 MG TAB PO SCH (08:32)
[2020-01-08] MEDS: Enoxaparin Sodium 30 MG/0.3 ML SYRINGE SC SCH (08:32)
--- NOTE | 2020-01-08 08:48 | PDOC.FM ---
- Subjective Subjective: Pt donig well, no fever/chills, pain controlled overnight on PO meds alone. He has had BMs and good urine outpt. - Objective Vital Signs & Weight: Vital Signs (12 hours) Temp Pulse Resp BP Pulse Ox 01/08/20 08:17 96 01/08/20 07:51 98.2 F 65 18 135/85 96 01/08/20 04:00 99.4 F 81 16 139/88 95 01/07/20 23:50 98.4 F 78 16 139/86 96 Weight Admit Weight 96.162 kg Weight 96.4 kg Most Recent Monitor Data Heart Rate from ECG 80 NIBP 109/64 NIBP BP-Mean 79 Respiration from ECG 20 SpO2 97 I&O: 01/07/20 01/08/20 01/09/20 06:59 06:59 06:59 Intake Total 3374 2205 Output Total 4350 Balance 3374 -9903 Result Diagrams: 01/08/20 05:50 01/06/20 05:49 Phys Exam - Physical Examination Constitutional: NAD HEENT: moist MMs, sclera anicteric Neck: supple, full ROM Respiratory: no wheezing, clear to auscultation bilateral Cardiovascular: RRR, no significant murmur Gastrointestinal: non-tender wound vac in place Musculoskeletal: no edema, pulses present Neurological: normal sensation, moves all 4 limbs Psychiatric: normal affect, A&O x 3 Skin: no rash, normal turgor Dx/Plan (1) Bowel perforation Code(s): K63.1 - PERFORATION OF INTESTINE (NONTRAUMATIC) Status: Acute (2) Sepsis Code(s): A41.9 - SEPSIS, UNSPECIFIED ORGANISM Status: Acute (3) Metastasis to brain Code(s): C79.31 - SECONDARY MALIGNANT NEOPLASM OF BRAIN Status: Acute (4) Sinus tachycardia Code(s): R00.0 - TACHYCARDIA, UNSPECIFIED Status: Acute (5) Testicular malignant neoplasm Code(s): C62.90 - MALIG NEOPLASM OF UNSP TESTIS, UNSP DESCENDED OR UNDESCENDED Status: Acute - Plan Plan: Sepsis 2/2 Bowel Perforation s/p ex lap 01/02: A- stable. peritoneal Cx showing staph aureus only R to pipercillin. procal downtrends after being switched from zosyn to PO keflex. Per pt Talat intends to DC with wound vac in place. he is extubated since 01/03 and off pressors since 01/03. s/p ex lap and repair of twisted bowel hernia. BCx [id number] P- continue PO keflex -f/u surgery recs -dispo pending placement, CM consulted Stage IV Testicular Cancer: A- was supposed to start round 3 Chemo 01/05 P- continue home keppra, namenda, and steroids -f/u onc recs Hyponatremia likely hypovolemic: -resolved Hypochloremic Metabolic Acidosis: -resolved Sinus Tachycardia -baseline 110's, mother reports recent med adjustment by cardiology but unsure of current meds. Regardless will resume metoprolol and corlanor as BPs and HR increase more. -continue metoprolol at half prior dose 100mg BID HTN: -restarting metoprolol GI PPx: Omeprazole DVT PPx: lovenox Code status: Full Dispo: stable at this time, overall guarded shelter prognosis with complicating stage IV cancer. Addendum - Attending - Attending Attestation Date/Time: 01/08/20 7637 I personally evaluated the patient and discussed the management with Dr. Paul. I agree with the History, Examination, Assessment and Plan documented above with any addition or exceptions noted below. Patient improved, pain well controlled. Continue post op recs from Surgery. Continue PT. 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
[2020-01-08] MEDS: HYDROcodone/Acetaminophen 10/325 mg Tablet PO PRN ×2 (16:30→20:01)
[2020-01-08] MEDS ORDERED: Simethicone Chewable 80 MG TAB PO PRN (18:15)
[2020-01-08] MEDS ORDERED: HYDROcodone/Acetaminophen 10/325 mg Tablet PO PRN (18:15)
[2020-01-08] MEDS ORDERED: Cepastat Lozenges 1 LOZ PO PRN (18:15)
[2020-01-08] MEDS ORDERED: Ondansetron ODT 4 MG TAB PO PRN (18:15)
--- NOTE | 2020-01-08 18:39 | PRG ---
DATE OF SERVICE: 01/08/2020 SUBJECTIVE: Victor Hugo Heller is status post 01/03/2020 laparotomy and closure of small bowel perforation. He is convalescing, trying to gain strength to go to rehab or home. He is tolerating his diet. He is having bowel movements. He has no new complaints. OBJECTIVE: VITAL SIGNS: Temperature 99.1 degrees, pulse 71, and blood pressure 143/93. LUNGS: Clear to auscultation. CARDIAC: Regular rate and rhythm without murmur or gallop. ABDOMEN: Soft. Wound VAC in place. ASSESSMENT AND PLAN: Overall, the patient is doing well. We will continue wound care. Job ID: [id number]
[2020-01-08] MEDS ORDERED: Metoprolol Tartrate 100 MG TAB PO SCH ×2 (21:00→23:00)
[2020-01-08] MEDS: Ibuprofen 800 MG TAB PO SCH (21:43)
[2020-01-08] MEDS: Ivabradine 5 MG TAB PO SCH (23:04)
[2020-01-08] MEDS: Clotrimazole 1 % Cream 30 GM TUBE TOP SCH (23:04)
[2020-01-08] MEDS: Meclizine HCl 25 MG TAB PO SCH (23:05)
[2020-01-09] MEDS: cloNIDine 0.1 MG TAB PO SCH ×2 (00:22→05:28)
[2020-01-09] MEDS: Cephalexin 250 MG CAP PO SCH ×3 (05:38→17:54)
[2020-01-09] MEDS ORDERED: Hydrochlorothiazide 25 MG TAB PO SCH (09:00)
[2020-01-09] MEDS: Docusate 100 MG CAP PO SCH ×2 (09:04→21:53)
[2020-01-09] MEDS: Metoprolol Tartrate 100 MG TAB PO SCH ×2 (09:05→21:54)
[2020-01-09] MEDS: Gabapentin 300 MG CAP PO SCH ×3 (09:05→21:53)
[2020-01-09] MEDS: Meclizine HCl 25 MG TAB PO SCH (09:06)
[2020-01-09] MEDS: Ibuprofen 800 MG TAB PO SCH ×4 (09:07→21:53)
[2020-01-09] MEDS: levETIRAcetam 500 MG TAB PO SCH ×2 (09:08→21:54)
[2020-01-09] MEDS: Dexamethasone 4 MG TAB PO SCH ×2 (09:10→21:53)
[2020-01-09] MEDS: Ivabradine 5 MG TAB PO SCH (09:10)
--- NOTE | 2020-01-09 09:11 | PDOC.FM ---
Addendum entered and electronically signed by Joon Paul MD 01/09/20 11:35 : HTN: will hold HCTZ and clonidine. to be restarted if BP starts to increase once again and is uncontrolled on metoprolol Original Note: - Subjective Subjective: Pt doing well, reports working hard with PT, desires to not take any additional BP meds to metoprolol. - Objective Vital Signs & Weight: Vital Signs (12 hours) Temp Pulse Resp BP Pulse Ox 01/09/20 08:06 97.8 F 59 L 18 129/89 95 01/09/20 04:00 98.4 F 69 16 135/86 95 01/08/20 23:56 98.6 F 88 16 129/83 Weight Admit Weight 96.162 kg Weight 96.4 kg Most Recent Monitor Data Heart Rate from ECG 80 NIBP 109/64 NIBP BP-Mean 79 Respiration from ECG 20 SpO2 97 I&O: 01/08/20 01/09/20 01/10/20 06:59 06:59 06:59 Intake Total 2205 1800 Output Total 4350 2400 Balance -2145 -600 Result Diagrams: 01/08/20 05:50 01/06/20 05:49 Phys Exam - Physical Examination Constitutional: NAD HEENT: moist MMs, sclera anicteric Neck: supple, full ROM Respiratory: no wheezing, clear to auscultation bilateral Cardiovascular: RRR, no significant murmur Gastrointestinal: non-tender, no distention Musculoskeletal: no edema, pulses present Neurological: non-focal, normal sensation Psychiatric: normal affect, A&O x 3 Skin: no rash, normal turgor Dx/Plan (1) Bowel perforation Code(s): K63.1 - PERFORATION OF INTESTINE (NONTRAUMATIC) Status: Acute (2) Sepsis Code(s): A41.9 - SEPSIS, UNSPECIFIED ORGANISM Status: Acute (3) Metastasis to brain Code(s): C79.31 - SECONDARY MALIGNANT NEOPLASM OF BRAIN Status: Acute (4) Sinus tachycardia Code(s): R00.0 - TACHYCARDIA, UNSPECIFIED Status: Acute (5) Testicular malignant neoplasm Code(s): C62.90 - MALIG NEOPLASM OF UNSP TESTIS, UNSP DESCENDED OR UNDESCENDED Status: Acute - Plan Plan: dispo 01/08: Pt is stable for DC, after discussion with Dr. Calhoun Pt may benefit the most planning DC to [facility] with plans to transition to rehab once he has built up his strength enough for maximal benefit. Dispo pending placement. Sepsis 2/2 Bowel Perforation s/p ex lap 01/02: A- stable. peritoneal Cx showing staph aureus only R to pipercillin. procal downtrends after being switched from zosyn to PO keflex. Per pt Talat intends to DC with wound vac in place. he is extubated since 01/03 and off pressors since 01/03. s/p ex lap and repair of twisted bowel hernia. BCx NG48h P- continue PO keflex -f/u surgery recs -dispo pending placement, CM consulted Stage IV Testicular Cancer: A- was supposed to start round 3 Chemo 01/05 P- continue home keppra, namenda, and steroids -f/u onc recs Hyponatremia likely hypovolemic: -resolved Hypochloremic Metabolic Acidosis: -resolved Sinus Tachycardia -baseline 110's, mother reports recent med adjustment by cardiology but unsure of current meds. Regardless will resume metoprolol and corlanor as BPs and HR increase more. -continue metoprolol at half prior dose 100mg BID HTN: -restarting metoprolol, HCTZ and clonidine restarted by surgery. Clonidine held by pt request. If his BPs increase in the future will need to restart. GI PPx: Omeprazole DVT PPx: lovenox Code status: Full Addendum - Attending - Attending Attestation Date/Time: 01/09/20 [id number] I personally evaluated the patient and discussed the management with Dr. Paul. I agree with the History, Examination, Assessment and Plan documented above with any addition or exceptions noted below. Patient stable. General sugery on board for post op care. Hoping to get back to rehab or SNF in near future. Testicular cancer treatment put on hold for now, but hcg levels reassuring at this time. Needs aggresssive therapy, pain control as needed.
[2020-01-09] MEDS: Polyethylene Glycol 3350 17 GM Packet PO SCH (09:13)
[2020-01-09] MEDS: Enoxaparin Sodium 30 MG/0.3 ML SYRINGE SC SCH (09:19)
[2020-01-09] MEDS: Clotrimazole 1 % Cream 30 GM TUBE TOP SCH ×2 (09:19→22:01)
--- NOTE | 2020-01-09 09:46 | PRG ---
DATE OF SERVICE: 01/09/2020 SUBJECTIVE: Victor Hugo Heller is doing well today. He has been moved to room 130 for a bigger room and a shower. He is feeling better, yesterday with therapy, he was able to sit at the bedside. Today, he is able to stand and transfer. Temperature 97.8 degrees, pulse 59, blood pressure 129/89, respiratory rate 18. The patient's mother has questions about his medications. I have talked to Dr. Paul about these and followed his instructions. I have told the mother that we need to continue the Keppra and probably the Namenda and she can talk with the prescribing doctors as an outpatient regarding those medications. Overall, he is doing well, having good bowel function, eating well. He is mainly here for therapy, deciding whether he should go to a correction or rehab or home. OBJECTIVE: LUNGS: Clear to auscultation. CARDIAC: Regular rate and rhythm without murmur or gallop. ABDOMEN: Soft and nontender. LABORATORIES: None this morning. ASSESSMENT AND PLAN: Status post laparotomy for bowel perforation. We will continue oral antibiotics for another 2 days. He is 6 to 7 days postoperatively. His leak has been controlled. His abdominal cavity washed out. He can probably stop the antibiotics in the next day or two, discontinue the cephalexin. Job ID: [id number]
[2020-01-09] MEDS: HYDROcodone/Acetaminophen 10/325 mg Tablet PO PRN (14:48)
[2020-01-10] MEDS: Melatonin 3 MG TAB PO PRN (00:04)
[2020-01-10] MEDS: Cephalexin 250 MG CAP PO SCH ×4 (00:04→18:21)
[2020-01-10] MEDS: Scopolamine 1.5 mg/72 hour Patch TD SCH (00:04)
--- NOTE | 2020-01-10 06:29 | PDOC.FM ---
- Subjective Subjective: Father in the room. Davon is currently resting. Father reports his spirits have been good, he is feeling much better and getting stronger. He is able to stand for a few seconds with PT and able to sit up on the edge of the bed on his own. - Objective MAR Reviewed: Yes Vital Signs & Weight: Vital Signs (12 hours) Temp Pulse Resp BP Pulse Ox 01/10/20 00:40 97 01/09/20 20:00 97.7 F 84 20 129/69 97 Weight Admit Weight 96.162 kg Weight 96.4 kg Most Recent Monitor Data Heart Rate from ECG 80 NIBP 109/64 NIBP BP-Mean 79 Respiration from ECG 20 SpO2 97 I&O: 01/08/20 01/09/20 01/10/20 06:59 06:59 06:59 Intake Total 2205 1800 1440 Output Total 4350 2400 Balance -2145 -600 1440 Result Diagrams: 01/08/20 05:50 01/06/20 05:49 Phys Exam - Physical Examination Constitutional: NAD HEENT: moist MMs Neck: supple Respiratory: no wheezing, clear to auscultation bilateral Cardiovascular: RRR, no significant murmur Gastrointestinal: soft, non-tender Musculoskeletal: no edema Neurological: moves all 4 limbs Sitting up in bed. Psychiatric: normal affect, A&O x 3 Skin: normal turgor Dx/Plan - Plan Plan: 19yo male with stage IV testicularcancer admitted for sepsis 2/2 bowel perforation Sepsis 2/2 Bowel Perforation s/p ex lap and repair on 01/02 - VSS. Extubated 01/03 - Peritoneal Cx: staph aureus only R to pipercillin. Per pt Talat intends to DC with wound vac in place. s/p ex lap and repair of twisted bowel hernia. BCx NG48h - Continue PO keflex for one more day per surgery - f/u surgery recs - dispo pending placement at [facility] Johnston consulted Stage IV Testicular Cancer - Was to start round 3 Chemo 01/05. Holding per onc. - Continue home keppra, namenda, and steroids - Onc consulted, apprec recs Sinus Tachycardia - Baseline 110's. Currently 80's. - Continue metoprolol HTN - Continue metoprolol - Hold HCTZ and clonidine. If his BPs increase in the future will need to restart. Hyponatremia likely hypovolemic, resolved Hypochloremic Metabolic Acidosis, resolved GI PPx: Omeprazole DVT PPx: lovenox Code status: Full Dispo: SNF placement Addendum - Attending - Attending Attestation Date/Time: 01/10/20 2017 I personally evaluated the patient and discussed the management with Dr. Whipple I agree with the History, Examination, Assessment and Plan documented above with any addition or exceptions noted below - Patient without complaints. Ambulated few steps with PT. Aefebrile VSS. A/P: 1) Sepsis secondary to perforated bowel - resolved. 2) Stage 4 testicular cancer- chemo on hold till abdominal wound healed. 3) Deconditioning - approved for rehab. D/c to rehab today.
[2020-01-10] MEDS: Enoxaparin Sodium 30 MG/0.3 ML SYRINGE SC SCH (08:43)
[2020-01-10] MEDS: Dexamethasone 4 MG TAB PO SCH ×2 (08:44→19:59)
[2020-01-10] MEDS: Ibuprofen 800 MG TAB PO SCH ×4 (08:44→19:59)
[2020-01-10] MEDS: Gabapentin 300 MG CAP PO SCH ×3 (08:44→19:58)
[2020-01-10] MEDS: levETIRAcetam 500 MG TAB PO SCH ×2 (08:45→19:59)
[2020-01-10] MEDS: Metoprolol Tartrate 100 MG TAB PO SCH ×2 (08:45→19:58)
[2020-01-10] MEDS: Docusate 100 MG CAP PO SCH ×2 (08:45→19:59)
[2020-01-10] MEDS: Clotrimazole 1 % Cream 30 GM TUBE TOP SCH ×2 (08:46→20:00)
[2020-01-10] MEDS: Polyethylene Glycol 3350 17 GM Packet PO SCH (08:46)
--- NOTE | 2020-01-10 09:16 | PRG ---
DATE OF SERVICE: 01/10/2020 SUBJECTIVE: The patient is doing well. He is eating. He is going to bathroom okay. Pain is controlled. He is afebrile, pulse 67, blood pressure 130/89. He appears comfortable. His abdomen is soft and nondistended, wound VACs in place. There is no cellulitis. Hemoglobin is stable. ASSESSMENT: Doing well. PLAN: Discharge planning per family and Case Management. Job ID: [id number]
--- NOTE | 2020-01-10 14:45 | PRG ---
DATE OF SERVICE: 01/09/2020 TRANSITION OF CARE NOTE: RESIDENT: Joon Pual M.D. I personally saw the patient for a total of 6 days. HISTORY OF PRESENT ILLNESS/HOSPITAL COURSE: This is a 19-year-old male with history of testicular cancer with metastases to the brain, lungs, liver, and spleen on chemotherapy, who presented to the hospital and was admitted for septic shock secondary to bowel perforation. The patient was taken back for exploratory laparotomy and was found to have perforation secondary to abdominal hernia. The patient had successful washout and reattachment of bowel and was placed on Zosyn with wound VAC in place. The patient did well on Zosyn. Eventually, peritoneal cultures grew out Staph, which was sensitive to many antibiotics, so the patient was transitioned to p.o. Keflex and also did well on this. Clinically, he had improvement and improvement of strength with PT. Laboratory-hunter, he also had a downtrending of procalcitonin to appropriate levels. The patient had negative blood cultures. Of note, the patient's hospitalization was also significant for hyponatremia, which was hypovolemic and resolved as well as hypochloremic metabolic acidosis which also resolved with IV fluids. Of note, the patient's history of sinus tachycardia was also improved during this hospitalization suggesting possibly being secondary to underlying GI issues. To control heart rate, the patient was restarted on half his normal dose of metoprolol and Corlanor was held. The patient's hypertension was also controlled with metoprolol alone and it was not needed to be started with hydrochlorothiazide or clonidine. At the time of this note, the patient's disposition is stable and ready for discharge, however he is pending placement. Current placement plan is to be discharged to the [facility] with [facility], physical therapy, and occupational therapy. Plan is to transition to rehab once he is strong enough to gain maximal benefit from rehab. Job ID: [id number]
--- NOTE | 2020-01-10 15:30 | PDOC.MOPN ---
Interval History: walked in room with walker today. - Vital Signs Vital Signs: Vital Signs (12 hours) Temp Pulse Resp BP Pulse Ox 01/10/20 08:00 97 01/10/20 07:51 97.7 F 67 18 130/89 96 Weight Admit Weight 212 lb Weight 212 lb 8.41 oz Most Recent Monitor Data Heart Rate from ECG 80 NIBP 109/64 NIBP BP-Mean 79 Respiration from ECG 20 SpO2 97 - Physical Exam General: Alert HEENT: Atraumatic, PERRLA, EOMI, Mucous membr. moist/pink Lungs: Clear to auscultation, Normal air movement Cardiovascular: Regular rate, Normal S1, Normal S2, No murmurs, Gallops, Rubs Abdomen: Other (wound vac) Extremities: Other Neurological: Normal speech - Labs Result Diagrams: 01/08/20 05:50 01/06/20 05:49 Status: lab reviewed by me A/P - Problem (1) Bowel perforation Current Visit: Yes Code(s): K63.1 - PERFORATION OF INTESTINE (NONTRAUMATIC) Status: Acute (2) Sepsis Current Visit: Yes Code(s): A41.9 - SEPSIS, UNSPECIFIED ORGANISM Status: Acute (3) Testicular malignant neoplasm Current Visit: No Code(s): C62.90 - MALIG NEOPLASM OF UNSP TESTIS, UNSP DESCENDED OR UNDESCENDED Status: Acute - Plan Plan: cleared for rehab chemo on hold until abdominal wound healed Follow-up outpatient
[2020-01-10] MEDS: HYDROcodone/Acetaminophen 10/325 mg Tablet PO PRN (18:46)
[2020-01-10 20:17] VITALS: BP 137/78; TEMP 97.8
--- NOTE | 2020-01-12 06:19 | PQF ---
KAT LANDAVERDE JOHN A JR MD [id number] CLINICAL DOCUMENTATION CLARIFICATION FORM: POST DISCHARGE Addendum to original discharge summary date: ____ Late entry note date: __ DATE: 01/12/20 ATTN: Braydon Gilliland Please exercise your independent, professional judgment in responding to the clarification form. Clinical indicators are provided on the bottom of this form for your review Can you please further clarify the diagnosis of the patient? Please check appropriate box(s): [ ] Acute Respiratory Failure: [ ] with Hypoxia[ ] with Hypercapnia [ ] Acute On Chronic Respiratory Failure: [ ] with Hypoxia [ ] with Hypercapnia [ ] Acute Respiratory Failure due to: (etiology) [ ] Chronic Respiratory Failure only [ ] with Hypoxia [ ] with Hypercapnia [ ] Hypoxia [ ] No Respiratory failure [ ] Other diagnosis please specify [ ] Unable to determine In addition, please specify: Present on Admission (POA): [ ] Yes [ ] No [ ] Unable to determine For continuity of documentation, please document condition throughout progress notes and discharge summary. Thank You. CLINICAL INDICATORS - SIGNS / SYMPTOMS / LABS PN 01/04 Dr. Ann pg.1-status post respiratory failure, requiring mechanical ventilation Family H and P pg.2- VS BP 98/68, HR 122, RR 22, Tmax 100.4, Pox: 93% on mechanical vent Consult Dr. Lamb pg.1- blood gas is not entered in the computer but his PH was 7.22 post operatively. I am sure his acid-base disorder is improving Consult Dr. 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 Lamb 01/03 Mechanical ventilation Oxygen supplementation (This form is maintained as a part of the permanent medical record) 2014 [employer]. All Rights Reserved [email or web address]
--- NOTE | 2020-01-12 10:31 | DIS ---
DATE OF ADMISSION: 01/03/2020 DATE OF DISCHARGE: 01/10/2020 RESIDENT: Vannesa Whipple, PGY-II. DISCHARGE ATTENDING: Uyen Murphy MD PROCEDURES: Abdominal x-ray, 01/03/2020. Dilated loops of small bowel in the right abdomen, which is overall nonspecific on this radiographic exam. Recent CT demonstrated dilated loops of small bowel as well as thick-wall loops of small bowel in the left abdomen. Free intraperitoneal gas and fluid are seen in the abdomen on prior CT exam, suggesting perforated viscus. Chest x-ray, 01/03/2020, central line appears in adequate position. CONSULTATIONS: 1. General Surgery, Dr. Gilliland. 2. Pulmonology/Critical Care, Dr. Lamb. 3. Oncology, Dr. Brown. DISCHARGE DIAGNOSIS: 1. Sepsis 2/2 Bowel Perforation s/p ex lap and repair SECONDARY DIAGNOSIS: 1. Stage IV Testicular Cancer 2. Sinus Tachycardia 3. HTN 4. Hyponatremia likely hypovolemic, resolved 5. Hypochloremic Metabolic Acidosis, resolved DISCHARGE MEDICATIONS: 1. Tessalon Perles 200 mg b.i.d. p.r.n. 2. Calcium carbonate 1000 mg p.o. q.6 hours p.r.n. 3. Lotrimin 1% cream 1 g topical b.i.d. 4. Dexamethasone 4 mg p.o. b.i.d. 5. Benadryl 25 mg p.o. q.3 hours p.r.n. 6. Docusate sodium 100 mg capsule b.i.d. 7. Doxycycline 100 mg p.o. b.i.d. x10 days (new). 8. Gabapentin 300 mg p.o. t.i.d. 9. Hydrocodone 1 to 2 tablets p.o. q.4 hours 10 mg/325 mg. 10. Ibuprofen 800 mg p.o. q.i.d. 11. DuoNeb 3 mL nebulized q.4 hours p.r.n. 12. Keppra 500 mg p.o. b.i.d. 13. Melatonin 9 mg p.o. at bedtime p.r.n. 14. Namenda 10 mg p.o. b.i.d. 15. Metoprolol tartrate 100 mg b.i.d. 16. Zofran 4 mg q.6 hours p.r.n. 17. Protonix 40 mg daily. 18. Polyethylene glycol 3350, 1 g p.o. daily. 19. Scopolamine 1.5 mg transdermally q.3 days p.r.n. 20. Simethicone 80 mg t.i.d. p.r.n. 21. Ambien 5 mg at bedtime p.r.n. DISCONTINUED MEDICATIONS: None. PROCEDURES: 1. Left subclavian triple-lumen catheter placement. 2. Exploratory laparotomy, lysis of adhesions, repair of small-bowel perforation , biopsy of small bowel. Surgical specimen of omentum showed fibroadipose tissue with significant acute inflammation, no malignancy. Small bowel biopsy showed fibroconnective tissue with significant acute inflammation, no malignancy. HISTORY OF PRESENT ILLNESS AND HOSPITAL COURSE: Mr. Victor Hugo Heller is a 19-year- old male with past medical history of stage IV testicular cancer with mets to brain, liver, lungs, spleen, as well as hypertension and sinus tachycardia, presented from rehab to the ED for worsening abdominal pain. He was found on CT with perforated small bowel. Dr. Gilliland, General Surgery, was consulted and the patient was taken back for repair. He was given 2 doses of 4 mg IV morphine, 2 L normal saline, Zosyn in the ED. White blood cell count was noted to be elevated at 29. Peritoneal swab showed Staph aureus, resistant to amoxicillin and Piperacillin from surgery. Blood cultures were negative. The patient became hypotensive, Levophed through the left subclavian was started. He received a stress dose of Solu-Cortef and albumin as well as 2 L of normal saline in the ED. He was noted to be hyponatremic of 130, this resolved the next day to 136, followed by 139 after fluid resuscitation. He was noted to have initial prolactin, 15.1, 0.7 on discharge. Lactic acid 3.1, 2.8. Stage IV testicular cancer. He is continued on Keppra, Namenda, and steroids. Dr. Brown was consulted. He was supposed to start round 3 chemo within a couple of days, however, this was held off until bowel heals. In regard to his sinus tachycardia, he had previously been low 100s on Corlanor and metoprolol, but his heart rate was very well controlled during hospitalization, even with working with physical therapy and standing, it would stay in the 80s with just metoprolol 100 mg b.i.d. In regard to his hypertension, he was initially hypotensive, requiring Levophed, his blood pressures never creeped up to hypertensive ranges, 120s to 130s systolic at discharge. His home blood pressure medications can be restarted at the discretion of his retirement or rehab doctor. Physical and Occupational Therapy were consulted and he showed a great improvement in strength and his overall morale improved, he was in very good spirits and was discharged and able to walk with a walker to the bathroom and to his chair and back. It was recommended that he return back to rehab; however, discussion with the admitting physician there revealed that he might be a better candidate after going to a retirement for some time to gain some strength back before coming to rehab. This was cleared with his insurance, and the patient was discharged to [facility] for retirement. DISPOSITION: Stable. DISCHARGE INSTRUCTIONS: 1. Location: [facility]. 2. Activity with assist. 3. Diet, regular. 4. Followup: Follow up with PCP once discharged, Dr. Avila at [facility]. Follow up with [facility] attending physician. Follow up with Dr. Gilliland and Dr. Brown as directed per their recommendations. Job ID: [id number] [facility]
== END 2020-01-10 21:03 | DRG 853 ==
LOC: ERS 17:56 → SDC/OP 21:04 → CCU 22:37 → ONC 01-05 08:27
PROVIDERS: ADMIT Surgery; ATTEND Surgery
PROC: 0WQF0ZZ Repair Abdominal Wall, Open Approach (ICD-10-PCS; principal; 2020-01-03)
PROC: 0DBU0ZZ Excision of Omentum, Open Approach (ICD-10-PCS; 2020-01-03)
PROC: 0DB80ZZ Excision of Small Intestine, Open Approach (ICD-10-PCS; 2020-01-03)
PROC: 02HV33Z Insertion of Infusion Device into Superior Vena Cava, Percutaneous Approach (ICD-10-PCS; 2020-01-03)
PROC: 3E033XZ Introduction of Vasopressor into Peripheral Vein, Percutaneous Approach (ICD-10-PCS; 2020-01-03)
PROC: 30283B1 Transfusion of Nonautologous 4-Factor Prothrombin Complex Concentrate into Vein, Percutaneous Approach (ICD-10-PCS; 2020-01-05)
DX: A41.9 Sepsis, unspecified organism (principal); K63.1 Perforation of intestine (nontraumatic); K65.9 Peritonitis, unspecified; R65.21 Severe sepsis with septic shock; C78.02 Secondary malignant neoplasm of left lung; C78.01 Secondary malignant neoplasm of right lung; C78.7 Secondary malignant neoplasm of liver and intrahepatic bile duct; C79.31 Secondary malignant neoplasm of brain; I42.8 Other cardiomyopathies; C78.89 Secondary malignant neoplasm of other digestive organs; E87.1 Hypo-osmolality and hyponatremia; E87.2 Acidosis; C77.9 Secondary and unspecified malignant neoplasm of lymph node, unspecified; K46.0 Unspecified abdominal hernia with obstruction, without gangrene; I10 Essential (primary) hypertension; E87.8 Other disorders of electrolyte and fluid balance, not elsewhere classified; C62.90 Malignant neoplasm of unspecified testis, unspecified whether descended or undescended; Z86.73 Personal history of transient ischemic attack (TIA), and cerebral infarction without residual deficits; Z79.899 Other long term (current) drug therapy
CPT/HCPCS: 36415; 36416; 36430; 71045; 74018; 74177; 80048; 83605; 84145; 84702; 85014; 85018; 85025; 86850; 86900; 86901; 87040; 87070; 87077; 87186; 87205; 88305; 88307; 88342; 93005; 93010; 94002; 94003; 96365; 96375; 96376; J0360; J1650; J1720; J1885; J2001; J2270; J2370; J2405; J2543; J2704; J3010; J3490; J8540; P9016; P9045; Q9967; S0028

== ENCOUNTER 2020-01-21 11:32 | Inpatient (IN) | payer OTHER ==
[~2020-01-21 11:32] MED LIST changes: -EPHEDRINE 25 MG/5 ML SYRINGE ONE; +Iopamidol-370 76% 500 ML 1 ML ONE; -Lidocaine 1% PF 5 ML VIAL ONE; -PHENYLEPHRINE-NS 100 MCG/ML 10 ML SYRINGE ONE; -Rocuronium Bromide 10 MG/ML (10ML VIAL) ONE; -Succinylcholine Chloride 20 MG/ML 10 ml SYRINGE FS ONE
[2020-01-21] MEDS ORDERED: Acetaminophen 500 MG TAB ONE (11:56)
--- NOTE | 2020-01-21 12:12 | RAD ---
RADIOGRAPH CHEST 1 VIEW: DATE: 01/21/2020 HISTORY: 19-year-old male status post laparotomy for bowel perforation. COMPARISON: 01/19/2020 FINDINGS: Again noted is the large number of bilateral noncalcified pulmonary nodules and masses, ranging from very small to moderately large. Right subclavian implantable vascular access port and left subclavian central line remain. No evidence of pneumoperitoneum. There are no new consolidations, pul monary edema, pneumothorax, or cardiomegaly. The lateral costophrenic angles are sharp. No interval change. IMPRESSION: 1. No acute cardiopulmonary findings. 2. Severe bilateral pulmonary metastatic disease.
[2020-01-21 12:42] LABS: #Eosinphils 0.2 thou/uL (0.0-0.7); #Lymphocytes 2.3 thou/uL (1.20-3.40); #Monocytes 1.4 thou/uL (0.11-0.59); #Neutrophils 8.4 thou/uL (1.40-6.50); %Basophils 0.4 % (0.0-1.0); %Eosinophils 1.4 % (0.0-10.0); %Lymphocytes 18.4 % (21.0-51.0); %Monocytes 11.3 % (0.0-10.0); %Neutrophils 68.5 % (42.0-75.0); Mean Corpuscular HGB CONC 32.7 g/dL (32.0-36.0); Mean Corpuscular Hemoglobin 30.2 pg (27.0-31.0); Mean Corpuscular Volume 92.6 fL (78.0-98.0); Mean Platelet Volume 9.2 fL (7.4-10.4); Platelet Count 197 thou/uL (130-400); RBC Distribution Width 18.8 % (11.5-14.5); Red Blood Cell (RBC) Count 3.32 mill/uL (4.70-6.10); White Blood Cell (WBC) Count 12.3 thou/uL (4.8-10.8)
[2020-01-21 12:50] LABS: INR-International Normal Ratio 1.1; PTT 31.1 SEC (22.9-36.1); Prothrombin Time 13.9 sec (12.0-14.7)
[2020-01-21 13:19] LABS: ALT (SGPT) 29 U/L (8-55); AST (SGOT) 16 U/L (5-34); Albumin 3.4 g/dL (3.5-5.0); Alkaline Phosphatase 68 U/L (40-110); Anion Gap 14 mmol/L (10-20); BUN (Urea Nitrogen) 22 mg/dL (8.9-20.6); CK (CPK) Less than 9 U/L (30-200); Calc. Creatinine Clearance 0 mL/min (70-130); Carbon Dioxide 24 mmol/L (22-29); Chloride 102 mmol/L (98-107); Estimated GFR-MDRD Greater than 90; Globulin 3.1 g/dL (2.4-3.5); Glucose 87 mg/dL (70-105); Potassium 4.2 mmol/L (3.5-5.1); Protein, Total 6.5 g/dL (6.0-8.3); Sodium 136 mmol/L (136-145)
--- NOTE | 2020-01-21 14:17 | PDOC.FPRHP ---
- History of Present Illness Chief Complaint: pelvic pain/fever History of Present Illness: Mr. Heller is a 19 yo male well known to our service with a hx of stage IV testicular ca and recent bowel perf with xlap he is presenting from [facility] after 3 days of abdominal pain/fever. CBC , CMP, U/BCx obtained, was started on vanc/zosyn on friday. was still not feeling better so Dr. Sharif recommended trip to ED. Family does report that he has not been himself for the past week, feeling tired and not eating as much. otherwise no new complaints. taking medicines as prescribed and until this week was improving in strength. ED Course: at [facility]: cbc, cmp, b/ucx. vanc and zosyn began at [facility] ED:cbc, cmp, LA, UA, CXR, B/UCx 1L NS, tylenol - Allergies/Adverse Reactions Allergies Allergy/AdvReac Type Severity Reaction Status Date / Time No Known Allergies Allergy Verified 01/03/20 22:59 - Home Medications Medication Instructions Recorded Confirmed Type Benzonatate [Tessalon] 200 mg PO BIDPRN PRN cap 12/24/19 01/04/20 Rx Cepastat Lozenges 1 tanya PO Q2H PRN tanya 12/24/19 01/04/20 Rx Gabapentin [Neurontin] 300 mg PO TID cap 12/24/19 01/04/20 Rx HYDROcodone Bit/APAP 10/325 [[place]] 1 tab PO Q4H PRN tab 12/24/19 01/04/20 Rx HYDROcodone Bit/APAP 10/325 [[place]] 2 tab PO Q4H PRN tab 12/24/19 01/04/20 Rx Melatonin 9 mg PO HS PRN tab 12/24/19 01/04/20 Rx Memantine HCl [Namenda] 10 mg PO BID tab 12/24/19 01/04/20 Rx Ondansetron [Zofran ODT] 4 mg PO Q6H PRN tab 12/24/19 01/04/20 Rx levETIRAcetam [Keppra] 500 mg PO BID tab 12/24/19 01/04/20 Rx Bisacodyl 10 mg RC DAILY PRN 01/04/20 01/04/20 History Calcium Carbonate 1,000 mg PO Q6HR PRN 01/04/20 01/04/20 History Clotrimazole 1% Cream [Lotrimin 1% 1 gm TOP BID 01/04/20 01/04/20 History Cream] Dexamethasone 4 mg PO BID 01/04/20 01/04/20 History Docusate Sodium 100 mg PO BID 01/04/20 01/04/20 History Ibuprofen 800 mg PO QID 01/04/20 01/04/20 History Pantoprazole [Protonix] 40 mg PO DAILY 01/04/20 01/04/20 History Polyethylene Glycol 3350 [Base 1 gm PO DAILY 01/04/20 01/04/20 History B,Polyethylene [id number]] Simethicone [Gas Relief] 80 mg PO TID PRN 01/04/20 01/04/20 History Metoprolol Tartrate 100 mg PO BID 01/08/20 01/08/20 History Dexamethasone [Decadron] 4 mg PO BID tab 01/10/20 Rx Doxycycline [Vibramycin] 100 mg PO BID 10 Days #20 cap 01/10/20 Rx Ipratropium/Albuterol Sulfate 3 ml NEB Q4H PRN neb 01/10/20 Rx [DuoNeb] Metoprolol Tartrate [Lopressor] 100 mg PO BID tab 01/10/20 Rx Scopolamine [Transderm Scop] 1.5 mg TD Q3D PRN patch 01/10/20 Rx Zolpidem Tartrate [Ambien] 5 mg PO HSPRN PRN tab 01/10/20 Rx diphenhydrAMINE [Benadryl] 25 mg IM Q3H PRN vial 01/10/20 Rx diphenhydrAMINE [Benadryl] 25 mg PO Q3H PRN cap 01/10/20 Rx - History PMHx: Stage IV Testicular Cancer, HTN, sinus tachycardia PSHx: Orchiectomy, ex-lap w/ repair of perforation of abdominal viscus FHx: noncontributory Social: denies tobacco, alcohol or drug use. - Review of Systems General: reports: fever/chills, weight/appetite/sleep changes, fatigue. denies : night sweats Eyes: denies: vision changes ENT: denies: nasal congestion Respiratory: denies: cough, congestion, shortness of breath Cardiovascular: denies: chest pain, edema Gastrointestinal: reports: nausea. denies: vomiting, diarrhea Genitourinary: denies: incontinence, dysuria Skin: denies: rashes Musculoskeletal: reports: pain, arthritis/arthralgias. denies: tenderness, stiffness Neurological: denies: numbness, syncope - Vital signs 107/80, MAP: 89, Pulse: 98, Resp: 26, Temp: 99.2 (Oral), Pain: 2, O2 sat: 95 on (Room Air) - Physical Exam Constitutional: NAD, awake, alert and oriented HEENT: normocephalic and atraumatic, EOMI, conjunctiva clear, grossly normal vision, grossly normal hearing, MMM Neck: supple, trachea midline, no LAD Chest: no-tender to palpation, no lesions Heart: RRR, normal S1/S2 Lungs: CTAB, no respiratory distress, good air movement Abdomen: soft, no masses/distention, other (TTP over RLQ with deep palpation, absent bowel sounds, midline abdominal wound with wound vac in place. no purulence or erythema) Musculoskeletal: normal structure, normal tone, ROM grossly normal Neurological: no focal deficit, CN II-XII intact, normal sensation Skin: no rash/lesions, good turgor Heme/Lymphatic: no unusual bruising or bleeding Psychiatric: normal mood and affect FMR H&P: Results - Labs Result Diagrams: 01/21/20 12:29 01/21/20 12:29 Lab results: WBC 12.3 thou/uL (4.8-10.8) H 01/21/20 12: Hgb 10.0 g/dL (14.0-18.0) L 01/21/20 12: Hct 30.7 % (42.0-52.0) L 01/21/20 12: MCV 92.6 fL (78.0-98.0) 01/21/20 12: Plt Count 197 thou/uL (130-400) 01/21/20 12: Neutrophils % 68.5 % (42.0-75.0) 01/21/20 12: Sodium 136 mmol/L (136-145) 01/21/20 12: Potassium 4.2 mmol/L (3.5-5.1) 01/21/20 12: Chloride 102 mmol/L (98-107) 01/21/20 12:29 Carbon Dioxide 24 mmol/L (22-29) 01/21/20 12:29 BUN 22 mg/dL (8.9-20.6) H 01/21/20 12:29 Creatinine 0.53 mg/dL (0.7-1.3) L 01/21/20 12:29 Glucose 87 mg/dL (70-105) 01/21/20 12:29 Lactic Acid 0.7 mmol/L (0.5-2.2) 01/21/20 12:29 Calcium 9.0 mg/dL (7.8-10.44) 01/21/20 12:29 Total Bilirubin 1.0 mg/dL (0.2-1.2) 01/21/20 12: AST 16 U/L (5-34) 01/21/20 12: ALT 29 U/L (8-55) 01/21/20 12: Alkaline Phosphatase 68 U/L (40-110) 01/21/20 12: Creatine Kinase Less than 9 U/L (30-200) L 01/21/20 12:29 Serum Total Protein 6.5 g/dL (6.0-8.3) 01/21/20 12: Albumin 3.4 g/dL (3.5-5.0) L 01/21/20 12:29 - Radiology Interpretation Chest x-ray Status: image reviewed by me (mets, stable from previous exam. no infiltrates noted) FMR H&P: A/P - Problem List (1) SIRS (systemic inflammatory response syndrome) Current Visit: Yes Status: Acute Code(s): R65.10 - SIRS OF NON-INFECTIOUS ORIGIN W/O ACUTE ORGAN DYSFUNCTION (2) Testicular malignant neoplasm Current Visit: No Status: Acute Code(s): C62.90 - MALIG NEOPLASM OF UNSP TESTIS, UNSP DESCENDED OR UNDESCENDED (3) H/O abdominal surgery Current Visit: Yes Status: Acute Code(s): Z98.890 - OTHER SPECIFIED POSTPROCEDURAL STATES (4) HTN (hypertension) Current Visit: Yes Status: Acute Code(s): I10 - ESSENTIAL (PRIMARY) HYPERTENSION - Plan SIRS - fever at rehab, elevated wbc. 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 Brown - continue home meds hx of bowel perf with xlap - midline abdominal incision healing, wound vac in place - wound care consulted to change out vac. - dressing changed yesterday. htn - hx of, reported as resolved - monitor bps. hold meds for now ppx: lovenox pcp: katia code: full dispo: admit to onc, further eval, continue broad spectrum abx FMR H&P: Upper Level - Plan Date/Time: 01/21/20 1415 I, [], have evaluated this patient and agree with findings/plan as outlined by software developer intern resident. Pertinent changes/additions are listed here. Addendum - Attending - Attending Attestation Date/Time: 01/21/20 0876 I personally evaluated the patient and discussed the management with Dr. Avery. I agree with the History, Examination, Assessment and Plan documented above with any addition or exceptions noted below. Patient with multiple recent hospitalizations related to metastatic testicular cancer and strangulated bowel with perforation due to omental hernia here with abdominal pain and fever x 3 days. Labs overall stable from previous. Cultures obtained by outside MD and started on broad spectrum abx. Due to recent post op state and wound vac presence, CT abdomen obtained. Further mgmt pending that result. He is currently without fever and does not appear septic. Continue broad spectrum abx and await culture results.
[2020-01-21 14:35] LABS: Bacteria/HPF None Seen HPF (None Seen); Bilirubin Negative (Negative); Blood, Urine Trace (Negative); Clarity Clear (Clear); Glucose, Urine (Dipstick) Normal (Negative); Leukocyte Negative Leu/uL (Negative); Nitrite Negative (Negative); Protein, Urine (Dipstick) Negative (Neg-Trace); RBC/HPF 0-3 HPF (0-3); Squamous Epithelial 0-3 HPF (0-3); Urobilinogen Normal mg/dL (Less than 2); WBC/HPF 0-3 HPF (0-3)
[2020-01-21] MEDS ORDERED: Ondansetron PF 4 MG/2 ML Vial IVP PRN (17:34)
[2020-01-21] MEDS ORDERED: HYDROcodone/Acetaminophen 7.5/325 mg Tablet PO PRN ×2 (17:34→17:39)
[2020-01-21] MEDS: cefTRIAXone\\ROCEPHIN 1 GM in Sodium Chloride 0.9% 100 ML IVPB SCH (17:59)
[2020-01-21] MEDS: Lactated Ringer's 1,000 ML IV SCH (18:17)
[2020-01-21 18:20] VITALS: BMI 26.4
[2020-01-21] MEDS: Vancomycin HCl 1.75 GM in Sodium Chloride 0.9% 500 ML IVPB SCH (18:29)
--- NOTE | 2020-01-21 19:14 | CT ---
CT ABDOMEN AND PELVIS WITH IV CONTRAST: 01/21/20 INDICATOINS: Abdominal pain with fever. History of testicular malignancy with pulmonary metastasis. This has been previously documented. COMPARISON: Comparison made to recent CT abdomen and pelvis 01/03/20. That exam revealed a small amount of free fl uid in the abdomen and a tiny pocket of free air in the left lower quadrant anteriorly. FINDINGS: Images through the lung bases again showed numerous pulmonary metastatic nodules which do not appear significantly changed from the recent exam of 01/03/20. No evidence of inflammatory infiltrate seen in the lung bases. No significant effusion. Images of the liver again show numerous small low density foci as described previously. There are low density lesions in the spleen which were noted previously along with splenic calcification. These fi ndings are stable. Pancreas, adrenal glands and kidneys unremarkable. On today's exam, the small bowel loops are normal caliber. There was mild small bowel dilatation of t he proximal small bowel on the prior study. This has resolved. On today's exam, there is an area of mesenteric haziness in the right mid abdomen which contacts smal l bowel loops and the right colon. This is new from the prior exam and is indeterminate. It may repre sent a focal area of inflammation. Mesenteritis is a consideration. No fluid or abscess collection is apparent. More inferior in the right lower quadrant is another inflammatory appearing density which involves th e cecum and distal ileum. The appendix is identified and appears separate and unremarkable. There sanjeev ears to be mural thickening and confluent loops of distal ileum which abuts the cecum which also show s mural thickening. There may be fluid collection at this site. No definite free air identified. Oral contrast would be of benefit to further assess this region. IMPRESSION: 1. Metastatic lesions again noted involving the lung bases, liver, and spleen as previously tierra cribed. 2. New area of hazy inflammatory change in the anterior mesentery of the right mid abdomen which is indeterminate as noted. 3. A more confluent inflammatory appearing process in the right lower quadrant which involves th e distal ileal loops and cecum. This does not appear to involve the appendix. Recommend surgical cons ultation and close follow-up. Follow-up with oral and possibly rectal contrast would be of benefit to separate out the bowel loops within this area of density. POS: AGW
--- NOTE | 2020-01-21 19:48 | PDOC.BPN ---
- Brief Progress Note CT abd resulted with results showing confluent inflammatory process in RLQ, indicating that a surgical consult would be appropriate. Called Dr. Luu with Gen Surg and he accepted the consult. Dr. Luu to update medicine team with surgical plan.
[2020-01-21] MEDS: levETIRAcetam 500 MG TAB PO SCH (20:44)
[2020-01-21] MEDS ORDERED: Acetaminophen 500 MG TAB PO PRN (21:07)
[2020-01-21] MEDS: Melatonin 3 MG TAB PO PRN (21:48)
[2020-01-22] MEDS: Vancomycin HCl 1.75 GM in Sodium Chloride 0.9% 500 ML IVPB SCH ×3 (01:16→17:44)
[2020-01-22] MEDS: Lactated Ringer's 1,000 ML IV SCH (01:16)
--- NOTE | 2020-01-22 02:08 | CON ---
DATE OF CONSULTATION: 01/21/2020 CONSULTING PHYSICIAN: Elena Avery, Family Practice resident. HISTORY OF PRESENT ILLNESS: The patient is an unfortunate 19-year-old white male. He was diagnosed in late October with metastatic testicular cancer. He has had a left orchiectomy performed by Dr. Brown. Subsequent studies reveal that he had widely metastatic disease involving his liver, his lungs, his brain, and his spleen. He had a cerebrovascular accident in November of this year. He subsequently underwent radiation therapy to his head. He and his mother deny any other radiation therapy, specifically they deny any radiation to his abdomen. He underwent chemotherapy and had a right subclavian MediPort placed. His last chemotherapy, his mother believes, was in the 1st week of December. On January 02, the patient presented with acute onset of abdominal pain and CT scan revealed evidence of bowel perforation with free air and fluid in the abdomen. He underwent laparotomy per Dr. Gilliland with the finding of a small bowel perforation secondary to an internal hernia caused by an omental band. The bowel was also noted to be thickened, which was felt to be consistent with radiation change (it turns out that the patient has had no abdominal radiation). Biopsies reveal no evidence of malignancy intraabdominal at that time. The patient was recovering from that laparotomy (almost 3 weeks ago) and had been transferred to the rehab center where he continued to undergo physical therapy. Over the past few days, he had a series of complaints involving discomfort involving his chest, his head, extremities. He specifically tells me he had pain everywhere except in his abdomen. He also was running fevers and laboratory studies showed significant leukocytosis. His white blood cell count on the was 24.7 (which is down from 28 on the ). The patient was placed on IV antibiotics on January 18 using Zosyn and vancomycin. Over the past couple of days, his white blood cell count decreased. He, however, just has not been feeling well and was returned to the emergency room for further evaluation. CT scan of the abdomen was obtained revealing an inflammatory foci in the right side of the abdomen. There is no evidence of free air or free fluid to suggest recurrent perforation. It is difficult to discern what is causing the acute process. The patient has continued to have fever up to 103. I was consulted for surgical input regarding his abdominal findings. PAST MEDICAL HISTORY: 1. Widely metastatic testicular cancer. 2. Cerebrovascular accident. 3. Recent history of hypertension. PAST SURGICAL HISTORY: 1. Orchiectomy. 2. Placement of a MediPort. 3. Exploratory laparotomy with repair of perforated small bowel and lysis of adhesion. MEDICATIONS: The patient is currently receiving vancomycin and Zosyn as well as series of other medications including metoprolol and Decadron. ALLERGIES: NO KNOWN DRUG ALLERGIES. PERSONAL AND SOCIAL HISTORY: He is single. He has no smoking history. Mother is present at bedside. REVIEW OF SYSTEMS: Otherwise unremarkable. FAMILY HISTORY: Noncontributory. PHYSICAL EXAMINATION: VITAL SIGNS: Current temperature is 99.2, but I suspect this will go higher as he feels febrile to touch currently. Pulse earlier was 111, blood pressure 116/65. GENERAL: He is resting comfortably in bed. He is alert and oriented x3. HEAD, EYES, EARS, NOSE, AND THROAT: Unremarkable. NECK: Supple. LUNGS: Clear to auscultation. CARDIAC: Regular rate and rhythm. ABDOMEN: Soft with normoactive bowel sounds. He has a wound VAC on his midline abdominal incision. He does have some [id number] tenderness to deeper palpation in the right mid and lower abdomen. EXTREMITIES: Unremarkable. LABORATORY DATA: As mentioned, his white blood cell count is 12 with a hemoglobin of 10. Chemistries reveal normal electrolytes. BUN and creatinine are essentially normal. Albumin is a little bit low at 3.4. ASSESSMENT: The patient with an inflammatory area within his right mid and lower abdomen seen on CT scan of uncertain etiology. There is no evidence of perforation. There is no bowel dilatation to suggest obstruction. Since he has not had recent chemotherapy and never had radiation therapy to this area, I am uncertain how this is related to his malignant process. Radiology has recommended possibly considering repeating CT scan with oral contrast. I would probably hold off and repeat this in a couple of days as long as he remains stable and for now, I would change him to a liquid diet and continue his IV antibiotics. I will continue to follow him with you. Job ID: [id number]
[2020-01-22] MEDS: Ondansetron ODT 4 MG TAB PO PRN (05:01)
[2020-01-22 05:56] LABS: #Eosinphils 0.4 thou/uL (0.0-0.7); #Lymphocytes 2.4 thou/uL (1.20-3.40); #Neutrophils 4.7 thou/uL (1.40-6.50); %Basophils 0.3 % (0.0-1.0); %Eosinophils 4.5 % (0.0-10.0); %Lymphocytes 28.1 % (21.0-51.0); %Monocytes 11.5 % (0.0-10.0); %Neutrophils 55.4 % (42.0-75.0); Hemoglobin 8.8 g/dL (14.0-18.0); Mean Corpuscular HGB CONC 32.3 g/dL (32.0-36.0); Mean Corpuscular Hemoglobin 29.7 pg (27.0-31.0); Mean Corpuscular Volume 92.2 fL (78.0-98.0); Mean Platelet Volume 9.1 fL (7.4-10.4); Platelet Count 166 thou/uL (130-400); RBC Distribution Width 18.6 % (11.5-14.5); Red Blood Cell (RBC) Count 2.97 mill/uL (4.70-6.10); White Blood Cell (WBC) Count 8.5 thou/uL (4.8-10.8)
[2020-01-22 06:17] LABS: ALT (SGPT) 28 U/L (8-55); AST (SGOT) 16 U/L (5-34); Albumin 3.2 g/dL (3.5-5.0); Alkaline Phosphatase 63 U/L (40-110); Anion Gap 11 mmol/L (10-20); BUN (Urea Nitrogen) 9 mg/dL (8.9-20.6); Bilirubin, Total 0.6 mg/dL (0.2-1.2); Calc. Creatinine Clearance 339 mL/min (70-130); Calcium 8.9 mg/dL (7.8-10.44); Carbon Dioxide 26 mmol/L (22-29); Chloride 101 mmol/L (98-107); Estimated GFR-MDRD Greater than 90; Globulin 2.8 g/dL (2.4-3.5); Glucose 87 mg/dL (70-105); Potassium 3.9 mmol/L (3.5-5.1); Sodium 134 mmol/L (136-145)
[2020-01-22] MEDS ORDERED: Benzonatate 100 MG CAP PO PRN (06:45)
[2020-01-22] MEDS ORDERED: Calcium Carbonate 500 MG TAB PO PRN (06:45)
[2020-01-22] MEDS ORDERED: Bisacodyl 10 MG SUPP FS PRN (06:45)
[2020-01-22] MEDS ORDERED: Scopolamine 1.5 mg/72 hour Patch TD PRN (06:45)
[2020-01-22] MEDS ORDERED: Zolpidem Tartrate 5 MG TAB PO PRN (06:45)
[2020-01-22] MEDS ORDERED: HYDROcodone/Acetaminophen 10/325 mg Tablet PO PRN ×2 (06:45)
[2020-01-22] MEDS ORDERED: diphenhydrAMINE 25 MG CAP PO PRN (06:45)
[2020-01-22] MEDS ORDERED: Simethicone Chewable 80 MG TAB PO PRN (06:45)
--- NOTE | 2020-01-22 06:52 | PDOC.FM ---
- Subjective Subjective: pt resting comfortably in bed. fevers overnight. abdominal pain improved. - Objective Vital Signs & Weight: Vital Signs (12 hours) Temp Pulse Resp BP BP Pulse Ox 01/22/20 04:37 99.7 F H 101 H 16 115/63 99 01/22/20 00:14 100.1 F H 120 H 18 129/61 98 01/21/20 21:31 100 01/21/20 21:01 101.2 F H 01/21/20 19:47 99.2 F 111 H 18 115/65 100 Weight Weight 98.43 kg I&O: 01/20/20 01/21/20 01/22/20 06:59 06:59 06:59 Intake Total 960 Output Total 1600 Balance -640 Result Diagrams: 01/22/20 05:01/22/20 05:20 Phys Exam - Physical Examination Constitutional: NAD HEENT: moist MMs Neck: supple Respiratory: clear to auscultation bilateral Cardiovascular: no significant murmur Gastrointestinal: soft, no distention ttp over RLQ Musculoskeletal: pulses present Neurological: moves all 4 limbs Psychiatric: normal affect Skin: no rash Dx/Plan (1) SIRS (systemic inflammatory response syndrome) Code(s): R65.10 - SIRS OF NON-INFECTIOUS ORIGIN W/O ACUTE ORGAN DYSFUNCTION Status: Acute (2) Testicular malignant neoplasm Code(s): C62.90 - MALIG NEOPLASM OF UNSP TESTIS, UNSP DESCENDED OR UNDESCENDED Status: Acute (3) H/O abdominal surgery Code(s): Z98.890 - OTHER SPECIFIED POSTPROCEDURAL STATES Status: Acute (4) HTN (hypertension) Code(s): I10 - ESSENTIAL (PRIMARY) HYPERTENSION Status: Acute - Plan Plan: SIRS - fever at rehab, elevated wbc. 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 Brown notified of pts admission - continue home meds hx of bowel perf with xlap - midline abdominal incision healing, wound vac in place - wound care consulted to change out vac. - dressing changed yesterday. htn - hx of, reported as resolved - monitor bps. hold meds for now ppx: lovenox pcp: katia code: full dispo: continue broad spectrum abx Addendum - Attending - Attending Attestation Date/Time: 01/22/20 1036 I personally evaluated the patient and discussed the management with Dr. Avery. I agree with the History, Examination, Assessment and Plan documented above with any addition or exceptions noted below. Patient stable. Continue abx. Pain control as needed. GenSurg on board. Repeat CT scan tomorrow. Await cultures.
[2020-01-22] MEDS ORDERED: Dexamethasone 4 MG TAB PO SCH (08:00)
[2020-01-22] MEDS: levETIRAcetam 500 MG TAB PO SCH ×2 (08:20→20:18)
[2020-01-22] MEDS: Docusate 100 MG CAP PO SCH ×2 (08:20→20:18)
[2020-01-22] MEDS: Dexamethasone 4 MG TAB PO SCH ×2 (08:20→20:18)
[2020-01-22] MEDS: Ibuprofen 800 MG TAB PO SCH ×4 (08:20→20:18)
[2020-01-22] MEDS: Gabapentin 300 MG CAP PO SCH ×3 (08:20→20:18)
[2020-01-22] MEDS: Enoxaparin Sodium 40 MG/0.4 ML SYRINGE SC SCH (08:21)
[2020-01-22] MEDS: Polyethylene Glycol 3350 17 GM Packet PO SCH ×2 (08:23→11:05)
[2020-01-22] MEDS ORDERED: Doxycycline 100 MG CAP PO SCH (09:00)
--- NOTE | 2020-01-22 10:36 | PRG ---
DATE OF SERVICE: 01/22/2020 SUBJECTIVE: Mr. Heller is seen one day after my initial consultation. He is hospital day #2 following readmission from the rehabilitation facility. He has an inflammatory area in his right abdomen of uncertain etiology or significance. He was febrile last night with maximum temperature of 101.2. No nausea or vomiting. He is tolerating clear liquids. He has had some discomfort throughout the evening in his back, in his legs, and a little bit in his abdomen. PHYSICAL EXAMINATION: VITAL SIGNS: His current temperature is 99.9, pulse 109, blood pressure is 125/71. LUNGS: Clear to auscultation. ABDOMEN: Soft with minimal tenderness. Bowel sounds are present and normoactive. LABORATORY DATA: White blood cell count is normal today at 8.5, hemoglobin is down from 10 to 8.8. His differential is entirely normal today with no left shift. ASSESSMENT: The patient with a somewhat confusing picture and that I am uncertain what would cause an inflammatory area in his abdomen. He has widely metastatic testicular cancer with no obvious intraabdominal metastatic disease other than to his solid organs (liver and spleen). For now, I would continue him on a clear liquid diet, continue physical therapy as possible, and continue his IV antibiotics using vancomycin and Rocephin. I will continue to follow along with you. We will probably repeat the CAT scan with oral contrast tomorrow to re-evaluate for the progress in regard to this area. Job ID: [id number]
[2020-01-22] MEDS ORDERED: Polyethylene Glycol 3350 17 GM Packet PO SCH (12:00)
[2020-01-22] MEDS: cefTRIAXone\\ROCEPHIN 1 GM in Sodium Chloride 0.9% 100 ML IVPB SCH (17:04)
[2020-01-22 17:26] LABS: Vancomycin, Trough 14.1 ug/mL
[2020-01-23] MEDS: Vancomycin HCl 1.75 GM in Sodium Chloride 0.9% 500 ML IVPB SCH ×3 (01:13→18:51)
[2020-01-23 06:32] LABS: ALT (SGPT) 25 U/L (8-55); AST (SGOT) 13 U/L (5-34); Albumin 3.4 g/dL (3.5-5.0); Alkaline Phosphatase 62 U/L (40-110); Anion Gap 13 mmol/L (10-20); BUN (Urea Nitrogen) 12 mg/dL (8.9-20.6); Bilirubin, Total 0.5 mg/dL (0.2-1.2); Calc. Creatinine Clearance 346 mL/min (70-130); Calcium 9.2 mg/dL (7.8-10.44); Carbon Dioxide 25 mmol/L (22-29); Chloride 105 mmol/L (98-107); Estimated GFR-MDRD Greater than 90; Globulin 3.1 g/dL (2.4-3.5); Glucose 112 mg/dL (70-105); Potassium 3.9 mmol/L (3.5-5.1); Protein, Total 6.5 g/dL (6.0-8.3); Sodium 139 mmol/L (136-145)
[2020-01-23 06:39] LABS: #Eosinphils 0.1 thou/uL (0.0-0.7); #Lymphocytes 1.5 thou/uL (1.20-3.40); #Monocytes 0.6 thou/uL (0.11-0.59); #Neutrophils 5.8 thou/uL (1.40-6.50); %Basophils 0.1 % (0.0-1.0); %Monocytes 7.3 % (0.0-10.0); %Neutrophils 72.5 % (42.0-75.0); Hemoglobin 9.2 g/dL (14.0-18.0); Mean Corpuscular HGB CONC 32.1 g/dL (32.0-36.0); Mean Corpuscular Hemoglobin 29.5 pg (27.0-31.0); Mean Corpuscular Volume 92.1 fL (78.0-98.0); Mean Platelet Volume 8.6 fL (7.4-10.4); Platelet Count 213 thou/uL (130-400); Red Blood Cell (RBC) Count 3.12 mill/uL (4.70-6.10); White Blood Cell (WBC) Count 7.9 thou/uL (4.8-10.8)
--- NOTE | 2020-01-23 07:00 | PDOC.FM ---
- Subjective Subjective: pt resting comfortably in bed, denies abdominal pain or fever overnight. - Objective Vital Signs & Weight: Vital Signs (12 hours) Temp Pulse Resp BP Pulse Ox 01/23/20 01:20 98.2 F 01/22/20 19:38 93 L 01/22/20 19:37 98.3 F 100 16 127/76 93 L Weight Admit Weight 98.43 kg Weight 98.43 kg I&O: 01/21/20 01/22/20 01/23/20 06:59 06:59 06:59 Intake Total 960 2280 Output Total 1600 2600 Balance -640 -320 Result Diagrams: 01/23/20 06:17 01/23/20 03:30 Phys Exam - Physical Examination Constitutional: NAD HEENT: moist MMs Neck: supple Gastrointestinal: soft, non-tender, no distention Musculoskeletal: pulses present Neurological: moves all 4 limbs Psychiatric: normal affect Skin: no rash Dx/Plan (1) SIRS (systemic inflammatory response syndrome) Code(s): R65.10 - SIRS OF NON-INFECTIOUS ORIGIN W/O ACUTE ORGAN DYSFUNCTION Status: Acute (2) Testicular malignant neoplasm Code(s): C62.90 - MALIG NEOPLASM OF UNSP TESTIS, UNSP DESCENDED OR UNDESCENDED Status: Acute (3) H/O abdominal surgery Code(s): Z98.890 - OTHER SPECIFIED POSTPROCEDURAL STATES Status: Acute (4) HTN (hypertension) Code(s): I10 - ESSENTIAL (PRIMARY) HYPERTENSION Status: Acute - Plan Plan: SIRS - fever at rehab, elevated wbc. 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 Brown notified of pts admission - continue home meds hx of bowel perf with xlap - midline abdominal incision healing, wound vac in place - wound care consulted to change out vac. - dressing changed yesterday. htn - hx of, reported as resolved - monitor bps. hold meds for now ppx: lovenox pcp: katia code: full dispo: continue broad spectrum abx, possible DC later today or tomorrow Addendum - Attending - Attending Attestation Date/Time: 01/23/20 1017 I personally evaluated the patient and discussed the management with Dr. Avery. I agree with the History, Examination, Assessment and Plan documented above with any addition or exceptions noted below. Patient feeling well. Admitted for fever and abdominal pain, concern for possible post op infection or complication. Repeat CT scan today with GenSurg. Awaiting that result and further recs. He has been afebrile >24 hours and feeling well. Hopeful d/c back to rehab once stable.
[2020-01-23] MEDS: Ibuprofen 800 MG TAB PO SCH ×4 (09:40→20:13)
[2020-01-23] MEDS: Polyethylene Glycol 3350 17 GM Packet PO SCH (09:41)
[2020-01-23] MEDS: Enoxaparin Sodium 40 MG/0.4 ML SYRINGE SC SCH (09:41)
[2020-01-23] MEDS: Docusate 100 MG CAP PO SCH ×2 (09:41→20:13)
[2020-01-23] MEDS: levETIRAcetam 500 MG TAB PO SCH ×2 (09:41→20:13)
[2020-01-23] MEDS: Gabapentin 300 MG CAP PO SCH ×3 (09:41→20:13)
[2020-01-23] MEDS: Dexamethasone 4 MG TAB PO SCH ×2 (09:41→20:13)
--- NOTE | 2020-01-23 09:54 | CT ---
CT ABDOMEN AND PELVIS WITH IV CONTRAST 01/23/2020 CLINICAL INFORMATION: Follow-up evaluation of intra-abdominal inflammatory process. COMPARISON: 01/21/2020 Technique: Multiple contiguous axial CT images are obtained through the abdomen and pelvis with IV contrast. Cor onal reformatted images are provided. FINDINGS: Lower Chest: Numerous metastatic pulmonary nodules are again seen at each lung base. Trace pleural fl uid is seen at each lung base Vessels: Abdominal aorta is normal in caliber. Abdomen: Portal vein:Patent Gallbladder: Within normal limits for CT imaging. Liver: Several small subcentimeter low-density lesions are again seen throughout each lobe of the velasquez er likely attributable to metastatic disease. Spleen: Low-density lesions are also again seen in the spleen with associated calcifications present likely due to prior granulomatous disease. Low-density lesions in the spleen are likely related to metastatic lesions. Pancreas: within normal limits. Adrenals: within normal limits. Kidneys: There are stable low-density lesion seen in each kidney which are difficult to accurately ch aracterize. A few peripheral wedge-shaped low-density areas are again present in the left kidney which could be related to areas of renal infarction. No hydronephrosis is present. Bowel: Small to moderate amount retained fecal material seen throughout the colon. Loops of small bow el are normal in caliber. Appendix: The appendix is visualized and normal in caliber. Peritoneum: Inflammatory stranding is again seen within the right anterior upper quadrant of the abdo men adjacent to loops of small bowel which does appear mildly improved. However, there is greater degree of inflammatory changes again seen in the right lower quadrant with diminished density again s een adjacent to distal loops of ileum and the cecum, and this inflammatory process is difficult to discern from these loops of small bowel. This finding is overall not significantly changed when hosea red to the prior exam. There is no fluid collection seen to suggest abscess, and no free intraperitoneal gas is seen in the abdomen or pelvis. Mesentery and Retroperitoneum: No enlarged mesenteric or retroperitoneal lymph nodes. Abdominal Wall: Midline incision is seen in a supra as well as infraumbilical location with mild infl ammatory stranding seen adjacent to midline incision. No fluid collection is seen. Pelvis: Pelvis within normal limits. Bladder: Incompletely distended but otherwise grossly within normal limits. Bones: No suspicious lytic or sclerotic osseous lesions are seen. IMPRESSION: 1. Evidence of metastatic disease with multiple bilateral pulmonary nodules as well as hepatic and sp lenic lesions again seen. 2. Inflammatory stranding in the right anterior lower quadrant which does appear mildly improved. How ever, the more confluent inflammatory process in the right lower quadrant adjacent to the distal loops of ileum and involving the cecum is overall stable. This inflammatory process again does not in volve the appendix, and the appendix is normal in caliber. No adjacent free intraperitoneal gas or fluid collection is seen.
[2020-01-23] MEDS ORDERED: Magnesium Citrate 300 ML BOT PO SCH (10:00)
--- NOTE | 2020-01-23 10:21 | PRG ---
DATE OF SERVICE: 01/23/2020 Mr. Heller is hospital day #3 following readmission to the hospital for fever and abdominal inflammatory focus. He has been on clear liquids and IV antibiotics over the past couple of days. He notes that he feels better each day. He has been tolerating clear liquids and is hungry for more solid food. He has not had a bowel movement in the past couple of days. I had given him a couple of doses of MiraLAX yesterday. This is apparent without effect. He is exercising minimally with physical therapy. 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 DIAGNOSTIC DATA: CT scan of abdomen was obtained this morning. I have reviewed the images, although it has not been read by Radiology. The contrast did pass all the way through the small bowel. There still appears to be a potential inflammatory focus in the right lower quadrant. This appears to be improved. Another inflammatory area seems to have resolved. PHYSICAL EXAMINATION: VITAL SIGNS: Today, he has been afebrile for the past 24 hours. His pulse remains somewhat elevated between 95 and 111. Blood pressure is 125/73. LUNGS: Clear to auscultation. ABDOMEN: Soft, nontender, and nondistended with normoactive bowel sounds. Wound VAC is in place. LABORATORY DATA: His comprehensive metabolic panel shows no significant abnormality. His albumin is 3.4. His CBC shows that his hemoglobin is stable at 9.2 with a white blood cell count of 7.9, and an unremarkable differential. ASSESSMENT: He appears to be stable from a surgical standpoint. I will advance him up to a full liquid diet. I will treat him with a dose of magnesium citrate, hoping that this helps resolve his issues with constipation. He clearly has a significant volume of stool present within his colon seen on CT scan. No consideration for surgical intervention at this time. Job ID: [id number]
[2020-01-23] MEDS ORDERED: Iopamidol-370 76% 500 ML 1 ML ONE (10:24)
[2020-01-23] MEDS: cefTRIAXone\\ROCEPHIN 1 GM in Sodium Chloride 0.9% 100 ML IVPB SCH (17:10)
[2020-01-23 17:59] LABS: Vancomycin, Trough 21.8 ug/mL
[2020-01-23] MEDS: Ondansetron ODT 4 MG TAB PO PRN (23:58)
[2020-01-24] MEDS: Vancomycin 1.5 GRAM/300 ML BAG 1.5 GM in Premix Bag 1 BAG IVPB SCH ×2 (01:12→11:00)
[2020-01-24 05:57] LABS: #Eosinphils 0.2 thou/uL (0.0-0.7); #Lymphocytes 1.7 thou/uL (1.20-3.40); #Monocytes 0.6 thou/uL (0.11-0.59); %Basophils 0.4 % (0.0-1.0); %Eosinophils 2.2 % (0.0-10.0); %Lymphocytes 22.5 % (21.0-51.0); %Monocytes 8.1 % (0.0-10.0); %Neutrophils 66.9 % (42.0-75.0); Hemoglobin 8.9 g/dL (14.0-18.0); Mean Corpuscular HGB CONC 31.3 g/dL (32.0-36.0); Mean Corpuscular Hemoglobin 28.7 pg (27.0-31.0); Mean Corpuscular Volume 91.6 fL (78.0-98.0); Mean Platelet Volume 8.1 fL (7.4-10.4); Platelet Count 232 thou/uL (130-400); RBC Distribution Width 18.1 % (11.5-14.5); White Blood Cell (WBC) Count 7.4 thou/uL (4.8-10.8)
[2020-01-24 06:21] LABS: ALT (SGPT) 33 U/L (8-55); AST (SGOT) 21 U/L (5-34); Albumin 3.3 g/dL (3.5-5.0); Alkaline Phosphatase 57 U/L (40-110); Anion Gap 12 mmol/L (10-20); BUN (Urea Nitrogen) 15 mg/dL (8.9-20.6); Bilirubin, Total 0.4 mg/dL (0.2-1.2); Calc. Creatinine Clearance 307 mL/min (70-130); Calcium 8.8 mg/dL (7.8-10.44); Carbon Dioxide 24 mmol/L (22-29); Chloride 102 mmol/L (98-107); Estimated GFR-MDRD Greater than 90; Globulin 2.9 g/dL (2.4-3.5); Glucose 93 mg/dL (70-105); Protein, Total 6.2 g/dL (6.0-8.3); Sodium 134 mmol/L (136-145)
--- NOTE | 2020-01-24 07:35 | PDOC.FM ---
- Subjective Subjective: NAEO. No fever, no pain. Able to tolerate FLD yesterday. Had BM last night, walking to commode - Objective Vital Signs & Weight: Vital Signs (12 hours) Temp 01/23/20 23:38 98.1 F Weight Admit Weight 98.43 kg Weight 98.43 kg I&O: 01/23/20 01/24/20 01/25/20 06:59 06:59 06:59 Intake Total 2280 2385 Output Total 2600 1000 Balance -320 1385 Result Diagrams: 01/24/20 05:47 01/24/20 05:47 Phys Exam - Physical Examination Constitutional: NAD HEENT: moist MMs, sclera anicteric Cardiovascular: RRR, no significant murmur Gastrointestinal: soft, non-tender wound vac in place, hypoactive BS Musculoskeletal: no edema Neurological: non-focal, moves all 4 limbs Dx/Plan (1) H/O abdominal surgery Code(s): Z98.890 - OTHER SPECIFIED POSTPROCEDURAL STATES Status: Acute (2) SIRS (systemic inflammatory response syndrome) Code(s): R65.10 - SIRS OF NON-INFECTIOUS ORIGIN W/O ACUTE ORGAN DYSFUNCTION Status: Acute (3) Testicular malignant neoplasm Code(s): C62.90 - MALIG NEOPLASM OF UNSP TESTIS, UNSP DESCENDED OR UNDESCENDED Status: Acute - Plan Plan: SIRS - fever at rehab, elevated wbc. 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 Brown notified of pts admission - continue home meds hx of bowel perf with xlap - midline abdominal incision healing, wound vac in place - wound care consulted to change out vac. - dressing changed yesterday. htn - hx of, reported as resolved - monitor bps. hold meds for now ppx: lovenox pcp: katia code: full 01/23 Summary: 1)SIRS: CT abd with no acute changes. Fever free >3 days but need to hold antipyretics. Pending gen surg recs, much appreciated. ADAT. Supportive care. All cx negative thus far. Could be fever is tumor related Dispo: Rehab pending medical clearance Addendum - Attending - Attending Attestation Date/Time: 01/24/20 [id number] I personally evaluated the patient and discussed the management with Dr. Harden I agree with the History, Examination, Assessment and Plan documented above with any addition or exceptions noted below. 19 yo M with metastatic testicular cancer 2/2 exploratory laparatomy 01/20. Fever likely 2/2 metastatic cancer. Will hold pyretics and antibiotics today. Tolerating PO. Cultures negative. Anticipate d/c to rehab pending afebrile and tolerating PO. RA Sierra
[2020-01-24] MEDS: Dexamethasone 4 MG TAB PO SCH ×2 (08:15→19:31)
[2020-01-24] MEDS: levETIRAcetam 500 MG TAB PO SCH ×2 (08:15→19:31)
[2020-01-24] MEDS: Enoxaparin Sodium 40 MG/0.4 ML SYRINGE SC SCH (08:15)
[2020-01-24] MEDS: Gabapentin 300 MG CAP PO SCH ×3 (08:15→19:31)
[2020-01-24] MEDS: Ibuprofen 800 MG TAB PO SCH (08:15)
[2020-01-24] MEDS: Docusate 100 MG CAP PO SCH ×2 (08:15→19:32)
[2020-01-24] MEDS: Polyethylene Glycol 3350 17 GM Packet PO SCH (08:16)
--- NOTE | 2020-01-24 13:43 | PRG ---
DATE OF SERVICE: 01/24/2020 SUBJECTIVE: The patient was brought in for recurrent abdominal pain. CT scan showed some thickened bowel and inflammation in the right lower quadrant. He says he feels good now. He is having no pain. No nausea or vomiting. His bowels are functioning. OBJECTIVE: VITAL SIGNS: His temperature is 99, pulse 106, blood pressure 130/82. GENERAL: He is awake and alert, does not appear to be in any distress. ABDOMEN: Soft and nondistended. He has a wound VAC on. There is no cellulitis. LABORATORY DATA: His white count 7.4, H and H 8.9 and 28, platelet count 232. His electrolytes are all fine. ASSESSMENT: Small bowel inflammation of unclear etiology, responding to antibiotics. PLAN: Just continue the antibiotics. Job ID: [id number]
[2020-01-24] MEDS: Melatonin 3 MG TAB PO PRN (21:37)
[2020-01-25 05:31] LABS: #Eosinphils 0.2 thou/uL (0.0-0.7); #Monocytes 0.9 thou/uL (0.11-0.59); #Neutrophils 5.1 thou/uL (1.40-6.50); %Basophils 0.6 % (0.0-1.0); %Eosinophils 2.1 % (0.0-10.0); %Lymphocytes 24.4 % (21.0-51.0); %Monocytes 11.3 % (0.0-10.0); %Neutrophils 61.7 % (42.0-75.0); Hemoglobin 9.4 g/dL (14.0-18.0); Mean Corpuscular HGB CONC 31.7 g/dL (32.0-36.0); Mean Corpuscular Hemoglobin 28.9 pg (27.0-31.0); Mean Corpuscular Volume 91.3 fL (78.0-98.0); Mean Platelet Volume 8.1 fL (7.4-10.4); Platelet Count 250 thou/uL (130-400); RBC Distribution Width 18.2 % (11.5-14.5); Red Blood Cell (RBC) Count 3.24 mill/uL (4.70-6.10); White Blood Cell (WBC) Count 8.2 thou/uL (4.8-10.8)
[2020-01-25 05:59] LABS: ALT (SGPT) 33 U/L (8-55); AST (SGOT) 19 U/L (5-34); Albumin 3.6 g/dL (3.5-5.0); Alkaline Phosphatase 58 U/L (40-110); Anion Gap 13 mmol/L (10-20); BUN (Urea Nitrogen) 11 mg/dL (8.9-20.6); Bilirubin, Total 0.4 mg/dL (0.2-1.2); Calc. Creatinine Clearance 291 mL/min (70-130); Calcium 8.9 mg/dL (7.8-10.44); Carbon Dioxide 25 mmol/L (22-29); Chloride 101 mmol/L (98-107); Estimated GFR-MDRD Greater than 90; Glucose 94 mg/dL (70-105); Potassium 3.8 mmol/L (3.5-5.1); Protein, Total 6.6 g/dL (6.0-8.3); Sodium 135 mmol/L (136-145)
[2020-01-25 07:33] VITALS: TEMP 98.6
--- NOTE | 2020-01-25 07:34 | PDOC.FM ---
- Subjective Subjective: Tolerated full diet yesterday w/o issues. Meadow well despite fever last night, was sleeping. Working with PT in room, ready for rehab - Objective Vital Signs & Weight: Vital Signs (12 hours) Temp 01/25/20 03:55 99.5 F 01/25/20 00:19 100.6 F H 01/24/20 22:45 99.7 F H Weight Admit Weight 98.43 kg Weight 98.43 kg I&O: 01/24/20 01/25/20 01/26/20 06:59 06:59 06:59 Intake Total 2385 1467 Output Total 1000 1800 Balance 1385 -333 Result Diagrams: 01/25/20 05:18 01/25/20 05:18 Phys Exam - Physical Examination Constitutional: NAD HEENT: PERRLA, moist MMs, sclera anicteric Neck: full ROM no respiratory distress Gastrointestinal: soft, non-tender wound vac in place Musculoskeletal: no edema Neurological: non-focal, moves all 4 limbs Dx/Plan (1) H/O abdominal surgery Code(s): Z98.890 - OTHER SPECIFIED POSTPROCEDURAL STATES Status: Acute (2) SIRS (systemic inflammatory response syndrome) Code(s): R65.10 - SIRS OF NON-INFECTIOUS ORIGIN W/O ACUTE ORGAN DYSFUNCTION Status: Acute (3) Testicular malignant neoplasm Code(s): C62.90 - MALIG NEOPLASM OF UNSP TESTIS, UNSP DESCENDED OR UNDESCENDED Status: Acute - Plan Plan: SIRS - fever at rehab, elevated wbc. 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 Brown notified of pts admission - continue home meds hx of bowel perf with xlap - midline abdominal incision healing, wound vac in place - wound care consulted to change out vac. - dressing changed yesterday. htn - hx of, reported as resolved - monitor bps. hold meds for now ppx: lovenox pcp: katia code: full 01/24 Summary: 1)SIRS: Likely tumor related fever in light of negative infectious workup and patient clinically improved. Supportive care. All cx negative thus far. Dispo: Ready for rehab, pending approval Addendum - Attending - Attending Attestation Date/Time: 01/25/20 7327 I personally evaluated the patient and discussed the management with Dr. Harden I agree with the History, Examination, Assessment and Plan documented above with any addition or exceptions noted below. 19 yo M with metastatic testicular cancer 2/2 exploratory laparatomy 01/20. Fever likely 2/2 metastatic cancer. Fever to 100.6 without antibiotics or antipyretics last night, trending down. Patient's strength is improving. Mild hemoptysis noted today. Plan to update Onc and if OK, for discharge to rehab later today. RA Sierra
[2020-01-25] MEDS: Enoxaparin Sodium 40 MG/0.4 ML SYRINGE SC SCH (09:32)
[2020-01-25] MEDS: Polyethylene Glycol 3350 17 GM Packet PO SCH (09:33)
[2020-01-25] MEDS: Dexamethasone 4 MG TAB PO SCH (09:33)
[2020-01-25] MEDS: Gabapentin 300 MG CAP PO SCH ×2 (09:33→14:41)
[2020-01-25] MEDS: Docusate 100 MG CAP PO SCH (09:33)
[2020-01-25] MEDS: levETIRAcetam 500 MG TAB PO SCH (09:33)
[2020-01-25 09:55] VITALS: BP 135/86
[2020-01-25] MEDS: Ondansetron ODT 4 MG TAB PO PRN (10:07)
--- NOTE | 2020-01-26 12:48 | DIS ---
DATE OF ADMISSION: 01/21/2020 DATE OF DISCHARGE: 01/25/2020 ADMITTING ATTENDING: Chandrakant Sena MD DISCHARGE ATTENDING: Joon Sierra MD RESIDENT: Bianca Harden MD, PGY-2 CONSULTS: General Surgery, Arjun Luu MD PRIMARY DIAGNOSES: Fever likely secondary to stage 4 testicular cancer. SECONDARY DIAGNOSES: 1. Testicular cancer stage 4, with brain and lung metastases. 2. History of bowel perforation with exploratory laparotomy. 3. Hypertension. PROCEDURES AND IMAGING: CT abdomen and pelvis with contrast showed evidence of metastatic disease, multiple bilateral pulmonary nodules as well as hepatic and splenic lesions. Inflammatory stranding in the right anterior lower quadrant, which has mildly improved from prior CT. Complete inflammatory process in the right lower quadrant adjacent to the distal loops of ileum involving cecum is stable. No inflammation of the appendix, normal in caliber. No free intraperitoneal gas or fluid. DISCHARGE MEDICATIONS: Resumes all home medications with no new ones. 1. Tessalon 200 mg b.i.d. p.r.n. for cough. 2. Neurontin 300 mg p.o. t.i.d. 3. Wilson 10/325. 4. Keppra 500 mg p.o. b.i.d. 5. Melatonin 5 mg p.o. at bedtime p.r.n. 6. Memantine 10 mg p.o. b.i.d. 7. Zofran 4 mg p.o. q.6 hours p.r.n. for nausea. 8. Bisacodyl suppository. 9. Docusate 100 mg p.o. b.i.d. 10. MiraLAX. 11. Protonix 40 mg p.o. daily. 12. Dexamethasone 4 mg p.o. b.i.d. 13. Simethicone. 14. Calcium carbonate. 15. Ibuprofen 800 mg p.o. 16. Metoprolol tartrate 100 mg p.o. b.i.d. 17. Benadryl. 18. Ambien 5 mg p.o. at bedtime p.r.n. for insomnia. 19. Scopolamine. DISCONTINUED MEDICATIONS: None. HISTORY OF PRESENT ILLNESS/HOSPITAL COURSE: Mr. Victor Hugo Heller is a 19-year-old male with testicular cancer stage 4 with history of metastasis to the brain, who is well known to our service. He was just discharged recently after recent bowel perforation status post ex lap. He was a bounce-back admit from an [facility] after he developed three days of abdominal pain and fever. He was empirically started on antibiotics due to concern for systemic infection. General Surgery was consulted since there was concern for postop complications. The CT results are above, but really aside from right quadrant colonic inflammation that was nonspecific. There was no overt source of infection including from other collected cultures. The patient improved off any antipyretics, but did intermittently spike low-grade fevers that were improved from admission. It is in light of negative infectious workup. It is thought that the fever was due to the cancer. He did have a repeat tumor marker hCG drawn, had downtrended to 1073. Dr. Brown was notified of this, The patient has plans to follow up with him in two days in addition to Dr. Palencia for continued radiation therapy. We are hopeful that he will be responsive to these treatments. Otherwise he tolerated full diet well and regained strength with PT and was discharged back to rehab. It was discussed that he likely may continue to experience intermittent fevers related to his malignancy and to keep monitoring them and correlate clinically to ensure no other sources of infection developed during this time. DISPOSITION: Stable. DISCHARGE INSTRUCTIONS: 1. Location: Rehab. 2. Diet: Regular diet. 3. Activity: Ad lori as tolerated. 4. Follow up: a. Please follow up with Dr. Brown in two days. b. Please follow up with Dr. Palencia for continued treatment. c. Please follow up with PCP Dr. Avila this next week Job ID: [id number] [facility]
== END 2020-01-25 18:53 | DRG 723 ==
LOC: ERS 11:32 → T4-B 14:07 → UNDOADMIN 14:07 → ONC 17:06
PROVIDERS: ADMIT Student in an Organized Health Care Education/Training Program; ATTEND Student in an Organized Health Care Education/Training Program
DX: C62.90 Malignant neoplasm of unspecified testis, unspecified whether descended or undescended (principal); C79.31 Secondary malignant neoplasm of brain; R65.10 Systemic inflammatory response syndrome (SIRS) of non-infectious origin without acute organ dysfunction; C78.02 Secondary malignant neoplasm of left lung; C78.01 Secondary malignant neoplasm of right lung; C77.9 Secondary and unspecified malignant neoplasm of lymph node, unspecified; R50.81 Fever presenting with conditions classified elsewhere; I10 Essential (primary) hypertension; Z79.899 Other long term (current) drug therapy
CPT/HCPCS: 36415; 71045; 74177; 80053; 80202; 81003; 81015; 82105; 82550; 83605; 83735; 84145; 84702; 85025; 85610; 85730; 87040; 87071; 87086; 96360; 96361; J0696; J1642; J1650; J2405; J3370; J3490; J7030; J8540; Q0162; Q9967

== ENCOUNTER 2020-02-25 09:07 | Outpatient (CLI) | payer OTHER ==
[2020-02-25] MEDS ORDERED: Iopamidol 370 76% 100 ML VIAL ONE (09:26)
--- NOTE | 2020-02-25 11:40 | CT ---
CT THORAX WITH CONTRAST CT ABDOMEN WITH CONTRAST CT PELVIS WITH CONTRAST: DATE: 02/25/2020 HISTORY: 19-year-old male with testicular cancer metastatic to lung and liver. Restaging. Dr. Lema notified Dr. Chau Brown of the pulmonary thromboembolism by telephone at 11:36 AM 02/25/2020. COMPARISON: 01/23/2020 CT chest abdomen and pelvis 11/08/2019 CT chest TECHNIQUE: IV iodinated contrast media: Administered Oral contrast media: Administered. Single phase scans of thorax, abdomen, and pelvis. FINDINGS: Large number of noncalcified pulmonary nodules throughout bilateral upper, bilateral lower, and right middle, lobes. They have decreased in size compared to 11/08/2019. They have slightly decreased in size compared to 01/23/2020. For example, one of the largest 1's is currently 2.8 x 2.8 cm at central base of right lower lobe. It was 3.2 x 3.3 cm on 01/23/2020, and 3.4 x 3.7 cm on 11/08/2019. Tiny bilateral pleural effusions on 01/23/2020 have now resolved. There is a new finding of multiple filling defects representing thromboemboli in the distal portions of the bilateral main pulmonary arteries, and their proximal and distal branches. Scattered nonspecific mild mediastinal lymph nodes, probably benign. Bilateral gynecomastia. Normal thoracic aorta. No cardiomegaly or pericardial effusion. No consolidation or any other focal i nfiltrate. The multifocal tiny hypodensities in the liver demonstrated on 01/23/2020, are no longer visible. The multifocal small hypodense lesions in the spleen consistent with metastases, have become smaller. For example, the largest one was approximately 3.4 x 1.4 cm. It is currently 2.4 x 1 cm. Normal right kidney, abdominal aorta, adrenals, pancreas, and appendix. Tiny nonspecific stable lesio n in left kidney. Otherwise no other left renal abnormality. Minimally prominent multiple retroperitoneal lymph nodes all less than 1 cm, unchanged. Previously described inflammatory changes at right lower quadrant of the abdominal cavity abutting ce cum and ileal loops, has either completely resolved, or at least significantly improved. No iliac chain lymphadenopathy. No small bowel dilation, ascites, colonic diverticulitis, IMPRESSION: 1) bilateral pulmonary thromboembolism. 2) interval improvement in bilateral pulmonary metastases, although significant tumor burden remains. 3) interval resolution of hepatic metastases. 4) interval improvement in splenic metastases. 5) interval improvement or resolution of previous inflammatory process in right lower quadrant.
--- NOTE | 2020-02-25 14:52 | NM ---
Exam: Whole body bone scan COMPARISON: 11/23/2019 TECHNIQUE: Malignant neoplasm of the central left testis. Mid back pain. TECHNIQUE: Patient was administered 30.30 mCi of technetium 99m MDP intravenously. After appropriate delay, whole body imaging is performed FINDINGS: Physiologic distribution of the radiotracer There is uptake in bilateral shoulders and sternoclavicular joints, similar to the previous examinati on. No scintigraphic evidence of osseous metastases. No abnormal radiotracer localization in the thoracic or lumbar spine IMPRESSION: No scintigraphic evidence of osseous metastases
--- NOTE | 2020-02-25 15:23 | ULT ---
ULTRASOUND DOPPLER DUPLEX VENOUS BILATERAL LOWER EXTREMITIES: DATE: 02/25/2020 HISTORY: 19-year-old male with bilateral pulmonary thromboembolism (Dr. Brown was already notified of that). TECHNIQUE: Grayscale, color-flow, and spectral analysis, of the bilateral common femoral, profunda femoral, grea ter saphenous, femoral, popliteal, and posterior tibial, veins. FINDINGS: There is focal thrombus in the mid segment of the right femoral vein. There is focal thrombus in the right popliteal vein. There is contiguous thrombus in the left mid femoral vein, distal femoral vein, and popliteal vein. There is blood flow throughout the above thrombosed veins. There is no thrombosis in the rest of the interrogated veins. IMPRESSION: Positive for partial deep venous thrombosis involving bilateral femoral and popliteal veins.
== END 2020-02-25 09:08 | disposition home or self-care (01) ==
LOC: CT 09:07
PROVIDERS: ATTEND Internal Medicine Hematology & Oncology
DX: C62.12 Malignant neoplasm of descended left testis (principal); C78.00 Secondary malignant neoplasm of unspecified lung; C78.7 Secondary malignant neoplasm of liver and intrahepatic bile duct; I73.9 Peripheral vascular disease, unspecified; R23.0 Cyanosis; I26.99 Other pulmonary embolism without acute cor pulmonale; C78.89 Secondary malignant neoplasm of other digestive organs; I82.433 Acute embolism and thrombosis of popliteal vein, bilateral; I82.413 Acute embolism and thrombosis of femoral vein, bilateral
CPT/HCPCS: 71260; 74177; 78306; 93970; A9503; Q9967

== ENCOUNTER 2020-02-28 10:03 | Outpatient (CLI) | payer OTHER ==
--- NOTE | 2020-02-28 11:36 | MRI ---
MRI BRAIN WITH AND WITHOUT CONTRAST: DATE: 02/28/2020 HISTORY: 19-year-old old male with brain metastases from testicular cancer. Restaging. COMPARISON: 11/22/2019 TECHNIQUE: Multiplanar, multisequence MRI of the brain performed pre- and post-IV injection of gadolinium based contrast agent. FINDINGS: Previously, the lateral and third ventricles were distorted from mass effect due to the edema from br ain metastases, but they were not dilated. Currently, the ventricles have all increased in size since the prior MRI. There is moderate dilation of the fourth ventricle, and mild to moderate dilation of the lateral and third ventricles. There has been interval development of diffuse mild prominence of sulcal markings since the previous MRI. Most of the previously demonstrated multiple small foci of restricted diffusion in both the cerebellu m and bilateral cerebral hemispheres, have resolved. There are a few new such tiny foci of restricted diffusion in the right upper parietal and upper post erior fundal centrum semiovale and subcortical white matter. There is a new moderate-sized region of heterogeneously mixed T2 hyperintensity consistent with edema , with central T1 and T2 hypointensity, in the right upper parietal lobe, including postcentral gyrus, involving cortex, subcortical white matter, and deep cerebral white matter, measuring approxim ately 5.5 x 3.5 x 4 cm. There is a thin long strip of gyriform enhancement along the sulcus. No significant hemorrhage associated with this. This appears to be an infarction, some portions having s ignificantly restricted diffusion. Again noted are the multiple hemorrhagic metastatic lesions in the bilateral cerebral hemispheres and bilateral cerebellar hemispheres. These have the common smaller in size. For example, the largest supratentorial mass was a left parietal hemorrhagic mass previously measurin g approximately 3.8 x 2.5 x 3.5 cm. It has decreased to current dimensions of approximately 2.5 x 3.5 x 2.5 cm. The other large supratentorial mass was a 3 x 2.5 x 3 cm left occipital hemorrhagic mass. That is cur rently 2.5 x 2 x 2.2 cm, now with a hemosiderin ring. Previous right hemorrhagic cerebellar hemisphere masses were 1.4 and 1.0 cm. These have decreased in size to 0.8 and 0.5 cm, with hemosiderin rings. Restricted diffusion is present within these hemorrhagic metastases. IMPRESSION: 1) interval development of mild ventriculomegaly. This is probably due to the interval development of mild brain atrophy. The possibility of a superimposed, low-grade, communicating obstructive hydrocephalus, superimposed on the ex vacuo dilation due to the atrophy, is unlikely, due to absence of evidence of leptomeningeal and intraventricular metastatic lesions. However, follow-up is recommended. 2) interval decrease in sizes of the multiple hemorrhagic cerebral and cerebellar intra-axial metasta tic masses. 3) new since the prior MRI, there is a moderate sized right parietal infarction, subacute and/or acut e.
== END 2020-02-28 10:04 | disposition home or self-care (01) ==
LOC: TBSIIMAG 10:03
PROVIDERS: ATTEND Radiology Radiation Oncology
DX: C62.90 Malignant neoplasm of unspecified testis, unspecified whether descended or undescended (principal); C79.31 Secondary malignant neoplasm of brain; G93.89 Other specified disorders of brain; G31.9 Degenerative disease of nervous system, unspecified
CPT/HCPCS: 70553; 80053; 82105; 82248; 83615; 84100; 84550; 84702

== ENCOUNTER 2020-05-03 08:46 | Outpatient (CLI) | payer OTHER ==
--- NOTE | 2020-05-03 09:51 | MRI ---
MRI of thebrain: 05/03/2020 COMPARISON:02/28/2020 HISTORY:Metastatic testicular cancer TECHNIQUE: Multiplanar multisequence MR imaging of thebrain with and without contrast Findings:The diffusion weighted imaging demonstrates no evidence for acute infarction. Within the right cerebellar hemisphere there are 3 foci of blooming artifact clustered posteriorly an d medially, measuring up to approximately 6-7 mm. There is mild adjacent increased FLAIR and T2 signal with out enhancement suggesting 3 stable subcentimeter hemorrhagic metastatic foci. Within the left cerebellar hemisphere there is a subcentimeter focus of increased T2 and FLAIR signal without enhancement or blooming artifact suggesting a small prior infarction. There is a hemorrhagic lesion within the occipital lobe posteriorly on the left measuring 2.2 cm in A P dimension, not significantly changed when compared to the prior examination, consistent with a hemorrhagic metastatic focus. In addition, there is a posterior right occipital lesion with similar s ignal characteristics measuring in the 8 mm range, also suggesting a stable hemorrhagic metastatic focus. There is a bilobed hemorrhagic lesion within the posterior superior aspect of the left parieta l lobe measuring approximately 2.6 cm in AP dimension, similar when compared to the 02/28/2020 examination, suggesting and an additional stable hemorrhagic metastatic lesion. There is a nonspecific stable confluent area of increased T2 and FLAIR signal involving the periventr icular deep and subcortical white matter in the region of the posterior body of the right lateral ventricle superiorly extending into the superior posterior aspect of the right parietal lobe. The appearance of this finding is unchanged and may be related to subacute infarction. The gradient echo imaging demonstrates additional small foci of blooming artifact within the superior aspect of the right frontal lobe, as seen on prior imaging, evidence of hemorrhagic metastatic disease. The postcontrast imaging demonstrates a small subtle area of enhancement within the posterior superio r and medial aspect of the right parietal lobe at the superior margin of the above-described probable old infarction. This area of enhancement is similar when compared to the prior examination a nd could reflect a small stable superimposed metastatic lesion. The postcontrast imaging does not demonstrate evidence of a new metastatic lesion. IMPRESSION:Stable contrast enhanced brain MRI. Evidence of multiple stable hemorrhagic metastatic foc i with no new lesions and no significant mass effect.
[2020-05-03] MEDS ORDERED: Magnevist 469MG/ML 20 ML VIAL ONE (14:28)
== END 2020-05-03 08:47 | disposition home or self-care (01) ==
LOC: MRI 08:46
PROVIDERS: ATTEND Radiology Radiation Oncology
DX: C79.31 Secondary malignant neoplasm of brain (principal)
CPT/HCPCS: 70553; A9579

== ENCOUNTER 2020-05-22 12:29 | Day surgery (SDC) | payer OTHER ==
[2020-05-22] MEDS ORDERED: diphenhydrAMINE 25 MG CAP PO SCH (13:15)
[2020-05-22] MEDS ORDERED: Acetaminophen 500 MG TAB PO SCH (13:15)
[2020-05-22 16:27] VITALS: BP 113/75; TEMP 97.9
== END 2020-05-22 16:28 | disposition home or self-care (01) ==
LOC: ONC/OP 12:29
PROVIDERS: ATTEND Internal Medicine Hematology & Oncology
PROC: 30233N1 Transfusion of Nonautologous Red Blood Cells into Peripheral Vein, Percutaneous Approach (ICD-10-PCS; principal; 2020-05-22)
DX: D64.9 Anemia, unspecified (principal); D69.6 Thrombocytopenia, unspecified
CPT/HCPCS: 36430; 80053; 82248; 83615; 84100; 84550; 86850; 86900; 86901; P9016; Q0163

== ENCOUNTER 2020-05-25 10:22 | Emergency (ER) | payer OTHER ==
[2020-05-25 17:16] LABS: SARS-CoV-2 MS2 Positive; SARS-CoV-2 N Gene Negative; SARS-CoV-2 S Gene Negative; SARS-CoV-2 by NAA Not Detected (NotDetected); SARS-CoV-2 orf1ab Negative
== END 2020-05-25 10:55 | disposition home or self-care (01) ==
LOC: ERS 10:22
DX: R05 Cough (principal); Z20.828 Contact with and (suspected) exposure to other viral communicable diseases
CPT/HCPCS: 87635; 99283; U0003

== ENCOUNTER 2020-06-08 08:56 | Outpatient (CLI) | payer OTHER ==
--- NOTE | 2020-06-08 14:41 | CT ---
CT OF THE CHEST, ABDOMEN AND PELVIS WITH IV CONTRAST: 06/08/20 INDICATION: History of testicular cancer with metastatic disease involving the brain. COMPARISON: Prior CT of the chest, abdomen and pelvis dated 02/25/20. FINDINGS: The previously seen filling defects within the pulmonary arterial tree are not demonstrated on the cu rrent examination likely reflecting resolution of the bilateral PE seen on the prior exam. Calcified lymph nodes of the mediastinum and right hilar region is stable. The pleural based lesion i nvolving the medial aspect of the right upper lobe now measures 1.8 cm where previously this measured 3.3 cm. There are numerous scattered pulmonary nodules within both lungs and have all decreased in s ize. The index nodule in the right lower lobe on image 30 of series 3 now measures 2 x 1.8 cm where i t previously measured 2.8 x 2.8 cm. There are mild scattered areas of interstitial prominence involving both upper lobes with associated ground glass opacity. These are new from the prior exam. These areas of interstitial and air space op acity seen peripherally may be related to chemotherapy effects from an interstitial pneumonitis and b ronchiolitis. A corresponding atypical infectious process cannot be entirely excluded. There is mild fatty infiltration of the liver. No focal hepatic lesion is evident. There is calcifica tion within the spleen. Small hypodensity is seen within the mid spleen on image 40 of series 2 sligh tly smaller on the prior examination where it previously measured 10 mm. The adrenal glands, pancreas, and kidneys are normal appearing. No free fluid or enlarged lymph nodes are evident. There is a mild amount of retained stool within the colon. No definite acute osseous abnormality is evident. IMPRESSION: 1. Findings consistent with response to therapy with reduction in size of numerous scattered pul monary nodules. The hypodense lesion in the spleen suspicious for splenic metastatic disease is also decreased in size. 2. However, in the interim, there has been interval development of interstitial and ground glass air space opacities with foci of peripheral bronchiectasis most evident within the left upper lobe a nd right upper lobe that is suspicious for interstitial scarring from chemotherapy. This can be seen in patients who take Bleomycin as reported by Dr. Brown. Some areas particularly within the posterior segment of the right upper lobe and superior segment of the right lower lobe demonstrate more reticu lar nodular air space opacities which certainly could be related to a toxicity; however, an atypical infectious process such as viral pneumonia or COVID-19 needs to be excluded as it could be superimpos ed on the fibrotic parenchymal findings. The findings were discussed with Dr. Brown at 10:20 a.m. on 06/08/20. 3. Stable fatty liver. 4. Other chronic findings as above. Code CR POS: BH
--- NOTE | 2020-06-08 17:16 | NM ---
WHOLE BODY BONE SCAN: Date: 06/08/2020 INDICATION: History of metastatic testicular cancer. COMPARISON: Prior exam dated 02/25/2020. RADIOPHARMACEUTICAL: 32 mCi technetium-99m MDP IV. FINDINGS: No suspicious focal area of uptake is seen to suggest the presence of osseous metastatic disease. Chad e mild activity is seen involving the shoulders, sternoclavicular joints, knees, and ankles, likely r elated to mild degenerative activity. IMPRESSION: No scintigraphic evidence to suggest osseous metastatic disease. POS: BH
== END 2020-06-08 08:57 | disposition home or self-care (01) ==
LOC: CT 08:56
PROVIDERS: ATTEND Internal Medicine Hematology & Oncology
DX: C62.12 Malignant neoplasm of descended left testis (principal); C78.00 Secondary malignant neoplasm of unspecified lung; C78.7 Secondary malignant neoplasm of liver and intrahepatic bile duct; R91.8 Other nonspecific abnormal finding of lung field; K76.0 Fatty (change of) liver, not elsewhere classified
CPT/HCPCS: 71260; 74177; 78306; 80053; 82105; 82248; 83615; 84100; 84550; 84702; A9503

== ENCOUNTER 2020-06-08 10:59 | Emergency (ER) | payer OTHER ==
[2020-06-09 11:23] LABS: SARS-CoV-2 MS2 Positive; SARS-CoV-2 N Gene Negative; SARS-CoV-2 S Gene Negative; SARS-CoV-2 by NAA Not Detected (NotDetected); SARS-CoV-2 orf1ab Negative
== END 2020-06-08 11:51 | disposition home or self-care (01) ==
LOC: ERS 10:59
DX: Z20.828 Contact with and (suspected) exposure to other viral communicable diseases (principal)
CPT/HCPCS: 87635; 99283; J1642; U0003

== ENCOUNTER 2020-09-21 08:23 | Observation (INO) | payer OTHER ==
[2020-09-21 09:01] LABS: #Eosinphils 0.1 thou/uL (0.0-0.7); #Lymphocytes 1.1 thou/uL (1.20-3.40); #Monocytes 0.3 thou/uL (0.11-0.59); #Neutrophils 3.1 thou/uL (1.40-6.50); %Eosinophils 1.6 % (0.0-10.0); %Lymphocytes 24.3 % (21.0-51.0); %Neutrophils 68.1 % (42.0-75.0); Hemoglobin 12.9 g/dL (14.0-18.0); Mean Corpuscular HGB CONC 33.9 g/dL (32.0-36.0); Mean Corpuscular Hemoglobin 27.9 pg (27.0-31.0); Mean Corpuscular Volume 82.5 fL (78.0-98.0); Mean Platelet Volume 8.9 fL (7.4-10.4); Platelet Count 147 thou/uL (130-400); RBC Distribution Width 13.9 % (11.5-14.5); Red Blood Cell (RBC) Count 4.62 mill/uL (4.70-6.10); White Blood Cell (WBC) Count 4.5 thou/uL (4.8-10.8)
[2020-09-21 09:17] LABS: ALT (SGPT) 58 U/L (8-55); AST (SGOT) 37 U/L (5-34); Albumin 4.2 g/dL (3.5-5.0); Alkaline Phosphatase 52 U/L (40-110); Anion Gap 16 mmol/L (10-20); BUN (Urea Nitrogen) 13 mg/dL (8.9-20.6); Bilirubin, Total 0.8 mg/dL (0.2-1.2); Calc. Creatinine Clearance 0 mL/min (70-130); Calcium 9.3 mg/dL (7.8-10.44); Carbon Dioxide 21 mmol/L (22-29); Chloride 105 mmol/L (98-107); Globulin 2.8 g/dL (2.4-3.5); Glucose 147 mg/dL (70-105); Potassium 3.4 mmol/L (3.5-5.1); Sodium 139 mmol/L (136-145)
[2020-09-21] MEDS ORDERED: Ondansetron PF 4 MG/2 ML Vial ONE (09:31)
--- NOTE | 2020-09-21 09:35 | RAD ---
CHEST 1 VIEW: HISTORY: Fall. COMPARISON: CT exam 06/08/2020. FINDINGS: Port catheter tip inferior SVC. Relative to the CT examination, the multiple round masses of the warren gs have decreased. No pneumothorax. NO effusion. No displaced rib fracture. IMPRESSION: 1. No acute intrathoracic abnormality. 2. Improved metastatic disease. POS: HOME
--- NOTE | 2020-09-21 09:56 | CT ---
CT BRAIN WITHOUT CONTRAST: Date: 09/21/2020 HISTORY: Testicular cancer with brain mets. Seizures. Fall, postictal. COMPARISON: 12/06/2019. FINDINGS: The previously noted masses and vasogenic edema appear to have improved. No acute infarct, hemorrhage , midline shift, or abnormal extra-axial fluid collections are seen. The ventricular size is appropri ate and the basilar cisterns are patent. The bony calvarium is intact. The visualized paranasal sinus es and mastoid air cells are well aerated. IMPRESSION: No CT evidence of acute intracranial process. Contrast enhanced MRI is recommended to evaluate for br ain metastases. POS: BEL
[2020-09-21] MEDS ORDERED: Bacitracin 1 PK ONE (10:01)
--- NOTE | 2020-09-21 10:37 | PDOC.FPRHP ---
- History of Present Illness Chief Complaint: seizure - Allergies/Adverse Reactions Allergies Allergy/AdvReac Type Severity Reaction Status Date / Time No Known Drug Allergies Allergy Verified 01/21/20 18:21 - Home Medications Medication Instructions Recorded Confirmed Type Benzonatate [Tessalon] 200 mg PO BIDPRN PRN cap 12/24/19 01/21/20 Rx Gabapentin [Neurontin] 300 mg PO TID cap 12/24/19 01/21/20 Rx HYDROcodone Bit/APAP 10/325 [[place]] 1 tab PO Q4H PRN tab 12/24/19 01/21/20 Rx HYDROcodone Bit/APAP 10/325 [[place]] 2 tab PO Q4H PRN tab 12/24/19 01/21/20 Rx Melatonin 9 mg PO HS PRN tab 12/24/19 01/21/20 Rx Memantine HCl [Namenda] 10 mg PO BID tab 12/24/19 01/21/20 Rx Ondansetron [Zofran ODT] 4 mg PO Q6H PRN tab 12/24/19 01/21/20 Rx levETIRAcetam [Keppra] 500 mg PO BID tab 12/24/19 01/21/20 Rx Bisacodyl 10 mg RC DAILY PRN 01/04/20 01/21/20 History Calcium Carbonate 1,000 mg PO Q6HR PRN 01/04/20 01/21/20 History Dexamethasone 4 mg PO BID 01/04/20 01/21/20 History Docusate Sodium 100 mg PO BID 01/04/20 01/21/20 History Ibuprofen 800 mg PO QID 01/04/20 01/21/20 History Pantoprazole [Protonix] 40 mg PO DAILY 01/04/20 01/21/20 History Polyethylene Glycol 3350 [Base 1 gm PO DAILY 01/04/20 01/21/20 History B,Polyethylene [id number]] Simethicone [Gas Relief] 80 mg PO TID PRN 01/04/20 01/21/20 History Metoprolol Tartrate 100 mg PO BID 01/08/20 01/21/20 History Dexamethasone [Decadron] 4 mg PO BID tab 01/10/20 01/21/20 Rx Doxycycline [Vibramycin] 100 mg PO BID 10 Days #20 cap 01/10/20 01/21/20 Rx Scopolamine [Transderm Scop] 1.5 mg TD Q3D PRN patch 01/10/20 01/21/20 Rx Zolpidem Tartrate [Ambien] 5 mg PO HSPRN PRN tab 01/10/20 01/21/20 Rx diphenhydrAMINE [Benadryl] 25 mg PO Q3H PRN cap 01/10/20 01/21/20 Rx Acetaminophen [Tylenol Extra 1,000 mg PO Q6H PRN tab 01/24/20 Rx Strength] Ondansetron [Zofran ODT] 4 mg PO Q6H PRN tab 01/24/20 Rx Polyethylene Glycol 3350 [Miralax] 17 gm PO DAILY pk 01/24/20 Rx - History PMHx: PSHx: FHx: Social: - Vital signs BP: [] HR: [] RR: [] Tmax: [] Pox: []% on [] Wt: [] FMR H&P: Results - Labs Result Diagrams: 09/21/20 08:40 09/21/20 08:40 Lab results: WBC 4.5 thou/uL (4.8-10.8) L 09/21/20 08:40 Hgb 12.9 g/dL (14.0-18.0) L 09/21/20 08:40 Hct 38.1 % (42.0-52.0) L 09/21/20 08:40 MCV 82.5 fL (78.0-98.0) 09/21/20 08:40 Plt Count 147 thou/uL (130-400) 09/21/20 08:40 Neutrophils % 68.1 % (42.0-75.0) 09/21/20 08:40 Sodium 139 mmol/L (136-145) 09/21/20 08:40 Potassium 3.4 mmol/L (3.5-5.1) L 09/21/20 08:40 Chloride 105 mmol/L (98-107) 09/21/20 08:40 Carbon Dioxide 21 mmol/L (22-29) L 09/21/20 08:40 BUN 13 mg/dL (8.9-20.6) 09/21/20 08:40 Creatinine 0.82 mg/dL (0.7-1.3) 09/21/20 08:40 Glucose 147 mg/dL (70-105) H 09/21/20 08:40 Calcium 9.3 mg/dL (7.8-10.44) 09/21/20 08:40 Total Bilirubin 0.8 mg/dL (0.2-1.2) 09/21/20 08:40 AST 37 U/L (5-34) H 09/21/20 08:40 ALT 58 U/L (8-55) H 09/21/20 08:40 Alkaline Phosphatase 52 U/L (40-110) 09/21/20 08:40 Serum Total Protein 7.0 g/dL (6.0-8.3) 09/21/20 08:40 Albumin 4.2 g/dL (3.5-5.0) 09/21/20 08:40 FMR H&P: Upper Level - Plan Date/Time: 09/21/20 Lenny Dietrich, [], have evaluated this patient and agree with findings/plan as outlined by web development intern resident. Pertinent changes/additions are listed here.
[2020-09-21] MEDS ORDERED: levETIRAcetam in NS 100 ML ONE (10:46)
[2020-09-21] MEDS ORDERED: Acetaminophen 325 MG TAB PO PRN (11:51)
[2020-09-21] MEDS ORDERED: Ondansetron PF 4 MG/2 ML Vial IVP PRN (11:51)
[2020-09-21] MEDS ORDERED: Ondansetron ODT 4 MG TAB PO PRN (11:51)
--- NOTE | 2020-09-21 12:44 | CON ---
NEUROLOGY CONSULTATION DATE OF CONSULTATION: 09/21/2020 REASON FOR CONSULTATION: Breakthrough seizures. Mr. Victor Hugo Heller is a 19-year-old male with history significant for testicular cancer status post chemotherapy at [facility] presented with episodes concerning about breakthrough seizures. The patient is somnolent, so history is obtained from the mother. According to the mother, he has testicular cancer for which he has been followed by an oncologist at [facility], stage IV with metastasis to the kidney, spleen, brain and lung presented with several events concerning for breakthrough seizures. According to the mother, he was sleeping on the wrong side of the bed and she heard barking of the service dog, which made her concerned and then he during which he had a glazed look and was unable to respond for few minutes and then there were few other episodes during which there was some arm shaking and confusion, which raised suspicion for seizures, so the mother called 911, and brought him to the emergency room for further evaluation. 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 Per mother, he has been having events of confusion and brief focal shaking. There was a concern about seizures, but they were unable to follow up with neurologist. During this time, the mother denies any focal numbness, focal paresthesias, nausea, vomiting, headache, chest pain, abdominal pain, recent illness or recent exposure to COVID. The patient has been taking Keppra 500 mg twice daily for the last 1 year and has been compliant with the medications per mother. REVIEW OF SYSTEMS: Per mother, all systems reviewed and were negative except the pertinent positives and negatives mentioned in the HPI. MEDICAL HISTORY: Testicular cancer, stage IV with metastasis to the lung, brain, kidney and spleen; headaches. SURGICAL HISTORY: Left testicle removal. FAMILY HISTORY: No significant family history of cancer. Denies smoking, alcohol, or illegal drug use. HOME MEDICATION: Please see updated reconciled medication list for further information. ALLERGIES: NO KNOWN DRUG ALLERGIES. PHYSICAL EXAMINATION: VITAL SIGNS: Blood pressure 110/80, pulse 80, respiratory rate 18. CVS: Regular rate and rhythm. CHEST: Clear. ABDOMEN: Soft. NECK: Supple. NEUROLOGIC: Mental status, the patient is alert and oriented to person, place, and time. Speech is clear. Motor, muscle tone and bulk are normal. Moving all 4 extremities equally and symmetrically. Sensory withdraws to nailbed pressure bilaterally. Cranial nerves, pupils 4 mm, round and reactive to light. Face symmetric. Tongue midline. Moves neck in both direction. Hearing seems to be intact. GAIT: Deferred due to patient's safety reason. DATA REVIEWED: I reviewed the head CT, which did not reveal any acute intracranial pathology. ASSESSMENT AND PLAN: Mr. Victor Hugo Heller is a 19-year-old male with medical history significant for stage IV testicular cancer with metastasis to the brain, status post chemotherapy presented with several event suspicious for breakthrough seizures, load with Keppra 1 g IV now and then increase dose of Keppra to 750 mg twice daily. Observe seizure precautions. Ativan 2 mg IV for seizure greater than 2 minutes. Neuro checks every 4 hours. Consider MRI of the brain with and without contrast to assess brain metastasis and to rule out hemorrhagic conversion or increase in the size of the lesion, which may require further intervention. Continue home medications. Continue medical management. EEG to rule out cortical irritability and to assess the presence of interictal epileptiform discharges, which will help us in further adjustment of the dose of Keppra. Continue medical management per primary team. Further recommendations will depend on the results of the testing. Plan discussed in detail with the patient's mother at bedside and also with the primary attending, Dr. Mayela Melchor. We will continue to follow, thank you for the consult. Job ID: [id number] [facility]
[2020-09-21] MEDS ORDERED: HYDROcodone/Acetaminophen 10/325 mg Tablet ONE (13:43)
[2020-09-21] MEDS ORDERED: Acetaminophen 500 MG TAB PO PRN (13:57)
[2020-09-21] MEDS ORDERED: HYDROcodone/Acetaminophen 10/325 mg Tablet PO PRN (13:57)
[2020-09-21] MEDS ORDERED: Magnevist 469MG/ML 20 ML VIAL ONE (14:28)
--- NOTE | 2020-09-21 14:38 | MRI ---
Exam: Brain MRI with and without contrast HISTORY: Seizure. Brain metastases. Metastatic testicular cancer. COMPARISON: 05/03/2020 FINDINGS: Gradient echo sequence and cerebrum: Multiple areas of hypointense signal compatible with remote hemo rrhagic metastatic foci. There is acute hemorrhage involving a metastatic deposit in the left occipital parietal lobe measuring 1.2 x 0.9 cm. Calvarium: Appropriate T1 marrow signal intensity Midline brain parenchyma: Unremarkable Cerebrum:Redemonstration of multifocal intracranial metastases. No new lesions are appreciated. Large st lesion is in the left occipital lobe, measuring 1.8 x 1.7 cm (previously measuring 2.1 x 2.1 cm. Peripheral hemosiderin due to remote hemorrhage. Stable T2 and FLAIR white matter hyperintensity invo lving the right precentral and postcentral gyri. There is associated sulcal effacement. Small foci of hemorrhage, measuring 0.5 cm noted along the medial aspect of the postcentral sulcus. Ventricles: No evidence of hydrocephalus. Sinuses and mastoid air cells: Adequate aeration Diffusion: Central arterial flow is maintained. Absent restricted diffusion. Postcontrast images:Stable enhancement involving the right precentral and postcentral gyrus. Stable e nhancement involving the lesions in the left cerebrum. No evidence of new intracranial metastases. IMPRESSION: 1. Redemonstration of multifocal hemorrhagic brain metastases with evidence of T2 and FLAIR hyperinte nsity involving the right precentral postcentral gyri. 2. No evidence of new interval parenchymal metastatic lesions.
[2020-09-21 15:04] VITALS: BMI 32.3
[2020-09-21] MEDS ORDERED: Lorazepam 2 MG/ML VIAL SLOW IVP PRN (16:23)
--- NOTE | 2020-09-21 16:31 | PDOC.FPRHP ---
- History of Present Illness Chief Complaint: seizure History of Present Illness: Pt is a 19 yo M stage IV Testicular Cancer and HTN who presents after a probable seizure this morning. History obtained mostly from patient's mom. This morning patient's service dog was barking while patient was "sleeping". Mom thought the dog needed to use the restroom so took the dog out. When she brought the dog back in, the dog continued barking and the patient was found to be on the ground between his bed and the dresser. Patient does not remember this episode. His last seizure was 10/28, but has been having increasing episodes where he had neurologic symptoms like not being able to talk or having one of his extremities "freeze" for short amounts of time. These could possibly represent focal seizures. Patient is lethargic on exam. Only complaining of nausea and vomiting. He denies any issues leading up to this episode. He had been feeling fine. No CP, SOB, abdominal pain, fevers, or chills. He has not been able to follow up outpatient with a neurologist ED Course: 1g Keppra, 8mg Zofran - Allergies/Adverse Reactions Allergies Allergy/AdvReac Type Severity Reaction Status Date / Time No Known Drug Allergies Allergy Verified 01/21/20 18:21 - Home Medications Medication Instructions Recorded Confirmed Type HYDROcodone Bit/APAP 10/325 [[place]] 1 tab PO Q4H PRN tab 12/24/19 09/21/20 Rx Melatonin 9 mg PO HS PRN tab 12/24/19 09/21/20 Rx Memantine HCl [Namenda] 10 mg PO BID tab 12/24/19 09/21/20 Rx levETIRAcetam [Keppra] 500 mg PO BID tab 12/24/19 09/21/20 Rx Ibuprofen 800 mg PO QID 01/04/20 09/21/20 History Pantoprazole [Protonix] 40 mg PO DAILY 01/04/20 09/21/20 History Metoprolol Tartrate 100 mg PO BID 01/08/20 09/21/20 History Zolpidem Tartrate [Ambien] 5 mg PO HSPRN PRN tab 01/10/20 09/21/20 Rx Apixaban [Eliquis] 5 mg PO BID 09/21/20 09/21/20 History Econazole/Niacinamide [Econazole 30 gm TP BID 09/21/20 09/21/20 History Nit 1%-Niacinamide4%] Fluticasone Propionate [Flonase 1 spray EA NARE DAILY 09/21/20 09/21/20 History Nasal Minier] Gabapentin [Neurontin] 300 mg PO DAILY 09/21/20 09/21/20 History Loratadine [Claritin] 10 mg PO DAILY 09/21/20 09/21/20 History Nystatin 100,000 Units/mL 5 ml SSW DAILY 09/21/20 09/21/20 History [Mycostatin Oral Suspension] Ondansetron [Zofran ODT] 8 mg PO Q8H PRN 09/21/20 09/21/20 History Prochlorperazine Maleate 10 mg PO Q6HR PRN 09/21/20 09/21/20 History [Compazine] Simethicone 80 mg PO DAILY 09/21/20 09/21/20 History Vitamin B Complex 1 cap PO DAILY 09/21/20 09/21/20 History - History PMHx: Stage IV Testicular Cancer, HTN PSHx: Orchiectomy, ex-lap w/ repair of perforation of abdominal viscus FHx: noncontributory Social: denies tobacco, alcohol or drug use. - Review of Systems General: denies: weight/appetite/sleep changes Eyes: denies: vision changes Respiratory: denies: cough, congestion Cardiovascular: denies: chest pain, palpitation Gastrointestinal: reports: nausea, vomiting Genitourinary: denies: incontinence Skin: denies: rashes Musculoskeletal: denies: pain, tenderness Neurological: reports: seizure, weakness - Vital signs BP: 103/74 HR: 111 RR: 20 Tmax: 97.9 Pox: 94% on RA Wt: 120kg - Physical Exam -Constitutional: lethargic on exam HEENT: normocephalic and atraumatic, PERRLA, EOMI, grossly normal vision, grossly normal hearing, MMM Neck: supple, FROM Heart: RRR, normal S1/S2, no murmurs/rubs/gallops Lungs: CTAB, no respiratory distress, no wheezing Abdomen: soft, non-tender, bowel sounds present Musculoskeletal: normal structure, normal tone, ROM grossly normal Neurological: no focal deficit, CN II-XII intact, normal sensation Skin: no rash/lesions, good turgor Heme/Lymphatic: no unusual bruising or bleeding Psychiatric: normal mood and affect -Psychiatric: recent memory is not intact surrounding event that happened earlier today FMR H&P: Results - Labs Result Diagrams: 09/22/20 04:17 09/22/20 04:17 Lab results: WBC 4.5 thou/uL (4.8-10.8) L 09/21/20 08:40 Hgb 12.9 g/dL (14.0-18.0) L 09/21/20 08:40 Hct 38.1 % (42.0-52.0) L 09/21/20 08:40 MCV 82.5 fL (78.0-98.0) 09/21/20 08:40 Plt Count 147 thou/uL (130-400) 09/21/20 08:40 Neutrophils % 68.1 % (42.0-75.0) 09/21/20 08:40 Sodium 139 mmol/L (136-145) 09/21/20 08:40 Potassium 3.4 mmol/L (3.5-5.1) L 09/21/20 08:40 Chloride 105 mmol/L (98-107) 09/21/20 08:40 Carbon Dioxide 21 mmol/L (22-29) L 09/21/20 08:40 BUN 13 mg/dL (8.9-20.6) 09/21/20 08:40 Creatinine 0.82 mg/dL (0.7-1.3) 09/21/20 08:40 Glucose 147 mg/dL (70-105) H 09/21/20 08:40 Calcium 9.3 mg/dL (7.8-10.44) 09/21/20 08:40 Total Bilirubin 0.8 mg/dL (0.2-1.2) 09/21/20 08:40 AST 37 U/L (5-34) H 09/21/20 08:40 ALT 58 U/L (8-55) H 09/21/20 08:40 Alkaline Phosphatase 52 U/L (40-110) 09/21/20 08:40 Serum Total Protein 7.0 g/dL (6.0-8.3) 09/21/20 08:40 Albumin 4.2 g/dL (3.5-5.0) 09/21/20 08:40 FMR H&P: A/P - Plan Encephalopathy likely 2/2 seizure - history of seizures with last one 10/2019 -intermittent episodes of neurologic defecits these could be possible focal seizures -CT head negative for bleed or acute findings -post ictal on admission -on Keppra 500 mg BID at home -Neuro consulted from ED, recommend EEG, MRI, 1g Keppra loading dose and increasing home Keppra 750mg BID -will follow up EEG and MRI results -follow neuro recs stage IV testicular cancer w/ brain and liver mets - s/p orchiectomy and chemo/radiation - sees Dr. Brown and Dr. 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 Anticipate discharge tomorrow Palliative consulted given patient's DNR status. PT/OT consulted. Bedside swallow pending FMR H&P: Upper Level - Plan Date/Time: 09/21/20 1630 I, [Bianca Harden], have evaluated this patient and agree with findings/plan as outlined by application development intern resident. Pertinent changes/additions are listed here. 19 yo with history of stage 4 testicular cancer with brain metastasis presents after suspected seizure. Per mom she found him down with minimal responsiveness in the bed after she heard his service dog barking. He had an episode earlier in which he had a unintentional incontinence. Since his last CVA last year he has been having what sounds like focal seizures in which he would have episodes of hand or lower extremity freezing. His last known seizure was in October 2019. He has a known hx of brain metastasis in which he completed chemo and radiation. He has been on keppra 500mg po BID for a year in which he was placed on after his CVA. Denies any seizures z she reports compliance with his meds. Dr. Ibarra consulted from ER who recommended 1g loading with keppra and inc. to 750mg po BID. EEG and repeat MRI. He sees a doctor at [facility] in regards to his cancer in which he was checked out in September with follow up in November. Denies any focal infections. MRI: Multifocl hemorrhagic brain mets; no new interval mets lesions. Neuro exam WNL. He will be admitted to stroke with cardiac monitoring and pending EEG and neurology recommendations. Dvt ppx: Home eliquis Addendum - Attending - Attending Attestation Date/Time: 09/22/20 [id number] I personally evaluated the patient and discussed the management with Dr. Melchor. I agree with the History, Examination, Assessment and Plan documented above with any addition or exceptions noted below.
--- NOTE | 2020-09-21 16:35 | PDOC.EEG ---
Neurology EEG Report - Report Report: This EEG was performed using 24 channel [employer] video EEG machine with 24 disc uli ctrodes. This was an extended 2 hours 6 minutes of inpatient video EEG recording. Digital analysis of the EEG was done for spike and seizure detection which revealed abnormalities. Background: There is a nonsustained posterior background rhythm of 8.5 -9 Hz. EEG with excessive beta activity intermixed with the background. Hyperventilation: Not performed. Photic Stimulation: No significant response. Sleep: Drowsiness and sleep are observed. EEG Diagnosis: Occasional spike and wave discharges lasting 1-2 seconds seen in the right frontotemporal and left posterior occipital region Rare irregular theta activity seen during the recording. Nonsustained posterior background rhythm. Clinical Interpretation: This EEG is consistent with interictal expression of partial epilepsy in the se tting of mild generalized nonspecific cerebral dysfunction. No electrographic seizures captured during the recording.
[2020-09-21] MEDS ORDERED: Melatonin 3 MG TAB PO PRN (16:39)
[2020-09-21] MEDS ORDERED: Zolpidem Tartrate 5 MG TAB PO PRN (16:39)
[2020-09-21] MEDS ORDERED: Prochlorperazine Maleate 5 MG TAB PO PRN (16:55)
[2020-09-21] MEDS ORDERED: Ibuprofen 800 MG TAB PO SCH (17:00)
[2020-09-21] MEDS ORDERED: [UNRECOGNIZED DRUG - OTHER] TOP SCH (21:00)
[2020-09-21] MEDS ORDERED: levETIRAcetam 500 MG TAB PO SCH (21:00)
[2020-09-21] MEDS ORDERED: ECONAZOLE TOP SCH (21:00)
[2020-09-21] MEDS ORDERED: NIACINAMIDE TOP SCH (21:00)
[2020-09-21] MEDS: Metoprolol Tartrate 100 MG TAB PO SCH (21:32)
[2020-09-21] MEDS: Apixaban 5 MG TAB PO SCH (21:32)
[2020-09-21] MEDS: levETIRAcetam 500 MG TAB PO SCH (21:32)
[2020-09-21 21:54] LABS: SARS-CoV-2 PCR by NAA Not Detected (NotDetected)
[2020-09-22 04:39] LABS: #Basophils 0.1 thou/uL (0.0-0.2); #Eosinphils 0.1 thou/uL (0.0-0.7); #Lymphocytes 1.4 thou/uL (1.20-3.40); #Monocytes 0.5 thou/uL (0.11-0.59); #Neutrophils 2.9 thou/uL (1.40-6.50); %Basophils 2.2 % (0.0-1.0); %Eosinophils 2.1 % (0.0-10.0); %Lymphocytes 28.6 % (21.0-51.0); %Monocytes 10.1 % (0.0-10.0); Hemoglobin 11.7 g/dL (14.0-18.0); Mean Corpuscular HGB CONC 33.3 g/dL (32.0-36.0); Mean Corpuscular Hemoglobin 27.6 pg (27.0-31.0); Mean Corpuscular Volume 82.9 fL (78.0-98.0); Mean Platelet Volume 8.7 fL (7.4-10.4); Platelet Count 168 thou/uL (130-400); Red Blood Cell (RBC) Count 4.24 mill/uL (4.70-6.10)
[2020-09-22 04:54] LABS: ALT (SGPT) 52 U/L (8-55); AST (SGOT) 35 U/L (5-34); Albumin 3.8 g/dL (3.5-5.0); Alkaline Phosphatase 44 U/L (40-110); Anion Gap 15 mmol/L (10-20); BUN (Urea Nitrogen) 12 mg/dL (8.9-20.6); Bilirubin, Total 1.2 mg/dL (0.2-1.2); Calc. Creatinine Clearance 269 mL/min (70-130); Carbon Dioxide 22 mmol/L (22-29); Chloride 106 mmol/L (98-107); Globulin 2.6 g/dL (2.4-3.5); Glucose 89 mg/dL (70-105); Potassium 3.8 mmol/L (3.5-5.1); Protein, Total 6.4 g/dL (6.0-8.3); Sodium 139 mmol/L (136-145)
--- NOTE | 2020-09-22 06:55 | PDOC.FM ---
- Subjective Subjective: Patient resting comfortably in bed this AM. No acute overnight events as per tele. No seizures overnight. No seizures seen on EEG, no interval change on MRI. Home Keppra increased to 1g BID - Objective MAR Reviewed: Yes Vital Signs & Weight: Vital Signs (12 hours) Temp Pulse Resp BP Pulse Ox 09/22/20 04:28 98.7 F 86 12 102/57 L 99 09/21/20 23:25 62 100/54 L 09/21/20 19:38 98.5 F 71 20 125/64 100 Weight Weight 120.656 kg I&O: 09/20/20 09/21/20 09/22/20 06:59 06:59 06:59 Intake Total 595 Output Total 600 Balance -5 Result Diagrams: 09/22/20 04:17 09/22/20 04:17 Phys Exam - Physical Examination Constitutional: NAD HEENT: moist MMs Neck: no JVD, supple Respiratory: no wheezing Cardiovascular: RRR, no significant murmur Gastrointestinal: soft, non-tender Musculoskeletal: no edema, pulses present Neurological: moves all 4 limbs Psychiatric: normal affect, A&O x 3 Dx/Plan - Plan Plan: Encephalopathy likely 2/2 seizure - history of seizures with last one 10/2019 -intermittent episodes of neurologic defecits these could be possible focal sei zures -CT head negative for bleed or acute findings -post ictal on admission -on Keppra 500 mg BID at home -Neuro consulted from ED, recommend EEG, MRI, 1g Keppra loading dose and increasing home Keppra 750mg BID -will follow up EEG and MRI results -follow neuro recs -09/22: MRI showed no acute change with no new mets, EEG showed no active seizures, Keppra home dose increased to 1g BID. Will send out on this. 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 Brown and Dr. Palencia, was recently seen in August in [place] at [facility] with Dr Sánchez - history of CVA, PE and bowel perforation secondary to complications from mets - continue home meds htn - monitor BPs - continue home meds ppx: home eliquis, home PPI pcp: katia code: full diet: regular IVF: KVO Code: DNAR dispo: admit to tele, obs. Anticipate discharge today Palliative consulted given patient's DNR status. PT/OT consulted. Addendum - Attending - Attending Attestation Date/Time: 09/22/20 [id number] I personally evaluated the patient and discussed the management with Dr. Melchor. I agree with the History, Examination, Assessment and Plan documented above with any addition or exceptions noted below. Patient improved. No recurrent seizure activity. Plan to dc home with increased Keppra and outpatient follow up with Onc/RadOnc.
[2020-09-22] MEDS ORDERED: Simethicone Chewable 80 MG TAB PO SCH (09:00)
[2020-09-22] MEDS ORDERED: Nystatin 100,000 Units/mL UDCUP SSW SCH (09:00)
[2020-09-22] MEDS ORDERED: Stress 600 With Zinc 1 TAB PO SCH (09:00)
[2020-09-22] MEDS ORDERED: Loratadine 10 MG TAB PO SCH (09:00)
[2020-09-22] MEDS ORDERED: Fluticasone Propionate Nasal Spray 16 gm Bottle NASAL SCH (09:00)
[2020-09-22] MEDS ORDERED: Gabapentin 300 MG CAP PO SCH (09:00)
[2020-09-22] MEDS: levETIRAcetam 500 MG TAB PO SCH (09:25)
[2020-09-22] MEDS: Nystatin 500,000 UNITS/5 ML UDCUP SSW SCH ×2 (09:26→09:34)
[2020-09-22] MEDS: Apixaban 5 MG TAB PO SCH (09:26)
[2020-09-22] MEDS: Metoprolol Tartrate 100 MG TAB PO SCH (09:28)
--- NOTE | 2020-09-22 12:16 | PDOC.FMACP ---
Advance Care Planning - Problem (1) Seizure Status: Acute Code(s): R56.9 - UNSPECIFIED CONVULSIONS (2) Metastasis to brain Status: Acute Code(s): C79.31 - SECONDARY MALIGNANT NEOPLASM OF BRAIN (3) Palliative care encounter Status: Acute Code(s): Z51.5 - ENCOUNTER FOR PALLIATIVE CARE (4) Testicular malignant neoplasm Status: Acute Code(s): C62.90 - MALIG NEOPLASM OF UNSP TESTIS, UNSP DESCENDED OR UNDESCENDED - Note Participants: patient, family, palliative care Summary: Palliative care addressed Advanced Care Planning with patient and his mother who is at bedside. The diagnosis, prognosis and goals of care were discussed. Appropriate forms and documentation to accomplish the goals of care were discussed. All questions were answered. *Elected to complete MPOA and Directive to physician, Mary Valdivia and Brian Christopher to complete. *Goal of care: Continue aggressive measures and treatments to extend life. *Follow up with MD Marie and Dr Sánchez, follow up with neurologist *Hopeful for continued stabilization of cancer and increase activity. Time Spent (mins): 45
[2020-09-22 15:54] VITALS: BP 103/51; TEMP 98.2
--- NOTE | 2020-09-23 11:32 | DIS ---
DATE OF ADMISSION: 09/21/2020 DATE OF DISCHARGE: 09/22/2020 RESIDENT: Mayela Melchor MD, PGY-1. ADMITTING ATTENDING: Chandrakant Sena MD DISCHARGE ATTENDING: Chandrakant Sena MD CONSULTATIONS: 1. Dr. Ibarra, Neurology. 2. Case Management. 3. Dietitian. 4. PT, OT. 5. Palliative Care. PROCEDURES: Include chest x-ray on 09/21/2020, which showed no acute intrathoracic abnormality and improved metastatic disease. Brain CT on 09/21/2020, which showed no CT evidence of acute intracranial process. Contrast enhanced MRI is recommended to evaluate for brain metastases. Brain MRI on 09/21/2020, which showed a re-demonstration of multifocal hemorrhagic brain metastases with evidence of T2 and FLAIR hyperintensity involving the right precentral/postcentral gyri and no new interval parenchymal metastatic lesion. EEG read by Dr. Ibarra, which showed consistency with interictal expression of partial epilepsy in the setting of mild generalized nonspecific cerebral dysfunction. No electrographic seizures captured during the recording. PRIMARY DIAGNOSIS: Encephalopathy secondary to seizure. SECONDARY DIAGNOSES: 1. Stage IV testicular cancer with brain and liver metastases. 2. Hypertension. DISCHARGE MEDICATIONS: 1. Keppra 1 g p.o. b.i.d. 2. Tylenol Extra Strength 1000 mg p.o. q.6 hours as needed. 3. Hydrocodone 10/325 one tab p.o. q.4 hours as needed. 4. Melatonin 9 mg p.o. at bedtime as needed. 5. Namenda 10 mg p.o. b.i.d. 6. Protonix 40 mg p.o. daily. 7. Metoprolol tartrate 100 mg p.o. b.i.d. 8. Ambien 5 mg p.o. at bedtime as needed. 9. Simethicone 80 mg p.o. daily. 10. Eliquis 5 mg p.o. b.i.d. 11. Flonase 1 spray each nare daily. 12. Claritin 10 mg p.o. daily. 13. Nystatin swish and swallow 5 mL as needed. 14. Compazine 10 mg p.o. q.6 hours as needed. 15. Vitamin B complex one cap p.o. daily. 16. Neurontin 300 mg p.o. daily. 17. Zofran 8 mg p.o. every 8 hours p.r.n. Discontinued medications: 1. Keppra 500 mg p.o. b.i.d. 2. Ibuprofen 800 mg p.o. 4 times a day. HISTORY OF PRESENT ILLNESS/HOSPITAL COURSE: The patient is a 19-year-old male with a past medical history of stage IV testicular cancer with metastases to the brain and liver and hypertension, who presented after a probable seizure. History was originally obtained from the patient's mom. On the morning of admission, the patient's service dog was barking while the patient was sleeping. Mom thought the dog needed to use the restroom, so took the dog out. When she brought the dog back in, the dog continued barking. The patient was found to be on the ground between his bed and dresser. The patient does not remember this episode and was very tired and lethargic after the event. Last seizure was October 2019, but he has been having increasing episodes where he had neurologic symptoms like not being able to talk or having one of his extremities "freezing" for a short amount of time. This could possibly represent focal seizures. The patient's only complaint is nausea and vomiting. He denies any recent illnesses or medication noncompliance. He had not been able to follow up outpatient with a neurologist. In the ED, the patient received 8 mg of Zofran, 1 g of Keppra. Neurology was consulted from the ED and saw the patient with recommendations to do brain MRI, EEG with results noted above. The patient did well, had no events as per tele, and had no additional seizures. The patient was instructed to increase his Keppra to 1 g b.i.d. to follow up outpatient with neurologist. DISPOSITION: Stable. DISCHARGE INSTRUCTIONS: 1. Location: Home. 2. Diet: Regular diet. 3. Activity: Activity as tolerated. 4. Followup: Follow up with primary care provider within 14 days for hospital followup and Dr. Ibarra for outpatient neurology followup. Job ID: [id number] [facility]
--- NOTE | 2020-09-23 14:22 | EKG ---
Test Reason : Blood Pressure : / mmHG Vent. Rate : 112 BPM Atrial Rate : 112 BPM P-R Int : 142 ms QRS Dur : 096 ms QT Int : 334 ms P-R-T Axes : 013 009 004 degrees QTc Int : 455 ms Sinus tachycardia Otherwise normal ECG Confirmed by CHARLES BARNARD DO ([id number]), technical writer and editor NATALYA MITTAL ([id number]) on 09/23/2020 2:22:21 PM Referred By: Confirmed By:CHARLES BARNARD DO
== END 2020-09-22 18:35 | disposition home or self-care (01) ==
LOC: ERS 08:23 → ERHOLD 10:52 → 2NO 14:33
PROVIDERS: ADMIT Family Medicine; ATTEND Family Medicine
DX: G93.40 Encephalopathy, unspecified (principal); C62.90 Malignant neoplasm of unspecified testis, unspecified whether descended or undescended; C79.31 Secondary malignant neoplasm of brain; C78.7 Secondary malignant neoplasm of liver and intrahepatic bile duct; I10 Essential (primary) hypertension; Z79.01 Long term (current) use of anticoagulants; Z79.899 Other long term (current) drug therapy; Z20.822 Contact with and (suspected) exposure to COVID-19; Z66 Do not resuscitate
CPT/HCPCS: 36415; 70450; 70553; 71045; 80053; 80177; 83735; 84484; 85025; 87635; 93005; 94760; 95712; 95819; 95957; 96365; 96375; A9579; G0378; J1953; J2405; U0003; U0005

== ENCOUNTER 2021-01-16 02:47 | Emergency (ER) | payer OTHER ==
[2021-01-16 03:32] LABS: #Eosinphils 0.1 thou/uL (0.0-0.7); #Lymphocytes 1.5 thou/uL (1.20-3.40); #Monocytes 0.6 thou/uL (0.11-0.59); #Neutrophils 5.2 thou/uL (1.40-6.50); %Basophils 0.2 % (0.0-1.0); %Eosinophils 1.8 % (0.0-10.0); %Lymphocytes 20.1 % (21.0-51.0); %Monocytes 7.5 % (0.0-10.0); %Neutrophils 70.4 % (42.0-75.0); Hemoglobin 13.3 g/dL (14.0-18.0); Mean Corpuscular HGB CONC 33.9 g/dL (32.0-36.0); Mean Corpuscular Hemoglobin 28.6 pg (27.0-31.0); Mean Corpuscular Volume 84.3 fL (78.0-98.0); Mean Platelet Volume 8.7 fL (7.4-10.4); Platelet Count 185 thou/uL (130-400); RBC Distribution Width 13.6 % (11.5-14.5); Red Blood Cell (RBC) Count 4.64 mill/uL (4.70-6.10); White Blood Cell (WBC) Count 7.4 thou/uL (4.8-10.8)
[2021-01-16 03:53] LABS: ALT (SGPT) 31 U/L (8-55); AST (SGOT) 20 U/L (5-34); Alkaline Phosphatase 71 U/L (40-110); Anion Gap 10 mmol/L (10-20); BUN (Urea Nitrogen) 12 mg/dL (8.9-20.6); Bilirubin, Total 0.7 mg/dL (0.2-1.2); Calc. Creatinine Clearance 0 mL/min (70-130); Calcium 9.3 mg/dL (7.8-10.44); Carbon Dioxide 25 mmol/L (22-29); Chloride 105 mmol/L (98-107); Globulin 2.6 g/dL (2.4-3.5); Glucose 125 mg/dL (70-105); Potassium 3.6 mmol/L (3.5-5.1); Protein, Total 6.6 g/dL (6.0-8.3); Sodium 136 mmol/L (136-145)
[2021-01-16 06:01] LABS: Bilirubin Negative (Negative); Blood, Urine Negative (Negative); Clarity Clear (Clear); Glucose, Urine (Dipstick) Normal (Negative); Ketone, Urine Negative (Negative); Leukocyte Negative Leu/uL (Negative); Nitrite Negative (Negative); Protein, Urine (Dipstick) Negative (Neg-Trace); Specific Gravity, Urine 1.013 (1.002-1.036); Urobilinogen Normal mg/dL (Less than 2); pH, Urine 5.5 (5.0-9.0)
== END 2021-01-16 06:30 | disposition home or self-care (01) ==
LOC: ERS 02:47
DX: R56.9 Unspecified convulsions (principal)
CPT/HCPCS: 70450; 80053; 81003; 85025; J1642

== ENCOUNTER 2021-01-16 15:43 | Observation (INO) | payer OTHER ==
[2021-01-16] MEDS ORDERED: HYDROcodone/Acetaminophen 10/325 mg Tablet PO PRN (18:27)
[2021-01-16] MEDS ORDERED: Ondansetron ODT 4 MG TAB PO PRN (18:27)
[2021-01-16] MEDS ORDERED: Ondansetron PF 4 MG/2 ML Vial IVP PRN (18:27)
[2021-01-16] MEDS ORDERED: Zolpidem Tartrate 5 MG TAB PO PRN (18:39)
[2021-01-16] MEDS ORDERED: Melatonin 3 MG TAB PO PRN (18:39)
[2021-01-16 18:40] VITALS: BMI 33.4
[2021-01-16] MEDS ORDERED: Lorazepam 2 MG/ML VIAL SLOW IVP PRN (18:43)
[2021-01-16] MEDS ORDERED: Diazepam 2.5 MG GEL PR PRN (18:43)
[2021-01-16] MEDS ORDERED: levETIRAcetam 500 MG TAB PO SCH ×2 (19:15→21:00)
[2021-01-16] MEDS: Gabapentin 300 MG CAP PO SCH (20:27)
[2021-01-16] MEDS: Acetaminophen 325 MG TAB PO PRN (20:28)
[2021-01-16] MEDS: Apixaban 5 MG TAB PO SCH (20:28)
[2021-01-16] MEDS: Metoprolol Tartrate 100 MG TAB PO SCH (22:19)
[2021-01-17 04:54] LABS: #Eosinphils 0.1 thou/uL (0.0-0.7); #Lymphocytes 1.6 thou/uL (1.20-3.40); #Monocytes 0.5 thou/uL (0.11-0.59); #Neutrophils 2.5 thou/uL (1.40-6.50); %Basophils 0.7 % (0.0-1.0); %Lymphocytes 33.4 % (21.0-51.0); %Monocytes 9.4 % (0.0-10.0); %Neutrophils 53.5 % (42.0-75.0); Hemoglobin 13.2 g/dL (14.0-18.0); Mean Corpuscular HGB CONC 32.9 g/dL (32.0-36.0); Mean Corpuscular Hemoglobin 28.1 pg (27.0-31.0); Mean Corpuscular Volume 85.6 fL (78.0-98.0); Mean Platelet Volume 8.6 fL (7.4-10.4); Platelet Count 155 thou/uL (130-400); RBC Distribution Width 13.7 % (11.5-14.5); Red Blood Cell (RBC) Count 4.69 mill/uL (4.70-6.10); White Blood Cell (WBC) Count 4.8 thou/uL (4.8-10.8)
[2021-01-17 05:20] LABS: ALT (SGPT) 28 U/L (8-55); AST (SGOT) 18 U/L (5-34); Albumin 3.8 g/dL (3.5-5.0); Alkaline Phosphatase 68 U/L (40-110); Anion Gap 12 mmol/L (10-20); BUN (Urea Nitrogen) 10 mg/dL (8.9-20.6); Bilirubin, Total 0.7 mg/dL (0.2-1.2); Calc. Creatinine Clearance 258 mL/min (70-130); Calcium 9.2 mg/dL (7.8-10.44); Carbon Dioxide 23 mmol/L (22-29); Chloride 107 mmol/L (98-107); Globulin 2.6 g/dL (2.4-3.5); Glucose 95 mg/dL (70-105); Potassium 3.7 mmol/L (3.5-5.1); Protein, Total 6.4 g/dL (6.0-8.3); Sodium 138 mmol/L (136-145)
[2021-01-17] MEDS ORDERED: levETIRAcetam 500 MG TAB PO SCH ×2 (06:00→21:00)
[2021-01-17] MEDS ORDERED: Prevnar 13-Val Conj/PF 0.5 ML SYRINGE IM ONE (09:00)
[2021-01-17] MEDS ORDERED: Enoxaparin Sodium 40 MG/0.4 ML SYRINGE SC SCH (09:00)
[2021-01-17 10:10] LABS: Amphetamine Not Detected (NotDetected); Barbiturates Screen Not Detected (NotDetected); Benzodiazepine Screen Not Detected (NotDetected); Cocaine Metabolite Screen Not Detected (NotDetected); Medtox Control Line Valid? VALID (VALID); Medtox Reader # READER 4; Methadone Not Detected (NotDetected); Methamphetamine Not Detected (NotDetected); Opiate Screen Not Detected (NotDetected); Oxycodone Screen Not Detected (NotDetected); Phencyclidine (PCP) Not Detected (NotDetected); THC/Cannabinoid Screen Not Detected (NotDetected); Tricyclic Screen Not Detected (NotDetected)
[2021-01-17] MEDS: Gabapentin 300 MG CAP PO SCH ×2 (10:58→16:38)
[2021-01-17] MEDS: Apixaban 5 MG TAB PO SCH (11:00)
[2021-01-17] MEDS: Metoprolol Tartrate 100 MG TAB PO SCH (11:00)
[2021-01-17 12:53] LABS: SARS-CoV-2 PCR NAA for Saliva Not Detected (NotDetected)
[2021-01-17] MEDS: Acetaminophen 325 MG TAB PO PRN (14:44)
[2021-01-17 15:58] VITALS: BP 111/58; TEMP 98
[2021-01-17] MEDS ORDERED: Lidocaine 5% Patch TD SCH (18:15)
== END 2021-01-17 19:10 | disposition home or self-care (01) ==
LOC: 2SE 17:22
PROVIDERS: ADMIT Family Medicine; ATTEND Family Medicine
DX: R56.9 Unspecified convulsions (principal); C62.90 Malignant neoplasm of unspecified testis, unspecified whether descended or undescended; C79.31 Secondary malignant neoplasm of brain; C78.7 Secondary malignant neoplasm of liver and intrahepatic bile duct; C78.00 Secondary malignant neoplasm of unspecified lung; J30.2 Other seasonal allergic rhinitis; M54.9 Dorsalgia, unspecified; I10 Essential (primary) hypertension; Z79.01 Long term (current) use of anticoagulants; Z79.51 Long term (current) use of inhaled steroids; Z79.899 Other long term (current) drug therapy; Z20.822 Contact with and (suspected) exposure to COVID-19
CPT/HCPCS: 36415; 70450; 70553; 72072; 80053; 80177; 80306; 81003; 82550; 84146; 85025; 87635; 96374; G0378; J1642; U0003; U0005

== ENCOUNTER 2022-04-05 14:00 | Emergency (ER) | payer OTHER, MEDICAID ==
[2022-04-05] MEDS ORDERED: Iopamidol-370 76% 500 ML 1 ML ONE (15:32)
[2022-04-05 15:56] LABS: #Eosinphils 0.2 thou/uL (0.0-0.7); #Lymphocytes 1.5 thou/uL (1.20-3.40); #Monocytes 0.7 thou/uL (0.11-0.59); #Neutrophils 3.9 thou/uL (1.40-6.50); %Eosinophils 2.6 % (0.0-10.0); %Lymphocytes 23.4 % (21.0-51.0); %Monocytes 10.8 % (0.0-10.0); %Neutrophils 63.1 % (42.0-75.0); Hemoglobin 14.2 g/dL (14.0-18.0); Mean Corpuscular HGB CONC 33.7 g/dL (32.0-36.0); Mean Corpuscular Hemoglobin 28.6 pg (27.0-31.0); Mean Corpuscular Volume 84.9 fL (78.0-98.0); Mean Platelet Volume 9.8 fL (7.4-10.4); Platelet Count 159 thou/uL (130-400); RBC Distribution Width 13.4 % (11.5-14.5); Red Blood Cell (RBC) Count 4.97 mill/uL (4.70-6.10); White Blood Cell (WBC) Count 6.2 thou/uL (4.8-10.8)
[2022-04-05 16:17] LABS: ALT (SGPT) 48 U/L (8-55); AST (SGOT) 26 U/L (5-34); Albumin 4.1 g/dL (3.5-5.0); Alkaline Phosphatase 58 U/L (40-110); Anion Gap 12 mmol/L (10-20); BUN (Urea Nitrogen) 10 mg/dL (8.9-20.6); CK (CPK) 60 U/L (30-200); Calc. Creatinine Clearance 0 mL/min (70-130); Calcium 9.1 mg/dL (7.8-10.44); Carbon Dioxide 26 mmol/L (22-29); Chloride 102 mmol/L (98-107); Estimated GFR 130; Glucose 92 mg/dL (70-105); Lipase 6 U/L (8-78); Potassium 3.7 mmol/L (3.5-5.1); Protein, Total 7.1 g/dL (6.0-8.3); Sodium 136 mmol/L (136-145)
== END 2022-04-05 18:00 | disposition home or self-care (01) ==
LOC: ERS 14:00
DX: U07.1 COVID-19 (principal); R04.2 Hemoptysis; R91.1 Solitary pulmonary nodule
CPT/HCPCS: 71275; 80053; 82550; 83690; 84484; 85025; 93005; Q9967